=== PATIENT | female | born 1940 | race Caucasian/White ===

== ENCOUNTER 2016-12-25 18:27 | Inpatient (IN) | payer OTHER, BC ==
--- NOTE | 2016-12-25 19:28 | EDPHY ---
H & P Stated Complaint: Sent by PCP for psych eval. HPI/ROS: I attempted to evaluate this patient. However the patient says that she does not want to be evaluated by a PA. She says she wants to be "seen by a real physician." I discussed this calmly with her and explained the level of care that we provide. The patient has respectfully declined and requested physician. I informed her that I will let the physicians on duty know. I was unable to perform any physical exam on this patient and have no further information to provide. Source: Patient - Personal History Tetanus Vaccine Date: two years ago - Medical/Surgical History Hx Asthma: No Hx Chronic Respiratory Disease: No Hx Diabetes: No Hx Cardiac Disease: No Hx Renal Disease: No Hx Cirrhosis: No Hx Alcoholism: No Hx HIV/AIDS: No Hx Splenectomy or Spleen Trauma: No Other PMH: Psych-Psychosis/paranoid, major depression disorder. hypothyroid, BACK PROBLEMS, HYSTERECTOMY, GALL BLADDER, Hypertension, tremor - Social History Smoking Status: Former smoker Constitutional: Initial Vital Signs Temperature (C) 98.2 F 12/25/16 18:39 Heart Rate 77 12/25/16 18:39 Respiratory Rate 18 12/25/16 18:39 Blood Pressure 181/90 H 12/25/16 18:39 O2 Sat (%) 94 12/25/16 18:39 O2 Delivery Mode Room Air Allergies/Adverse Reactions: ephedrine [Ephedrine] Allergy (Severe, Verified 01/17/16 11:43) Vomiting morphine [Morphine] Allergy (Severe, Verified 01/17/16 11:43) Vomiting prednisone [Prednisone] Allergy (Severe, Verified 01/17/16 11:43) Other-Enter Comments prochlorperazine edisylate [From Compazine] Allergy (Verified 03/07/16 12:52) Swelling/neck,face,throat prochlorperazine maleate [From Compazine] Allergy (Verified 03/07/16 12:52) Swelling/neck,face,throat Sulfa (Sulfonamide Antibiotics) Allergy (Verified 01/17/16 11:43) Rash Home Medications: Medication Instructions Recorded Cholecalciferol (Vitamin D3) 5,000 unit PO DAILY 03/05/16 [Vitamin D3] Estradiol [Estradiol 1 MG (*)] 0.5 mg PO DAILY 03/05/16 Lisinopril [Zestril 30 mg] 30 mg PO DAILY 03/05/16 Bisacodyl [Bisacodyl (*)] 5 mg PO DAILY PRN #30 tab 03/29/16 Levothyroxine [Synthroid 25 mcg 25 mcg PO DAILY10 #30 tab 03/29/16 (*)] Venlafaxine Xr [Effexor Xr 75MG 75 mg PO DAILY #30 cap 03/29/16 (*)] Venlafaxine Xr [Effexor Xr] 150 mg PO DAILY #30 cap 03/29/16 risperiDONE [Risperdal 1mg (*)] 1 mg PO HS #30 tab 03/29/16
[2016-12-25 19:39] LABS: % IMMATURE GRANULYOCYTES 0.1 % (0.0-1.1); ABSOLUTE IMMATURE GRANULOCYTES 0.01 10^3/uL (0.00-0.10); ADD DIFF? NO; ADD MORPH? NO; ADD SCAN? NO; ATYPICAL LYMPHOCYTE FLAG 20 (0-99); FRAGMENT RBC FLAG 0 (0-99); HEMATOCRIT 42.9 % (38.0-47.0); HEMOGLOBIN 13.8 g/dL (12.6-16.3); LEFT SHIFT FLG 0 (0-99); LIPEMIA HEMOLYSIS FLAG 80 (0-99); MEAN CELL HEMOGLOBIN 28.6 pg (27.9-34.1); MEAN CELL HEMOGLOBIN CONCENTR. 32.2 g/dL (32.4-36.7); MEAN CELL VOLUME 88.8 fL (81.5-99.8); MEAN PLATELET VOLUME 9.4 fL (8.7-11.7); PLATELET CLUMPS FLAG 0 (0-99); PLATELET COUNT 211 10^3/uL (150-400); RED BLOOD CELL COUNT 4.83 10^6/uL (4.18-5.33); RED CELL DISTRIBUTION WIDTH 13.2 % (11.5-15.2)
[2016-12-25 19:43] LABS: COLOR YELLOW; LEUKOCYTE ESTERASE,URINE NEGATIVE (NEGATIVE); NITRITE,URINE NEGATIVE (NEGATIVE)
--- NOTE | 2016-12-25 19:45 | EDPHY ---
H & P <Laura Miller - Last Filed: 12/26/16 02:36> Stated Complaint: Sent by PCP for psych eval. Source: Patient Exam Limitations: No limitations - Personal History Tetanus Vaccine Date: two years ago - Medical/Surgical History Hx Asthma: No Hx Chronic Respiratory Disease: No Hx Diabetes: No Hx Cardiac Disease: No Hx Renal Disease: No Hx Cirrhosis: No Hx Alcoholism: No Hx HIV/AIDS: No Hx Splenectomy or Spleen Trauma: No Other PMH: Psych-Psychosis/paranoid, major depression disorder. hypothyroid, BACK PROBLEMS, HYSTERECTOMY, GALL BLADDER, Hypertension, tremor - Family History Significant Family History: No pertinent family hx - Social History Smoking Status: Former smoker Alcohol Use: Sober Drug Use: None <Malachi Glynn - Last Filed: 12/26/16 07:18> HPI/ROS: CHIEF COMPLAINT: Confusion and paranoia HISTORY OF PRESENT ILLNESS: Patient is a 76-year-old female whose psychiatrist Dr. Yanez sent her here today from her clinic to be evaluated. She felt that she may either be decompensating in her depression or have a urinary tract infection. The patient does complain of urinary frequency and incomplete emptying. She states that this does feel similar to UTIs she has had in the past. She is on Effexor and respridol and has been taking them faithfully. She denies suicidality. She is not sure why her doctor felt that she was confused. REVIEW OF SYSTEMS: Constitutional: denies: chills, fever, recent illness, recent injury EENTM: denies: blurred vision, double vision, nose congestion Respiratory: denies: cough, shortness of breath Cardiac: denies: chest pain, irregular heart rate, lightheadedness, palpitations Gastrointestinal/Abdominal: denies: abdominal pain, diarrhea, nausea, vomiting, blood streaked stools Genitourinary: denies: dysuria, frequency, hematuria, pain Musculoskeletal: denies: joint pain, muscle pain Skin: denies: lesions, rash, jaundice, bruising Neurological: denies: headache, numbness, paresthesia, tingling, dizziness, weakness Hematologic/Lymphatic: denies: blood clots, easy bleeding, easy bruising Immunologic/allergic: denies: HIV/AIDS, transplant EXAM: GENERAL: Well-appearing, well-nourished and in no acute distress. HEAD: Atraumatic, normocephalic. EYES: Pupils equal round and reactive to light, extraocular movements intact, sclera anicteric, conjunctiva are normal. ENT: TMs normal, nares patent, oropharynx clear without exudates. Moist mucous membranes. NECK: Normal range of motion, supple without lymphadenopathy or JVD. LUNGS: Breath sounds clear to auscultation bilaterally and equal. No wheezes rales or rhonchi. HEART: Regular rate and rhythm without murmurs, rubs or gallops. ABDOMEN: Soft, nontender, normoactive bowel sounds. No guarding, no rebound. No masses appreciated. BACK: No CVA tenderness, no spinal tenderness, step-offs or deformities EXTREMITIES: Normal range of motion, no pitting or edema. No clubbing or cyanosis. NEUROLOGICAL: Cranial nerves II through XII grossly intact. Normal speech, normal gait. 5/5 strength, normal movement in all extremities, normal sensation PSYCH: Depressed affect, answers questions appropriately, does not seem to be responding to external stimuli. SKIN: Warm, dry, normal turgor, no visible rashes or lesions. (Malachi Glynn) Constitutional: Initial Vital Signs Temperature (C) 36.8 C 12/25/16 18:39 Heart Rate 77 12/25/16 18:39 Respiratory Rate 18 12/25/16 18:39 Blood Pressure 181/90 H 12/25/16 18:39 O2 Sat (%) 94 12/25/16 18:39 O2 Delivery Mode Room Air Allergies/Adverse Reactions: ephedrine [Ephedrine] Allergy (Severe, Verified 01/17/16 11:43) Vomiting morphine [Morphine] Allergy (Severe, Verified 01/17/16 11:43) Vomiting prednisone [Prednisone] Allergy (Severe, Verified 01/17/16 11:43) Other-Enter Comments prochlorperazine edisylate [From Compazine] Allergy (Verified 03/07/16 12:52) Swelling/neck,face,throat prochlorperazine maleate [From Compazine] Allergy (Verified 03/07/16 12:52) Swelling/neck,face,throat Sulfa (Sulfonamide Antibiotics) Allergy (Verified 01/17/16 11:43) Rash Home Medications: Medication Instructions Recorded Cholecalciferol (Vitamin D3) 5,000 unit PO DAILY 03/05/16 [Vitamin D3] Estradiol [Estradiol 1 MG (*)] 0.5 mg PO DAILY 03/05/16 Lisinopril [Zestril 30 mg] 30 mg PO DAILY 03/05/16 Bisacodyl [Bisacodyl (*)] 5 mg PO DAILY PRN #30 tab 03/29/16 Levothyroxine [Synthroid 25 mcg 25 mcg PO DAILY10 #30 tab 03/29/16 (*)] Venlafaxine Xr [Effexor Xr 75MG 75 mg PO DAILY #30 cap 03/29/16 (*)] Venlafaxine Xr [Effexor Xr] 150 mg PO DAILY #30 cap 03/29/16 risperiDONE [Risperdal 1mg (*)] 1 mg PO HS #30 tab 03/29/16 Medical Decision Making - Diagnostics Imaging: Discussed imaging studies w/ bottle booth attendant Radiologist <Laura Miller - Last Filed: 12/26/16 02:36> <Malachi Glynn - Last Filed: 12/26/16 07:18> - Diagnostics Imaging Results: CT scan head without contrast demonstrates no acute disease, discussed with Dr. Mendoza of Radiology (Laura Miller) ED Course/Re-evaluation: 12:37 a.m.- The patient was evaluated by the mental health team after eating something. We have placed the patient on an M1 hold. The patient will require psychiatric placement for her current symptoms. She will likely be admitted to [address] [place] [address] later today. 2:37 a.m.- The patient has been accepted by Dr. Biggs at [address] [place] [address]. She was notably hypertensive, thus I have written for a dose of her usual lisinopril. CT scan was also performed showing no acute findings. (Laura Miller) 10:00 p.m. the patient is asking for food. She thinks that this may be what is causing her to be confused. 11:00 p.m. care transferred to Dr. Miller. We are awaiting evaluation and disposition. (Malachi Glynn) Differential Diagnosis: Partial list of the Differential diagnosis considered include but were not limited to; depression, confusion, psychosis, urinary tract infection, intoxication and although unlikely based on the history and physical exam, I also considered head injury, sepsis, dementia. (Malachi Glynn) - Data Points Laboratory Results: Laboratory Results 12/25/16 19:30 12/25/16 19:30 12/25/16 12/25/16 12/25/16 19:30 19:30 19:15 WBC 9.03 10^3/uL 10^3/uL (3.80-9.50) RBC 4.83 10^6/uL 10^6/uL (4.18-5.33) Hgb 13.8 g/dL g/dL (12.6-16.3) Hct 42.9 % % (38.0-47.0) MCV 88.8 fL fL (81.5-99.8) MCH 28.6 pg pg (27.9-34.1) MCHC 32.2 g/dL L g/dL (32.4-36.7) RDW 13.2 % % (11.5-15.2) Plt Count 211 10^3/uL 10^3/uL (150-400) MPV 9.4 fL fL (8.7-11.7) Neut % (Auto) 68.8 % % (39.3-74.2) Lymph % (Auto) 22.4 % % (15.0-45.0) [place] % (Auto) 8.1 % % (4.5-13.0) Eos % (Auto) 0.3 % L % (0.6-7.6) Baso % (Auto) 0.3 % % (0.3-1.7) Nucleat RBC Rel Count 0.0 % % (0.0-0.2) Absolute Neuts (auto) 6.21 10^3/uL 10^3/uL (1.70-6.50) Absolute Lymphs (auto) 2.02 10^3/uL 10^3/uL (1.00-3.00) Absolute Monos (auto) 0.73 10^3/uL 10^3/uL (0.30-0.80) Absolute Eos (auto) 0.03 10^3/uL 10^3/uL (0.03-0.40) Absolute Basos (auto) 0.03 10^3/uL 10^3/uL (0.02-0.10) Absolute Nucleated RBC 0.00 10^3/uL 10^3/uL (0-0.01) Immature Gran % 0.1 % % (0.0-1.1) Immature Gran # 0.01 10^3/uL 10^3/uL (0.00-0.10) Sodium 135 mEq/L mEq/L (134-144) Potassium 4.6 mEq/L mEq/L (3.5-5.2) Chloride 103 mEq/L mEq/L (97-110) Carbon Dioxide 17 mEq/l L mEq/l (22-31) Anion Gap 15 mEq/L mEq/L (8-16) BUN 17 mg/dL mg/dL (7-23) Creatinine 1.0 mg/dL mg/dL (0.6-1.0) Estimated GFR 54 Glucose 78 mg/dL mg/dL (70-100) Calcium 10.2 mg/dL mg/dL (8.5-10.4) Prealbumin 26.9 mg/dL mg/dL (17.6-36.0) Urine Color YELLOW Urine Appearance CLEAR Urine pH 6.0 (5.0-7.5) Ur Specific [place] 1.011 (1.002-1.030) Urine Protein NEGATIVE (NEGATIVE) Urine Ketones TRACE H (NEGATIVE) Urine Blood NEGATIVE (NEGATIVE) Urine Nitrate NEGATIVE (NEGATIVE) Urine Bilirubin NEGATIVE (NEGATIVE) Urine Urobilinogen NEGATIVE EU EU (0.2-1.0) Ur Leukocyte Esterase NEGATIVE (NEGATIVE) Urine Glucose NEGATIVE (NEGATIVE) Salicylates < 1.0 mg/dL L mg/dL (2.0-20.0) Urine Opiates Screen NEGATIVE (NEGATIVE) Acetaminophen < 10 mcg/mL L mcg/mL (10.0-30.0) Urine Barbiturates NEGATIVE (NEGATIVE) Ur Phencyclidine Scrn NEGATIVE (NEGATIVE) Ur Amphetamine Screen NEGATIVE (NEGATIVE) U Benzodiazepines Scrn NEGATIVE (NEGATIVE) Urine Cocaine Screen NEGATIVE (NEGATIVE) U Marijuana (THC) Screen NEGATIVE (NEGATIVE) Ethyl Alcohol < 10 mg/dL mg/dL (0-10) Medications Given: Discontinued Medications Acetaminophen (Tylenol) 1,000 mg PO EDNOW ONE Stop: 12/26/16 02:30 Last Admin: 12/26/16 02:35 Dose: 500 mg Lisinopril (Zestril) 30 mg PO EDNOW ONE Stop: 12/26/16 01:46 Last Admin: 12/26/16 02:05 Dose: 30 mg Risperidone (Risperdal) 1 mg PO EDNOW ONE Stop: 12/26/16 02:18 Last Admin: 12/26/16 02:29 Dose: 1 mg Departure <Laura Miller - Last Filed: 12/26/16 02:36> <Malachi Glynn - Last Filed: 12/26/16 07:18> - Departure Disposition: [facility] IP Clinical Impression: Depression Qualifiers: Depression Type: unspecified Qualified Code(s): F32.9 - Major depressive disorder, single episode, unspecified HTN (hypertension) Qualifiers: Hypertension type: essential hypertension Qualified Code(s): I10 - Essential ( primary) hypertension Condition: Fair
[2016-12-25 20:09] LABS: ANION GAP 15 mEq/L (8-16); CALCIUM 10.2 mg/dL (8.5-10.4); CARBON DIOXIDE 17 mEq/l (22-31); CHLORIDE 103 mEq/L (97-110); ETHANOL SERUM < 10 mg/dL (0-10); GLOMERULAR FILTRATION RATE 54; GLUCOSE 78 mg/dL (70-100); POTASSIUM 4.6 mEq/L (3.5-5.2); SALICYLATE < 1.0 mg/dL (2.0-20.0); SODIUM 135 mEq/L (134-144)
[2016-12-25 20:16] LABS: PREALBUMIN 26.9 mg/dL (17.6-36.0)
[2016-12-26] MEDS ORDERED: LISINOPRIL 20 MG TAB PO ONE (01:45)
[2016-12-26] MEDS ORDERED: risperiDONE 1 MG TAB PO ONE (02:17)
[2016-12-26] MEDS ORDERED: ACETAMINOPHEN 500 MG TAB PO ONE ×2 (02:29→02:35)
[2016-12-26] MEDS ORDERED: ACETAMINOPHEN 325 MG TAB PO PRN (03:27)
[2016-12-26] MEDS ORDERED: MAGNESIUM HYDROXIDE 30 ML UDCUP PO PRN (03:27)
[2016-12-26] MEDS ORDERED: MAG HYDROX/AL HYDROX/SIMETH 30 ML UDCUP PO PRN (03:27)
[2016-12-26] MEDS ORDERED: NS 1,000 ML IV ONE (07:59)
[2016-12-26] MEDS ORDERED: LIDOCAINE 2% 5 ML SDV ID ONE (07:59)
[2016-12-26] MEDS ORDERED: ONDANSETRON DISINTEGRATING 4 MG TAB PO ONE (07:59)
[2016-12-26] MEDS ORDERED: CITRIC ACID/SODIUM CITRATE 30 ML UDCUP PO ONE (07:59)
[2016-12-26] MEDS: VENLAFAXINE XR 150 MG CAP PO SCH ×2 (09:01→11:59)
[2016-12-26] MEDS: THEOPHYLLINE ORAL SOLUTION 80 MG/15 ML UDCUP PO ONE ×2 (11:54→12:55)
--- NOTE | 2016-12-26 14:08 | BCON ---
[f rep st] BEHAVIORAL HEALTH CONSULTATION INTERNAL MEDICINE CONSULTATION DATE OF CONSULTATION: 12/26/2016 REFERRING PHYSICIAN: Kaylee Biggs MD REASON FOR CONSULTATION: Medical clearance for inpatient behavioral health stay. HISTORY OF PRESENT ILLNESS: The patient was referred to the emergency department by her psychiatrist for evaluation regarding depression. Urinary tract infection was also a consideration. Per the emergency department note, the patient had complained of urinary frequency and incomplete emptying. She was evaluated by the mental health team and had laboratory evaluation per the emergency department. Urinalysis was normal but for trace ketones and she was admitted for further psychiatric care. Currently, she complains of feeling hot and she says that her right elbow feels uncomfortable against the bed sheets. PAST MEDICAL HISTORY: 1. Hypertension. 2. Chronic kidney disease stage 3. 3. Essential tremor. 4. Depression and anxiety. 5. Postmenopausal state on estrogen replacement. 6. Colonic adenomatous polyposis. PAST SURGICAL HISTORY: 1. Cholecystectomy. 2. Appendectomy. 3. Colonoscopy x2 regarding the colonic polyposis. MEDICATIONS: Prior to admission: 1. Risperidone 1 mg p.o. q.h.s. 2. Venlafaxine XR 225 mg p.o. q. day. 3. Lisinopril 30 mg p.o. q. day. 4. Levothyroxine 25 mcg p.o. q. day. 5. Estradiol 0.5 mg p.o. q. day. 6. Cholecalciferol 5000 units p.o. q. day. 7. Bisacodyl 5 mg p.o. q. day p.r.n. ALLERGIES: Listed to ephedrine, morphine, prednisone, prochlorperazine, and sulfa antibiotics. SOCIAL HISTORY: She lives alone. She reports she has had a boyfriend recently. She has support from friends as well as local adult children. She is a former smoker. She does not use alcohol. FAMILY HISTORY: Noncontributory. REVIEW OF SYSTEMS: Other than as in HPI, a 10-point review of systems was negative. PHYSICAL EXAM: VITAL SIGNS: Blood pressure was 162/74 today at 3:45 a.m., heart rate was 75, respiratory rate was 14, oxygen saturation was 93% on room air, temperature was 36.7 degrees centigrade. Her weight is 65.8 kg for a body mass index of 22. GENERAL: This is a well-nourished, well-developed woman, appears her chronologic age. Cooperative and in no acute distress with markedly slow processing. HEENT: Extraocular movements are intact. Pupils are equal, round, and reactive to light. Mucous membranes are moist. Dentition is in good condition. NECK: Supple. HEART: There is a regular rate and rhythm with no murmurs, rubs, or gallops. LUNGS: Clear to auscultation bilaterally. ABDOMEN: Soft, nontender, nondistended with normoactive bowel sounds. EXTREMITIES: There is no cyanosis, clubbing, or edema. Radial and dorsalis pedis pulses are 2+ bilaterally. NEUROLOGIC: She is alert and oriented x3. She has slow processing with delayed responses to questions. Cranial nerves 2-12 are grossly intact. There is no focal weakness. Sensation is intact to light touch. She has a resting tremor of the upper extremities and head. LABORATORY STUDIES: Drawn in the emergency department: CBC was overall within normal limits but for a slightly low mean cellular hemoglobin concentration of 32.2 of no clinical significance. Additionally, she had a relative decrement of eosinophils at 0.03. Serum chemistry revealed a slightly low carbon dioxide at 17. Otherwise renal function, electrolytes and pre-albumin were within normal limits. Urinalysis revealed trace ketones. Otherwise urinalysis was normal. Toxicology screen in the serum was negative for salicylates, acetaminophen or ethyl alcohol. Toxicology screen in the urine was negative for any substances of abuse. ASSESSMENT/RECOMMENDATIONS: 1. Psychiatric issues pending further evaluation and management per Psychiatry and the mental health team. 2. Hypertension. On her previous inpatient stay last year in the summer, she had adequate blood pressure control on lisinopril. Blood pressure is significantly elevated. I have added amlodipine 5 mg QHS. Continue to monitor. 3. Postmenopausal. Her feeling hot and with irritation to the skin today may be due to postmenopausal symptoms as she has not received her hormone replacement today. Advise continuing estradiol. 4. Essential tremor. Per chart review, she was previously treated with primidone but this is not on her home medication list. If blood pressure persists elevated, consider adding propranolol which would both help blood pressure and help the tremor and consider avoiding medications which could worsen tremor. 5. Hypothyroidism. She had a normal TSH in October. Continue current thyroid replacement. 6. Chronic kidney disease stage 3. Her creatinine was normal but estimated GFR was 54, consistent with mild chronic kidney disease. 7. Urinary frequency with a normal urinalysis but for ketones which might indicate reduced nutrition in recent days. I will order a bladder scan to determine whether or not there is a component of urinary retention which could be contributing. I see no medical contraindications to the patient's continued stay on the inpatient behavioral health unit or to any psychiatric medications or procedures. Thank you very much for including me in the care of this patient, and please do not hesitate to contact me or the hospitalist service should there be need for further medical evaluation. /[id number]/MODL MTDD
--- NOTE | 2016-12-26 16:23 | BAPA ---
[f rep st] ADMISSION PSYCHIATRIC ASSESSMENT DATE OF SERVICE: 12/26/2016 REASON FOR ADMISSION: Patient is a 76-year-old female with a history of severe recurrent major depression with psychosis. She is known to me from previous inpatient and outpatient treatmen ts. She presented to the emergency department on referral from her outpatient psychiatrist, Dr. Bill Bhatti, after he saw her in his office earlier in the day. He noted her to be more depressed and acutely paranoid. She believed that the staff at the facility in which she lives are spying on her and talking about her behind her back. These are familiar paranoid delusions that she develops when she is becoming depressed. She also believes that the staff here at the hospital are not who they say they are and that we are actors pretending to be the people we are impersonating. She believes that she was brought here for us to do medical experiments on her brain and is refusing all necessar y treatments. She has a history of very similar symptoms in the past when she is depressed, and the se symptoms came on full force in the last week. She presented last week for an ECT treatment and r eports 1 episode of mild paranoia that lasted only about an hour. She was treated, felt better, and then over the course of the next week precipitously declined. Communication from her daughter evangelist cated that she also believes she was falling into a paranoid psychosis. Today, the patient is minimally communicative, states that I am not real and that I am an actor and I am trying to harm or kill her. She refused medications and refuses ECT treatment. PAST PSYCHIATRIC HISTORY: Significant for numerous previous psychiatric hospitalizations, with 5 in the last 2-1/2 years. She was last at this facility from 03/05/2016 to 03/29/2016 and has been und ergoing outpatient maintenance ECT since that time. She had been relatively stable and actually was doing very well over the last 3 months before this recent decline. ALLERGIES: Ephedrine, morphine, prednisone, prochlorperazine. PAST MEDICAL HISTORY: Significant for hypothyroidism and essential tremor. SOCIAL HISTORY: Patient has been twice. Currently lives in assisted living facility in [facility]. She has 2 daughters who live in [place] and are her primary supports. 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 She has no significant bailey bstance use history. FAMILY HISTORY: Shows extensive depression and suicide. Her brother, father, paternal uncle, son, and 2 daughters have all suffered from depression, and her son, brother, and uncle all committed gabi cide. She has a first cousin with bipolar disorder. ADMISSION LABORATORY: CBC is normal. Serum chemistries are normal. Urinalysis shows no evidence o f infection. Urine drug screen is negative for all substances. Alcohol is less than detectable. MENTAL STATUS EXAMINATION: Reveals an unkempt female dressed in hospital garb. She is no rmally very neatly groomed and dressed. She is guarded and paranoid, staring at me angrily and spea mary rarely. She repeats that I am not Dr. Ayala as I am not wearing the same glasses I usually d o, although I am. She states that I want to do "brain experiments" and that I want to kill her. Sh e demonstrates significant psychomotor retardation. Her affect is constricted, dysphoric, irritable , stable. Her mood is described as "terrible." Her thought process is disorganized. Her thought c ontent reveals paranoid and persecutory ideations and ideas of reference. She will not answer quest ions in regard to suicide. She is alert and oriented to person, place, time, and situation, though her attention and concentration are poor. There is no evidence of delirium. Her intellect is above average, as evidenced by her educational and occupational history, fund of knowledge, and vocabular y. Her current insight and judgment are very poor. IMPRESSION: 1. Major depressive disorder, recurrent, severe, with psychosis. 2. Recurrent illness, chronic illness. 3. Hypothyroidism. 4. Tremor. The patient is a 76-year-old female who has severe and brittle major depression. She new client banking services clerk hed precipitously over the last week despite ongoing medication and ECT treatments. She is currentl y depressed and psychotic and needs to do an acute course of ECT as medications alone have shown to be ineffective in the past. She is currently refusing medications and ECT, however, due to her acut e psychosis. For this reason, we will place her on a short-term certification and petition the cour t for involuntary ECT treatment. Estimated length of stay is 14 days. /[id number]/MODL
[2016-12-26] MEDS: risperiDONE 1 MG TAB PO SCH (21:51)
[2016-12-26] MEDS: amLODIPine BESYLATE 5 MG TAB PO SCH (21:52)
[2016-12-27] MEDS ORDERED: ESTRADIOL 1 MG TAB PO SCH (10:15)
[2016-12-27] MEDS ORDERED: NON-FORMULARY NEW DRUG (Lisinopril [Zestril 30 Mg] 30 MG) PO SCH (10:15)
[2016-12-27] MEDS ORDERED: NON-FORMULARY NEW DRUG (Cholecalciferol (Vitamin D3) [Vitamin D3] 5,000 UNIT) PO SCH (10:15)
[2016-12-27] MEDS: LISINOPRIL 10 MG TAB PO SCH (11:38)
[2016-12-27] MEDS: LEVOTHYROXINE 25 MCG TAB PO SCH (11:39)
[2016-12-27] MEDS: VENLAFAXINE XR 150 MG CAP PO SCH (11:40)
[2016-12-27] MEDS: CHOLECALCIFEROL VIT D3 2,000 UNITS TAB/CAP PO SCH (11:41)
--- NOTE | 2016-12-27 17:42 | SOAPPROG ---
SOJEAN Progress Note Assessment/Plan: Assessment: Plan: 12/27/16 17:40 Acute psychosis has ebbed. She is currently able to provide informed consent for treatment including ECT. Will proceed tomorrow as long as she doesn't regress. Subjective: Pt seen, discussed with staff. Much more reasonable today. Was able to talk to her daughter Magy who was grounding. She now states, "I was really paranoid yesterday. I can't believe I thought you were trying to hurt me. I'm just so afraid." We discussed at length her illness and need for treatment including ECT. she states she is interested in doing ECT tomorrow and knows that she needs it. She no longer believes we are trying to harm her. She remains very anxious, though able to interact appropriately with staff and fellow patients. She ate breakfast with a patient who is receiving ECT and was encouraged by this interaction. Objective: Vital Signs Temp Pulse Resp BP Pulse Ox 36.4 C 77 15 133/65 H 95 12/27/16 04:11 12/27/16 04:11 12/27/16 04:11 12/27/16 04:11 12/27/16 04:11 - Time Spent With Patient Time Spent With Patient: 25" - Pending Discharge Pending Discharge Within 24 Hours: No Pending Discharge Within 48 Hours: No ICD10 Worksheet Patient Problems: Problems Problem Status Onset Depression Acute HTN (hypertension) Acute Major depressive disorder, recurrent episode, severe, with psychosis Acute
[2016-12-27] MEDS: amLODIPine BESYLATE 5 MG TAB PO SCH (21:18)
[2016-12-27] MEDS: ESTRADIOL 0.5 MG TAB PO SCH (22:00)
[2016-12-27] MEDS: risperiDONE 1 MG TAB PO SCH (22:00)
[2016-12-28] MEDS: LEVOTHYROXINE 25 MCG TAB PO SCH (06:17)
[2016-12-28] MEDS: LISINOPRIL 10 MG TAB PO SCH (06:17)
[2016-12-28] MEDS: CHOLECALCIFEROL VIT D3 2,000 UNITS TAB/CAP PO SCH (12:26)
[2016-12-28] MEDS: VENLAFAXINE XR 150 MG CAP PO SCH (12:27)
--- NOTE | 2016-12-28 14:43 | SOAPPROG ---
SOAP Progress Note Assessment/Plan: Assessment: Plan: 12/27/16 17:40 Acute psychosis has ebbed. She is currently able to provide informed consent for treatment including ECT. Will proceed tomorrow as long as she doesn't regress. 12/28/16 14:42 Remains psychotically depressed. CCM including ECT. Subjective: Pt seen, discussed with staff. Remains paranoid with lots of negative perseverations. Underwent bilateral ECT this morning without complication after exhaustive review of consent. Able to provide informed consent despite her paranoia. Compliant with meds. Objective: Vital Signs Temp Pulse Resp BP Pulse Ox 36.6 C 62 12 136/63 H 96 12/28/16 12:26 12/28/16 12:26 12/28/16 12:26 12/28/16 12:26 12/28/16 12:26 MSE: Agitated, anxious, irritable. Affect is constricted, dysphoric, stable. Mood is "terrible." TP linear though perseverative. TC reveals paranoia, worried we are actors at times. - Time Spent With Patient Time Spent With Patient: 35" - Pending Discharge Pending Discharge Within 48 Hours: No ICD10 Worksheet Patient Problems: Problems Problem Status Onset Depression Acute HTN (hypertension) Acute Major depressive disorder, recurrent episode, severe, with psychosis Acute
[2016-12-28] MEDS: risperiDONE 1 MG TAB PO SCH (22:48)
[2016-12-28] MEDS: ESTRADIOL 0.5 MG TAB PO SCH (22:48)
[2016-12-28] MEDS: amLODIPine BESYLATE 5 MG TAB PO SCH ×2 (22:48→22:54)
[2016-12-29] MEDS: LISINOPRIL 10 MG TAB PO SCH (08:26)
[2016-12-29] MEDS: VENLAFAXINE XR 150 MG CAP PO SCH (08:27)
[2016-12-29] MEDS: VENLAFAXINE XR 75 MG CAP PO SCH (08:27)
[2016-12-29] MEDS: CHOLECALCIFEROL VIT D3 2,000 UNITS TAB/CAP PO SCH (08:28)
[2016-12-29] MEDS: LEVOTHYROXINE 25 MCG TAB PO SCH (08:32)
--- NOTE | 2016-12-29 12:17 | SOAPPROG ---
SOAP Progress Note Assessment/Plan: Assessment: Plan: 12/29/16 12:09 DAY ' UPDATE/EXAM: 76 yo WF with known chronic h/o recurrent TRD; last stabilized with acute ECT course 03/05/16 - and followed up wiTH maintenance ECT but more experienced brkthru deressive sx of progressive intensity leading to current admission; has had first ECT 12/28 WITH RX # 2 12/31; c/w cares and meds per Nursing report; on exam is dysphoric, flat, but engageable, no overt psychosis and denies SI; + about family visiting over weekend. ASSESSMENT/PLAN: residual depressive acuity and cooperating with early ECT acute course intervention/ no change in meds and management d/w Nursing in Rounds; will change Synthroid dosing to q AM Objective: Vital Signs Temp Pulse Resp BP Pulse Ox 36.6 C 14 L 14 111/53 L 93 12/29/16 07:52 12/29/16 07:52 12/29/16 07:52 12/29/16 07:52 12/29/16 07:52 ICD10 Worksheet Patient Problems: Problems Problem Status Onset Depression Acute HTN (hypertension) Acute Major depressive disorder, recurrent episode, severe, with psychosis Acute
[2016-12-29] MEDS: amLODIPine BESYLATE 5 MG TAB PO SCH (20:56)
[2016-12-29] MEDS: ESTRADIOL 0.5 MG TAB PO SCH (22:14)
[2016-12-29] MEDS: risperiDONE 1 MG TAB PO SCH (22:14)
[2016-12-30] MEDS: LEVOTHYROXINE 25 MCG TAB PO SCH (05:48)
[2016-12-30] MEDS: CHOLECALCIFEROL VIT D3 2,000 UNITS TAB/CAP PO SCH (08:32)
[2016-12-30] MEDS: VENLAFAXINE XR 150 MG CAP PO SCH (08:34)
[2016-12-30] MEDS: VENLAFAXINE XR 75 MG CAP PO SCH (08:34)
[2016-12-30] MEDS: LISINOPRIL 10 MG TAB PO SCH (08:36)
--- NOTE | 2016-12-30 13:08 | SOAPPROG ---
SOAP Progress Note Assessment/Plan: Assessment: Plan: 12/29/16 12:09 DAY UPDATE/EXAM: 76 yo WF with known chronic h/o recurrent TRD; last stabilized with acute ECT course 03/05/16 - and followed up with maintenance ECT but more experienced brkthru depressive sx of progressive intensity leading to current admission; has had first ECT 12/28 WITH RX # 2 12/31; c/w cares and meds per Nursing report; on exam is dysphoric, flat, but engageable, no overt psychosis and denies SI; + about family visiting over weekend. ASSESSMENT/PLAN: residual depressive acuity and cooperating with early ECT acute course intervention/ no change in meds and management d/w Nursing in Rounds; will change Synthroid dosing to q AM 12/30/16 13:01 DAY UPDATE/EXAM: Nursing reports pt is c/w cares and meds , remains in control, isolative and quiet; would not respond to CC yesterday/ more verbal with me on direct contact; again flat and dysphoric, nonpsychotic and denies SI; does express awareness of ECT responsiveness historically and hopeful of responding again, aware of rx #2 tomorrow; responsive to reintegratrive inputs during the session. ASSESSMENT/PLAN: little change in mental status today as referenced yesterday - c/w residual depressive acuity/ continue current meds and management plan; ECT # 2 tomorrow Objective: Vital Signs Temp Pulse Resp BP Pulse Ox 36.6 C 14 L 14 111/53 L 93 12/29/16 07:52 12/29/16 07:52 12/29/16 07:52 12/30/16 08:36 12/29/16 07:52 ICD10 Worksheet Patient Problems: Problems Problem Status Onset Depression Acute HTN (hypertension) Acute Major depressive disorder, recurrent episode, severe, with psychosis Acute
[2016-12-30] MEDS: risperiDONE 1 MG TAB PO SCH ×4 (20:41→23:12)
[2016-12-30] MEDS: ESTRADIOL 0.5 MG TAB PO SCH ×4 (20:41→23:07)
[2016-12-30] MEDS: amLODIPine BESYLATE 5 MG TAB PO SCH ×2 (20:41→22:19)
[2016-12-30] MEDS ORDERED: THEOPHYLLINE ORAL SOLUTION 80 MG/15 ML UDCUP PO ONE (22:33)
[2016-12-30] MEDS ORDERED: LIDOCAINE 2% 5 ML SDV ID ONE (22:33)
[2016-12-30] MEDS ORDERED: NS 1,000 ML IV ONE (22:33)
[2016-12-30] MEDS ORDERED: ONDANSETRON DISINTEGRATING 4 MG TAB PO ONE (22:33)
[2016-12-30] MEDS ORDERED: CITRIC ACID/SODIUM CITRATE 30 ML UDCUP PO ONE (22:33)
[2016-12-31] MEDS: amLODIPine BESYLATE 5 MG TAB PO SCH ×2 (04:49→23:12)
[2016-12-31] MEDS: THEOPHYLLINE ORAL SOLUTION 80 MG/15 ML UDCUP PO ONE ×2 (04:49→05:15)
[2016-12-31] MEDS: LISINOPRIL 10 MG TAB PO SCH ×2 (04:58→09:20)
[2016-12-31] MEDS: LEVOTHYROXINE 25 MCG TAB PO SCH ×2 (05:00→09:20)
--- NOTE | 2016-12-31 08:02 | SOAPPROG ---
SOAP Progress Note Assessment/Plan: Assessment: Plan: 12/29/16 12:09 DAY UPDATE/EXAM: 76 yo WF with known chronic h/o recurrent TRD; last stabilized with acute ECT course 03/05/16 - and followed up with maintenance ECT but more experienced brkthru depressive sx of progressive intensity leading to current admission; has had first ECT 12/28 WITH RX # 2 12/31; c/w cares and meds per Nursing report; on exam is dysphoric, flat, but engageable, no overt psychosis and denies SI; + about family visiting over weekend. ASSESSMENT/PLAN: residual depressive acuity and cooperating with early ECT acute course intervention/ no change in meds and management d/w Nursing in Rounds; will change Synthroid dosing to q AM 12/30/16 13:01 DAY ' UPDATE/EXAM: Nursing reports pt is c/w cares and meds , remains in control, isolative and quiet; would not respond to CC yesterday/ more verbal with me on direct contact; again flat and dysphoric, nonpsychotic and denies SI; does express awareness of ECT responsiveness historically and hopeful of responding again, aware of rx #2 tomorrow; responsive to reintegrative inputs during the session. ASSESSMENT/PLAN: little change in mental status today as referenced yesterday - c/w residual depressive acuity/ continue current meds and management plan; ECT # 2 tomorrow Objective: Vital Signs Temp Pulse Resp BP Pulse Ox 36.3 C 63 14 124/58 H 93 12/30/16 18:59 12/31/16 00:30 12/31/16 00:30 12/31/16 00:30 12/31/16 00:30 ICD10 Worksheet Patient Problems: Problems Problem Status Onset Depression Acute HTN (hypertension) Acute Major depressive disorder, recurrent episode, severe, with psychosis Acute
[2016-12-31] MEDS: CHOLECALCIFEROL VIT D3 2,000 UNITS TAB/CAP PO SCH (09:20)
[2016-12-31] MEDS: VENLAFAXINE XR 150 MG CAP PO SCH (09:21)
[2016-12-31] MEDS: VENLAFAXINE XR 75 MG CAP PO SCH (09:21)
[2016-12-31] MEDS: ESTRADIOL 0.5 MG TAB PO SCH (23:11)
[2016-12-31] MEDS: risperiDONE 1 MG TAB PO SCH (23:11)
[2017-01-01] MEDS: VENLAFAXINE XR 150 MG CAP PO SCH (10:08)
[2017-01-01] MEDS: CHOLECALCIFEROL VIT D3 2,000 UNITS TAB/CAP PO SCH (10:09)
[2017-01-01] MEDS: VENLAFAXINE XR 75 MG CAP PO SCH (10:09)
[2017-01-01] MEDS: LEVOTHYROXINE 25 MCG TAB PO SCH ×2 (10:11→10:34)
[2017-01-01] MEDS: LISINOPRIL 10 MG TAB PO SCH (10:18)
--- NOTE | 2017-01-01 14:31 | SOAPPROG ---
SOJEAN Progress Note Assessment/Plan: Assessment: Plan: 12/27/16 17:40 Acute psychosis has ebbed. She is currently able to provide informed consent for treatment including ECT. Will proceed tomorrow as long as she doesn't regress. 12/28/16 14:42 Remains psychotically depressed. CCM including ECT. 01/01/17 14:31 Remains psychotically depressed. CCM. Subjective: LATE ENTRY FOR 12/31/16 Pt seen, discussed with staff. Remains paranoid and guarded. Asks many questions before treatment today, mostly about whether "you know what you're doing?" Underwent bilateral ECT without complication. Objective: Vital Signs Temp Pulse Resp BP Pulse Ox 36.4 C 72 12 142/77 H 96 01/01/17 13:59 01/01/17 13:59 01/01/17 13:59 01/01/17 13:59 01/01/17 13:59 MSE: Guarded, hostile. Affect is constricted, dysphoric, irritable. Mood is "depressed." TP linear for brief periods. TC reveals paranoia, IOR's. - Time Spent With Patient Time Spent With Patient: 35" - Pending Discharge Pending Discharge Within 24 Hours: No Pending Discharge Within 48 Hours: No ICD10 Worksheet Patient Problems: Problems Problem Status Onset Depression Acute HTN (hypertension) Acute Major depressive disorder, recurrent episode, severe, with psychosis Acute
--- NOTE | 2017-01-01 14:35 | SOAPPROG ---
RANDALL Progress Note Assessment/Plan: Assessment: Plan: 12/27/16 17:40 Acute psychosis has ebbed. She is currently able to provide informed consent for treatment including ECT. Will proceed tomorrow as long as she doesn't regress. 12/28/16 14:42 Remains psychotically depressed. CCM including ECT. 01/01/17 14:31 Remains psychotically depressed. CCM. 01/01/17 14:35 No real change. CCM. Subjective: Pt seen, discussed with staff. Reports feeling "terrible." States, "none of this is even real." Voices numerous concerns about the quality of care, competence of myself and staff and treatment. She perseverates on how absurd it is to call black coffee a clear liquid and uses this as evidence of our overall incompetence. Remains paranoid, afraid that she is not safe and that we are not providing the treatments we say we are. "These aren't even real. You just put me to sleep and then wake me up. You dont even do anything." Objective: Vital Signs Temp Pulse Resp BP Pulse Ox 36.4 C 72 12 142/77 H 96 01/01/17 13:59 01/01/17 13:59 01/01/17 13:59 01/01/17 13:59 01/01/17 13:59 MSE: Hostile, guarded, paranoid. Affect is constricted, irritable. Mood is "depressed." TP perseverative, disorganized at times. TC reveals continued paranoia, IOR's. - Time Spent With Patient Time Spent With Patient: 25" - Pending Discharge Pending Discharge Within 24 Hours: No Pending Discharge Within 48 Hours: No ICD10 Worksheet Patient Problems: Problems Problem Status Onset Depression Acute HTN (hypertension) Acute Major depressive disorder, recurrent episode, severe, with psychosis Acute
[2017-01-01] MEDS: amLODIPine BESYLATE 5 MG TAB PO SCH (21:46)
[2017-01-01] MEDS: ESTRADIOL 0.5 MG TAB PO SCH (22:54)
[2017-01-01] MEDS: risperiDONE 1 MG TAB PO SCH (22:54)
[2017-01-02] MEDS ORDERED: THEOPHYLLINE ORAL SOLUTION 80 MG/15 ML UDCUP ONE (05:34)
[2017-01-02] MEDS ORDERED: PROMETHAZINE HCL 25 MG TAB ONE ×2 (05:57→06:31)
[2017-01-02] MEDS ORDERED: ONDANSETRON DISINTEGRATING 4 MG TAB ONE ×2 (05:57→06:31)
[2017-01-02] MEDS ORDERED: CITRIC ACID/SODIUM CITRATE 30 ML UDCUP ONE ×2 (05:57→06:31)
[2017-01-02] MEDS: LISINOPRIL 10 MG TAB PO SCH (06:18)
[2017-01-02] MEDS: LEVOTHYROXINE 25 MCG TAB PO SCH (06:18)
[2017-01-02] MEDS: VENLAFAXINE XR 150 MG CAP PO SCH (09:30)
[2017-01-02] MEDS: CHOLECALCIFEROL VIT D3 2,000 UNITS TAB/CAP PO SCH (09:30)
[2017-01-02] MEDS: VENLAFAXINE XR 75 MG CAP PO SCH (09:30)
--- NOTE | 2017-01-02 14:16 | SOAPPROG ---
SOAP Progress Note Assessment/Plan: Assessment: Plan: 12/27/16 17:40 Acute psychosis has ebbed. She is currently able to provide informed consent for treatment including ECT. Will proceed tomorrow as long as she doesn't regress. 12/28/16 14:42 Remains psychotically depressed. CCM including ECT. 01/01/17 14:31 Remains psychotically depressed. CCM. 01/01/17 14:35 No real change. CCM. 01/02/17 14:15 Remains severely ill. CCM. Subjective: Pt seen, discussed with staff. Irritable and paranoid this morning. Compliant with treatments, though refused BDI, MMSE and theophylline. Underwent bilateral ECT without complication. Objective: Vital Signs Temp Pulse Resp BP Pulse Ox 36.6 C 65 12 105/53 L 98 01/02/17 12:39 01/02/17 12:39 01/02/17 12:39 01/02/17 12:39 01/02/17 12:39 MSE: Irritable, minimally interactive. Affect is o/w constricted, dysphoric. Mood is "depressed." TP linear, though abbreviated. TC reveals continued paranoid thoughts and negative perseverations. - Time Spent With Patient Time Spent With Patient: 35" - Pending Discharge Pending Discharge Within 24 Hours: No ICD10 Worksheet Patient Problems: Problems Problem Status Onset Depression Acute HTN (hypertension) Acute Major depressive disorder, recurrent episode, severe, with psychosis Acute
[2017-01-02] MEDS: amLODIPine BESYLATE 5 MG TAB PO SCH (22:43)
[2017-01-02] MEDS: ESTRADIOL 0.5 MG TAB PO SCH (22:49)
[2017-01-02] MEDS: risperiDONE 1 MG TAB PO SCH (22:50)
[2017-01-03] MEDS: LEVOTHYROXINE 25 MCG TAB PO SCH (06:21)
[2017-01-03] MEDS: LISINOPRIL 10 MG TAB PO SCH (08:14)
[2017-01-03] MEDS: CHOLECALCIFEROL VIT D3 2,000 UNITS TAB/CAP PO SCH (08:14)
[2017-01-03] MEDS: VENLAFAXINE XR 150 MG CAP PO SCH (08:15)
[2017-01-03] MEDS: VENLAFAXINE XR 75 MG CAP PO SCH (08:16)
--- NOTE | 2017-01-03 16:37 | SOAPPROG ---
SOJEAN Progress Note Assessment/Plan: Assessment: Plan: 12/27/16 17:40 Acute psychosis has ebbed. She is currently able to provide informed consent for treatment including ECT. Will proceed tomorrow as long as she doesn't regress. 12/28/16 14:42 Remains psychotically depressed. CCM including ECT. 01/01/17 14:31 Remains psychotically depressed. CCM. 01/01/17 14:35 No real change. CCM. 01/02/17 14:15 Remains severely ill. CCM. 01/03/17 16:35 Remains psychotically depressed. CCM. ECT tomorrow. Subjective: Pt seen, discussed with staff. Disheveled, minimally communicative. REmains paranoid, questioning staff ab out her meds, etc. Also remains irritable. Slept well last night, around eight hours. Objective: Vital Signs Temp Pulse Resp BP Pulse Ox 36.4 C 69 14 169/79 H 97 01/03/17 08:00 01/03/17 08:00 01/03/17 08:00 01/03/17 08:00 01/03/17 08:00 MSE: Marked psychomotor retardation. Affect is constricted, irritable. Mood is "terrible." TP abbreviated. TC reveals marked poverty of thought, paranoia. - Time Spent With Patient Time Spent With Patient: 15" - Pending Discharge Pending Discharge Within 24 Hours: No Pending Discharge Within 48 Hours: No ICD10 Worksheet Patient Problems: Problems Problem Status Onset Depression Acute HTN (hypertension) Acute Major depressive disorder, recurrent episode, severe, with psychosis Acute
[2017-01-03] MEDS: risperiDONE 1 MG TAB PO SCH (22:01)
[2017-01-03] MEDS: amLODIPine BESYLATE 5 MG TAB PO SCH ×2 (22:02→22:57)
[2017-01-03] MEDS: ESTRADIOL 0.5 MG TAB PO SCH (22:02)
[2017-01-04] MEDS ORDERED: CITRIC ACID/SODIUM CITRATE 30 ML UDCUP PO ONE (04:00)
[2017-01-04] MEDS ORDERED: ONDANSETRON DISINTEGRATING 4 MG TAB PO ONE (04:00)
[2017-01-04] MEDS ORDERED: LIDOCAINE 2% 5 ML SDV ID ONE (04:00)
[2017-01-04] MEDS ORDERED: NS 1,000 ML IV ONE (04:00)
[2017-01-04] MEDS: LISINOPRIL 10 MG TAB PO SCH (06:47)
[2017-01-04] MEDS: LEVOTHYROXINE 25 MCG TAB PO SCH (06:48)
[2017-01-04] MEDS: VENLAFAXINE XR 150 MG CAP PO SCH (10:21)
[2017-01-04] MEDS: CHOLECALCIFEROL VIT D3 2,000 UNITS TAB/CAP PO SCH (10:21)
[2017-01-04] MEDS: VENLAFAXINE XR 75 MG CAP PO SCH (10:21)
--- NOTE | 2017-01-04 13:29 | SOAPPROG ---
RANDALL Progress Note Assessment/Plan: Assessment: Plan: 12/27/16 17:40 Acute psychosis has ebbed. She is currently able to provide informed consent for treatment including ECT. Will proceed tomorrow as long as she doesn't regress. 12/28/16 14:42 Remains psychotically depressed. CCM including ECT. 01/01/17 14:31 Remains psychotically depressed. CCM. 01/01/17 14:35 No real change. CCM. 01/02/17 14:15 Remains severely ill. CCM. 01/03/17 16:35 Remains psychotically depressed. CCM. ECT tomorrow. 01/04/17 13:25 Much improved today. CCM. Case reviewed with Dr. Bhatti. Will change Risperdal to Rexulti. The risks, benefits and alternatives of this are reviewed with patient and she is agreeable. Asks insightful question including what class of drug it is. Subjective: Pt seen, discussed with staff. Reports feeling "better" today. Affect is brighter, less irritable. Clearly less paranoid. Smiling and interacting on unit and in ECT. Underwent ECT without complication this morning. Objective: Vital Signs Temp Pulse Resp BP Pulse Ox 36.9 C 64 16 93/44 L 100 01/04/17 09:19 01/04/17 11:58 01/04/17 11:58 01/04/17 11:58 01/04/17 11:58 MSE: Calmer, brighter. Affect is much better, smiling. Mood is "better." TP linear. TC reveals no obvious paranoia or other evidence of psychosis. - Time Spent With Patient Time Spent With Patient: 35" - Pending Discharge Pending Discharge Within 24 Hours: No Pending Discharge Within 48 Hours: No ICD10 Worksheet Patient Problems: Problems Problem Status Onset Depression Acute HTN (hypertension) Acute Major depressive disorder, recurrent episode, severe, with psychosis Acute
[2017-01-04] MEDS: amLODIPine BESYLATE 5 MG TAB PO SCH (21:38)
[2017-01-04] MEDS: ESTRADIOL 0.5 MG TAB PO SCH (22:53)
[2017-01-04] MEDS: BREXPIPRAZOLE 1 MG TAB PO SCH (22:53)
[2017-01-05] MEDS: LEVOTHYROXINE 25 MCG TAB PO SCH (06:10)
[2017-01-05] MEDS: LISINOPRIL 10 MG TAB PO SCH (06:10)
[2017-01-05] MEDS: CHOLECALCIFEROL VIT D3 2,000 UNITS TAB/CAP PO SCH (09:07)
[2017-01-05] MEDS: VENLAFAXINE XR 75 MG CAP PO SCH (09:09)
[2017-01-05] MEDS: VENLAFAXINE XR 150 MG CAP PO SCH (09:10)
[2017-01-05] MEDS: amLODIPine BESYLATE 5 MG TAB PO SCH (22:43)
[2017-01-05] MEDS: BREXPIPRAZOLE 1 MG TAB PO SCH (22:53)
[2017-01-05] MEDS: ESTRADIOL 0.5 MG TAB PO SCH (22:53)
--- NOTE | 2017-01-05 23:17 | SOAPPROG ---
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 01/05/17 12:28 slept 4.5hr. per staff, has been slightly more conversational with peers. on eval, pt was eating lunch, with notable tremor apparently baseline. admits feeling more depr today and anxious, noting grandson is graduating today and expects family to be busy with that, altho hopes someone will visit. states family visiting helps her mood. able to t/a med changes that were made, aware "risperdal was changed to something stronger", denied any med s/e. MSE: calm, cooperative, decr eye contact, not seeming interested in any interview and somewhat annoyed with questions, "anything else you want to ask?" , cooperative however. +BUE and head tremor, nml speech rate/vol, fair eye contact, mood depressed, affect dysphoric, denied psychotic sxs, denied SI. A& Ox4. Plan: cont current meds and plan of care Objective: Vital Signs Temp Pulse Resp BP Pulse Ox 37.2 C 74 18 172/77 H 94 01/05/17 16:00 01/05/17 16:00 01/05/17 16:00 01/05/17 16:00 01/05/17 00:30 - Time Spent With Patient Time Spent With Patient: 35min - Pending Discharge Pending Discharge Within 24 Hours: No Pending Discharge Within 48 Hours: No ICD10 Worksheet Patient Problems: Problems Problem Status Onset Depression Acute HTN (hypertension) Acute Major depressive disorder, recurrent episode, severe, with psychosis Acute
[2017-01-06] MEDS: CHOLECALCIFEROL VIT D3 2,000 UNITS TAB/CAP PO SCH (10:04)
[2017-01-06] MEDS: VENLAFAXINE XR 150 MG CAP PO SCH (10:04)
[2017-01-06] MEDS: VENLAFAXINE XR 75 MG CAP PO SCH (10:04)
[2017-01-06] MEDS: LISINOPRIL 10 MG TAB PO SCH (11:47)
[2017-01-06] MEDS: LEVOTHYROXINE 25 MCG TAB PO SCH (11:47)
[2017-01-06] MEDS: BISACODYL 10 MG SUPP PR PRN (15:58)
[2017-01-06] MEDS: amLODIPine BESYLATE 5 MG TAB PO SCH (21:44)
[2017-01-06] MEDS: BREXPIPRAZOLE 1 MG TAB PO SCH (22:48)
[2017-01-06] MEDS: ESTRADIOL 0.5 MG TAB PO SCH (22:48)
[2017-01-07] MEDS ORDERED: THEOPHYLLINE ORAL SOLUTION 80 MG/15 ML UDCUP PO ONE ×2 (05:00→06:45)
[2017-01-07] MEDS ORDERED: NS 1,000 ML IV ONE (05:00)
[2017-01-07] MEDS ORDERED: CITRIC ACID/SODIUM CITRATE 30 ML UDCUP PO ONE (05:00)
[2017-01-07] MEDS ORDERED: ONDANSETRON DISINTEGRATING 4 MG TAB PO ONE (05:00)
[2017-01-07] MEDS ORDERED: LIDOCAINE 2% 5 ML SDV ID ONE (05:00)
[2017-01-07] MEDS: LEVOTHYROXINE 25 MCG TAB PO SCH ×2 (05:01→09:51)
[2017-01-07] MEDS: LISINOPRIL 10 MG TAB PO SCH ×4 (05:01→15:28)
--- NOTE | 2017-01-07 08:41 | SOAPPROG ---
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 01/05/17 12:28 slept 4.5hr. per staff, has been slightly more conversational with peers. on eval, pt was eating lunch, with notable tremor apparently baseline. admits feeling more depr today and anxious, noting grandson is graduating today and expects family to be busy with that, altho hopes someone will visit. states family visiting helps her mood. able to t/a med changes that were made, aware "risperdal was changed to something stronger", denied any med s/e. MSE: calm, cooperative, decr eye contact, not seeming interested in any interview and somewhat annoyed with questions, "anything else you want to ask?" , cooperative however. +BUE and head tremor, nml speech rate/vol, fair eye contact, mood depressed, affect dysphoric, denied psychotic sxs, denied SI. A& Ox4. Plan: cont current meds and plan of care 01/06/17 16:35 Late entry for 01/06. per staff, slept 8hrs. still feels depr and stating ECT not working. rates anxiety as mild, depression as severe. reported no BM in at least 1 wk. denied new physical complaints. tremor appears better today compared to yesterday when seemed more upset about family not visiting and graduation happening w/o her present. states a daughter called her last night which was nice. altho still depressed, denied any intent to not work with treatment team and plans to continue ECT. MSE: calm, cooperative, fair eye contact, depr mood, restricted/flattened affect , cooperative, no psychosis and denied any SI or thoughts to harm others. i/j limited, cognition conversationally intact altho not formally assessed. Plan: cont Rexulti, denied med s/e cont with ECT as per plan Bisacodyl suppository prn for constipation Objective: Vital Signs Temp Pulse Resp BP Pulse Ox 36.4 C 71 12 138/70 H 97 01/07/17 08:22 01/07/17 08:22 01/07/17 08:22 01/07/17 08:22 01/07/17 08:22 - Time Spent With Patient Time Spent With Patient: 15min - Pending Discharge Pending Discharge Within 24 Hours: No Pending Discharge Within 48 Hours: No ICD10 Worksheet Patient Problems: Problems Problem Status Onset Depression Acute HTN (hypertension) Acute Major depressive disorder, recurrent episode, severe, with psychosis Acute
[2017-01-07] MEDS: VENLAFAXINE XR 150 MG CAP PO SCH (09:46)
[2017-01-07] MEDS: VENLAFAXINE XR 75 MG CAP PO SCH (09:47)
[2017-01-07] MEDS: CHOLECALCIFEROL VIT D3 2,000 UNITS TAB/CAP PO SCH (09:47)
--- NOTE | 2017-01-07 16:02 | SOAPPROG ---
RANDALL Progress Note Assessment/Plan: Assessment: Plan: 12/27/16 17:40 Acute psychosis has ebbed. She is currently able to provide informed consent for treatment including ECT. Will proceed tomorrow as long as she doesn't regress. 12/28/16 14:42 Remains psychotically depressed. CCM including ECT. 01/01/17 14:31 Remains psychotically depressed. CCM. 01/01/17 14:35 No real change. CCM. 01/02/17 14:15 Remains severely ill. CCM. 01/03/17 16:35 Remains psychotically depressed. CCM. ECT tomorrow. 01/04/17 13:25 Much improved today. CCM. Case reviewed with Dr. Bhatti. Will change Risperdal to Rexulti. The risks, benefits and alternatives of this are reviewed with patient and she is agreeable. Asks insightful question including what class of drug it is. 01/07/17 16:01 Some backsliding over the WE. She was much improved on Saturday, however, so I expect for her to pick back up today after ECT. Subjective: Pt seen, discussed with staff. Reports feeling "not too good." Has backslid since treatment on Saturday. More depressed and irritable, paranoid. Accuses staff and Dr. Nguyễn of doing things wrong and insists that many of the standard procedures are new or different than before. Underwent bilateral ECT without complication. Objective: Vital Signs Temp Pulse Resp BP Pulse Ox 36.8 C 92 14 137/64 H 97 01/07/17 15:04 01/07/17 15:04 01/07/17 15:04 01/07/17 15:28 01/07/17 15:04 MSE: Marginally groomed, guarded. Affect is constricted, dysphoric. Mood is "depressed." TP linear, though abbreviated. TC reveals paranoia re: intentions of staff. - Time Spent With Patient Time Spent With Patient: 35" - Pending Discharge Pending Discharge Within 24 Hours: No Pending Discharge Within 48 Hours: No ICD10 Worksheet Patient Problems: Problems Problem Status Onset Depression Acute HTN (hypertension) Acute Major depressive disorder, recurrent episode, severe, with psychosis Acute
[2017-01-07] MEDS: amLODIPine BESYLATE 5 MG TAB PO SCH (22:06)
[2017-01-07] MEDS: ESTRADIOL 0.5 MG TAB PO SCH (22:47)
[2017-01-07] MEDS: BREXPIPRAZOLE 1 MG TAB PO SCH (22:47)
[2017-01-07] MEDS: BISACODYL 5 MG EC TAB PO PRN (22:47)
[2017-01-08] MEDS: LEVOTHYROXINE 25 MCG TAB PO SCH (06:07)
[2017-01-08] MEDS: LISINOPRIL 10 MG TAB PO SCH (06:23)
[2017-01-08] MEDS: CHOLECALCIFEROL VIT D3 2,000 UNITS TAB/CAP PO SCH (08:34)
[2017-01-08] MEDS: VENLAFAXINE XR 75 MG CAP PO SCH (08:35)
[2017-01-08] MEDS: VENLAFAXINE XR 150 MG CAP PO SCH (08:35)
[2017-01-08] MEDS: BISACODYL 10 MG SUPP PR PRN (16:12)
--- NOTE | 2017-01-08 17:44 | SOAPPROG ---
SOJEAN Progress Note Assessment/Plan: Assessment: Plan: 12/27/16 17:40 Acute psychosis has ebbed. She is currently able to provide informed consent for treatment including ECT. Will proceed tomorrow as long as she doesn't regress. 12/28/16 14:42 Remains psychotically depressed. CCM including ECT. 01/01/17 14:31 Remains psychotically depressed. CCM. 01/01/17 14:35 No real change. CCM. 01/02/17 14:15 Remains severely ill. CCM. 01/03/17 16:35 Remains psychotically depressed. CCM. ECT tomorrow. 01/04/17 13:25 Much improved today. CCM. Case reviewed with Dr. Bhatti. Will change Risperdal to Rexulti. The risks, benefits and alternatives of this are reviewed with patient and she is agreeable. Asks insightful question including what class of drug it is. 01/07/17 16:01 Some backsliding over the WE. She was much improved on Saturday, however, so I expect for her to pick back up today after ECT. 01/08/17 17:45 Improved after yesterday's ECT. CCM. Subjective: Pt seen, discussed with staff. Reports "not feeling too well." Up and around the unit. Slept well last night. Notes no SE's from Rexulti. Objective: Vital Signs Temp Pulse Resp BP Pulse Ox 36.5 C 72 14 130/60 H 97 01/08/17 14:50 01/08/17 14:50 01/07/17 18:16 01/08/17 14:50 01/08/17 14:50 MSE: Calm, coop. Affect is constricted, stable. Mood is "bad." TP linear. TC reveals no overt psychosis. A&Ox4. No SI. - Time Spent With Patient Time Spent With Patient: 15" - Pending Discharge Pending Discharge Within 24 Hours: No Pending Discharge Within 48 Hours: No ICD10 Worksheet Patient Problems: Problems Problem Status Onset Depression Acute HTN (hypertension) Acute Major depressive disorder, recurrent episode, severe, with psychosis Acute
[2017-01-08] MEDS: amLODIPine BESYLATE 5 MG TAB PO SCH (21:01)
[2017-01-08] MEDS: BISACODYL 5 MG EC TAB PO PRN (22:23)
[2017-01-08] MEDS: ESTRADIOL 0.5 MG TAB PO SCH (22:23)
[2017-01-08] MEDS: BREXPIPRAZOLE 1 MG TAB PO SCH (22:23)
[2017-01-09] MEDS ORDERED: THEOPHYLLINE ORAL SOLUTION 80 MG/15 ML UDCUP PO ONE (05:00)
[2017-01-09] MEDS ORDERED: NS 1,000 ML IV ONE (05:00)
[2017-01-09] MEDS ORDERED: CITRIC ACID/SODIUM CITRATE 30 ML UDCUP PO ONE (05:00)
[2017-01-09] MEDS ORDERED: LIDOCAINE 2% 5 ML SDV ID ONE (05:00)
[2017-01-09] MEDS ORDERED: ONDANSETRON DISINTEGRATING 4 MG TAB PO ONE (05:00)
[2017-01-09] MEDS: LISINOPRIL 10 MG TAB PO SCH (05:07)
[2017-01-09] MEDS: LEVOTHYROXINE 25 MCG TAB PO SCH (05:07)
[2017-01-09] MEDS ORDERED: CITRIC ACID/SODIUM CITRATE 30 ML UDCUP ONE (06:48)
[2017-01-09] MEDS ORDERED: PROMETHAZINE HCL 25 MG TAB ONE (06:48)
[2017-01-09] MEDS ORDERED: ONDANSETRON DISINTEGRATING 4 MG TAB ONE (06:48)
[2017-01-09] MEDS ORDERED: ACETAMINOPHEN 325 MG TAB ONE (08:17)
[2017-01-09] MEDS: VENLAFAXINE XR 75 MG CAP PO SCH (09:10)
[2017-01-09] MEDS: VENLAFAXINE XR 150 MG CAP PO SCH (09:10)
[2017-01-09] MEDS: CHOLECALCIFEROL VIT D3 2,000 UNITS TAB/CAP PO SCH (09:10)
--- NOTE | 2017-01-09 12:57 | SOAPPROG ---
RANDALL Progress Note Assessment/Plan: Assessment: Plan: 12/27/16 17:40 Acute psychosis has ebbed. She is currently able to provide informed consent for treatment including ECT. Will proceed tomorrow as long as she doesn't regress. 12/28/16 14:42 Remains psychotically depressed. CCM including ECT. 01/01/17 14:31 Remains psychotically depressed. CCM. 01/01/17 14:35 No real change. CCM. 01/02/17 14:15 Remains severely ill. CCM. 01/03/17 16:35 Remains psychotically depressed. CCM. ECT tomorrow. 01/04/17 13:25 Much improved today. CCM. Case reviewed with Dr. Bhatti. Will change Risperdal to Rexulti. The risks, benefits and alternatives of this are reviewed with patient and she is agreeable. Asks insightful question including what class of drug it is. 01/07/17 16:01 Some backsliding over the WE. She was much improved on Saturday, however, so I expect for her to pick back up today after ECT. 01/08/17 17:45 Improved after yesterday's ECT. CCM. 01/09/17 12:57 Continues to receive benefit from ECT though struggles to carry this through to next treatment. CCM. Subjective: Pt seen, discussed with staff. Reported feeling "OK" this morning. More irritable than yesterday, suspicious of treatment team, meds, etc. Underwent ECT without complication. Objective: Vital Signs Temp Pulse Resp BP Pulse Ox 36.8 C 64 13 98/56 L 98 01/09/17 08:10 01/09/17 10:35 01/09/17 10:35 01/09/17 10:35 01/09/17 10:35 MSE: Moderately anxious, suspicious, coop. Affect is constricted, anxious. Mood is "not very good." TP linear, though abbreviated. TC reveals suspiciousness bordering paranoia. - Time Spent With Patient Time Spent With Patient: 35" - Pending Discharge Pending Discharge Within 24 Hours: No Pending Discharge Within 48 Hours: No ICD10 Worksheet Patient Problems: Problems Problem Status Onset Depression Acute HTN (hypertension) Acute Major depressive disorder, recurrent episode, severe, with psychosis Acute
[2017-01-09] MEDS: amLODIPine BESYLATE 5 MG TAB PO SCH (21:59)
[2017-01-09] MEDS: BREXPIPRAZOLE 1 MG TAB PO SCH (22:30)
[2017-01-09] MEDS: ESTRADIOL 0.5 MG TAB PO SCH (22:30)
[2017-01-10] MEDS: LEVOTHYROXINE 25 MCG TAB PO SCH (06:00)
[2017-01-10] MEDS: LISINOPRIL 10 MG TAB PO SCH (06:00)
[2017-01-10] MEDS: VENLAFAXINE XR 75 MG CAP PO SCH (08:51)
[2017-01-10] MEDS: CHOLECALCIFEROL VIT D3 2,000 UNITS TAB/CAP PO SCH (08:51)
[2017-01-10] MEDS: VENLAFAXINE XR 150 MG CAP PO SCH (08:51)
--- NOTE | 2017-01-10 15:20 | SOAPPROG ---
SOJEAN Progress Note Assessment/Plan: Assessment: Plan: 12/27/16 17:40 Acute psychosis has ebbed. She is currently able to provide informed consent for treatment including ECT. Will proceed tomorrow as long as she doesn't regress. 12/28/16 14:42 Remains psychotically depressed. CCM including ECT. 01/01/17 14:31 Remains psychotically depressed. CCM. 01/01/17 14:35 No real change. CCM. 01/02/17 14:15 Remains severely ill. CCM. 01/03/17 16:35 Remains psychotically depressed. CCM. ECT tomorrow. 01/04/17 13:25 Much improved today. CCM. Case reviewed with Dr. Bhatti. Will change Risperdal to Rexulti. The risks, benefits and alternatives of this are reviewed with patient and she is agreeable. Asks insightful question including what class of drug it is. 01/07/17 16:01 Some backsliding over the WE. She was much improved on Saturday, however, so I expect for her to pick back up today after ECT. 01/08/17 17:45 Improved after yesterday's ECT. CCM. 01/09/17 12:57 Continues to receive benefit from ECT though struggles to carry this through to next treatment. CCM. 01/10/17 15:19 Continued gradual improvement. CCM. Subjective: Pt seen, discussed with staff. Reports feeling "pretty bad." Pleasant and interactive with no irritability or paranoia evident. Thanks me for my help and states, "The staff here are all so nice." Objective: Vital Signs Temp Pulse Resp BP Pulse Ox 36.6 C 79 16 137/62 H 94 01/10/17 06:41 01/10/17 06:41 01/10/17 06:41 01/10/17 06:41 01/10/17 06:41 MSE: Modeartely anxious, coop. Affect is constricted, dysphoric. Mood is " not too good." TP linear. TC reveals no current paranoia. Denies SI. - Time Spent With Patient Time Spent With Patient: 25" - Pending Discharge Pending Discharge Within 24 Hours: No Pending Discharge Within 48 Hours: No ICD10 Worksheet Patient Problems: Problems Problem Status Onset Depression Acute HTN (hypertension) Acute Major depressive disorder, recurrent episode, severe, with psychosis Acute
[2017-01-10] MEDS: amLODIPine BESYLATE 5 MG TAB PO SCH (21:20)
[2017-01-10] MEDS: ESTRADIOL 0.5 MG TAB PO SCH (22:26)
[2017-01-10] MEDS: BREXPIPRAZOLE 1 MG TAB PO SCH (22:26)
[2017-01-11] MEDS: LEVOTHYROXINE 25 MCG TAB PO SCH (04:57)
[2017-01-11] MEDS: LISINOPRIL 10 MG TAB PO SCH ×3 (05:03→11:22)
[2017-01-11] MEDS ORDERED: THEOPHYLLINE ORAL SOLUTION 80 MG/15 ML UDCUP ONE (05:40)
[2017-01-11] MEDS ORDERED: ONDANSETRON DISINTEGRATING 4 MG TAB PO ONE (05:59)
[2017-01-11] MEDS ORDERED: CITRIC ACID/SODIUM CITRATE 30 ML UDCUP PO ONE (05:59)
[2017-01-11] MEDS ORDERED: LIDOCAINE 2% 5 ML SDV ID ONE (05:59)
[2017-01-11] MEDS ORDERED: THEOPHYLLINE ORAL SOLUTION 80 MG/15 ML UDCUP PO ONE (05:59)
[2017-01-11] MEDS ORDERED: NS 1,000 ML IV ONE (05:59)
[2017-01-11] MEDS: VENLAFAXINE XR 150 MG CAP PO SCH (11:18)
[2017-01-11] MEDS: VENLAFAXINE XR 75 MG CAP PO SCH (11:18)
[2017-01-11] MEDS: CHOLECALCIFEROL VIT D3 2,000 UNITS TAB/CAP PO SCH (11:19)
--- NOTE | 2017-01-11 14:41 | SOAPPROG ---
SOJEAN Progress Note Assessment/Plan: Assessment: Plan: 12/27/16 17:40 Acute psychosis has ebbed. She is currently able to provide informed consent for treatment including ECT. Will proceed tomorrow as long as she doesn't regress. 12/28/16 14:42 Remains psychotically depressed. CCM including ECT. 01/01/17 14:31 Remains psychotically depressed. CCM. 01/01/17 14:35 No real change. CCM. 01/02/17 14:15 Remains severely ill. CCM. 01/03/17 16:35 Remains psychotically depressed. CCM. ECT tomorrow. 01/04/17 13:25 Much improved today. CCM. Case reviewed with Dr. Bhatti. Will change Risperdal to Rexulti. The risks, benefits and alternatives of this are reviewed with patient and she is agreeable. Asks insightful question including what class of drug it is. 01/07/17 16:01 Some backsliding over the WE. She was much improved on Saturday, however, so I expect for her to pick back up today after ECT. 01/08/17 17:45 Improved after yesterday's ECT. CCM. 01/09/17 12:57 Continues to receive benefit from ECT though struggles to carry this through to next treatment. CCM. 01/10/17 15:19 Continued gradual improvement. CCM. 01/11/17 14:40 Slow improvement. CCM. Subjective: Pt seen, discussed with staff. Reports feeling "not very good." Rather reserved, guarded today. Underwent bilateral ECT without complication. Offers no specific c/o's. Objective: Vital Signs Temp Pulse Resp BP Pulse Ox 36.8 C 70 12 127/60 H 95 01/11/17 10:48 01/11/17 10:48 01/11/17 10:48 01/11/17 11:22 01/11/17 10:48 MSE: Moderately anxious, guarded. Affect is o/w constricted, stable. Mood is "not very good." TP linear. TC reveals no psychosis. - Time Spent With Patient Time Spent With Patient: 35" - Pending Discharge Pending Discharge Within 24 Hours: No Pending Discharge Within 48 Hours: No ICD10 Worksheet Patient Problems: Problems Problem Status Onset Depression Acute HTN (hypertension) Acute Major depressive disorder, recurrent episode, severe, with psychosis Acute
[2017-01-11] MEDS: ESTRADIOL 0.5 MG TAB PO SCH (22:08)
[2017-01-11] MEDS: BREXPIPRAZOLE 1 MG TAB PO SCH (22:09)
[2017-01-11] MEDS: amLODIPine BESYLATE 5 MG TAB PO SCH (22:09)
[2017-01-12] MEDS: LEVOTHYROXINE 25 MCG TAB PO SCH (05:46)
[2017-01-12] MEDS: CHOLECALCIFEROL VIT D3 2,000 UNITS TAB/CAP PO SCH (09:57)
[2017-01-12] MEDS: VENLAFAXINE XR 75 MG CAP PO SCH (09:57)
[2017-01-12] MEDS: VENLAFAXINE XR 150 MG CAP PO SCH (09:57)
[2017-01-12] MEDS: LISINOPRIL 10 MG TAB PO SCH (09:58)
--- NOTE | 2017-01-12 11:00 | SOAPPROG ---
SOAP Progress Note Assessment/Plan: Assessment: Plan: 12/29/16 12:09 DAY UPDATE/EXAM: 76 yo WF with known chronic h/o recurrent TRD; last stabilized with acute ECT course 03/05/16 - and followed up with maintenance ECT but more experienced brkthru depressive sx of progressive intensity leading to current admission; has had first ECT 12/28 WITH RX # 2 12/31; c/w cares and meds per Nursing report; on exam is dysphoric, flat, but engageable, no overt psychosis and denies SI; + about family visiting over weekend. ASSESSMENT/PLAN: residual depressive acuity and cooperating with early ECT acute course intervention/ no change in meds and management d/w Nursing in Rounds; will change Synthroid dosing to q AM 12/30/16 13:01 DAY UPDATE/EXAM: Nursing reports pt is c/w cares and meds , remains in control, isolative and quiet; would not respond to CC yesterday/ more verbal with me on direct contact; again flat and dysphoric, nonpsychotic and denies SI; does express awareness of ECT responsiveness historically and hopeful of responding again, aware of rx #2 tomorrow; responsive to reintegrative inputs during the session. ASSESSMENT/PLAN: little change in mental status today as referenced yesterday - c/w residual depressive acuity/ continue current meds and management plan; ECT # 2 tomorrow 01/12/17 10:56 DAY UPDATE/EXAM: Nursing reports paced descriptive progress in clearing syndromal depress - pt brighter, sustaining across interval to next rx event as she works thru her acute ECT rx plan; residual depressive sx/signs remain/ no change in meds or management plan; will resume treatments after the weekend; on direct exam mood is clearly improving and no overt psychosis noted ASSESSMENT/PLAN: as referenced above Objective: Vital Signs Temp Pulse Resp BP Pulse Ox 36.6 C 74 13 108/56 L 94 01/12/17 00:30 01/12/17 00:30 01/12/17 00:30 01/12/17 09:58 01/12/17 00:30 ICD10 Worksheet Patient Problems: Problems Problem Status Onset Depression Acute HTN (hypertension) Acute Major depressive disorder, recurrent episode, severe, with psychosis Acute
[2017-01-12] MEDS: ESTRADIOL 0.5 MG TAB PO SCH (22:19)
[2017-01-12] MEDS: amLODIPine BESYLATE 5 MG TAB PO SCH (22:19)
[2017-01-12] MEDS: BREXPIPRAZOLE 1 MG TAB PO SCH (22:19)
[2017-01-13] MEDS: LEVOTHYROXINE 25 MCG TAB PO SCH (06:09)
--- NOTE | 2017-01-13 07:11 | SOAPPROG ---
SOAP Progress Note Assessment/Plan: Assessment: Plan: 12/29/16 12:09 DAY UPDATE/EXAM: 76 yo WF with known chronic h/o recurrent TRD; last stabilized with acute ECT course 03/05/16 - and followed up with maintenance ECT but more experienced brkthru depressive sx of progressive intensity leading to current admission; has had first ECT 12/28 WITH RX # 2 12/31; c/w cares and meds per Nursing report; on exam is dysphoric, flat, but engageable, no overt psychosis and denies SI; + about family visiting over weekend. ASSESSMENT/PLAN: residual depressive acuity and cooperating with early ECT acute course intervention/ no change in meds and management d/w Nursing in Rounds; will change Synthroid dosing to q AM 12/30/16 13:01 DAY UPDATE/EXAM: Nursing reports pt is c/w cares and meds , remains in control, isolative and quiet; would not respond to CC yesterday/ more verbal with me on direct contact; again flat and dysphoric, nonpsychotic and denies SI; does express awareness of ECT responsiveness historically and hopeful of responding again, aware of rx #2 tomorrow; responsive to reintegrative inputs during the session. ASSESSMENT/PLAN: little change in mental status today as referenced yesterday - c/w residual depressive acuity/ continue current meds and management plan; ECT # 2 tomorrow 01/12/17 10:56 DAY UPDATE/EXAM: Nursing reports paced descriptive progress in clearing syndromal depress - pt brighter, sustaining gains across interval to next rx event as she works thru her acute ECT rx plan; residual depressive sx/signs remain/ no change in meds or management plan; will resume treatments after the weekend; on direct exam mood is clearly improving and no overt psychosis noted ASSESSMENT/PLAN: as referenced above 01/13/17 DAY UPDATE/EXAM: Objective: Vital Signs Temp Pulse Resp BP Pulse Ox 37.1 C 65 14 144/64 H 94 01/13/17 06:07 01/13/17 06:07 01/13/17 06:07 01/13/17 06:07 01/13/17 06:07 ICD10 Worksheet Patient Problems: Problems Problem Status Onset Depression Acute HTN (hypertension) Acute Major depressive disorder, recurrent episode, severe, with psychosis Acute
[2017-01-13] MEDS: CHOLECALCIFEROL VIT D3 2,000 UNITS TAB/CAP PO SCH (09:01)
[2017-01-13] MEDS: LISINOPRIL 10 MG TAB PO SCH (09:02)
[2017-01-13] MEDS: VENLAFAXINE XR 150 MG CAP PO SCH (09:02)
[2017-01-13] MEDS: VENLAFAXINE XR 75 MG CAP PO SCH (09:02)
--- NOTE | 2017-01-13 11:32 | SOAPPROG ---
SOAP Progress Note Assessment/Plan: Assessment: Plan: 12/29/16 12:09 DAY UPDATE/EXAM: 76 yo WF with known chronic h/o recurrent TRD; last stabilized with acute ECT course 03/05/16 - and followed up with maintenance ECT but more experienced brkthru depressive sx of progressive intensity leading to current admission; has had first ECT 12/28 WITH RX # 2 12/31; c/w cares and meds per Nursing report; on exam is dysphoric, flat, but engageable, no overt psychosis and denies SI; + about family visiting over weekend. ASSESSMENT/PLAN: residual depressive acuity and cooperating with early ECT acute course intervention/ no change in meds and management d/w Nursing in Rounds; will change Synthroid dosing to q AM 12/30/16 13:01 DAY UPDATE/EXAM: Nursing reports pt is c/w cares and meds , remains in control, isolative and quiet; would not respond to CC yesterday/ more verbal with me on direct contact; again flat and dysphoric, nonpsychotic and denies SI; does express awareness of ECT responsiveness historically and hopeful of responding again, aware of rx #2 tomorrow; responsive to reintegrative inputs during the session. ASSESSMENT/PLAN: little change in mental status today as referenced yesterday - c/w residual depressive acuity/ continue current meds and management plan; ECT # 2 tomorrow 01/12/17 10:56 DAY UPDATE/EXAM: Nursing reports paced descriptive progress in clearing syndromal depress - pt brighter, sustaining gains across interval to next rx event as she works thru her acute ECT rx plan; residual depressive sx/signs remain/ no change in meds or management plan; will resume treatments after the weekend; on direct exam mood is clearly improving and no overt psychosis noted ASSESSMENT/PLAN: as referenced above 01/13/17 11:00 DAY UPDATE/EXAM: Nursing reports pt with no complaints, improving sleep, no overt psychosis, c/w cares and meds/ on direct exam presents as cooperative and calm; moderate dysphoric and affect constricted in range and remains moderately blunted; no overt psychosis, self-observant - "I'm a little better" and does attribute improvement to ECT rx'x; responsive to reintegrative support. ASSESSMENT/PLAN: sustaing gains to current level of partial improvement/ no changes in meds or management plan; ECT in AM Objective: Vital Signs Temp Pulse Resp BP Pulse Ox 37.1 C 65 14 144/64 H 94 01/13/17 06:07 01/13/17 06:07 01/13/17 06:07 01/13/17 06:07 01/13/17 06:07 ICD10 Worksheet Patient Problems: Problems Problem Status Onset Depression Acute HTN (hypertension) Acute Major depressive disorder, recurrent episode, severe, with psychosis Acute
[2017-01-13] MEDS: BREXPIPRAZOLE 1 MG TAB PO SCH (22:07)
[2017-01-13] MEDS: amLODIPine BESYLATE 5 MG TAB PO SCH (22:07)
[2017-01-13] MEDS: ESTRADIOL 0.5 MG TAB PO SCH (22:07)
[2017-01-14] MEDS ORDERED: NS 1,000 ML IV ONE (05:00)
[2017-01-14] MEDS ORDERED: ONDANSETRON DISINTEGRATING 4 MG TAB PO ONE (05:00)
[2017-01-14] MEDS ORDERED: THEOPHYLLINE ORAL SOLUTION 80 MG/15 ML UDCUP PO ONE (05:00)
[2017-01-14] MEDS ORDERED: CITRIC ACID/SODIUM CITRATE 30 ML UDCUP PO ONE (05:00)
[2017-01-14] MEDS ORDERED: LIDOCAINE 2% 5 ML SDV ID ONE (05:00)
[2017-01-14] MEDS: LISINOPRIL 10 MG TAB PO SCH ×2 (06:12→09:20)
[2017-01-14] MEDS: LEVOTHYROXINE 25 MCG TAB PO SCH (06:13)
--- NOTE | 2017-01-14 07:08 | CPEKG ---
Heart Rate: 78 RR Interval: 769 P-R Interval: 120 QRSD Interval: 82 QT Interval: 392 QTC Interval: 447 P [place]: 45 QRS [place]: 50 T Wave [place]: 84 EKG Severity - NORMAL ECG - EKG Impression: SINUS RHYTHM Electronically Signed By: Shadi Butt 17-Jan-2017 12:33:19
[2017-01-14] MEDS: CHOLECALCIFEROL VIT D3 2,000 UNITS TAB/CAP PO SCH (09:20)
[2017-01-14] MEDS: VENLAFAXINE XR 150 MG CAP PO SCH (09:21)
[2017-01-14] MEDS: VENLAFAXINE XR 75 MG CAP PO SCH (09:21)
--- NOTE | 2017-01-14 12:14 | SOAPPROG ---
SOAP Progress Note Assessment/Plan: Assessment: Plan: 12/29/16 12:09 DAY UPDATE/EXAM: 76 yo WF with known chronic h/o recurrent TRD; last stabilized with acute ECT course 03/05/16 - and followed up with maintenance ECT but more experienced brkthru depressive sx of progressive intensity leading to current admission; has had first ECT 12/28 WITH RX # 2 12/31; c/w cares and meds per Nursing report; on exam is dysphoric, flat, but engageable, no overt psychosis and denies SI; + about family visiting over weekend. ASSESSMENT/PLAN: residual depressive acuity and cooperating with early ECT acute course intervention/ no change in meds and management d/w Nursing in Rounds; will change Synthroid dosing to q AM 12/30/16 13:01 DAY UPDATE/EXAM: Nursing reports pt is c/w cares and meds , remains in control, isolative and quiet; would not respond to CC yesterday/ more verbal with me on direct contact; again flat and dysphoric, nonpsychotic and denies SI; does express awareness of ECT responsiveness historically and hopeful of responding again, aware of rx #2 tomorrow; responsive to reintegrative inputs during the session. ASSESSMENT/PLAN: little change in mental status today as referenced yesterday - c/w residual depressive acuity/ continue current meds and management plan; ECT # 2 tomorrow 01/12/17 10:56 DAY UPDATE/EXAM: Nursing reports paced descriptive progress in clearing syndromal depress - pt brighter, sustaining gains across interval to next rx event as she works thru her acute ECT rx plan; residual depressive sx/signs remain/ no change in meds or management plan; will resume treatments after the weekend; on direct exam mood is clearly improving and no overt psychosis noted ASSESSMENT/PLAN: as referenced above 01/13/17 11:00 DAY UPDATE/EXAM: Nursing reports pt with no complaints, improving sleep, no overt psychosis, c/w cares and meds/ on direct exam presents as cooperative and calm; moderate dysphoric and affect constricted in range and remains moderately blunted; no overt psychosis, self-observant - "I'm a little better" and does attribute improvement to ECT rx's; responsive to reintegrative support. ASSESSMENT/PLAN: sustaining gains to current level of partial improvement/ no changes in meds or management plan; ECT in AM 01/14/17 08:30 DAY ' UPDATE/EXAM: Nursing reports pt slept well, received ECT # 8 this AM/ engageable shortly after return to unit and lucid, c/o being "slow" in mentation and attributes to post ECT effect; egages well and respponsive to reintegrative support ASSESSMENT/PLAN: improving after ECT # 8 this AM/ no change in meds or management plan; ECT #9 on 01/16 Objective: Vital Signs Temp Pulse Resp BP Pulse Ox 36.5 C 62 14 99/49 L 94 01/14/17 10:47 01/14/17 10:47 01/14/17 10:47 01/14/17 10:47 01/14/17 10:47 ICD10 Worksheet Patient Problems: Problems Problem Status Onset Depression Acute HTN (hypertension) Acute Major depressive disorder, recurrent episode, severe, with psychosis Acute
[2017-01-14] MEDS: ESTRADIOL 0.5 MG TAB PO SCH (21:56)
[2017-01-14] MEDS: BREXPIPRAZOLE 1 MG TAB PO SCH (21:56)
[2017-01-14] MEDS: amLODIPine BESYLATE 5 MG TAB PO SCH (22:01)
[2017-01-15] MEDS: LEVOTHYROXINE 25 MCG TAB PO SCH (06:02)
--- NOTE | 2017-01-15 06:40 | SOAPPROG ---
SOAP Progress Note Assessment/Plan: Assessment: Plan: 12/29/16 12:09 DAY UPDATE/EXAM: 76 yo WF with known chronic h/o recurrent TRD; last stabilized with acute ECT course 03/05/16 - and followed up with maintenance ECT but more experienced brkthru depressive sx of progressive intensity leading to current admission; has had first ECT 12/28 WITH RX # 2 12/31; c/w cares and meds per Nursing report; on exam is dysphoric, flat, but engageable, no overt psychosis and denies SI; + about family visiting over weekend. ASSESSMENT/PLAN: residual depressive acuity and cooperating with early ECT acute course intervention/ no change in meds and management d/w Nursing in Rounds; will change Synthroid dosing to q AM 12/30/16 13:01 DAY UPDATE/EXAM: Nursing reports pt is c/w cares and meds , remains in control, isolative and quiet; would not respond to CC yesterday/ more verbal with me on direct contact; again flat and dysphoric, nonpsychotic and denies SI; does express awareness of ECT responsiveness historically and hopeful of responding again, aware of rx #2 tomorrow; responsive to reintegrative inputs during the session. ASSESSMENT/PLAN: little change in mental status today as referenced yesterday - c/w residual depressive acuity/ continue current meds and management plan; ECT # 2 tomorrow 01/12/17 10:56 DAY UPDATE/EXAM: Nursing reports paced descriptive progress in clearing syndromal depress - pt brighter, sustaining gains across interval to next rx event as she works thru her acute ECT rx plan; residual depressive sx/signs remain/ no change in meds or management plan; will resume treatments after the weekend; on direct exam mood is clearly improving and no overt psychosis noted ASSESSMENT/PLAN: as referenced above 01/13/17 11:00 DAY UPDATE/EXAM: Nursing reports pt with no complaints, improving sleep, no overt psychosis, c/w cares and meds/ on direct exam presents as cooperative and calm; moderate dysphoric and affect constricted in range and remains moderately blunted; no overt psychosis, self-observant - "I'm a little better" and does attribute improvement to ECT rx's; responsive to reintegrative support. ASSESSMENT/PLAN: sustaining gains to current level of partial improvement/ no changes in meds or management plan; ECT in AM 01/14/17 08:30 DAY ' UPDATE/EXAM: Nursing reports pt slept well, received ECT # 8 this AM/ engageable shortly after return to unit and lucid, c/o being "slow" in mentation and attributes to post ECT effect; engages well and responsive to reintegrative support ASSESSMENT/PLAN: improving after ECT # 8 this AM/ no change in meds or management plan; ECT #9 on 01/16 Objective: Vital Signs Temp Pulse Resp BP Pulse Ox 36.5 C 65 14 100/55 L 94 01/15/17 00:30 01/15/17 00:30 01/15/17 00:30 01/15/17 00:30 01/15/17 00:30 ICD10 Worksheet Patient Problems: Problems Problem Status Onset Depression Acute HTN (hypertension) Acute Major depressive disorder, recurrent episode, severe, with psychosis Acute
[2017-01-15] MEDS: CHOLECALCIFEROL VIT D3 2,000 UNITS TAB/CAP PO SCH (08:47)
[2017-01-15] MEDS: VENLAFAXINE XR 150 MG CAP PO SCH (08:48)
[2017-01-15] MEDS: VENLAFAXINE XR 75 MG CAP PO SCH (08:48)
--- NOTE | 2017-01-15 16:13 | SOAPPROG ---
SOAP Progress Note Assessment/Plan: Assessment: Plan: 12/27/16 17:40 Acute psychosis has ebbed. She is currently able to provide informed consent for treatment including ECT. Will proceed tomorrow as long as she doesn't regress. 12/28/16 14:42 Remains psychotically depressed. CCM including ECT. 01/01/17 14:31 Remains psychotically depressed. CCM. 01/01/17 14:35 No real change. CCM. 01/02/17 14:15 Remains severely ill. CCM. 01/03/17 16:35 Remains psychotically depressed. CCM. ECT tomorrow. 01/04/17 13:25 Much improved today. CCM. Case reviewed with Dr. Bhatti. Will change Risperdal to Rexulti. The risks, benefits and alternatives of this are reviewed with patient and she is agreeable. Asks insightful question including what class of drug it is. 01/07/17 16:01 Some backsliding over the WE. She was much improved on Saturday, however, so I expect for her to pick back up today after ECT. 01/08/17 17:45 Improved after yesterday's ECT. CCM. 01/09/17 12:57 Continues to receive benefit from ECT though struggles to carry this through to next treatment. CCM. 01/10/17 15:19 Continued gradual improvement. CCM. 01/11/17 14:40 Slow improvement. CCM. 01/15/17 16:12 Continued improvement. Remains subjectively depressed. CCM. Subjective: LATE ENTRY FOR 01/15/17 Pt seen, discussed with staff, chart reviewed. Pt and staff note improvement in mood and affect over the WE. Underwent bilateral ECT without complication. Tolerated titration of Rexulti well. Objective: Vital Signs Temp Pulse Resp BP Pulse Ox 36.7 C 73 14 107/54 L 94 01/15/17 09:07 01/15/17 09:07 01/15/17 00:30 01/15/17 09:07 01/15/17 09:07 MSE: Calm, coop. Mildly irritable. TP linear. TC reveals no paranoia. A&Ox4 , cognition stable. Denies SI. - Time Spent With Patient Time Spent With Patient: 35" - Pending Discharge Pending Discharge Within 24 Hours: No Pending Discharge Within 48 Hours: No ICD10 Worksheet Patient Problems: Problems Problem Status Onset Depression Acute HTN (hypertension) Acute Major depressive disorder, recurrent episode, severe, with psychosis Acute
--- NOTE | 2017-01-15 16:16 | SOAPPROG ---
SOAP Progress Note Assessment/Plan: Assessment: Plan: 12/27/16 17:40 Acute psychosis has ebbed. She is currently able to provide informed consent for treatment including ECT. Will proceed tomorrow as long as she doesn't regress. 12/28/16 14:42 Remains psychotically depressed. CCM including ECT. 01/01/17 14:31 Remains psychotically depressed. CCM. 01/01/17 14:35 No real change. CCM. 01/02/17 14:15 Remains severely ill. CCM. 01/03/17 16:35 Remains psychotically depressed. CCM. ECT tomorrow. 01/04/17 13:25 Much improved today. CCM. Case reviewed with Dr. Bhatti. Will change Risperdal to Rexulti. The risks, benefits and alternatives of this are reviewed with patient and she is agreeable. Asks insightful question including what class of drug it is. 01/07/17 16:01 Some backsliding over the WE. She was much improved on Saturday, however, so I expect for her to pick back up today after ECT. 01/08/17 17:45 Improved after yesterday's ECT. CCM. 01/09/17 12:57 Continues to receive benefit from ECT though struggles to carry this through to next treatment. CCM. 01/10/17 15:19 Continued gradual improvement. CCM. 01/11/17 14:40 Slow improvement. CCM. 01/15/17 16:12 Continued improvement. Remains subjectively depressed. CCM. 01/15/17 16:15 Brighter today. Making good progress. Will hold lisinopril today, monitor. CCM. Subjective: Pt seen, discussed with staff. Reports feeling "better" today. Affect is bright and she smiles broadly when I enter the room. Pleasant and conversant. Continues to describe subjective depression. Questions whether she is able to return to [facility] at this point. Tentative d/c date set for Saturday. BP lower today after receiving two doses of lisinopril yesterday. Objective: Vital Signs Temp Pulse Resp BP Pulse Ox 36.7 C 73 14 107/54 L 94 01/15/17 09:07 01/15/17 09:07 01/15/17 00:30 01/15/17 09:07 01/15/17 09:07 MSE: Calm, coop. Pleasant and interactive. Affect is bright, smiling. Mood is "better." TP linear. TC reveals no psychosis. No current SI. - Time Spent With Patient Time Spent With Patient: 25" - Pending Discharge Pending Discharge Within 24 Hours: No Pending Discharge Within 48 Hours: No ICD10 Worksheet Patient Problems: Problems Problem Status Onset Depression Acute HTN (hypertension) Acute Major depressive disorder, recurrent episode, severe, with psychosis Acute
[2017-01-15] MEDS: ESTRADIOL 0.5 MG TAB PO SCH (21:44)
[2017-01-15] MEDS: BREXPIPRAZOLE 1 MG TAB PO SCH (21:44)
[2017-01-15] MEDS: amLODIPine BESYLATE 5 MG TAB PO SCH (21:45)
[2017-01-16] MEDS ORDERED: THEOPHYLLINE ORAL SOLUTION 80 MG/15 ML UDCUP PO ONE (05:00)
[2017-01-16] MEDS ORDERED: NS 1,000 ML IV ONE (05:00)
[2017-01-16] MEDS ORDERED: ONDANSETRON DISINTEGRATING 4 MG TAB PO ONE (05:00)
[2017-01-16] MEDS ORDERED: CITRIC ACID/SODIUM CITRATE 30 ML UDCUP PO ONE (05:00)
[2017-01-16] MEDS ORDERED: LIDOCAINE 2% 5 ML SDV ID ONE (05:00)
[2017-01-16] MEDS: LEVOTHYROXINE 25 MCG TAB PO SCH (05:03)
[2017-01-16] MEDS: LISINOPRIL 10 MG TAB PO SCH (05:04)
[2017-01-16] MEDS: CHOLECALCIFEROL VIT D3 2,000 UNITS TAB/CAP PO SCH (09:46)
[2017-01-16] MEDS: VENLAFAXINE XR 75 MG CAP PO SCH (09:47)
[2017-01-16] MEDS: VENLAFAXINE XR 150 MG CAP PO SCH (09:47)
--- NOTE | 2017-01-16 17:27 | SOAPPROG ---
SOAP Progress Note Assessment/Plan: Assessment: Plan: 12/27/16 17:40 Acute psychosis has ebbed. She is currently able to provide informed consent for treatment including ECT. Will proceed tomorrow as long as she doesn't regress. 12/28/16 14:42 Remains psychotically depressed. CCM including ECT. 01/01/17 14:31 Remains psychotically depressed. CCM. 01/01/17 14:35 No real change. CCM. 01/02/17 14:15 Remains severely ill. CCM. 01/03/17 16:35 Remains psychotically depressed. CCM. ECT tomorrow. 01/04/17 13:25 Much improved today. CCM. Case reviewed with Dr. Bhatti. Will change Risperdal to Rexulti. The risks, benefits and alternatives of this are reviewed with patient and she is agreeable. Asks insightful question including what class of drug it is. 01/07/17 16:01 Some backsliding over the WE. She was much improved on Saturday, however, so I expect for her to pick back up today after ECT. 01/08/17 17:45 Improved after yesterday's ECT. CCM. 01/09/17 12:57 Continues to receive benefit from ECT though struggles to carry this through to next treatment. CCM. 01/10/17 15:19 Continued gradual improvement. CCM. 01/11/17 14:40 Slow improvement. CCM. 01/15/17 16:12 Continued improvement. Remains subjectively depressed. CCM. 01/15/17 16:15 Brighter today. Making good progress. Will hold lisinopril today, monitor. CCM. 01/16/17 17:31 Continued improvement. CCM. Subjective: Pt seen, discussed with staff. Reports feeling "better" today. Continues to appear brighter in milieu. Underwent ECT this morning without complication. Mild hypoxia while sleeping after treatment. Objective: Vital Signs Temp Pulse Resp BP Pulse Ox 36.5 C 76 12 105/51 L 96 01/16/17 11:30 01/16/17 11:30 01/16/17 11:30 01/16/17 11:30 01/16/17 11:30 MSE: CAlm, coop. Affect is brighter, smiling spontaneously. Mood is "better. " TP linear. TC reveals no psychosis. No SI. - Time Spent With Patient Time Spent With Patient: 35" - Pending Discharge Pending Discharge Within 24 Hours: No Pending Discharge Within 48 Hours: No ICD10 Worksheet Patient Problems: Problems Problem Status Onset Depression Acute HTN (hypertension) Acute Major depressive disorder, recurrent episode, severe, with psychosis Acute
[2017-01-16] MEDS: amLODIPine BESYLATE 5 MG TAB PO SCH (22:20)
[2017-01-16] MEDS: BREXPIPRAZOLE 1 MG TAB PO SCH (22:20)
[2017-01-16] MEDS: ESTRADIOL 0.5 MG TAB PO SCH (22:20)
[2017-01-17] MEDS: LEVOTHYROXINE 25 MCG TAB PO SCH (06:17)
[2017-01-17] MEDS: LISINOPRIL 10 MG TAB PO SCH (06:27)
[2017-01-17] MEDS: VENLAFAXINE XR 150 MG CAP PO SCH (10:02)
[2017-01-17] MEDS: CHOLECALCIFEROL VIT D3 2,000 UNITS TAB/CAP PO SCH (10:03)
[2017-01-17] MEDS: VENLAFAXINE XR 75 MG CAP PO SCH (10:03)
--- NOTE | 2017-01-17 16:40 | SOAPPROG ---
SOAP Progress Note Assessment/Plan: Assessment: Plan: 12/27/16 17:40 Acute psychosis has ebbed. She is currently able to provide informed consent for treatment including ECT. Will proceed tomorrow as long as she doesn't regress. 12/28/16 14:42 Remains psychotically depressed. CCM including ECT. 01/01/17 14:31 Remains psychotically depressed. CCM. 01/01/17 14:35 No real change. CCM. 01/02/17 14:15 Remains severely ill. CCM. 01/03/17 16:35 Remains psychotically depressed. CCM. ECT tomorrow. 01/04/17 13:25 Much improved today. CCM. Case reviewed with Dr. Bhatti. Will change Risperdal to Rexulti. The risks, benefits and alternatives of this are reviewed with patient and she is agreeable. Asks insightful question including what class of drug it is. 01/07/17 16:01 Some backsliding over the WE. She was much improved on Saturday, however, so I expect for her to pick back up today after ECT. 01/08/17 17:45 Improved after yesterday's ECT. [facility]. 01/09/17 12:57 Continues to receive benefit from ECT though struggles to carry this through to next treatment. [facility]. 01/10/17 15:19 Continued gradual improvement. [facility]. 01/11/17 14:40 Slow improvement. [facility]. 01/15/17 16:12 Continued improvement. Remains subjectively depressed. [facility]. 01/15/17 16:15 Brighter today. Making good progress. Will hold lisinopril today, monitor. [facility]. 01/16/17 17:31 Continued improvement. [facility]. 01/17/17 16:39 Overall improvement. Less incremental benefit at this point. Will treat tomorrow and monitor. Likely d/c first of the week. Subjective: Pt seen, discussed with staff. Reports feeling "about the same." Appears anxious at times, but not paranoid. Appropriately interactive with others. Objective: Vital Signs Temp Pulse Resp BP Pulse Ox 36.5 C 67 16 120/58 L 94 01/16/17 11:30 01/16/17 22:09 01/16/17 22:09 01/17/17 08:00 01/16/17 22:09 MSE: Appears somewhat anxious. Affect is o/w constricted, stable, approp. Mood is "OK." TP linear. TC reveals no psychosis. Cognition is stable. - Time Spent With Patient Time Spent With Patient: 15" - Pending Discharge Pending Discharge Within 24 Hours: No Pending Discharge Within 48 Hours: No ICD10 Worksheet Patient Problems: Problems Problem Status Onset Depression Acute HTN (hypertension) Acute Major depressive disorder, recurrent episode, severe, with psychosis Acute
[2017-01-17] MEDS: BREXPIPRAZOLE 1 MG TAB PO SCH (21:52)
[2017-01-17] MEDS: ESTRADIOL 0.5 MG TAB PO SCH (21:52)
[2017-01-17] MEDS: amLODIPine BESYLATE 5 MG TAB PO SCH (21:53)
[2017-01-18] MEDS: LISINOPRIL 10 MG TAB PO SCH (04:37)
[2017-01-18] MEDS: LEVOTHYROXINE 25 MCG TAB PO SCH (04:52)
[2017-01-18] MEDS ORDERED: LIDOCAINE 2% 5 ML SDV ID ONE (05:00)
[2017-01-18] MEDS ORDERED: NS 1,000 ML IV ONE (05:00)
[2017-01-18] MEDS ORDERED: ONDANSETRON DISINTEGRATING 4 MG TAB PO ONE (05:00)
[2017-01-18] MEDS ORDERED: THEOPHYLLINE ORAL SOLUTION 80 MG/15 ML UDCUP PO ONE (05:00)
[2017-01-18] MEDS ORDERED: CITRIC ACID/SODIUM CITRATE 30 ML UDCUP PO ONE (05:00)
[2017-01-18] MEDS: CHOLECALCIFEROL VIT D3 2,000 UNITS TAB/CAP PO SCH (08:23)
[2017-01-18] MEDS: VENLAFAXINE XR 75 MG CAP PO SCH (08:23)
[2017-01-18] MEDS: VENLAFAXINE XR 150 MG CAP PO SCH (08:23)
--- NOTE | 2017-01-18 14:00 | SOAPPROG ---
SOAP Progress Note Assessment/Plan: Assessment: Plan: 12/27/16 17:40 Acute psychosis has ebbed. She is currently able to provide informed consent for treatment including ECT. Will proceed tomorrow as long as she doesn't regress. 12/28/16 14:42 Remains psychotically depressed. CCM including ECT. 01/01/17 14:31 Remains psychotically depressed. CCM. 01/01/17 14:35 No real change. CCM. 01/02/17 14:15 Remains severely ill. CCM. 01/03/17 16:35 Remains psychotically depressed. CCM. ECT tomorrow. 01/04/17 13:25 Much improved today. CCM. Case reviewed with Dr. Bhatti. Will change Risperdal to Rexulti. The risks, benefits and alternatives of this are reviewed with patient and she is agreeable. Asks insightful question including what class of drug it is. 01/07/17 16:01 Some backsliding over the WE. She was much improved on Saturday, however, so I expect for her to pick back up today after ECT. 01/08/17 17:45 Improved after yesterday's ECT. [facility]. 01/09/17 12:57 Continues to receive benefit from ECT though struggles to carry this through to next treatment. [facility]. 01/10/17 15:19 Continued gradual improvement. [facility]. 01/11/17 14:40 Slow improvement. [facility]. 01/15/17 16:12 Continued improvement. Remains subjectively depressed. [facility]. 01/15/17 16:15 Brighter today. Making good progress. Will hold lisinopril today, monitor. [facility]. 01/16/17 17:31 Continued improvement. [facility]. 01/17/17 16:39 Overall improvement. Less incremental benefit at this point. Will treat tomorrow and monitor. Likely d/c first of the week. 01/18/17 13:59 Doing well. Will conclude acute course 01/21/17 and likely d/c 01/22/17 if all is well. Subjective: Pt seen, discussed with staff. Reports feeling "pretty good." Affect is bright , no irritability or paranoia. Family on board with d/c plan. Underwent bilateral ECT without complication. Objective: Vital Signs Temp Pulse Resp BP Pulse Ox 36.8 C 60 12 108/55 L 95 01/18/17 10:45 01/18/17 10:45 01/18/17 10:45 01/18/17 10:45 01/18/17 10:45 MSE; Calm, coop. Affect is constricted, though generally euthymic, stable, approp. Mood is "pretty good." TP linear. TC reveals no psychosis. No SI. - Time Spent With Patient Time Spent With Patient: 35" - Pending Discharge Pending Discharge Within 24 Hours: No Pending Discharge Within 48 Hours: No ICD10 Worksheet Patient Problems: Problems Problem Status Onset Depression Acute HTN (hypertension) Acute Major depressive disorder, recurrent episode, severe, with psychosis Acute
[2017-01-18] MEDS: ESTRADIOL 0.5 MG TAB PO SCH (21:53)
[2017-01-18] MEDS: BREXPIPRAZOLE 1 MG TAB PO SCH (21:53)
[2017-01-18] MEDS: amLODIPine BESYLATE 5 MG TAB PO SCH (21:53)
[2017-01-19] MEDS: LEVOTHYROXINE 25 MCG TAB PO SCH (06:20)
[2017-01-19] MEDS: LISINOPRIL 10 MG TAB PO SCH (07:08)
[2017-01-19] MEDS: VENLAFAXINE XR 75 MG CAP PO SCH (08:39)
[2017-01-19] MEDS: VENLAFAXINE XR 150 MG CAP PO SCH (08:39)
[2017-01-19] MEDS: CHOLECALCIFEROL VIT D3 2,000 UNITS TAB/CAP PO SCH (08:40)
--- NOTE | 2017-01-19 19:39 | SOAPPROG ---
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 Now in 3rd wk 01/21/17 14:43 slept well. denies problems with appetite, energy is good. mood overall "better," denies any acute or new concerns. doesn't recall our interview from 2 wks ago. but does not think she has had any signif changes in her baseline cognition. does not feel ready for d/c presently when upcoming planned d/c was mentioned. unable to state why not feeling ready, "but maybe I will be by Tues". MSE: calm, cooperative, baseline head tremor, fair eye contact, depr mood, restricted affect, smiling occasionally, more spont speech but still with overall slowed resp, no irritability, no psychosis evident, and denied any SI. i/j limited, cognition grossly intact altho not formally assessed. Plan: cont current meds and ECT as per plan Objective: Vital Signs Temp Pulse Resp BP Pulse Ox 36.1 C 71 20 132/60 H 95 01/19/17 17:26 01/19/17 17:26 01/19/17 17:26 01/19/17 17:26 01/19/17 17:26 - Time Spent With Patient Time Spent With Patient: 35min - Pending Discharge Pending Discharge Within 24 Hours: No Pending Discharge Within 48 Hours: No ICD10 Worksheet Patient Problems: Problems Problem Status Onset Depression Acute HTN (hypertension) Acute Major depressive disorder, recurrent episode, severe, with psychosis Acute
[2017-01-19] MEDS: ESTRADIOL 0.5 MG TAB PO SCH (22:17)
[2017-01-19] MEDS: BREXPIPRAZOLE 1 MG TAB PO SCH (22:17)
[2017-01-19] MEDS: amLODIPine BESYLATE 5 MG TAB PO SCH (22:18)
[2017-01-20] MEDS: LEVOTHYROXINE 25 MCG TAB PO SCH (06:27)
[2017-01-20] MEDS: LISINOPRIL 10 MG TAB PO SCH (06:29)
[2017-01-20] MEDS: VENLAFAXINE XR 150 MG CAP PO SCH (09:28)
[2017-01-20] MEDS: VENLAFAXINE XR 75 MG CAP PO SCH (09:28)
[2017-01-20] MEDS: CHOLECALCIFEROL VIT D3 2,000 UNITS TAB/CAP PO SCH (09:29)
[2017-01-20] MEDS: BISACODYL 5 MG EC TAB PO PRN (18:00)
[2017-01-20] MEDS: amLODIPine BESYLATE 5 MG TAB PO SCH (21:45)
[2017-01-20] MEDS: BREXPIPRAZOLE 1 MG TAB PO SCH (21:46)
[2017-01-20] MEDS: ESTRADIOL 0.5 MG TAB PO SCH (21:46)
--- NOTE | 2017-01-21 03:58 | SOAPPROG ---
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 Now in 3rd wk 01/21/17 14:43 slept well. denies problems with appetite, energy is good. mood overall "better," denies any acute or new concerns. doesn't recall our interview from 2 wks ago. but does not think she has had any signif changes in her baseline cognition. does not feel ready for d/c presently when upcoming planned d/c was mentioned. unable to state why not feeling ready, "but maybe I will be by Tues". MSE: calm, cooperative, baseline head tremor, fair eye contact, depr mood, restricted affect, smiling occasionally, more spont speech but still with overall slowed resp, no irritability, no psychosis evident, and denied any SI. i/j limited, cognition grossly intact altho not formally assessed. Plan: cont current meds and ECT as per plan 01/20/17 15:52 slept 9.5 hr last pm per staff. BP med held this AM b/c BP low 109/51. (also held for low BP yesterday AM) Pt thinks maybe not drinking enough H2O b/c also c/o possible constipation. Pt has prn for constip smiling more during conversation, seems slightly more engaged, rates depr at 4-5 /10, does not recall depr level on admission. no psychosis. Plan: cont current meds/ECT Objective: Vital Signs Temp Pulse Resp BP Pulse Ox 36.3 C 71 20 133/59 H 95 01/20/17 10:04 01/20/17 19:52 01/20/17 19:52 01/20/17 21:45 01/20/17 19:52 - Time Spent With Patient Time Spent With Patient: 15min - Pending Discharge Pending Discharge Within 24 Hours: No Pending Discharge Within 48 Hours: No ICD10 Worksheet Patient Problems: Problems Problem Status Onset Depression Acute HTN (hypertension) Acute Major depressive disorder, recurrent episode, severe, with psychosis Acute
[2017-01-21] MEDS ORDERED: ONDANSETRON DISINTEGRATING 4 MG TAB PO ONE (05:00)
[2017-01-21] MEDS ORDERED: CITRIC ACID/SODIUM CITRATE 30 ML UDCUP PO ONE (05:00)
[2017-01-21] MEDS ORDERED: THEOPHYLLINE ORAL SOLUTION 80 MG/15 ML UDCUP PO ONE (05:00)
[2017-01-21] MEDS ORDERED: NS 1,000 ML IV ONE (05:00)
[2017-01-21] MEDS ORDERED: LIDOCAINE 2% 5 ML SDV ID ONE (05:00)
[2017-01-21] MEDS ORDERED: GLYCOPYRROLATE 0.2 MG/1 ML VIAL ONE (06:05)
[2017-01-21] MEDS ORDERED: MIDAZOLAM 2 MG/2 ML VIAL ONE (06:05)
[2017-01-21] MEDS ORDERED: fentaNYL 100 MCG/2 ML INJ ONE (06:05)
[2017-01-21] MEDS ORDERED: SUCCINYLCHOLINE CHLORIDE 200 MG/10 ML VIAL ONE (06:06)
[2017-01-21] MEDS ORDERED: ROCURONIUM 50 MG/5 ML VIAL ONE (06:06)
[2017-01-21] MEDS ORDERED: ETOMIDATE 20 MG/10 ML VIAL ONE (06:06)
[2017-01-21] MEDS ORDERED: LABETALOL HCL 50 MG/10 ML SYR ONE (06:06)
[2017-01-21] MEDS ORDERED: PROPOFOL 200 MG/20 ML VIAL ONE (06:06)
[2017-01-21] MEDS ORDERED: ONDANSETRON 4 MG/2 ML VIAL ONE (06:06)
[2017-01-21] MEDS ORDERED: ONDANSETRON DISINTEGRATING 4 MG TAB ONE (07:57)
[2017-01-21] MEDS ORDERED: CITRIC ACID/SODIUM CITRATE 30 ML UDCUP ONE (07:57)
--- NOTE | 2017-01-21 12:47 | SOAPPROG ---
SOAP Progress Note Assessment/Plan: Assessment: Plan: 12/27/16 17:40 Acute psychosis has ebbed. She is currently able to provide informed consent for treatment including ECT. Will proceed tomorrow as long as she doesn't regress. 12/28/16 14:42 Remains psychotically depressed. CCM including ECT. 01/01/17 14:31 Remains psychotically depressed. CCM. 01/01/17 14:35 No real change. [facility]CM. 01/02/17 14:15 Remains severely ill. CCM. 01/03/17 16:35 Remains psychotically depressed. CCM. ECT tomorrow. 01/04/17 13:25 Much improved today. CCM. Case reviewed with Dr. Bhatti. Will change Risperdal to Rexulti. The risks, benefits and alternatives of this are reviewed with patient and she is agreeable. Asks insightful question including what class of drug it is. 01/07/17 16:01 Some backsliding over the WE. She was much improved on Saturday, however, so I expect for her to pick back up today after ECT. 01/08/17 17:45 Improved after yesterday's ECT. [facility]. 01/09/17 12:57 Continues to receive benefit from ECT though struggles to carry this through to next treatment. [facility]. 01/10/17 15:19 Continued gradual improvement. [facility]CM. 01/11/17 14:40 Slow improvement. [facility]CM. 01/15/17 16:12 Continued improvement. Remains subjectively depressed. [facility]CM. 01/15/17 16:15 Brighter today. Making good progress. Will hold lisinopril today, monitor. [facility]. 01/16/17 17:31 Continued improvement. [facility]. 01/17/17 16:39 Overall improvement. Less incremental benefit at this point. Will treat tomorrow and monitor. Likely d/c first of the week. 01/18/17 13:59 Doing well. Will conclude acute course 01/21/17 and likely d/c 01/22/17 if all is well. 01/21/17 12:47 Contnues to do well. CCM. Subjective: Pt seen, discussed with staff. Reports feeling "pretty good." States she is ready for d/c. Underwent bilateral ECT without complication this morning. Objective: Vital Signs Temp Pulse Resp BP Pulse Ox 36.4 C 70 14 107/51 L 96 01/21/17 11:27 01/21/17 11:27 01/21/17 11:27 01/21/17 11:27 01/21/17 11:27 MSE; Calm, coop. Affect is constricted, stable, approp. Mood is "pretty good. " TP linear. TC reveals no psychosis. No SI. - Time Spent With Patient Time Spent With Patient: 35" - Pending Discharge Pending Discharge Within 24 Hours: No Pending Discharge Within 48 Hours: No ICD10 Worksheet Patient Problems: Problems Problem Status Onset Depression Acute HTN (hypertension) Acute Major depressive disorder, recurrent episode, severe, with psychosis Acute
[2017-01-21] MEDS: CHOLECALCIFEROL VIT D3 2,000 UNITS TAB/CAP PO SCH (13:59)
[2017-01-21] MEDS: VENLAFAXINE XR 150 MG CAP PO SCH (14:02)
[2017-01-21] MEDS: VENLAFAXINE XR 75 MG CAP PO SCH (14:02)
[2017-01-21] MEDS: LISINOPRIL 10 MG TAB PO SCH (18:55)
[2017-01-21] MEDS: LEVOTHYROXINE 25 MCG TAB PO SCH (20:40)
[2017-01-21] MEDS: amLODIPine BESYLATE 5 MG TAB PO SCH (21:53)
[2017-01-21] MEDS: ESTRADIOL 0.5 MG TAB PO SCH (21:53)
[2017-01-21] MEDS: BREXPIPRAZOLE 1 MG TAB PO SCH (21:53)
[2017-01-22 06:21] VITALS: O2SAT 96
[2017-01-22] MEDS: LISINOPRIL 10 MG TAB PO SCH (06:46)
[2017-01-22] MEDS: LEVOTHYROXINE 25 MCG TAB PO SCH (06:46)
[2017-01-22] MEDS: VENLAFAXINE XR 150 MG CAP PO SCH (08:36)
[2017-01-22] MEDS: CHOLECALCIFEROL VIT D3 2,000 UNITS TAB/CAP PO SCH (08:36)
[2017-01-22] MEDS: VENLAFAXINE XR 75 MG CAP PO SCH (08:36)
[2017-01-22 09:55] VITALS: BP 117/56; PULSE 74; RESP 15; TEMP 98
--- NOTE | 2017-01-24 20:11 | BDS ---
[f rep st] BEHAVIORAL HEALTH DISCHARGE SUMMARY REASON FOR ADMISSION: Patient is a 76-year-old female, known to me from outpatient ECT tr eatment. She had a precipitous decline in her mood and a return of paranoid psychosis over the johnny od of about 10 days prior to admission, that did not respond to interventional ECT alone. She becam e gravely disabled and unable to care for herself and was admitted for further evaluation and treatm ent. A full description of the events preceding admission can be found in her admission history yessenia ed 12/26/2016. ADMITTING DIAGNOSES: 1. Major depressive disorder, recurrent, severe, with psychosis. 2. Recurrent illness. 3. Chronic illness. 4. Hypothyroidism. 5. Tremor. ADMITTING PHYSICAL EXAMINATION: Performed by Dr. Moe Forte, revealed the essential tremor; no other acute physical findings. ADMISSION LABORATORY: CBC was normal. Serum chemistries were normal. Urinalysis showed no evidenc e of infection, and urine drug screen was negative for all substances. HOSPITAL COURSE: [facility] on an M1 . She was quite disabled, despite the relative short course of her illness. 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 She was refusing ECT because she did not trust us a nd kept saying that "you just want to put me to sleep." She believed that myself and staff were act ing against her and was generally uncooperative. Her daughters were able to talk to her and convinc e her to continue with ECT, which she did, receiving acute course treatments throughout her stay. Zia weir also took another look at her medications and changed her Risperdal that she had taken for a long time to Rexulti. This was started at 1 mg and increased to 2 mg, and she tolerated this well. Patient's hospital course was uncomplicated. She received the acute course ECT and the medication c hange and did well. Her mood improved and her psychosis resolved. CONDITION AT DISCHARGE: Stable. Her affect was euthymic, stable, and appropriate, though somewhat blunted. Her cognition was reasonably good, though she did demonstrate some delay in talking. She was well oriented at the time of discharge. DISCHARGE MEDICATIONS: Estradiol 0.5 mg daily, lisinopril 30 mg daily, vitamin D3 5000 units daily, levothyroxine 25 mcg daily, bisacodyl 5 mg daily p.r.n., Rexulti 2 mg h.s., and Effexor XR 225 mg d aily. DISCHARGE DIAGNOSES: 1. Major depressive disorder, recurrent, severe, with psychosis. 2. Recurrent illness. 3. Chronic illness. 4. Hypothyroidism. 5. Tremor. DISPOSITION: Patient left the hospital with her daughter to return to her assisted [facility]. FOLLOWUP: With Dr. Bhatti of [facility] in 1 week. LEGAL COURSE: Patient was placed on a short-term certification at the expiration of her M1 hold. S hort-term certification was discontinued at the time of her discharge. /[id number]/MODL
== END 2017-01-22 13:32 | disposition home or self-care (01) | DRG 885 ==
LOC: BBEH 12-26 03:05
PROVIDERS: ADMIT Psychiatry & Neurology Psychiatry; ATTEND Psychiatry & Neurology Behavioral Neurology & Neuropsychiatry
PROC: GZB2ZZZ Electroconvulsive Therapy, Bilateral-Single Seizure (ICD-10-PCS; principal; 2016-12-28)
DX: F33.3 Major depressive disorder, recurrent, severe with psychotic symptoms (principal); E03.9 Hypothyroidism, unspecified; R25.1 Tremor, unspecified; I12.9 Hypertensive chronic kidney disease with stage 1 through stage 4 chronic kidney disease, or unspecified chronic kidney disease; N18.3 Chronic kidney disease, stage 3 (moderate); R35.0 Frequency of micturition
CPT/HCPCS: 80305; 84134-90; G0480; J0330; J2250; J2405; J2704; J3010

== ENCOUNTER → 2017-07-18 | Outpatient (CLI) | payer OTHER, BC | LOC: BMCIMAGING 15:27 | PROVIDERS: ATTEND Internal Medicine | DX: K59.00 Constipation, unspecified (principal) ==

== ENCOUNTER 2017-08-01 08:01 | Day surgery (SDC) | payer OTHER, BC ==
[2017-08-01] MEDS ORDERED: BOTULINUM TOXIN TYPE A 100 UNIT VIAL MISC ONE (09:00)
--- NOTE | 2017-08-01 09:24 | PDGENHP ---
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 Pertinent Past, Social, Family History: PMHx: Colon polyps, Hypothyroidism, low back pain. SHX: Single, no ETOH or tobacco. FHX: negative for colon cancer, + for colon polyps. Relevant Physical Exam: AVSS. Lungs Clear to P&A. COR: RRR, NS1, S2. ABD: + BS, NT. Neuro: Alert, Ox3. Cardiorespiratory Assessment: ASA I. Assessment; Chronic anal fissure. PLAN: F/S with Botox injection.
[2017-08-01] MEDS ORDERED: fentaNYL 100 MCG/2 ML INJ ONE (09:34)
--- NOTE | 2017-08-01 09:48 | GIREPORT ---
[facility] Surgical Services - Endoscopy Department Patient Name: Fabian Gale Procedure Date: 08/01/2017 9:19 AM Patient Type: Outpatient Attending MD/ ER Physician: Parvez Lewis MD Procedure: Flexible Sigmoidoscopy Indications: Anal pain, Chronic anal fissure unresponsible to conservative medical management. Providers: Parvez Lewis MD Medicines: Fentanyl 100 micrograms IV Complications: No immediate complications. Estimated blood loss: None. Description of Procedure: After obtaining informed consent, the endoscope was passed under direct vision. Throughout the procedure, the patient's blood pressure, pulse, and oxygen saturations were monitored continuously. The Colonoscope with irrigation channel was introduced through the anus and advanced to the sigmoid colon. The flexible sigmoidoscopy was accomplished without difficulty. The patient tolerated the procedure fairly well. The qualit y of the bowel preparation was excellent. Findings: The rectum and sigmoid colon appeared normal. A 8 mm anal fissure was found in the anal canal. Area was successfully injected with 100 units botulinum toxin. The digital rectal exam findings include anal fissure. Estimated Blood Loss: Estimated blood loss: none. Post Op Diagnosis: - The rectum and sigmoid colon are normal. - Anal fissure - injected with 100u of Botox. - Anal fissure found on digital rectal exam. - No specimens collected. Recommendation: - Discharge patient to home (with escort). - High fiber diet indefinitely. - Miralax 1 capful (17 grams) in 8 ounces of water PO BID indefinitely. - PRN Noroco for rectal pain. - Return to physician clerical assistant in 2 weeks. Attending Participation: I personally performed the entire procedure. Parvez Lewis MD Parvez Lewis MD 08/01/2017 9:48:01 AM This report has been signed electronicallyParvez Lewis MD Number of Addenda: 0 Note Initiated On: 08/01/2017 9:19 AM Total Procedure Duration Time 0 hours 7 minutes 6 seconds [email or web address]
[2017-08-01 10:14] VITALS: RESP 14; TEMP 98.1; O2SAT 100
[2017-08-01 10:59] VITALS: BP 137/67; PULSE 58
== END 2017-08-01 10:55 | disposition home or self-care (01) ==
LOC: FSGY 08:01
PROVIDERS: ATTEND Internal Medicine Gastroenterology
PROC: 3E0H7GC Introduction of Other Therapeutic Substance into Lower GI, Via Natural or Artificial Opening (ICD-10-PCS; principal; 2017-08-01 09:00)
DX: K60.1 Chronic anal fissure (principal); M54.5 Low back pain; E03.9 Hypothyroidism, unspecified; F32.9 Major depressive disorder, single episode, unspecified; Z85.828 Personal history of other malignant neoplasm of skin; Z86.010 Personal history of colon polyps; Z87.891 Personal history of nicotine dependence
CPT/HCPCS: J0585; J3010

== ENCOUNTER → 2017-09-16 | Outpatient (CLI) | payer OTHER, BC | LOC: FIMAGING 14:17 | PROVIDERS: ATTEND Internal Medicine | DX: Z12.31 Encounter for screening mammogram for malignant neoplasm of breast (principal) ==

== ENCOUNTER → 2017-11-12 | Outpatient (CLI) | payer OTHER, BC | LOC: FIMAGING 11:16 | PROVIDERS: ATTEND Internal Medicine | DX: Z13.820 Encounter for screening for osteoporosis (principal); M85.89 Other specified disorders of bone density and structure, multiple sites; Z78.0 Asymptomatic menopausal state ==

== ENCOUNTER → 2017-12-26 | Outpatient (CLI) | payer OTHER, BC | LOC: FIMAGING 14:01 | PROVIDERS: ATTEND Physical Medicine & Rehabilitation | DX: S76.311A Strain of muscle, fascia and tendon of the posterior muscle group at thigh level, right thigh, initial encounter (principal); M76.892 Other specified enthesopathies of left lower limb, excluding foot; M76.891 Other specified enthesopathies of right lower limb, excluding foot; M51.36 Other intervertebral disc degeneration, lumbar region; Z90.710 Acquired absence of both cervix and uterus; Z98.890 Other specified postprocedural states ==

== ENCOUNTER 2018-01-03 20:44 | Observation (INO) | payer OTHER, BC ==
--- NOTE | 2018-01-03 20:53 | EDPHY ---
H & P Stated Complaint: Abdominal pain and diarrhea started Trulance yesterday Source: Patient - Personal History Current Tetanus Diphtheria and Acellular Pertussis (TDAP): Yes Tetanus Vaccine Date: two years ago - Medical/Surgical History Hx Asthma: No Hx Chronic Respiratory Disease: No Hx Diabetes: No Hx Cardiac Disease: No Hx Renal Disease: No Hx Cirrhosis: No Hx Alcoholism: No Hx HIV/AIDS: No Hx Splenectomy or Spleen Trauma: No Other PMH: Psych-Psychosis/paranoid, major depression disorder. hypothyroid, BACK PROBLEMS, HYSTERECTOMY, GALL BLADDER, Hypertension, tremor - Social History Smoking Status: Former smoker Time Seen by Provider: 01/03/18 20:52 HPI/ROS: CHIEF COMPLAINT: Abdominal pain, diarrhea HISTORY OF PRESENT ILLNESS: The patient presents to the ED with complaints of generalized abdominal pain and 7 hr of continuous diarrhea. The patient started Trulance yesterday for management of her chronic constipation. She has taken a total of 2 doses of the medications. The patient denies any nausea or vomiting. The patient denies fever. Past surgical history is significant for hernia repair, bladder lift, appendectomy and cholecystectomy. The patient denies any fever, dysuria, cough or congestion. REVIEW OF SYSTEMS: A comprehensive 10 point review of systems is otherwise negative aside from elements mentioned in the history of present illness. (Rodger Clarke) - Physical Exam Exam: General Appearance: Alert, mild discomfort Eyes: Pupils equal and round no pallor or injection ENT, Mouth: Mucous membranes moist Respiratory: There are no retractions, lungs are clear to auscultation Cardiovascular: Regular rate and rhythm Gastrointestinal: Slightly distended, hyperactive bowel sounds Neurological: 5/5 strength all 4 extremities Skin: Warm and dry, no rashes Musculoskeletal: Neck is supple nontender Extremities: symmetrical, full range of motion (Rodger Clarke) Constitutional: Initial Vital Signs Temperature (C) 36.8 C 01/03/18 20:49 Heart Rate 99 01/03/18 20:49 Respiratory Rate 18 01/03/18 20:49 Blood Pressure 139/73 H 01/03/18 20:49 O2 Sat (%) 97 01/03/18 20:49 O2 Delivery Mode Room Air Allergies/Adverse Reactions: ephedrine [Ephedrine] Allergy (Severe, Verified 01/17/16 11:43) Vomiting morphine [Morphine] Allergy (Severe, Verified 01/17/16 11:43) Vomiting prednisone [Prednisone] Allergy (Severe, Verified 01/17/16 11:43) Other-Enter Comments prochlorperazine edisylate [From Compazine] Allergy (Verified 03/07/16 12:52) Swelling/neck,face,throat prochlorperazine maleate [From Compazine] Allergy (Verified 03/07/16 12:52) Swelling/neck,face,throat Sulfa (Sulfonamide Antibiotics) Allergy (Verified 01/17/16 11:43) Rash Home Medications: Medication Instructions Recorded RX: Cholecalciferol (Vitamin D3) 5,000 unit PO DAILY 03/05/16 [Vitamin D3] RX: Estradiol [Estradiol 1 MG (*)] 0.5 mg PO HS 03/05/16 RX: Lisinopril [Zestril 30 mg] 30 mg PO DAILY06 03/05/16 RX: Venlafaxine Xr [Effexor Xr 75 mg PO DAILY #0 cap 01/22/17 75MG (*)] RX: Venlafaxine Xr [Effexor Xr] 150 mg PO DAILY #0 cap 01/22/17 ALPRAZolam PRN 07/30/17 [place] 5/325 (*) PRN 07/30/17 RX: Levothyroxine [Synthroid 25 25 mcg PO DAILY06 07/30/17 mcg (*)] Seroquel HS 07/30/17 Trulance 01/03/18 Medical Decision Making - Diagnostics Imaging Results: Imaging Impressions Abdomen X-Ray 01/03/18 21:06 Impression: No acute findings in the abdomen or chest. Abdomen CT 01/03/18 22:00 Impression: 1. Segmental sigmoid thickening suspicious for colitis or less likely diverticulitis without evidence of perforation or abscess. 2. 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 Short-term follow-up CT is recommended in 3-6 months 3. Tiny likely benign pulmonary nodules. If the patient is a smoker or is high risk, unenhanced low dose chest CT for follow up in 12 months is considered optional. Otherwise, no further follow up is needed per Fleischner Society criteria. 4. Additional findings as above. Findings discussed with Laura Miller 01/03/2018 at 23:09. ED Course/Re-evaluation: The patient presents to the ED with complaints of abdominal pain, distention and diarrhea in the setting of a new medication for chronic constipation. The patient had an IV established. She received 75 mcg of fentanyl and 1 L of normal saline. Three-way of the abdomen is unremarkable. Laboratory studies demonstrate only mild renal insufficiency. Re-evaluated the patient at 10:00 p.m.. She continues to complain of severe abdominal pain. Additional 0.5 mg of Dilaudid was ordered. CT scan of the abdomen pelvis was ordered. Patient will be turned over to Dr. Miller at 10pm. (Rodger Clarke) 11:40 p.m.- I re-evaluated the patient. Her pain is continued. On exam, she has lower abdominal tenderness. I have given her a dose of Toradol which did not improve her symptoms. Her CT scan does demonstrate colitis, likely medication side effect versus infectious or ischemic. She does have a mild leukocytosis though no fever. I discussed her test results with the patient and her daughter at the bedside. Given the degree of the patient's pain, she is uncomfortable with the idea of discharge tonight. I plan to admit her to the hospital. I have discussed the case with the hospitalist and I have ordered her a bed. (Laura Miller) Differential Diagnosis: Differential diagnosis considered includes medication side effect, perforation, peritonitis, dehydration, metabolic abnormality, pancreatitis (Rodger Clarke) - Data Points Laboratory Results: Laboratory Results 01/03/18 21:10 01/03/18 21:10 01/03/18 01/03/18 01/03/18 23:00 21:10 21:10 WBC 11.87 10^3/uL H 10^3/uL (3.80-9.50) RBC 4.58 10^6/uL 10^6/uL (4.18-5.33) Hgb 13.3 g/dL g/dL (12.6-16.3) Hct 39.1 % % (38.0-47.0) MCV 85.4 fL fL (81.5-99.8) MCH 29.0 pg pg (27.9-34.1) MCHC 34.0 g/dL g/dL (32.4-36.7) RDW 12.8 % % (11.5-15.2) Plt Count 249 10^3/uL 10^3/uL (150-400) MPV 9.5 fL fL (8.7-11.7) Neut % (Auto) 72.6 % % (39.3-74.2) Lymph % (Auto) 20.3 % % (15.0-45.0) [place] % (Auto) 6.0 % % (4.5-13.0) Eos % (Auto) 0.5 % L % (0.6-7.6) Baso % (Auto) 0.3 % % (0.3-1.7) Nucleat RBC Rel Count 0.0 % % (0.0-0.2) Absolute Neuts (auto) 8.63 10^3/uL H 10^3/uL (1.70-6.50) Absolute Lymphs (auto) 2.41 10^3/uL 10^3/uL (1.00-3.00) Absolute Monos (auto) 0.71 10^3/uL 10^3/uL (0.30-0.80) Absolute Eos (auto) 0.06 10^3/uL 10^3/uL (0.03-0.40) Absolute Basos (auto) 0.03 10^3/uL 10^3/uL (0.02-0.10) Absolute Nucleated RBC 0.00 10^3/uL 10^3/uL (0-0.01) Immature Gran % 0.3 % % (0.0-1.1) Immature Gran # 0.03 10^3/uL 10^3/uL (0.00-0.10) Sodium 140 mEq/L mEq/L (135-145) Potassium 4.6 mEq/L mEq/L (3.3-5.0) Chloride 105 mEq/L mEq/L (97-110) Carbon Dioxide 23 mEq/l mEq/l (22-31) Anion Gap 12 mEq/L mEq/L (8-16) BUN 30 mg/dL H mg/dL (7-23) Creatinine 1.5 mg/dL H mg/dL (0.6-1.0) Estimated GFR 33 Glucose 83 mg/dL mg/dL (70-100) Calcium 10.1 mg/dL mg/dL (8.5-10.4) Total Bilirubin 0.7 mg/dL mg/dL (0.1-1.4) Conjugated Bilirubin 0.3 mg/dL mg/dL (0.0-0.5) Unconjugated Bilirubin 0.4 mg/dL mg/dL (0.0-1.1) AST 26 IU/L IU/L (14-46) ALT 30 IU/L IU/L (9-52) Alkaline Phosphatase 59 IU/L IU/L (38-126) Total Protein 7.5 g/dL g/dL (6.3-8.2) Albumin 4.5 g/dL g/dL (3.5-5.0) Lipase 79 IU/L IU/L (23-300) Urine Color YELLOW Urine Appearance HAZY Urine pH 6.0 (5.0-7.5) Ur Specific [place] 1.019 (1.002-1.030) Urine Protein NEGATIVE (NEGATIVE) Urine Ketones NEGATIVE (NEGATIVE) Urine Blood NEGATIVE (NEGATIVE) Urine Nitrate NEGATIVE (NEGATIVE) Urine Bilirubin NEGATIVE (NEGATIVE) Urine Urobilinogen NEGATIVE EU EU (0.2-1.0) Ur Leukocyte Esterase NEGATIVE (NEGATIVE) Urine RBC NONE SEEN /hpf /hpf (0-3) Urine WBC 1-3 /hpf /hpf (0-3) Ur Epithelial Cells TRACE /lpf /lpf (NONE-1+) Urine Bacteria TRACE /hpf H /hpf (NONE SEEN) Urine Glucose NEGATIVE (NEGATIVE) Medications Given: Discontinued Medications Dicyclomine HCl (Bentyl) 20 mg PO EDNOW ONE Stop: 01/03/18 22:23 Last Admin: 01/03/18 23:06 Dose: Not Given Fentanyl (Sublimaze) 75 mcg IVP EDNOW ONE Stop: 01/03/18 21:06 Last Admin: 01/03/18 21:22 Dose: 75 mcg Hydromorphone HCl (Dilaudid) 0.5 mg IVP EDNOW ONE Stop: 01/03/18 22:01 Last Admin: 01/03/18 22:07 Dose: 0.5 mg Sodium Chloride (Ns) 1,000 mls @ 0 mls/hr IV EDNOW ONE; Wide Open PRN Reason: Protocol Stop: 01/03/18 21:06 Last Admin: 01/03/18 21:23 Dose: 1,000 mls Ketorolac Tromethamine (Toradol) 15 mg IVP EDNOW ONE Stop: 01/03/18 22:23 Last Admin: 01/03/18 23:05 Dose: 15 mg Departure - Departure Disposition: [facility] Inpatient Acute Clinical Impression: Abdominal pain, Colitis Condition: Good Instructions: Acute Abdominal Pain (ED) Additional Instructions: 1. Sometimes we are unable to diagnose an obvious cause of abdominal pain in the Emergency Department. Based upon our evaluation today, I believe your pain is secondary to the new medication you began for constipation.. Because more serious conditions can be difficult to diagnose early in the course of their presentation, we ask that you return to the Emergency Department in 8-12 hours for a recheck if you are still having pain. This is necessary to exclude the development of a more serious condition or other intra-abdominal emergency. In the event your pain markedly increases before that time or you develop intractable vomiting or fever return to the Emergency Department immediately. 2. Please do not take the prescription medication for constipation. 3. Follow up with Gastroenterology specialist you have been referred to. Referrals: NONE *PRIMARY CARE P,. [Primary Care Provider] - As per Instructions
[2018-01-03] MEDS ORDERED: NS 1,000 ML IV ONE (21:05)
[2018-01-03] MEDS ORDERED: fentaNYL 100 MCG/2 ML INJ IVP ONE (21:05)
[2018-01-03 21:20] LABS: PLATELET COUNT 249 10^3/uL (150-400)
[2018-01-03] MEDS ORDERED: HYDROmorphONE/DILAUDID 2 MG/ML INJ IVP ONE (22:00)
[2018-01-03] MEDS ORDERED: IOPAMIDOL (ISOVUE-300) 100 ML BTL ONE (22:13)
[2018-01-03] MEDS ORDERED: KETOROLAC 15 MG/1 ML SDV IVP ONE (22:22)
[2018-01-03] MEDS ORDERED: DICYCLOMINE 10 MG CAP PO ONE (22:22)
[2018-01-04] MEDS ORDERED: QUEtiapine FUMARATE 50 MG TAB PO ONE (00:01)
[2018-01-04] MEDS ORDERED: ACETAMINOPHEN 325 MG TAB PO PRN (00:04)
[2018-01-04] MEDS ORDERED: ONDANSETRON 4 MG/2 ML VIAL IVP PRN (00:04)
[2018-01-04] MEDS ORDERED: HYDROmorphONE/DILAUDID 1 MG/ML INJ IVP PRN (00:04)
[2018-01-04] MEDS ORDERED: D5W 1/2 NS 1,000 ML IV SCH (00:15)
[2018-01-04] MEDS: HYDROCODONE/APAP 5/325 TAB PO PRN ×2 (00:28→05:54)
[2018-01-04] MEDS ORDERED: D50W 25 GM/50 ML SYR IVP PRN (02:25)
[2018-01-04] MEDS ORDERED: NS 1,000 ML IV ONE ×2 (02:25→06:33)
[2018-01-04] MEDS ORDERED: D50W 25 GM/50 ML VIAL IVP PRN (03:00)
--- NOTE | 2018-01-04 03:42 | CPEKG ---
Heart Rate: 61 RR Interval: 984 P-R Interval: 176 QRSD Interval: 92 QT Interval: 421 QTC Interval: 424 P [place]: 7 QRS [place]: 26 T Wave [place]: -43 EKG Severity - BORDERLINE ECG - EKG Impression: SINUS RHYTHM EKG Impression: BORDERLINE T ABNORMALITIES, DIFFUSE LEADS Electronically Signed By: Laura Miller 04-Jan-2018 07:35:18
--- NOTE | 2018-01-04 04:41 | GHP ---
[f rep st] HISTORY AND PHYSICAL DATE OF ADMISSION: 01/03/2018 SOURCE: Patient provides history, appears reliable. EMR reviewed and case discussed with ED provider. CHIEF COMPLAINT: Abdominal pain. HISTORY OF PRESENT ILLNESS: This is a very pleasant 77-year-old female with past medical history significant for irritable bowel syndrome with constipation predominance who presents to the emergency department today with complaints of generalized abdominal pain, distention, and ongoing uncontrolled diarrhea for several hours since starting Trulance yesterday. Patient is followed by Dr. Dowling and was started on Trulance for her IBS C. She denies any fevers, chills , nausea. She has had decreased appetite. No fevers, chills. She has had some diarrhea, but she does not believe there was any melena or hematochezia. Patient denies any chest pain, palpitations, shortness of breath, nausea, or vomiting. She has not had a significant amount of oral intake since her diarrhea started secondary to decreased appetite and increased pain. Patient reports pain is related to her distention and cramping in nature. REVIEW OF SYSTEMS: GENERAL: No fevers, chills. SKIN: No rashes, sores. ENT : No congestion, sore throat. EYES: No acute changes in vision or ocular pain. Patient does wear reading glasses. CV: No chest pain, palpitations. RESPIRATORY: Patient reports occasional shortness of breath when trying to sit up and pain but otherwise none at baseline. No cough. GI: As per HPI. : No dysuria or hematuria. MUSCULOSKELETAL: Patient denies any joint pain, myalgias. NEURO: Patient denies any headache. Had some numbness, tingling in her lower feet bilaterally, but this has resolved. No focal deficits. Remainder of review of systems negative except as noted above. ALLERGIES: Multiple including epinephrine, morphine, prednisone, Compazine, and sulfa. HOME MEDICATIONS: As per EMR: Trulance, venlafaxine, Seroquel, [place], lisinopril, levothyroxine, estradiol, vitamin D3, and alprazolam. PAST MEDICAL HISTORY: Significant for irritable bowel syndrome - constipation predominant, rectal fistula, benign essential hypertension, major depressive disorder, colonic polyps, hypothyroidism. PAST SURGICAL HISTORY: Significant for cholecystectomy, history of hysterectomy , appendectomy, colonoscopy, and bladder lift, cataracts bilaterally. FAMILY HISTORY: Mother with history of colonic polyps. No other GI issues in the family. SOCIAL HISTORY: Patient lives alone. She quit smoking some time ago. She drinks half a glass of wine occasionally. She denies any illicit drug use. CODE STATUS: Limited. Patient does not want any intubation. She is amenable to compression. PHYSICAL EXAMINATION: VITAL SIGNS: Upon arrival to the emergency department, blood pressure 139/73, heart rate 99, respiratory rate 18, O2 saturation 97% on room air, temperature 36.8. Current vitals: Since patient arrived to the floor , she had a sudden drop in blood pressures to systolic 80s to 90s/40s, the lowest of 72/40. GENERAL: No acute distress. Pleasant, acutely ill, but nontoxic elderly female who is lying quietly in bed, awake. She is interactive but again does not appear to feel well. HEAD: Normocephalic, atraumatic. EYES : Extraocular muscles grossly intact. Pupils equal, round, reactive to light bilaterally and symmetric. No scleral icterus or conjunctival injection. Eyes with lens reflex appreciated bilaterally. ENT: Mucous membranes appear slightly dry. Dentition intact with some repair. NECK: Supple. Trachea midline. CV: Regular rate and rhythm. Slightly distant heart sounds. No murmurs, rubs, or gallops appreciated. RESPIRATORY: Unlabored breathing. Lungs are clear to auscultation bilaterally. Diminished breath sounds bibasilarly. ABDOMEN: Distended but soft. It is tender everywhere to soft palpation. She has hypoactive bowel sounds at this time. No rebound, guarding , or masses appreciated. : Patient with tenderness in her abdomen including the suprapubic region, but it is distended. No Lozoya catheter in place. MUSCULOSKELETAL: Generalized weakness. At this time, patient does appear fatigued and not to feel well. She is able to move her extremities, upper and lower, in bed. NEURO: Grossly nonfocal. No facial drooping. Extraocular muscles are intact. Patient is awake, alert, and oriented x4. PSYCH: Affect is slightly flat. Again, patient does not appear to be feeling well. LABORATORY STUDIES: WBC is 11.87, H and H 13.3 and 39.1, MCV 85.4, platelet count 249. Sodium is 140, potassium is 4.6, chloride 105, CO2 is 23, anion gap is 12, BUN is 30, creatinine is 1.5, GFR 33, glucose 83, point of care glucose on the floor is still 83, calcium 10.1. Total bili 0.7, conjugated bili 0.3, ALT is 30, AST is 26, alkaline phosphatase 59, total protein 7.5, albumin 4.5. Lipase is 79. UA specific gravity 1.019 with a pH of 6.0, trace bacteria, 1 to 3 WBCs, otherwise negative. Abdominal x-ray: Image and report reviewed myself. Nothing acute. Scattered nonspecific air-fluid levels. Small bowel in the central abdomen not dilated. Paucity of bowel gas in the colon. No free air. CT abdomen and pelvis with contrast: Segmental sigmoid thickening suspicious for colitis or less likely diverticulitis without evidence of perforation or abscess. 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 Short-term followup recommended in 3 to 6 months. Tiny likely benign pulmonary nodules. For high risk patients, recommend [address] Otherwise, no further followup required. Common bile duct dilated measuring 12 mm with mild-to- moderate intrahepatic dilation, possibly related to prior [place]. Liver is otherwise normal. 2.3 x 2.0 exophytic solid mass projecting from the anterior left kidney with scattered small areas of microscopic fat suspected. Additional tiny hypodensities left kidney likely represent cysts. No evidence of obstruction. ASSESSMENT AND PLAN: This patient is a 77-year-old female who presents with complaints of sudden onset diarrhea and abdominal pain, distention. 1. Some underlying colitis with adverse reaction to Trulance for history of irritable bowel syndrome. Patient denies any melena, hematochezia. No recent antibiotic therapy. She is afebrile, minimally elevated leukocytosis, suspect in setting to patient's diarrhea and dehydration possibly allergic vs ischemic, infectious or related to less likely diverticulitis. Patient will receive additional IV fluids. She has not had any further episodes of diarrhea or bowel movements since arrival to the emergency department or the floor. She does appear dry. Will hold off on antibiotic therapy at this time. patient afebrile without tachycardia. No evidence of perforation on imaging. If patient without improvement tomorrow, further discussion with GI as per day team. 2. Hypotension. Patient with sudden unexplained drop in her blood pressures upon arrival to floor. She has complained a little bit of blurry vision but blood sugar also slightly decreased, but she denies any chest pain, palpitations. She did receive a little bit of IV fluid in the emergency department. Has had multiple episodes of diarrhea. Will continue with additional liter bolus, and blood pressures do seem to be responsive. Additionally, patient has received several doses of pain medications which could be related but has been a little bit of time since her last dose prior to arrival on the floor. We will obtain an EKG and monitor blood pressures until normalized. Differential diagnosis including potentially vagal response versus related to medications or hypovolemic hypotension. patient is not meeting sepsis criteria at this time. We will continue with aggressive IV fluid hydration. Hold off on her home medications at this time. There is no evidence of perforation of the bowel. Patient may have had a vagal response prior to arrival on the floor. Her initial blood pressure is 150s systolic with heart rates in the 80s to 90s, and now currently they have dropped down to the 80s with heart rate in the 60s but have persisted. She denies any chest pain, palpitations, or shortness of breath. She does not meet SIRS criteria. 3. Abdominal pain, intractable, secondary to some distention and colitis. Supportive care at this time. Discussed with the patient the importance of treating her blood pressure before treating her pain as this can drop her blood pressures further. She is amenable to plan. Dilaudid will be available p.r.n. Once patient's diet is advanced, then will plan to continue with oral medications. 4. History of irritable bowel syndrome, constipation predominant. Holding off on further bowel regimen or motility agents. 5. Pulmonary nodules seen on CT. Patient with low risk and no longer smoker. No additional followup is recommended. 6. Acute kidney injury. Patient's baseline creatinine is unclear. Previous lab from February of last year do show a creatinine of 1.3. Will continue with IV fluids for patient's hypotension and follow along BP. suspect some component of pre-renal injury patient does appear dry. IVF as above. 7. Benign essential hypertension. At this time, patient with hypotension. Holding off on her home medications including her lisinopril at this time. 8. Hypothyroidism. Resume patient's levothyroxine when med rec is available. 9. Fluid, electrolyte, nutrition: Continue with IV fluid bolus and supplemental IV fluids as per above. Electrolyte monitoring, replacement if needed. Patient's diet will be slowly advanced as her pain is improved. She has no evidence of obstruction on imaging. We will start with some ice chips and sips until patient's status improves. 10. Prophylaxis: SCDs. Holding anticoagulation pending reassessment in the morning. 11. Code status is limited. Patient does not want to be intubated for any reason. She is amenable to compressions and cardiac resuscitation if needed. DISPOSITION: Patient is admitted initially to observation status on the medical floor pending response and pain control. /[id number]/MODL MTDD
[2018-01-04 05:11] LABS: PLATELET COUNT 163 10^3/uL (150-400)
[2018-01-04] MEDS ORDERED: levOFLOXACIN 500 MG/DEXTROSE 100 ML IV ONE (09:00)
[2018-01-04] MEDS ORDERED: ENOXAPARIN 40 MG/0.4 ML SYR SC SCH (09:00)
[2018-01-04 15:28] VITALS: BP 135/52
--- NOTE | 2018-01-04 15:57 | ASMTCMCOM ---
CM Note CM Note Notes: CM chart review. Patient is a 77 y/o female admitted for observation for sudden onset diarrhea, abdominal pain, and distention. Pt has significant hx for IBS. Patient to be discharged home today < 24hours independently, daughter will pick her up. receipt of IM signed and placed in back of chart. CM available for any additional CM or discharge needs. D/C plan: D/C home independently today. Date Signed: 01/04/2018 03:56 PM Electronically Signed By:Lindsey Amezquita
--- NOTE | 2018-01-04 17:13 | GCON ---
[f rep st] CONSULTATION DATE OF CONSULTATION: 01/04/2018 REFERRING PHYSICIAN: Patricia Moreno MD REASON FOR CONSULTATION: Diarrhea/Abnormal imaging. CHIEF COMPLAINT: Diarrhea/abdominal pain. HISTORY OF PRESENT ILLNESS: The patient is a 77-year-old female with a chronic history of anal fissures/rectal pain, who presents to [facility] with complaints of diarrhea and diffuse abdominal pain. The patient has a long- standing history of constipation and has been tried on multiple medications. She was given samples of Trulance by her outside leaf tinner. After taking the 1st dose, she had a sudden explosive diarrheal bowel movement, as well as diffuse abdominal pain. She denies any exacerbating or alleviating factors to her current symptoms. She came to the emergency room for further evaluation and was found to be hypotensive. She had a CT scan done, which did reveal possible thickening in the sigmoid colon, which may represent colitis. She denies any fevers, chills, nausea, and states that her abdominal pain is improved since her admission. She has not had a recent bowel movement. She denies any blood in her stools. I am asked by Dr. Moreno to evaluate the patient in consultation regarding abnormal imaging/abdominal pain, as well as her episode of diarrhea. PAST MEDICAL HISTORY: 1. Irritable bowel syndrome, constipation predominant. 2. Anal fissures. 3. Hypertension. 4. Major depressive disorder. 5. Multiple colonic polyps. 6. Hypothyroidism. 7. Anxiety. PAST SURGICAL HISTORY: 1. Cholecystectomy. 2. Hysterectomy. 3. Appendectomy. 4. Cataract surgery. ALLERGIES: Epinephrine, morphine, prednisone, Compazine, sulfa. MEDICATIONS: 1. Samples of Trulance were given. 2. Venlafaxine. 3. Seroquel. 4. [place]. 5. Lisinopril. 6. Levothyroxine. 7. Estradiol. 8. Vitamin D3. 9. Alprazolam. FAMILY HISTORY: Mom has colonic polyps. SOCIAL HISTORY: Lives alone. Positive alcohol use. No significant tobacco use. REVIEW OF SYSTEMS: A 14-point comprehensive review of systems was asked. Pertinent positives and negatives per HPI. PHYSICAL EXAMINATION: VITALS: Blood pressure 119/49, temperature 36.5, heart rate 63, respirations 14. GENERAL: Awake, alert, oriented x3. No distress. HEENT: Anicteric. Moist mucosa. NECK: No JVD. CARDIOVASCULAR: Regular rhythm. Positive S1, S2. No murmurs, rubs or gallops appreciated. LUNGS: Clear to auscultation bilaterally. No wheezes, rales, or rhonchi. ABDOMEN: Soft. Mild distention. Mild tenderness. No point tenderness noted. No guarding. No rebound. EXTREMITIES: No clubbing, cyanosis, or edema. NEUROLOGIC: Cranial nerves 2-12 grossly intact. PSYCH: Normal affect. SKIN: No rash. MUSCULOSKELETAL: No obvious joint effusions. BLOOD WORK: WBC 7.23, hemoglobin 10.2, hematocrit 30.5. Lactic acid 0.7. Sodium 140, potassium 4.3, chloride 113, bicarb 20, BUN 23, creatinine 1.3, glucose 123. AST 26, ALT 30. CT scan on 01/03/2018, with IV contrast: Segmental sigmoid thickening suspicious for colitis. ASSESSMENT AND PLAN: 1. Diarrhea- with abdominal pain. Possible colitis on CT scan, however, has no recent bowel movement and her pain is much improved. Etiology ? secondary to Trulance (with sigmoid colon not distended on imaging) versus ischemic colitis versus infectious? Atypical course with a very sudden improvement in her symptoms. At this time, I would hold off on any invasive procedures. She has had multiple colonoscopy, as well as a flexible sigmoidoscopy done last May, which was unrevealing. No suspicion for colon cancer. Would continue antibioticsWould advance diet. 2. Rectal pain- I did offer her outpatient office visit to discuss situation with possible flexible sigmoidoscopy with Botox. Risks, benefits, and alternatives were discussed with her. 3. Depression. 4. Hypothyroidism. 5. Irritable bowel syndrome- constipation predominant. 6. Hypertension. Thank you very much for this consultation. /[id number]/MODL MTDD
[2018-01-04] MEDS ORDERED: ESTRADIOL 0.5 MG TAB PO SCH (21:00)
[2018-01-04] MEDS ORDERED: QUEtiapine FUMARATE 25 MG TAB PO SCH (21:00)
--- NOTE | 2018-01-05 04:25 | GDS ---
[f rep st] DISCHARGE SUMMARY DISCHARGE DIAGNOSES: Include: 1. Acute diarrhea. 2. Acute hypotension. 3. Acute abdominal pain. 4. Possible colitis. 5. History of chronic constipation, recently started on Trulance. 6. Irritable bowel syndrome. 7. Acute kidney injury secondary to hypovolemia. HISTORY OF PRESENT ILLNESS: A 77-year-old female with history of IBS and chronic constipation recent ly started on Trulance who presented with acute diarrhea and abdominal discomfort. For details of th e patient's initial presentation, please see the History and Physical dated 01/03/2018. CONSULTATIVE SERVICES: Include Gastroenterology. PROCEDURES: None. HOSPITAL COURSE: By issue: 1. Acute abdominal pain with diarrhea. Patient was recently started on Trulance which certainly cou ld be the source of diarrhea. CT imaging showed inflammatory changes suggestive of possible colitis. Patient was initiated on empiric IV Flagyl and levofloxacin. Patient was evaluated by Gastroentero logy who felt that the diarrhea was likely related to the Trulance. Patient was nontoxic-appearing, able to tolerate regular diet. She is being discharged to home with oral course of Flagyl and outpat ient followup with Gastroenterology in 1 to 2 weeks. 2. Acute hypotension. I suspect this is likely multifactorial with the use of IV narcotic medicatio ns in the setting of dehydration. Patient has received fluid resuscitation and has normalization of her blood pressures with systolic in the 80s overnight, now in the 100s. I have asked the patient to hold her antihypertensive medications until seen in the outpatient setting by her PCP for blood pres sure check and safety eval for re-initiation. 3. Acute kidney injury presumed secondary to hypovolemia. Patient was fluid resuscitated with impro vement in her renal function. Again, I have asked the patient not to take her outpatient ISAAK inhibit or until seen by her PCP for safe re-initiation. 4. IBS. Patient was started on Trulance and appears to have had side effects with this medication. We are holding that med at disposition. She will follow with the outpatient pollution control engineer in 1 to 2 weeks. MEDICATIONS AT THE TIME OF DISPOSITION: Please reference the med rec printed on 01/04/2018. PENDING STUDIES: At the time of this dictation include blood cultures which are preliminary no growt h to date. I spent greater than 30 minutes in the planning and coordination of this discharge. /[id number]/MODL
[2018-01-05] MEDS ORDERED: LEVOTHYROXINE 50 MCG TAB PO SCH (06:00)
[2018-01-05] MEDS ORDERED: VENLAFAXINE XR 75 MG CAP PO SCH (09:00)
[2018-01-05] MEDS ORDERED: levOFLOXACIN 250 MG/DEXTROSE 50 ML IV SCH (09:00)
[2018-01-05] MEDS ORDERED: VENLAFAXINE XR 150 MG CAP PO SCH (09:00)
== END 2018-01-04 19:09 | disposition home or self-care (01) ==
LOC: UNDOADMOB 23:42 → F3N 01-04 01:31 → UNDODISOB 01-04 19:09
PROVIDERS: ADMIT Family Medicine; ATTEND Hospitalist
DX: R19.7 Diarrhea, unspecified (principal); I95.9 Hypotension, unspecified; R10.84 Generalized abdominal pain; R93.3 Abnormal findings on diagnostic imaging of other parts of digestive tract; K59.00 Constipation, unspecified; K58.1 Irritable bowel syndrome with constipation; N17.9 Acute kidney failure, unspecified; E86.1 Hypovolemia; K62.89 Other specified diseases of anus and rectum; R93.422 Abnormal radiologic findings on diagnostic imaging of left kidney; R91.8 Other nonspecific abnormal finding of lung field; I10 Essential (primary) hypertension; F32.9 Major depressive disorder, single episode, unspecified; F41.9 Anxiety disorder, unspecified; E03.9 Hypothyroidism, unspecified; Z87.891 Personal history of nicotine dependence; Z86.010 Personal history of colon polyps; Z88.2 Allergy status to sulfonamides
CPT/HCPCS: 71045; 74018; 74022; 74177; 93005; 97165; 97535; G0378; G8987; G8988; G8989; J1170; J1885; J1956; J2405; J3010; Q9967; 96374

== ENCOUNTER 2018-07-29 07:18 | Inpatient (IN) | payer OTHER, BC ==
--- NOTE | 2018-07-28 13:46 | GHP ---
DATE OF ADMISSION: 07/29/2018 DATE OF ADMISSION: 07/29/2018 HISTORY OF PRESENT ILLNESS: Fabian is a 77-year-old female status post colostomy creation on January 16, 2018 during a prolonged hospital stay for ischemic colitis with bowel perforation. Since then, she reports doing quite well, but has had generalized weakness for some time. She has been working with occupational therapy and physical therapy. She is starting to feel stronger. She is not having problems with her colostomy. She is scheduled to undergo colonoscopy via her ostomy the day prior to surgery. She is now ready for colostomy takedown. She denies fevers, chills, or pain. She reports occasional constipation. PAST MEDICAL HISTORY: Includes ischemic colitis with bowel perforation requiring surgery and prolonged hospital stay per above. Also, history of anal fissure, basal cell carcinoma, chronic pain, colonic polyps, depression, essential tremor, hyperlipidemia, hypothyroidism, renal lithiasis, shortness of breath. PAST SURGICAL HISTORY: Colostomy creation with colectomy as described above. Also, anal fissurectomy, lumbar spine surgery, cholecystectomy, hemorrhoidectomy , hysterectomy, Mohs surgery, salpingo-oophorectomy, tonsillectomy, adenoidectomy, tubal ligation. MEDICATIONS: Include Anucort, Effexor, Flonase, levothyroxine, lisinopril, [place], primidone, probiotic, Proctosol, vitamin D3. ALLERGIES: Include Compazine, prednisone, and sulfa. FAMILY MEDICAL HISTORY: Includes Alzheimer disease, cirrhosis and colon polyps. SOCIAL HISTORY: The patient is . She has a tobacco history, but currently does not smoke. She works as a psychologist. REVIEW OF SYSTEMS: A 10-point review of systems negative aside from that in the HPI. PHYSICAL EXAMINATION: GENERAL: Reveals a 77-year-old female, alert and oriented x3, in no acute distress with a resting tremor. HEENT: Normocephalic , atraumatic. Sclerae white. CHEST: Clear to auscultation bilaterally. CARDIA: Regular rate and rhythm. ABDOMEN: Soft with pink intact colostomy and soft brown stool in the bag. Nontender. No rebound or guarding. EXTREMITIES: Warm and dry without edema. IMPRESSION: This is a 77-year-old female with a colostomy. PLAN: Plan is to proceed with colostomy reversal. Again, risks and options have been discussed and include, but are not limited to, bleeding, infection, nerve injury, anastomotic leak, anastomotic stricture, open surgery, failure to takedown colostomy, and other problems, and she requests to proceed. /[id number]/MODL MTDD
--- NOTE | 2018-07-29 07:16 | PDHPUP ---
History & Physical Update H&P update statement: This history and physical update is based on an assessment of the patient which was completed after admission or registration (within 24 hours), but prior to the surgery/procedure. H&P update: changes noted H&P changes: Patient to get colonoscopy pre op. If colonoscopy ok, will proceed with takedown.
[~2018-07-29 07:18] MED LIST: cefOXitin SODIUM 2 GM in NS 100 ML IV ONE
[2018-07-29] MEDS ORDERED: LR 1,000 ML IV ONE (07:45)
[2018-07-29] MEDS ORDERED: LIDOCAINE 1% 2 ML INJ ID PRN (07:45)
[2018-07-29] MEDS ORDERED: ceFAZolin 2 GM/DEXTROSE 100 ML IV ONE (07:45)
[2018-07-29] MEDS ORDERED: ceFAZolin 1 GM/5 ML SYR ONE (08:44)
[2018-07-29] MEDS ORDERED: HEPARIN 1000 UNIT/1 ML MDV ONE (08:44)
[2018-07-29] MEDS ORDERED: BUPIVACAINE 0.5% 30 ML SDV ONE (08:44)
--- NOTE | 2018-07-29 08:50 | PDANEPAE ---
ANE History of Present Illness Hx colostomy or possible reversal today ANE Past Medical History - Cardiovascular History Hx Hypertension: Yes Hx Arrhythmias: No Hx Chest Pain: No Hx Coronary Artery / Peripheral Vascular Disease: No Hx CHF / Valvular Disease: No Hx Palpitations: No Cardiovascular History Comment: BORDERLINE BP RECENTLY NO MEDS - Pulmonary History Hx COPD: No Hx Asthma/Reactive Airway Disease: No Hx Recent Upper Respiratory Infection: No Hx Oxygen in Use at Home: No Hx Sleep Apnea: No Pulmonary History Comment: DENIES SOB W STAIRS - Neurologic History Hx Cerebrovascular Accident: No Hx Seizures: No Hx Dementia: No - Endocrine History Hx Diabetes: No Endocrine History Comment: LOW THYROID - Renal History Hx Renal Disorders: Yes Renal History Comment: SOME UA LEAKAGE. FREQUENT UTI'S - Liver History Hx Hepatic Disorders: No - Neurological & Psychiatric Hx Hx Neurological and Psychiatric Disorders: Yes Neurological / Psychiatric History Comment: DEPRESSION. ECT TX - Cancer History Hx Cancer: Yes Cancer History Comment: SKIN - Congenital Disorder History Hx Congenital Disorders: No - GI History Hx Gastrointestinal Disorders: Yes Gastrointestinal History Comment: CHRONIC ANAL FISSURE. CONSTIPATION. PREV FECAL IMPACTION. GLUTEN FREE DIET. ISCHEMIC BOWEL RESULTING IN COLOSTOMY - Other Health History Other Health History: CATARACT FORMING - Chronic Pain History Chronic Pain: Yes (RECTAL,VAGINAL,LOW BACK TO THIGHS) - Surgical History Prior Surgeries: FLEX SIG AT [facility] 05/2017. BACK SURG LUMBAR. DEEPAK . HYST . BLADDER PROLAPSE SURG 2012. BIANCA CATARACT. APPENDECTOMY. COLOSTOMY ANE Review of Systems Review of Systems: - Exercise capacity METS (RN): 3 METS ANE Patient History - Allergies Allergies/Adverse Reactions: ephedrine [Ephedrine] Allergy (Severe, Verified 01/17/16 11:43) Vomiting morphine [Morphine] Allergy (Severe, Verified 01/17/16 11:43) Vomiting prednisone [Prednisone] Allergy (Severe, Verified 01/17/16 11:43) Other-Enter Comments prochlorperazine edisylate [From Compazine] Allergy (Verified 03/07/16 12:52) Swelling/neck,face,throat prochlorperazine maleate [From Compazine] Allergy (Verified 03/07/16 12:52) Swelling/neck,face,throat Sulfa (Sulfonamide Antibiotics) Allergy (Verified 01/17/16 11:43) Rash - Home Medications Home Medications: Estradiol [Estradiol 1 MG (*)] 0.5 mg PO HS 01/12/18 [Last Taken 07/28/18] Venlafaxine Xr [Effexor Xr] 150 mg PO DAILY 01/12/18 [Last Taken 07/29/18 06:30] Aspirin [Aspirin 81mg (*)] 81 mg PO DAILY 07/25/18 [Last Taken 1 Week Ago ~07/22] Cholecalciferol Vit D3 [Vitamin D3 (*)] 1,000 units PO DAILY 07/25/18 [Last Taken 07/29/18 06:30] Levothyroxine [Synthroid 50 mcg (*)] 50 mcg PO DAILY06 07/25/18 [Last Taken 07/06 06:30] Quetiapine Fumarate [Quetiapine Fumarate] 75 mg PO HS 07/25/18 [Last Taken 07/28] ALPRAZolam [Xanax 0.25 MG (*)] PRN 07/29/18 [Last Taken 2 Months Ago ~05/29/18] - NPO status NPO Since - Liquids (Date): 07/29/18 NPO Since - Liquids (Time): 06:30 NPO Since - Solids (Date): 07/27/18 - Anes Hx Anes Hx: no prior problems - Smoking Hx Smoking Status: Former smoker - Family Anes Hx Family Hx Anesthesia Complications: NONE ANE Labs/Vital Signs - Vital Signs Blood Pressure: 144/69 Heart Rate: 63 Respiratory Rate: 16 O2 Sat (%): 99 ANE Physical Exam - Airway Neck exam: FROM Mallampati Score: Class 2 Mouth exam: normal dental/mouth exam - Pulmonary Pulmonary: no respiratory distress - Cardiovascular Cardiovascular: regular rate and rhythym ANE Anesthesia Plan Anesthesia Plan: MAC (Poss IV GA)
[2018-07-29] MEDS ORDERED: MIDAZOLAM 2 MG/2 ML VIAL IVP ONE (08:51)
[2018-07-29] MEDS ORDERED: PROPOFOL 200 MG/20 ML VIAL ONE ×2 (09:03→09:38)
[2018-07-29] MEDS ORDERED: PROPOFOL/EMULSION 500 MG/50 ML BOTTLE IV ONE (09:03)
--- NOTE | 2018-07-29 09:04 | PDGENHP ---
History & Physical Chief Complaint: h/o polyps History of Present Illness: H/o ischmic colits with ostomy for take doen today. Pre op colon to asssess health of colon and r/o polyps. Relevant Physical Exam: cv rrr s1s2 nl. chest CTA. abd ostomy, abd soft Cardiorespiratory Assessment: asa11
[2018-07-29] MEDS ORDERED: MIDAZOLAM 2 MG/2 ML VIAL ONE (09:10)
[2018-07-29] MEDS ORDERED: fentaNYL 250 MCG/5 ML INJ ONE (09:38)
[2018-07-29] MEDS ORDERED: ROCURONIUM 50 MG/5 ML VIAL ONE (09:38)
[2018-07-29] MEDS ORDERED: LIDOCAINE 2% 5 ML SDV ONE (09:39)
--- NOTE | 2018-07-29 09:44 | PDANEPAE ---
ANE History of Present Illness colostomy ANE Past Medical History - Cardiovascular History Hx Hypertension: Yes Hx Arrhythmias: No Hx Chest Pain: No Hx Coronary Artery / Peripheral Vascular Disease: No Hx CHF / Valvular Disease: No Hx Palpitations: No Cardiovascular History Comment: BORDERLINE BP RECENTLY NO MEDS - Pulmonary History Hx COPD: No Hx Asthma/Reactive Airway Disease: No Hx Recent Upper Respiratory Infection: No Hx Oxygen in Use at Home: No Hx Sleep Apnea: No Pulmonary History Comment: DENIES SOB W STAIRS - Neurologic History Hx Cerebrovascular Accident: No Hx Seizures: No Hx Dementia: No - Endocrine History Hx Diabetes: No Hypothyroid: Yes Hyperthyroid: No Obesity: no Endocrine History Comment: LOW THYROID - Renal History Hx Renal Disorders: Yes Renal History Comment: SOME UA LEAKAGE. FREQUENT UTI'S - Liver History Hx Hepatic Disorders: No - Neurological & Psychiatric Hx Hx Neurological and Psychiatric Disorders: Yes Neurological / Psychiatric History Comment: DEPRESSION. ECT TX - Cancer History Hx Cancer: Yes Cancer History Comment: SKIN - Congenital Disorder History Hx Congenital Disorders: No - GI History GERD: no Hx Gastrointestinal Disorders: Yes Gastrointestinal History Comment: CHRONIC ANAL FISSURE. CONSTIPATION. PREV FECAL IMPACTION. GLUTEN FREE DIET. ISCHEMIC BOWEL RESULTING IN COLOSTOMY - Other Health History Other Health History: CATARACT FORMING - Chronic Pain History Chronic Pain: Yes (RECTAL,VAGINAL,LOW BACK TO THIGHS) - Surgical History Prior Surgeries: FLEX SIG AT [facility] 05/2017. BACK SURG 81 LUMBAR. DEEPAK . HYST . BLADDER PROLAPSE SURG 2012. BIANCA CATARACT. APPENDECTOMY. COLOSTOMY ANE Review of Systems Review of systems is: negative Review of Systems: - Exercise capacity METS (RN): 3 METS ANE Patient History - Allergies Allergies/Adverse Reactions: ephedrine [Ephedrine] Allergy (Severe, Verified 01/17/16 11:43) Vomiting morphine [Morphine] Allergy (Severe, Verified 01/17/16 11:43) Vomiting prednisone [Prednisone] Allergy (Severe, Verified 01/17/16 11:43) Other-Enter Comments prochlorperazine edisylate [From Compazine] Allergy (Verified 03/07/16 12:52) Swelling/neck,face,throat prochlorperazine maleate [From Compazine] Allergy (Verified 03/07/16 12:52) Swelling/neck,face,throat Sulfa (Sulfonamide Antibiotics) Allergy (Verified 01/17/16 11:43) Rash - Home Medications Home medications: home medication list seen and reviewed Home Medications: Estradiol [Estradiol 1 MG (*)] 0.5 mg PO HS 01/12/18 [Last Taken 07/28/18] Venlafaxine Xr [Effexor Xr] 150 mg PO DAILY 01/12/18 [Last Taken 07/29/18 06:30] Aspirin [Aspirin 81mg (*)] 81 mg PO DAILY 07/25/18 [Last Taken 1 Week Ago ~07/22] Cholecalciferol Vit D3 [Vitamin D3 (*)] 1,000 units PO DAILY 07/25/18 [Last Taken 07/29/18 06:30] Levothyroxine [Synthroid 50 mcg (*)] 50 mcg PO DAILY06 07/25/18 [Last Taken 07/06 06:30] Quetiapine Fumarate [Quetiapine Fumarate] 75 mg PO HS 07/25/18 [Last Taken 07/28] ALPRAZolam [Xanax 0.25 MG (*)] PRN 07/29/18 [Last Taken 2 Months Ago ~05/29/18] - NPO status NPO Status: no food or drink >8 hours NPO Since - Liquids (Date): 07/29/18 NPO Since - Liquids (Time): 06:30 NPO Since - Solids (Date): 07/27/18 - Anes Hx Anes Hx: no prior problems - Smoking Hx Smoking Status: Former smoker Marijuana use: No - Alcohol Use Alcohol Use: Rarely - Family Anes Hx Family Anes Hx: none Family Hx Anesthesia Complications: NONE ANE Labs/Vital Signs - Vital Signs Blood Pressure: 144/69 Heart Rate: 63 Respiratory Rate: 16 O2 Sat (%): 99 ANE Physical Exam - Airway Neck exam: FROM Mallampati Score: Class 2 Mouth exam: normal dental/mouth exam - Pulmonary Pulmonary: no respiratory distress, clear to auscultation - Cardiovascular Cardiovascular: regular rate and rhythym, no murmur, rub, or gallop - ASA Status ASA Status: III ANE Anesthesia Plan Anesthesia Plan: general endotracheal anesthesia
--- NOTE | 2018-07-29 09:55 | GIREPORT ---
[facility] Surgical Services - Endoscopy Department Patient Name: Fabian Gale Procedure Date: 07/29/2018 8:33 AM Patient Type: Outpatient Attending MD/ ER Physician: Lore Mclaughlin MD Procedure: Colonoscopy Indications: High risk colon cancer surveillance: Personal history of colonic polyps . S/P ostomy for ischemic colitis to have take down Providers: Lore Mclaughlin MD Medicines: Monitored Anesthesia Care Complications: No immediate complications. Description of Procedure: After obtaining informed consent, the scope was passed under direct vis ion. Throughout the procedure, the patient's blood pressure, pulse, and oxyg en saturations were monitored continuously. The Colonoscope was introduced through the sigmoid colostomy and advanced to the cecum, identified by appendiceal orifice and ileocecal valve. The colonoscopy was performed without difficulty. The patient tolerated the procedure well. The quali ty of the bowel preparation was fair. The ileocecal valve, appendiceal orific e, and rectum were photographed. Findings: Ostomy normal A few diverticula were found in the descending colon. A 4 mm polyp was found in the ascending colon. The polyp was sessile. T he polyp was removed with a cold biopsy forceps. Resection and retrieval w ere complete. Estimated blood loss was minimal. The perianal and digital rectal examinations were normal. The scope was then inserted into the rectum. The rectum appeared normal although poor visualization due to mucous. Estimated Blood Loss: Estimated blood loss was minimal. Post Op Diagnosis: - Preparation of the colon was fair. - One 4 mm polyp in the ascending colon, removed with a cold biopsy for ceps. Resected and retrieved. - The rectum is normal. Recommendation: - Await pathology results. - Could consider colonoscopy in 1 year if patient desires to continue surveillance given prep. - Patient to have surgery today for take down of ostomy. - Thank you for allowing me to participate in the care of your patient. Attending Participation: I personally performed the entire procedure. Lore Mclaughlin MD Lore Mclaughlin MD 07/29/2018 9:54:47 AM This report has been signed electronicallyLore Mclaughlin MD Number of Addenda: 0 Note Initiated On: 07/29/2018 8:33 AM Total Procedure Duration Time 0 hours 21 minutes 5 seconds [email or web address]
[2018-07-29] MEDS ORDERED: NALOXONE HCL 0.4 MG/ML INJ IVP PRN ×2 (11:45→13:02)
[2018-07-29] MEDS ORDERED: LABETALOL HCL 20 MG/4 ML INJ IVP PRN (11:45)
--- NOTE | 2018-07-29 11:47 | POSTANESTH ---
Post Anesthetic Evaluation Cardiovascular Status: Normal, Stable Respiratory Status: Normal, Stable Level of Consciousness/Mental Status: Can Participate in Eval Pain Control: Adequate, Prn Tx Ordered Nausea/Vomiting Control: Adequate, Prn Tx Ordered Complications Possibly Related to Anesthesia: None Noted
[2018-07-29] MEDS ORDERED: KETOROLAC 30 MG/1 ML SDV ONE (12:25)
[2018-07-29] MEDS ORDERED: NEOSTIGMINE METHYLSULFATE 5 MG/5 ML SYR ONE (12:25)
[2018-07-29] MEDS ORDERED: ONDANSETRON 4 MG/2 ML VIAL ONE (12:25)
[2018-07-29] MEDS ORDERED: GLYCOPYRROLATE 0.2 MG/1 ML VIAL ONE (12:26)
[2018-07-29] MEDS ORDERED: HYDROmorphONE/DILAUDID 6 MG/30 ML PCA IV PRN (13:02)
[2018-07-29] MEDS ORDERED: HYDROmorphONE/DILAUDID 2 MG/ML INJ ONE (13:07)
[2018-07-29] MEDS ORDERED: fentaNYL 100 MCG/2 ML INJ ONE (13:07)
--- NOTE | 2018-07-29 13:07 | POSTOPPROG ---
Post Op Note Date of Operation: 07/29/18 Surgeon: Tien Toribio Organ Assembler: Kayla Grullon Anesthesiologist: Hali Flores Anesthesia: GET(General Endotracheal) Pre-op Diagnosis: status of colostomy, hx perforated colitis Post-op Diagnosis: same Procedure: laparoscopic colostomy takedown Findings: adhesions, viable colon Inf/Abcess present in the surg proc area at time of surgery?: No EBL: 50-100 Complications: none Specimen(s): colostomy remnant to pathology
[2018-07-29] MEDS: fentaNYL 100 MCG/2 ML INJ IVP PRN ×2 (13:09→13:18)
[2018-07-29] MEDS: HYDROmorphONE/DILAUDID 2 MG/ML INJ IVP PRN ×5 (13:13→14:04)
--- NOTE | 2018-07-29 13:15 | PDMN ---
Medical Necessity Medical necessity: 77 yo s/p CPT 71821 colostomy takedown, [facility] General Surgery or Procedure TRUDI HENSON IP only
[2018-07-29] MEDS ORDERED: ACETAMINOPHEN 325 MG TAB PO PRN (19:50)
[2018-07-29] MEDS ORDERED: IBUPROFEN 600 MG TAB PO PRN (19:50)
[2018-07-29] MEDS: traMADol 50 MG TAB PO PRN (20:15)
--- NOTE | 2018-07-29 21:33 | ASMTCMCOM ---
CM Note CM Note Notes: Chart reviewed for discharge planning purposes. Patient is post op colostomy take down. Has had [facility] previously in the past. CM to follow for needs. Plan: TBD Date Signed: 07/29/2018 02:39 PM Electronically Signed By:Chelle Connelly RN
[2018-07-29] MEDS: QUEtiapine FUMARATE 25 MG TAB PO SCH (22:01)
[2018-07-29] MEDS: ESTRADIOL 1 MG TAB PO SCH (22:01)
[2018-07-30] MEDS: DOCUSATE SODIUM 100 MG CAP PO SCH ×3 (00:29→22:28)
[2018-07-30] MEDS: traMADol 50 MG TAB PO PRN (04:50)
[2018-07-30] MEDS ORDERED: LEVOTHYROXINE 50 MCG TAB PO SCH (06:00)
--- NOTE | 2018-07-30 07:44 | GOP ---
DATE OF OPERATION: 07/29/2018 SURGEON: Tien Toribio MD CARE AIDE: FRANCIS Pulliam. ANESTHESIOLOGIST: Dr. Flores. PREOPERATIVE DIAGNOSIS: Colostomy status post colon perforation. POSTOPERATIVE DIAGNOSIS: Colostomy status post colon perforation. PROCEDURE PERFORMED: Laparoscopic adhesiolysis, and colostomy takedown and closure. FINDINGS: Extensive adhesions and a long recto-sigmoid stump DESCRIPTION OF PROCEDURE: The patient was taken to the operating room where she received satisfactory general endotracheal anesthesia by Dr. Flores. She was placed in low stirrups in the supine position, prepped and draped in the usual sterile fashion. A right upper quadrant short incision was made, a Veress needle inserted and pneumoperitoneum was established. Trocar was introduced. Laparoscope introduced. However, visualization was somewhat inadequate because of dense adhesions. Some breakthrough in the adhesions was identified and a 2nd trocar was placed in the right lower quadrant. Adhesions were then taken down with the Harmonic Scalpel until the transverse colon could be mobilized and the colostomy identified and dissected free. In the pelvis, adhesions were taken down between the small bowel and the rectal stump, which was elevated up. However, it was quite a long rectal stump. It was not felt that it would be amenable to closure with the EEA from below because of the length of the remaining stump. At that point, a circular incision was made around the colostomy and the ostomy was dissected free from all surrounding tissues. The distal portion of the ostomy was removed by division with a JOHN stapler and electrocautery division of the mesentery. That segment of the colon, the splenic flexure and transverse colon were freed up as much as possible to allow adequate mobility down to the pelvis and a tension-free anastomosis. A short incision was made through a previous old incision in the lower midline. Dissection carried down through the linea alba and the edges were retracted open and protected with a wound protector. The 2 ends of the colon were brought close together and we elected to do a [id number]-noim hand-sewn anastomosis because the angles for the staplers appeared to be difficult. This was done in a 2-layer fashion with 3-0 silk for the anterior and posterior layers running and inner layer of 3-0 Vicryl creating a good 3 fingerbreadth anastomosis. She had a fair amount of old constipated stool in her rectal vault. After completion anastomosis, the bowel was returned back into the abdomen. Hemostasis was assured. The wound was irrigated. Clean closure protocol was initiated and followed with new gowns and gloves instruments and wound towels The midline incision was closed with a running #1 PDS suture, 3-0 Vicryl for the subcu, and 4-0 Monocryl subcuticular stitch for the skin. All layers infiltrated with 0.5% Marcaine. Pneumoperitoneum was reestablished and the wound was examined, with no evidence of any excessive bleeding and no tension on the anastomosis. The trocars were then all removed under direct vision. Trocar sites were closed with 4-0 Monocryl subcuticular sutures and 0 Vicryl for the fascia where appropriate. The colostomy site was closed also with a running 0 PDS suture for the musculature, 3-0 Vicryl for the subcu, 4-0 Monocryl subcuticular stitch for the skin. A 1/4-inch [place] drain was brought through either corner of the incision and secured in place with a Vicryl suture. All wounds were infiltrated with 0.5% Marcaine. The wounds were dressed. She tolerated the procedure well. She was taken to recovery room in good condition. There were no complications. Blood loss was less than 100 cc. /[id number]/MODL MTDD
--- NOTE | 2018-07-30 08:50 | SOAPPROG ---
SOAP Progress Note Assessment/Plan: Assessment/Plan: 77 Y F c hx colonic perforation 2/2 colitis with prolonged hospital stay earlier this year, now s/p colostomy takedown, POD#1. Pain. Dilaudid helped. She refused percocet--says too strong. Took toradol but in too much pain to move. Recommend IV dilaudid until diet advancement, then try PO dilaudid. Will add toradol if Cr ok (1.1 on 07/24/18). AM labs pending. Clear liquids. D/c edge. Chemical VTE ppx c heparin to start POD#2. 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 OOB today. Dispo: pending. Will need return of bowel function and pain control before d/c. S: awful night--people kept interrupting sleep she says. no passing gas. no nausea or vomiting. pain not controlled but patient not always wanting pain meds. O: alert nad mmm, ncat ctab rrr abd soft, appropriately tender, dressings dry. +BS. 07/30/18 08:46 Objective: Vital Signs Temp Pulse Resp BP Pulse Ox 36.9 C 76 16 124/56 H 92 07/30/18 04:00 07/30/18 04:00 07/30/18 04:00 07/30/18 04:00 07/30/18 04:00 07/29/18 07/30/18 07/31/18 05:59 05:59 05:59 Intake Total 2965 Output Total 570 Balance 2395 ICD10 Worksheet Patient Problems: Problems Problem Status Onset Abdominal pain Acute Acute kidney injury Acute Colitis Acute Depression Acute HTN (hypertension) Acute Major depressive disorder, recurrent episode, severe, with psychosis Acute
[2018-07-30] MEDS: VENLAFAXINE XR 150 MG CAP PO SCH (08:55)
[2018-07-30] MEDS: OXYCODONE/APAP 5/325 TAB PO PRN ×2 (09:04→10:52)
[2018-07-30] MEDS: ASPIRIN 81 MG CHEWABLE TAB PO SCH (09:28)
[2018-07-30] MEDS: VENLAFAXINE XR 75 MG CAP PO SCH (12:12)
[2018-07-30] MEDS: HYDROmorphONE/DILAUDID 1 MG/ML INJ IVP PRN ×3 (13:20→21:10)
[2018-07-30] MEDS: HEPARIN 5,000 UNIT/0.5 ML INJ SC SCH ×2 (14:39→22:27)
--- NOTE | 2018-07-30 14:52 | ASMTCMCOM ---
CM Note CM Note Notes: Patient chart reviewed. She is post op day 1. Per PT she will need HHC. She was current with [facility]. Referral in allscripts to [facility]. CCM to follow. Plan: Dc to home with HHC when medically cleared for discharge. Date Signed: 07/30/2018 02:52 PM Electronically Signed By:Chelle Connelly RN
[2018-07-30] MEDS ORDERED: NS 1,000 ML IV ONE (20:30)
[2018-07-30] MEDS: ESTRADIOL 1 MG TAB PO SCH (22:28)
[2018-07-30] MEDS: QUEtiapine FUMARATE 25 MG TAB PO SCH (22:29)
[2018-07-31] MEDS: OXYCODONE/APAP 5/325 TAB PO PRN ×2 (05:11→10:45)
[2018-07-31] MEDS: HEPARIN 5,000 UNIT/0.5 ML INJ SC SCH ×3 (05:13→22:56)
[2018-07-31 08:45] LABS: PLATELET COUNT 152 10^3/uL (150-400)
[2018-07-31] MEDS: VENLAFAXINE XR 150 MG CAP PO SCH (09:02)
[2018-07-31] MEDS: DOCUSATE SODIUM 100 MG CAP PO SCH ×2 (09:02→20:29)
[2018-07-31] MEDS: VENLAFAXINE XR 75 MG CAP PO SCH (09:02)
[2018-07-31] MEDS: ASPIRIN 81 MG CHEWABLE TAB PO SCH (09:03)
--- NOTE | 2018-07-31 09:24 | SOAPPROG ---
SOAP Progress Note Assessment/Plan: Assessment: 77 y/o F s/p colostomy takedown POD #2 S: Pain near incision site. Percocet and iv dilaudid helping, but then she gets nausea. Feels bloated as well. Passing gas. O: Alert Afebrile VSS RRR No increased WOB Abdomen: soft, distended, appropriately ttp, incision sites cdi, normoactive bowel sounds : edge in place with clear yellow urine Plan: Will add low dose toradol and scheduled tylenol for pain. Advance to light diet. Edge out later today. Continue to work with PT and get OOB. 07/31/18 09:22 Objective: Vital Signs Temp Pulse Resp BP Pulse Ox 36.9 C 72 16 146/62 H 98 07/31/18 08:45 07/31/18 08:45 07/31/18 08:45 07/31/18 08:45 07/31/18 08:45 Laboratory Results 07/31/18 08:32 07/30/18 10:56 07/30/18 07/31/18 08/01/18 05:59 05:59 05:59 Intake Total 2965 1989 Output Total 199 550 Balance 5950 1440 ICD10 Worksheet Patient Problems: Problems Problem Status Onset Abdominal pain Acute Acute kidney injury Acute Colitis Acute Depression Acute HTN (hypertension) Acute Major depressive disorder, recurrent episode, severe, with psychosis Acute
[2018-07-31] MEDS: ONDANSETRON 4 MG/2 ML VIAL IVP PRN ×2 (10:46→22:56)
[2018-07-31] MEDS: ACETAMINOPHEN 325 MG TAB PO SCH ×3 (11:09→20:30)
[2018-07-31] MEDS: KETOROLAC 15 MG/1 ML SDV IVP SCH ×3 (12:23→23:56)
[2018-07-31] MEDS: QUEtiapine FUMARATE 25 MG TAB PO SCH ×2 (20:29→20:41)
[2018-07-31] MEDS: ESTRADIOL 1 MG TAB PO SCH (20:29)
[2018-07-31] MEDS: LEVOTHYROXINE 50 MCG TAB PO SCH (20:31)
[2018-08-01] MEDS: ONDANSETRON 4 MG/2 ML VIAL IVP PRN ×3 (04:18→22:08)
[2018-08-01] MEDS: OXYCODONE/APAP 5/325 TAB PO PRN ×2 (04:33→20:41)
[2018-08-01] MEDS: HYDROmorphONE/DILAUDID 1 MG/ML INJ IVP PRN ×5 (04:52→22:08)
[2018-08-01] MEDS ORDERED: PROMETHAZINE HCL 25 MG/ML INJ IVP PRN (05:20)
[2018-08-01] MEDS: ACETAMINOPHEN 325 MG TAB PO SCH ×4 (05:24→21:09)
--- NOTE | 2018-08-01 05:31 | PDGENHP ---
History and Physical History and Physical: STAT TEAM RESPONSE NOTE, HOSPITAL MEDICINE CONSULT NOTE: I responded to a STAT team call for this patient with acute onset of abdominal and chest pain, hard to take a deep breath. I received a call from the a RN at 4:56 a.m. HISTORY: Fabian is here on Dr. Toribio service after surgery 2 days ago. She was admitted on 07/29 for elective take down of ostomy (had ischemic colitis leading to ostomy in January). A review of her chart shows no signs of complication. She has started flatus yesterday, minimal po intake yesterday. No BM since surgery. The edge was removed at 8 pm last night and her nurse mentions no bladder void since then, a scan done just now with only 15 ml in 8 hours. The patient was awakened by some diffuse but mostly lower abdominal pain and nausea with bloating of abdomen increased, and this is associated with some spread of the pain to the low substernal area. No vomiting. She feels she is getting enough air but having trouble taking a deep breath. For these symptoms a stat team was called. She does admit to some nasuea, but no rigors or sweats. No cough, no leg pain. There has been no sign of any bleeding ROS: A comprehensive 10 system review revealed no other significant findings PAST MEDICAL HISTORY: Ischemic colitis in January of 2018 with septic shock, requiring colectomy and ostomy Anal fissures Constipation predominant irritable bowel syndrome Hypertension Colon polyps Depression Hypothyroidism FAMILY MEDICAL HISTORY: Colon polyps SOCIAL HISTORY: Lives alone Former smoker, no current alcohol use MEDICATIONS: PHYSICAL EXAMINATION: Vital Signs: Mildly hypertensive this morning but otherwise all stable without fever Her oxygen saturations are 100% on some nasal cannula oxygen Examination: General: alert, oriented, good mentation, looks moderately uncomfortable Skin: warm, dry, good color, no jaundice or rash HEENT: normal Neck: no mass or jvd Resps: relaxed Lungs: clear breath sounds Heart: regular, no murmur Abdomen: Fairly distended, all surgical wounds and drains sites look good; there is a horizontal incision line near the umbilicus that has a drain under the suture line exiting each and of the suture line, this all looks good. Bowel sounds are present but are very tympanitic, and there is diffuse tenderness but the abdomen is soft. No rebound Upper Extremities: normal Lower Extremities: no edema, warm No Bleeding or bruising IV site: looks normal LABORATORY DATA: This morning she has had a basic metabolic panel that shows a minimal increase in BUN and creatinine from yesterday, creatinine 1.2 A troponin was also done which is undetectable Her hemoglobin is slightly increased at 11.9 from yesterday white blood cell count not done yet RADIOLOGY STUDIES: I ordered chest x-ray to be done now and reviewed the image which shows no acute abnormalities, diaphragms are mildly elevated (this is a supine x-ray but no free air is visible) Flat and upright abdominal x-ray slower so ordered. So far I have reviewed the flat abdominal x-ray which shows diffuse voluminous air throughout the bowel occupying most of the abdomen. Upright x-ray is pending None of these studies have been read by radiology yet 12 LEAD EKG: Sinus rhythm with no acute ischemic appearing changes ASSESSMENT: * Acute abdominal pain distension and nausea, so far without vomiting, with small amounts of flatus and diffuse bowel gas on x-ray -this appears to me most likely to be postoperative ileus, which is not surprising in this patient with constipation predominant irritable bowel -she has been receiving some narcotic pain medicine which may be aggravating things, and may her minimal activity so far due to incision pain -is on a tiny dose of levothyroxine, last TSH check was in December * At present I do not find anything to raise concern regarding cardiac or pulmonary issues * Intravascular dehydration with 3rd spacing of fluid in the abdomen is suspected, with a decrease in urine output and mild increase in creatinine and BUN * History of hypertension with mild hypertension at this time likely due to her symptoms * History of depression PLANS: * Will give a dose of Relistor now * Begin some IV hydration and keep NPO for the moment * Encourage increase activity as able and I reviewed this with the patient and her nurse * Add some IV fluid at this time * Will check a TSH * Minimize narcotics as able but she will need ongoing pain relief; would like to get her creatinine up a little bit better before we use much in the way of NSAIDs * Avoid other constipating meds as able * If she has persisting symptoms could consider addition of Reglan, and if she starts vomiting or has ongoing severe pain consider nasogastric suction * I expect Dr. Toribio will be here shortly and I will review with him when he arrives I have reviewed the patient's past medical records as part of this assessment, including previous hospital admission records
[2018-08-01] MEDS ORDERED: METHYLNALTREXONE BROMIDE 12 MG/0.6 ML INJ SC ONE (05:58)
[2018-08-01] MEDS: HEPARIN 5,000 UNIT/0.5 ML INJ SC SCH ×3 (06:13→20:45)
[2018-08-01] MEDS: NS 1,000 ML IV SCH ×3 (06:13→20:43)
[2018-08-01] MEDS: KETOROLAC 15 MG/1 ML SDV IVP SCH ×4 (06:14→23:04)
[2018-08-01] MEDS: ASPIRIN 81 MG CHEWABLE TAB PO SCH (09:21)
[2018-08-01] MEDS: VENLAFAXINE XR 150 MG CAP PO SCH (09:22)
[2018-08-01] MEDS: VENLAFAXINE XR 75 MG CAP PO SCH (09:22)
[2018-08-01] MEDS: DOCUSATE SODIUM 100 MG CAP PO SCH ×2 (09:22→20:33)
[2018-08-01] MEDS: SIMETHICONE 80 MG TAB CHEW PO PRN ×3 (11:11→22:15)
[2018-08-01 12:29] LABS: PLATELET COUNT 197 10^3/uL (150-400)
--- NOTE | 2018-08-01 13:37 | ASMTCMCOM ---
CM Note CM Note Notes: Per PT she will need HHC. She was current with [facility]. Referral in allscripts to [facility]. CCM to follow. Plan: Dc to home with HHC when medically cleared for discharge. Date Signed: 08/01/2018 01:37 PM Electronically Signed By:Na Hernandez
[2018-08-01] MEDS: traMADol 50 MG TAB PO PRN (15:20)
--- NOTE | 2018-08-01 16:57 | HOSPPROG ---
Hospitalist Progress Note Assessment/Plan: 77yo F with history of ischemic colitis s/p colostomy here for ostomy take- down. Medicine consulted after increase in abdominal pain. 1. Acute abdominal pain: Consistent with post-op ileus. - S/p dose of relistor - Agree with conservative mgmt, avoid narcotics as able, use anti- inflammatories (toradol ordered) - IVF, keep NPO except for sips/chips - Encouraged ambulation - Trial reglan PRN instead of phenergan - Could consider NG tube or gastrograffin if not improving 2. Hypertension: BP elevated in setting of pain. 3. H/o ischemic colitis now s/p ostomy take down - Surgery primary We will continue to follow along. Subjective: Lots of abdominal pain today radiating up to esophagus. Bloating. Passing gas. No BM. Objective: Vital Signs Temp Pulse Resp BP Pulse Ox 36.7 C 69 18 194/78 H 94 08/01/18 16:00 08/01/18 16:00 08/01/18 16:00 08/01/18 16:00 08/01/18 16:00 Laboratory Results 08/01/18 12:20 07/30/18 10:56 07/31/18 08/01/18 08/02/18 05:59 05:59 05:59 Intake Total 1989 1099 2089 Output Total 550 400 Balance 9261 919 1007 - Physical Exam Constitutional: no apparent distress, appears nourished, not in pain Eyes: PERRL Ears, Nose, Mouth, Throat: moist mucous membranes, hearing normal, ears appear normal, no oral mucosal ulcers Cardiovascular: regular rate and rhythym, no murmur, rub, or gallop, No edema Respiratory: no respiratory distress, no rales or rhonchi, clear to auscultation Gastrointestinal: tenderness, distension Genitourinary: no bladder fullness, no bladder tenderness, no renal bruits Skin: no rashes or abrasions, no fluctuance, no induration Musculoskeletal: full muscle strength, no muscle tenderness, normal joint ROM Neurologic: AAOx3, sensation intact bilaterally Psychiatric: interacting appropriately, not anxious, not encephalopathic, thought process linear ICD10 Worksheet Patient Problems: Problems Problem Status Onset Abdominal pain Acute Acute kidney injury Acute Colitis Acute Depression Acute HTN (hypertension) Acute Major depressive disorder, recurrent episode, severe, with psychosis Acute
[2018-08-01] MEDS ORDERED: GLYCERIN ADULT 1 EACH SUPP PR ONE (17:44)
[2018-08-01] MEDS ORDERED: GLYCERIN PEDIATRIC 1 EACH SUPP PR ONE (18:45)
[2018-08-01] MEDS: hydrALAZINE 20 MG/ML VIAL IVP PRN (19:19)
[2018-08-01] MEDS: LEVOTHYROXINE 50 MCG TAB PO SCH (20:34)
[2018-08-01] MEDS: ESTRADIOL 1 MG TAB PO SCH (20:35)
[2018-08-01] MEDS: QUEtiapine FUMARATE 25 MG TAB PO SCH (22:08)
[2018-08-02] MEDS: ACETAMINOPHEN 325 MG TAB PO SCH ×4 (04:35→20:19)
[2018-08-02] MEDS: NS 1,000 ML IV SCH ×3 (05:30→21:58)
[2018-08-02] MEDS: KETOROLAC 15 MG/1 ML SDV IVP SCH ×4 (05:31→23:50)
[2018-08-02] MEDS: HEPARIN 5,000 UNIT/0.5 ML INJ SC SCH ×3 (05:32→21:03)
[2018-08-02] MEDS: ONDANSETRON 4 MG/2 ML VIAL IVP PRN ×3 (07:53→23:52)
[2018-08-02] MEDS: METOCLOPRAMIDE 10 MG/2 ML VIAL IVP PRN ×2 (09:34→21:58)
[2018-08-02] MEDS: ASPIRIN 81 MG CHEWABLE TAB PO SCH (09:40)
[2018-08-02] MEDS: VENLAFAXINE XR 150 MG CAP PO SCH (09:40)
[2018-08-02] MEDS: VENLAFAXINE XR 75 MG CAP PO SCH (09:41)
[2018-08-02] MEDS: DOCUSATE SODIUM 100 MG CAP PO SCH ×2 (09:41→21:02)
[2018-08-02] MEDS: OXYCODONE/APAP 5/325 TAB PO PRN (09:51)
[2018-08-02] MEDS: SIMETHICONE 80 MG TAB CHEW PO PRN ×2 (09:51→17:18)
--- NOTE | 2018-08-02 11:18 | SOAPPROG ---
SOAP Progress Note Assessment/Plan: Assessment: 77yo F s/p colostomy TD - VSS, HDs - pain better - has an ileus, needs to go slow with diet. Cont CLD - abdomen is distended, has some bowel sounds and is having bowel function - ambulate. - appreciate IM assistance with management of comorbidities. Plan: 08/02/18 11:17 Subjective: feels better today Objective: Vital Signs Temp Pulse Resp BP Pulse Ox 37.2 C 71 19 146/69 H 90 L 08/02/18 07:58 08/02/18 07:58 08/02/18 07:58 08/02/18 07:58 08/02/18 07:58 Laboratory Results 08/02/18 11:12 08/01/18 08/02/18 08/03/18 05:59 05:59 05:59 Intake Total 1100 3765 Output Total 400 600 100 Balance 700 3165 -100 ICD10 Worksheet Patient Problems: Problems Problem Status Onset Abdominal pain Acute Acute kidney injury Acute Colitis Acute Depression Acute HTN (hypertension) Acute Major depressive disorder, recurrent episode, severe, with psychosis Acute
[2018-08-02] MEDS: hydrALAZINE 20 MG/ML VIAL IVP PRN ×2 (13:10→21:04)
[2018-08-02] MEDS: HYDROmorphONE/DILAUDID 1 MG/ML INJ IVP PRN ×2 (14:37→21:58)
[2018-08-02] MEDS: NITROGLYCERIN 0.4 MG BTL SL PRN (15:02)
--- NOTE | 2018-08-02 16:07 | HOSPPROG ---
Hospitalist Progress Note Assessment/Plan: 77yo F with history of ischemic colitis s/p colostomy here for ostomy take- down. Medicine consulted after increase in abdominal pain. 1. Acute abdominal pain: Consistent with post-op ileus. Passing flatus/BM - S/p dose of relistor - Avoid narcotics as able, use anti-inflammatories (toradol ordered) - IVF, keep NPO except for sips/chips - Encouraged ambulation - Reglan PRN - Trial nitroglycerin tab PRN as she seems to have component of esophageal spasm associated with her abd pain - Could consider NG tube or gastrograffin if not improving but hold on this for now 2. Hypertension: BP elevated in setting of pain. Hydralazine PRN. 3. H/o ischemic colitis now s/p ostomy take down - Surgery primary We will continue to follow along. Subjective: Pain worse overnight but better this AM. Had small BM, passing gas. No fevers or drainage from wound. Objective: Vital Signs Temp Pulse Resp BP Pulse Ox 36.8 C 79 16 147/52 H 94 08/02/18 14:52 08/02/18 16:01 08/02/18 16:01 08/02/18 16:01 08/02/18 16:01 Laboratory Results 08/02/18 11:12 08/02/18 11:12 08/01/18 08/02/18 08/03/18 05:59 05:59 05:59 Intake Total 1100 3765 Output Total 400 600 100 Balance 700 3165 -100 - Physical Exam Constitutional: no apparent distress, uncomfortable Eyes: PERRL, anicteric sclera, EOMI Ears, Nose, Mouth, Throat: moist mucous membranes, hearing normal, ears appear normal, no oral mucosal ulcers Cardiovascular: regular rate and rhythym, no murmur, rub, or gallop Respiratory: no respiratory distress, no rales or rhonchi, clear to auscultation Gastrointestinal: tenderness, distension, other (incision c/d/i), No normoactive bowel sounds Genitourinary: no bladder fullness, no bladder tenderness, no renal bruits Skin: no rashes or abrasions, no fluctuance, no induration Musculoskeletal: full muscle strength, no muscle tenderness, normal joint ROM Neurologic: AAOx3, sensation intact bilaterally Psychiatric: interacting appropriately, not anxious, not encephalopathic, thought process linear ICD10 Worksheet Patient Problems: Problems Problem Status Onset Abdominal pain Acute Acute kidney injury Acute Colitis Acute Depression Acute HTN (hypertension) Acute Major depressive disorder, recurrent episode, severe, with psychosis Acute
--- NOTE | 2018-08-02 18:04 | CPEKG ---
Test Reason : OPEN Blood Pressure : / mmHG Vent. Rate : 082 BPM Atrial Rate : 082 BPM P-R Int : 141 ms QRS Dur : 091 ms QT Int : 460 ms P-R-T Axes : 046 057 146 degrees QTc Int : 538 ms Sinus rhythm Nonspecific T abnrm, anterolateral leads Prolonged QT interval Confirmed by Maurice Garduno ([id number]) on 08/02/2018 6:03:39 PM Referred By: Confirmed By:Maurice Garduno
[2018-08-02] MEDS: ESTRADIOL 1 MG TAB PO SCH (21:01)
[2018-08-02] MEDS: LEVOTHYROXINE 50 MCG TAB PO SCH (21:02)
[2018-08-02] MEDS: traMADol 50 MG TAB PO PRN (21:02)
[2018-08-02] MEDS: QUEtiapine FUMARATE 25 MG TAB PO SCH (21:59)
[2018-08-03] MEDS ORDERED: ALPRAZolam 0.5 MG TAB PO PRN (01:54)
[2018-08-03] MEDS: ALPRAZolam 0.25 MG TAB PO PRN (02:37)
[2018-08-03] MEDS: SIMETHICONE 80 MG TAB CHEW PO PRN (02:39)
[2018-08-03] MEDS: ACETAMINOPHEN 325 MG TAB PO SCH ×4 (03:17→21:24)
[2018-08-03] MEDS: KETOROLAC 15 MG/1 ML SDV IVP SCH ×3 (05:34→17:38)
[2018-08-03] MEDS: NS 1,000 ML IV SCH ×2 (05:35→13:00)
[2018-08-03] MEDS: HEPARIN 5,000 UNIT/0.5 ML INJ SC SCH ×3 (05:36→21:24)
[2018-08-03] MEDS: METOCLOPRAMIDE 10 MG/2 ML VIAL IVP PRN (06:02)
[2018-08-03] MEDS: NITROGLYCERIN 0.4 MG BTL SL PRN (08:00)
[2018-08-03] MEDS: ONDANSETRON 4 MG/2 ML VIAL IVP PRN ×2 (08:00→20:55)
[2018-08-03] MEDS: OXYCODONE/APAP 5/325 TAB PO PRN (08:00)
[2018-08-03] MEDS: ASPIRIN 81 MG CHEWABLE TAB PO SCH (09:30)
[2018-08-03] MEDS: VENLAFAXINE XR 75 MG CAP PO SCH (09:30)
[2018-08-03] MEDS: DOCUSATE SODIUM 100 MG CAP PO SCH ×2 (09:30→20:55)
[2018-08-03] MEDS: VENLAFAXINE XR 150 MG CAP PO SCH (09:30)
--- NOTE | 2018-08-03 10:51 | SOAPPROG ---
[facility] Progress Note Assessment/Plan: Assessment: 77yo F s/p colostomy TD - VSS, HDs - Pain is the same, having a lot of GERd issues. Will start PPI today - abdominal exam is about the same, still min bowel sounds and no bowel function. Still behaving like ileus. She wants KUB, will order and review when available - ambulate. - appreciate IM assistance with management of comorbidities. Plan: 08/02/18 11:17 08/03/18 10:50 Subjective: still frusrated that she isnt making much progress Objective: Vital Signs Temp Pulse Resp BP Pulse Ox 37.0 C 75 20 134/58 H 94 08/03/18 08:00 08/03/18 08:00 08/03/18 08:00 08/03/18 08:00 08/03/18 08:00 Laboratory Results 08/03/18 08:10 08/03/18 08:10 08/02/18 08/03/18 08/04/18 05:59 05:59 05:59 Intake Total 0919 382 Output Total 600 250 Balance 3164 3575 ICD10 Worksheet Patient Problems: Problems Problem Status Onset Abdominal pain Acute Acute kidney injury Acute Colitis Acute Depression Acute HTN (hypertension) Acute Major depressive disorder, recurrent episode, severe, with psychosis Acute
[2018-08-03] MEDS: PANTOPRAZOLE SODIUM 40 MG VIAL IVP SCH (11:43)
--- NOTE | 2018-08-03 15:13 | HOSPPROG ---
Hospitalist Progress Note Assessment/Plan: 77yo F with history of ischemic colitis s/p colostomy here for ostomy take- down. Medicine consulted after increase in abdominal pain. 1. Acute abdominal pain: Consistent with post-op ileus. Passing flatus - Abd x-ray today again showing ileus - S/p dose of relistor - Avoid narcotics as able, use anti-inflammatories (toradol ordered) - IVF, keep NPO except for sips/chips - Encouraged ambulation - Reglan PRN - Trial PPI for epigastric pain - Could consider NG tube or gastrograffin if not improving but hold on this for now 2. Hypertension: BP elevated in setting of pain but better now. Hydralazine PRN. 3. H/o ischemic colitis now s/p ostomy take down - Surgery primary 4. Hypothyroidism: Home LT4 replacement. 5. Depression: Continue home effexor, seroquel at night. We will continue to follow along. Subjective: Abdominal sxs better today. Not as severe. No BM but passing flatus. No fevers. Objective: Vital Signs Temp Pulse Resp BP Pulse Ox 37.0 C 75 20 134/58 H 94 08/03/18 08:00 08/03/18 08:00 08/03/18 08:00 08/03/18 08:00 08/03/18 08:00 Laboratory Results 08/03/18 08:10 08/03/18 08:10 08/02/18 08/03/18 08/04/18 05:59 05:59 05:59 Intake Total 3765 3821 300 Output Total 600 250 200 Balance 3165 3571 100 - Physical Exam Constitutional: no apparent distress Eyes: anicteric sclera Ears, Nose, Mouth, Throat: moist mucous membranes Cardiovascular: regular rate and rhythym, no murmur, rub, or gallop Respiratory: no respiratory distress, no rales or rhonchi, clear to auscultation Gastrointestinal: tenderness, distension (improved), No normoactive bowel sounds Genitourinary: no bladder fullness, no bladder tenderness, no renal bruits Skin: no rashes or abrasions, no fluctuance, no induration Musculoskeletal: full muscle strength, no muscle tenderness, normal joint ROM Neurologic: AAOx3, sensation intact bilaterally Psychiatric: interacting appropriately, not anxious, not encephalopathic, thought process linear ICD10 Worksheet Patient Problems: Problems Problem Status Onset Abdominal pain Acute Acute kidney injury Acute Colitis Acute Depression Acute HTN (hypertension) Acute Major depressive disorder, recurrent episode, severe, with psychosis Acute
[2018-08-03] MEDS: hydrALAZINE 20 MG/ML VIAL IVP PRN (20:54)
[2018-08-03] MEDS: LEVOTHYROXINE 50 MCG TAB PO SCH (20:55)
[2018-08-03] MEDS: ESTRADIOL 1 MG TAB PO SCH (20:55)
[2018-08-03] MEDS: QUEtiapine FUMARATE 25 MG TAB PO SCH (21:58)
[2018-08-03] MEDS: HYDROmorphONE/DILAUDID 1 MG/ML INJ IVP PRN (21:59)
[2018-08-04] MEDS: KETOROLAC 15 MG/1 ML SDV IVP SCH ×5 (00:14→22:37)
[2018-08-04] MEDS: ACETAMINOPHEN 325 MG TAB PO SCH ×4 (00:21→21:07)
[2018-08-04] MEDS: METOCLOPRAMIDE 10 MG/2 ML VIAL IVP PRN (06:49)
[2018-08-04] MEDS: HYDROmorphONE/DILAUDID 1 MG/ML INJ IVP PRN (06:49)
[2018-08-04] MEDS: HEPARIN 5,000 UNIT/0.5 ML INJ SC SCH ×3 (07:45→21:07)
[2018-08-04] MEDS: ONDANSETRON 4 MG/2 ML VIAL IVP PRN (08:00)
--- NOTE | 2018-08-04 09:26 | SOAPPROG ---
[facility] Progress Note Assessment/Plan: Assessment/Plan: 77 Y F c hx colonic perforation 2/2 colitis with prolonged hospital stay earlier this year, now s/p colostomy takedown, POD#6. Ileus. Reviewed AXR films. Continue OOB, ambulate. Has active BS, not tympanic. Not yet passing gas. Tolerating some sips of liquids. Not yet in need for TPN. Will also give a dulcolax MI. GERD/heartburn. PPI started. Continue pain management. Appreciate IM assistance with management of comorbidities. Seen with Dr. Toribio this am. Dispo: pending resolution of ileus. S: c/o pain. no flatus. walks 5 times a day she says. O: alert nad mmm, ncat ctab rrr abd softly bloated c normal pitch bowel sounds, slightly hyperactive 08/04/18 09:21 Objective: Vital Signs Temp Pulse Resp BP Pulse Ox 36.6 C 84 20 152/51 H 92 08/04/18 04:22 08/04/18 04:22 08/04/18 04:22 08/04/18 04:22 08/04/18 04:22 Laboratory Results 08/04/18 08:25 08/03/18 08/04/18 08/05/18 05:59 05:59 05:59 Intake Total 3821 1950 1500 Output Total 250 200 Balance 3571 1750 1500 ICD10 Worksheet Patient Problems: Problems Problem Status Onset Abdominal pain Acute Acute kidney injury Acute Colitis Acute Depression Acute HTN (hypertension) Acute Major depressive disorder, recurrent episode, severe, with psychosis Acute
[2018-08-04] MEDS: ASPIRIN 81 MG CHEWABLE TAB PO SCH (11:30)
[2018-08-04] MEDS: PANTOPRAZOLE SODIUM 40 MG VIAL IVP SCH (11:31)
[2018-08-04] MEDS: VENLAFAXINE XR 75 MG CAP PO SCH (11:31)
[2018-08-04] MEDS: VENLAFAXINE XR 150 MG CAP PO SCH (11:31)
[2018-08-04] MEDS: DOCUSATE SODIUM 100 MG CAP PO SCH ×2 (11:31→20:23)
[2018-08-04] MEDS: NS 1,000 ML IV SCH (11:44)
[2018-08-04] MEDS: ALPRAZolam 0.25 MG TAB PO PRN (11:50)
--- NOTE | 2018-08-04 13:49 | HOSPPROG ---
Hospitalist Progress Note Assessment/Plan: # presumed post-op ileus - somewhat prolonged; if does not resolve soon consider other etiologies - getting reglan, minimizing narcotics - cont toradol for pain - cont IVF # hx ischemic colitis, now s/p takedown on 07/29 # htn - start low dose norvasc, cont hydralazine prn # hypothyroid - synthroid, TSH ok # depr - effexor Subjective: no flatus, no BM, ongoing abd pain; she is ambulating Objective: Vital Signs Temp Pulse Resp BP Pulse Ox 36.8 C 75 16 168/68 H 93 08/04/18 09:34 08/04/18 09:34 08/04/18 09:34 08/04/18 09:34 08/04/18 09:34 Laboratory Results 08/04/18 08:25 08/04/18 08:25 08/03/18 08/04/18 08/05/18 05:59 05:59 05:59 Intake Total 3821 1950 1500 Output Total 250 200 Balance 3571 1750 1500 chart reviewed AXR personally reviewed - Physical Exam Constitutional: uncomfortable Cardiovascular: regular rate and rhythym, no murmur, rub, or gallop Respiratory: no respiratory distress, no rales or rhonchi Gastrointestinal: distension, other (soft, diminished BS; TTP difusely), No guarding, No rebound ICD10 Worksheet Patient Problems: Problems Problem Status Onset Major depressive disorder, recurrent episode, severe, with psychosis Acute Depression Acute HTN (hypertension) Acute Abdominal pain Acute Colitis Acute Acute kidney injury Acute
--- NOTE | 2018-08-04 15:28 | ASMTCMCOM ---
CM Note CM Note Notes: Plan of care reviewed in rounds. Slowly resolving pot op ileus, per therapy she is in need of HHC vs SNF. CM to follow for needs. Plan: TBD Date Signed: 08/04/2018 03:28 PM Electronically Signed By:Chelle Connelly RN
[2018-08-04] MEDS ORDERED: LR 1,000 ML IV SCH (16:30)
[2018-08-04] MEDS ORDERED: FUROSEMIDE 20 MG/2 ML VIAL IVP ONE (16:31)
[2018-08-04] MEDS ORDERED: BISACODYL 10 MG SUPP PR ONE (18:00)
[2018-08-04] MEDS ORDERED: POLYETHYLENE GLYCOL 3350 17 GM PKT PO ONE (18:00)
[2018-08-04] MEDS: hydrALAZINE 20 MG/ML VIAL IVP PRN (18:42)
[2018-08-04] MEDS: ESTRADIOL 1 MG TAB PO SCH (20:23)
[2018-08-04] MEDS: LEVOTHYROXINE 50 MCG TAB PO SCH (20:24)
[2018-08-04] MEDS: QUEtiapine FUMARATE 25 MG TAB PO SCH (22:36)
[2018-08-05] MEDS: ACETAMINOPHEN 325 MG TAB PO SCH ×4 (05:03→20:40)
[2018-08-05] MEDS: HEPARIN 5,000 UNIT/0.5 ML INJ SC SCH ×3 (06:12→20:45)
[2018-08-05] MEDS: KETOROLAC 15 MG/1 ML SDV IVP SCH ×2 (06:13→06:24)
[2018-08-05] MEDS: VENLAFAXINE XR 150 MG CAP PO SCH (08:51)
[2018-08-05] MEDS: VENLAFAXINE XR 75 MG CAP PO SCH (08:51)
[2018-08-05] MEDS: ASPIRIN 81 MG CHEWABLE TAB PO SCH (08:52)
[2018-08-05] MEDS: DOCUSATE SODIUM 100 MG CAP PO SCH ×2 (08:52→20:43)
[2018-08-05] MEDS: PANTOPRAZOLE SODIUM 40 MG VIAL IVP SCH (08:53)
[2018-08-05 09:02] LABS: PLATELET COUNT 223 10^3/uL (150-400)
[2018-08-05] MEDS ORDERED: BISACODYL 10 MG SUPP PR ONE (09:23)
[2018-08-05] MEDS ORDERED: POLYETHYLENE GLYCOL 3350 17 GM PKT PO ONE ×2 (09:23→11:45)
--- NOTE | 2018-08-05 10:07 | SOAPPROG ---
SOAP Progress Note Assessment/Plan: Assessment/Plan: 77 Y F c hx colonic perforation 2/2 colitis with prolonged hospital stay earlier this year, now s/p colostomy takedown, POD#7. Ileus. Passing gas now. Continue clears--she tells me she hasn't been interested in clears, but I'd like to her try then again to see how she does with it before advancing diet further. Will repeat dose of miralax and dulcoloax suppository today. Can remove umesh drain today. Appreciate IM management of comorbidities. Dispo: pending resolution of ileus. S: had a better night. passing gas. no nausea. clears don't seem appetizing. O: alert nad mmm, ncat ctab rrr abd softly bloated c bowel sounds, inc cdi, no erythema. umesh in place. 08/05/18 09:52 Objective: Vital Signs Temp Pulse Resp BP Pulse Ox 36.6 C 74 16 169/57 H 92 08/05/18 09:02 08/05/18 09:02 08/05/18 09:02 08/05/18 09:02 08/05/18 09:02 Laboratory Results 08/05/18 08:48 08/05/18 08:48 08/04/18 08/05/18 08/06/18 05:59 05:59 05:59 Intake Total 1950 2100 Output Total 200 3300 Balance 1750 -1200 ICD10 Worksheet Patient Problems: Problems Problem Status Onset Abdominal pain Acute Acute kidney injury Acute Colitis Acute Depression Acute HTN (hypertension) Acute Major depressive disorder, recurrent episode, severe, with psychosis Acute
--- NOTE | 2018-08-05 14:10 | HOSPPROG ---
Hospitalist Progress Note Assessment/Plan: # post-op ileus - overall improved today, but somewhat prolonged - getting reglan, minimizing narcotics - bowel regimen started - ibup, tramadol, oxy for pain - cont IVF # hx ischemic colitis, now s/p takedown on 07/29 # htn -low dose norvasc started, cont hydralazine prn # hypoK - add KCl to LR # NAGMA - better today after changing IVF to LR # hypothyroid - Synthroid, TSH ok # depr - effexor Subjective: cc - s/p colostomy takedown. feels better today; +flatus; small BM; ambulating; eating small amouts of food Objective: Vital Signs Temp Pulse Resp BP Pulse Ox 36.6 C 74 16 169/57 H 92 08/05/18 09:02 08/05/18 09:02 08/05/18 09:02 08/05/18 09:02 08/05/18 09:02 Laboratory Results 08/05/18 08:48 08/05/18 08:48 08/04/18 08/05/18 08/06/18 05:59 05:59 05:59 Intake Total 1950 2100 Output Total 200 3300 Balance 1750 -[address] Toribio - Physical Exam Constitutional: no apparent distress Cardiovascular: regular rate and rhythym, no murmur, rub, or gallop Respiratory: no respiratory distress, no rales or rhonchi, clear to auscultation Gastrointestinal: normoactive bowel sounds, other (soft; bandage over previous ostomy location), No rebound, No distension ICD10 Worksheet Patient Problems: Problems Problem Status Onset Major depressive disorder, recurrent episode, severe, with psychosis Acute Depression Acute HTN (hypertension) Acute Abdominal pain Acute Colitis Acute Acute kidney injury Acute
[2018-08-05] MEDS: POTASSIUM Cl (KCl) 20 MEQ in D5W LR 1,000 ML IV SCH ×2 (14:58→21:12)
[2018-08-05] MEDS: ESTRADIOL 1 MG TAB PO SCH (20:41)
[2018-08-05] MEDS: LEVOTHYROXINE 50 MCG TAB PO SCH (20:43)
[2018-08-05] MEDS: QUEtiapine FUMARATE 25 MG TAB PO SCH (22:36)
[2018-08-05] MEDS: hydrALAZINE 20 MG/ML VIAL IVP PRN (22:38)
[2018-08-06] MEDS: ACETAMINOPHEN 325 MG TAB PO SCH ×4 (04:41→21:32)
[2018-08-06] MEDS: HYDROmorphONE/DILAUDID 1 MG/ML INJ IVP PRN (06:19)
[2018-08-06] MEDS: ONDANSETRON 4 MG/2 ML VIAL IVP PRN (06:22)
[2018-08-06] MEDS: HEPARIN 5,000 UNIT/0.5 ML INJ SC SCH ×3 (07:13→23:31)
--- NOTE | 2018-08-06 09:23 | SOAPPROG ---
SOAP Progress Note Assessment/Plan: Assessment/Plan: 77 Y F c hx colonic perforation 2/2 colitis with prolonged hospital stay earlier this year, now s/p colostomy takedown, POD#7. Ileus. Improving. Encouraged more PO this am. Diarrhea. Doubt cdif. If continues then would test. Dysphagia (?). If persists the swallow study. Appreciate IM management of comorbidities. Dispo: pending resolution of ileus. patient would like to go home but lives alone. does have emergency assistance if needed she says. d/w'ed case management today. Could begin d/c planning. D/c could be as early as Saturday or , pending her course, but could next week as well. S: yesterday was first day she didn't have pain or cramping. had soup and toast and then had some pain and cramping at night but less intense than before she says. no nausea. then had pasta and felt like she couldn't "get it down, "stuck ". O: alert nad mmm, ncat ctab rrr abd softer c bowel sounds--sounding more normal each day over past 3 days, inc cdi, no erythema 08/06/18 09:19 Objective: Vital Signs Temp Pulse Resp BP Pulse Ox 36.8 C 73 18 157/64 H 86 L 08/06/18 08:40 08/06/18 08:40 08/06/18 08:40 08/06/18 08:40 08/06/18 08:40 Laboratory Results 08/05/18 08:48 08/05/18 08:48 08/05/18 08/06/18 08/07/18 05:59 05:59 05:59 Intake Total 2100 500 550 Output Total 3300 Balance -1200 500 550 ICD10 Worksheet Patient Problems: Problems Problem Status Onset Abdominal pain Acute Acute kidney injury Acute Colitis Acute Depression Acute HTN (hypertension) Acute Major depressive disorder, recurrent episode, severe, with psychosis Acute
[2018-08-06] MEDS: VENLAFAXINE XR 75 MG CAP PO SCH (09:47)
[2018-08-06] MEDS: PANTOPRAZOLE SODIUM 40 MG TAB PO SCH (09:48)
[2018-08-06] MEDS: DOCUSATE SODIUM 100 MG CAP PO SCH ×3 (09:48→21:33)
[2018-08-06] MEDS: VENLAFAXINE XR 150 MG CAP PO SCH (09:48)
[2018-08-06] MEDS: ASPIRIN 81 MG CHEWABLE TAB PO SCH (09:48)
[2018-08-06] MEDS ORDERED: PROTOCOL MAGNESIUM 1 DOSE IV PRN (15:32)
[2018-08-06] MEDS ORDERED: PROTOCOL POTASSIUM 1 DOSE MISC PRN ×2 (15:32)
[2018-08-06] MEDS ORDERED: MAGNESIUM SULF 2 GM/WATER 50 ML IV ONE (15:33)
--- NOTE | 2018-08-06 15:39 | HOSPPROG ---
Hospitalist Progress Note Assessment/Plan: # post-op ileus - overall improved today, but somewhat prolonged - getting reglan, minimizing narcotics - bowel regimen started - ibup, tramadol, oxy for pain - cont IVF, low dose -now tolerating a regular diet # hx ischemic colitis, now s/p takedown on 07/29 # htn -This is a new diagnosis -increase Amlodipine from 2.5m to 5mg daily, will give another 2.5mg today # hypoK - -cont to replace with IVF -will start replacement PRN #Hypomagnesemia -replace today # NAGMA -cont to monitor # hypothyroid - Synthroid, TSH ok # depr - effexor Subjective: tolerating some PO. no labs obtained today Objective: Vital Signs Temp Pulse Resp BP Pulse Ox 36.8 C 73 18 157/64 H 86 L 08/06/18 08:40 08/06/18 08:40 08/06/18 08:40 08/06/18 09:40 08/06/18 08:40 Laboratory Results 08/05/18 08:48 08/05/18 08:48 08/05/18 08/06/18 08/07/18 05:59 05:59 05:59 Intake Total 2100 500 550 Output Total 3300 Balance -1200 500 550 - Physical Exam Constitutional: no apparent distress Eyes: PERRL Ears, Nose, Mouth, Throat: moist mucous membranes, hearing normal Cardiovascular: regular rate and rhythym, No edema Respiratory: no respiratory distress, no rales or rhonchi, clear to auscultation Skin: warm Neurologic: AAOx3 Psychiatric: interacting appropriately, not anxious, not encephalopathic Lymph, Heme, Immunologic: No petechiae ICD10 Worksheet Patient Problems: Problems Problem Status Onset Abdominal pain Acute Acute kidney injury Acute Colitis Acute Depression Acute HTN (hypertension) Acute Major depressive disorder, recurrent episode, severe, with psychosis Acute
[2018-08-06] MEDS: POTASSIUM Cl (KCl) 20 MEQ in D5W LR 1,000 ML IV SCH (15:55)
[2018-08-06] MEDS: METOCLOPRAMIDE 10 MG/2 ML VIAL IVP PRN (16:56)
[2018-08-06] MEDS: SIMETHICONE 80 MG TAB CHEW PO PRN (16:57)
[2018-08-06] MEDS: traMADol 50 MG TAB PO PRN (17:12)
[2018-08-06] MEDS: LEVOTHYROXINE 50 MCG TAB PO SCH (21:33)
[2018-08-06] MEDS: ESTRADIOL 1 MG TAB PO SCH (21:33)
[2018-08-06] MEDS: QUEtiapine FUMARATE 25 MG TAB PO SCH (23:07)
[2018-08-07] MEDS: ACETAMINOPHEN 325 MG TAB PO SCH ×4 (04:38→21:36)
[2018-08-07] MEDS ORDERED: POTASSIUM Cl (KCl) 100 ML IV SCH (06:00)
[2018-08-07] MEDS: traMADol 50 MG TAB PO PRN (06:11)
[2018-08-07] MEDS: ONDANSETRON 4 MG/2 ML VIAL IVP PRN (06:12)
[2018-08-07] MEDS: HEPARIN 5,000 UNIT/0.5 ML INJ SC SCH ×3 (06:41→21:40)
[2018-08-07] MEDS ORDERED: POTASSIUM CL 10 MEQ TAB PO ONE (08:29)
[2018-08-07] MEDS ORDERED: MAGNESIUM SULF 1 GM/DEXTROSE 100 ML IV ONE (08:30)
--- NOTE | 2018-08-07 09:13 | ASMTCMCOM ---
CM Note CM Note Notes: Chart reviewed. 77 year old female s/p ostomy take down with prolonged recovery due to ileus. Per therapies making progress and appropriate for C. She has been accepted to [facility] . Will likely need RN, PT and OT. CM to follow. Plan: Home with C. Date Signed: 08/07/2018 09:13 AM Electronically Signed By:Chelle Connelly RN
[2018-08-07] MEDS: ASPIRIN 81 MG CHEWABLE TAB PO SCH (09:30)
[2018-08-07] MEDS: VENLAFAXINE XR 150 MG CAP PO SCH (09:41)
[2018-08-07] MEDS: PANTOPRAZOLE SODIUM 40 MG TAB PO SCH ×2 (09:41→21:36)
[2018-08-07] MEDS: VENLAFAXINE XR 75 MG CAP PO SCH (09:41)
[2018-08-07] MEDS: DOCUSATE SODIUM 100 MG CAP PO SCH ×2 (09:41→21:39)
--- NOTE | 2018-08-07 11:57 | SOAPPROG ---
SOAP Progress Note Assessment/Plan: Assessment: 77 y/o F s/p colostomy takedown POD #10 S: Frustrated. Still having pain with swallowing solid foods. Tolerating liquids. Continues to feel bloated. Passing gas, but hasn't had a BM in 2 days. Incisional pain is much improved. O: Alert Afebrile RRR No increased WOB Abdomen: soft, distended, appropriately ttp, incision sites cdi, umesh drains in previous ostomy site, normoactive bowel sounds Plan: Swallow study to evaluate dysphagia. Will add daily miralax for ileus. 08/07/18 11:54 Objective: Vital Signs Temp Pulse Resp BP Pulse Ox 37.2 C 66 16 150/69 H 93 08/07/18 09:12 08/07/18 09:12 08/07/18 09:12 08/07/18 11:21 08/07/18 11:21 Laboratory Results 08/05/18 08:48 08/07/18 06:04 08/06/18 08/07/18 08/08/18 05:59 05:59 05:59 Intake Total 500 950 Balance 500 950 ICD10 Worksheet Patient Problems: Problems Problem Status Onset Abdominal pain Acute Acute kidney injury Acute Colitis Acute Depression Acute HTN (hypertension) Acute Major depressive disorder, recurrent episode, severe, with psychosis Acute
[2018-08-07] MEDS ORDERED: HYDROmorphONE/DILAUDID 1 MG/ML INJ IVP PRN (13:40)
[2018-08-07] MEDS ORDERED: OXYCODONE/APAP 5/325 TAB PO PRN (13:41)
[2018-08-07] MEDS: POLYETHYLENE GLYCOL 3350 17 GM PKT PO SCH (14:47)
--- NOTE | 2018-08-07 15:07 | HOSPPROG ---
Hospitalist Progress Note Assessment/Plan: # post-op ileus - overall improved today, but somewhat prolonged - getting reglan, minimizing narcotics - bowel regimen started - ibup, tramadol, oxy for pain - cont IVF, low dose -now tolerating a regular diet # hx ischemic colitis, now s/p takedown on 07/29 # htn -This is a new diagnosis -increase Amlodipine from 2.5m to 5mg daily, will give another 2.5mg today # hypoK - -cont to replace with IVF -will start replacement PRN #Hypomagnesemia -replace today # NAGMA -cont to monitor # hypothyroid - Synthroid, TSH ok #GERD: increase PPI # depr - effexor Plan: cont bp mgmt. determine clinical response to increasing meds before further dose increase replace electrolytes as needed. She is a poor stick. Will only check once daily. will stop the replacement protocols Ileus mgmt per General Surgery Increase PPI Subjective: no cp or sob. some nausea. bp ok Objective: Vital Signs Temp Pulse Resp BP Pulse Ox 37.2 C 66 16 150/69 H 93 08/07/18 09:12 08/07/18 09:12 08/07/18 09:12 08/07/18 11:21 08/07/18 11:21 Laboratory Results 08/05/18 08:48 08/07/18 13:36 08/06/18 08/07/18 08/08/18 05:59 05:59 05:59 Intake Total 500 950 Balance 500 950 - Physical Exam Constitutional: not in pain Eyes: PERRL, EOMI Ears, Nose, Mouth, Throat: moist mucous membranes, hearing normal, ears appear normal Cardiovascular: regular rate and rhythym, No edema Respiratory: no respiratory distress, no rales or rhonchi, clear to auscultation Skin: warm Neurologic: AAOx3 Psychiatric: interacting appropriately, not anxious, not encephalopathic Lymph, Heme, Immunologic: No petechiae ICD10 Worksheet Patient Problems: Problems Problem Status Onset Abdominal pain Acute Acute kidney injury Acute Colitis Acute Depression Acute HTN (hypertension) Acute Major depressive disorder, recurrent episode, severe, with psychosis Acute
[2018-08-07] MEDS ORDERED: LIDOCAINE/PRILOCAINE 1 EACH CRTUBE TP ONE (16:30)
[2018-08-07] MEDS: LEVOTHYROXINE 50 MCG TAB PO SCH (21:35)
[2018-08-07] MEDS: ESTRADIOL 1 MG TAB PO SCH (21:36)
[2018-08-07] MEDS: QUEtiapine FUMARATE 25 MG TAB PO SCH (23:10)
[2018-08-07] MEDS ORDERED: POTASSIUM CL 20 MEQ TAB PO ONE (23:28)
[2018-08-08] MEDS: ACETAMINOPHEN 325 MG TAB PO SCH ×4 (05:17→22:04)
[2018-08-08] MEDS: HEPARIN 5,000 UNIT/0.5 ML INJ SC SCH ×3 (07:19→22:09)
[2018-08-08] MEDS: METOCLOPRAMIDE 10 MG/2 ML VIAL IVP PRN (08:27)
[2018-08-08] MEDS ORDERED: ONDANSETRON DISINTEGRATING 4 MG TAB PO PRN (09:27)
[2018-08-08] MEDS: traMADol 50 MG TAB PO PRN (10:08)
[2018-08-08] MEDS: PANTOPRAZOLE SODIUM 40 MG TAB PO SCH ×2 (10:09→22:05)
[2018-08-08] MEDS: VENLAFAXINE XR 150 MG CAP PO SCH (10:09)
[2018-08-08] MEDS: POLYETHYLENE GLYCOL 3350 17 GM PKT PO SCH (10:09)
[2018-08-08] MEDS: VENLAFAXINE XR 75 MG CAP PO SCH (10:09)
[2018-08-08] MEDS: ASPIRIN 81 MG CHEWABLE TAB PO SCH (10:10)
[2018-08-08] MEDS: DOCUSATE SODIUM 100 MG CAP PO SCH ×2 (10:10→22:05)
[2018-08-08] MEDS ORDERED: POLYETHYLENE GLYCOL 3350 17 GM PKT PO PRN (12:22)
[2018-08-08] MEDS ORDERED: LACTULOSE 20 GM/30 ML UDCUP PO PRN (12:22)
[2018-08-08] MEDS ORDERED: MAGNESIUM HYDROXIDE 30 ML UDCUP PO PRN (12:22)
[2018-08-08] MEDS ORDERED: BISACODYL 10 MG SUPP PR PRN (12:22)
--- NOTE | 2018-08-08 13:57 | HOSPPROG ---
Hospitalist Progress Note Assessment/Plan: # post-op ileus - overall improved today, but somewhat prolonged - Reglan PRN - minimizing narcotics - bowel regimen started - ibup, tramadol, oxy for pain - Reg Diet - Scheduled Miralax # hx ischemic colitis, now s/p takedown on 07/29 # htn -This is a new diagnosis -Increase Amlodipine # hypoK - resolved #Hypomagnesemia: resolved # NAGMA, resolved # hypothyroid - Synthroid, TSH ok #GERD: increase PPI # depr - effexor Plan: Increase Amlodipine encourage PO. NO need for IVF at this time Nutrition is recommending TPN. The pt does not want at this time. Surgery to follow cont PPI f/u swallow eval replace electrolytes as needed, ok today Dispo: per primary team (General Surgery) Subjective: frustrated about lack of oral intake. IV infiltrated. She does not want another one put in. She wants to try to eat today. Does not was supplemental nutrition Objective: Vital Signs Temp Pulse Resp BP Pulse Ox 37.0 C 84 18 156/63 H 94 08/08/18 07:51 08/08/18 07:51 08/08/18 08:27 08/08/18 10:12 08/08/18 08:27 Laboratory Results 08/05/18 08:48 08/08/18 09:32 08/07/18 08/08/18 08/09/18 05:59 05:59 05:59 Intake Total 950 750 Balance 950 750 - Physical Exam Constitutional: chronically ill appearing Eyes: PERRL, EOMI Ears, Nose, Mouth, Throat: moist mucous membranes, hearing normal Cardiovascular: regular rate and rhythym Respiratory: no respiratory distress Gastrointestinal: normoactive bowel sounds Skin: warm Neurologic: AAOx3 Psychiatric: interacting appropriately, not anxious, not encephalopathic Lymph, Heme, Immunologic: No petechiae ICD10 Worksheet Patient Problems: Problems Problem Status Onset Abdominal pain Acute Acute kidney injury Acute Colitis Acute Depression Acute HTN (hypertension) Acute Major depressive disorder, recurrent episode, severe, with psychosis Acute
[2018-08-08] MEDS ORDERED: BISACODYL 10 MG SUPP PR ONE (14:09)
--- NOTE | 2018-08-08 14:21 | SOAPPROG ---
SOJEAN Progress Note Assessment/Plan: Assessment/plan 77 y/o F s/p colostomy takedown POD #11 Dysphagia: Still having pain with swallowing solid foods. Esophagram normal. Tolerating liquids. Nutrition has recommended TPN, but pt does not want it. Will try to increase her oral intake. Ileus: Hasn't had BM in 3 days, but is passing gas. Ducolax suppository and daily Miralax ordered. O: Alert Afebrile RRR No increased WOB Abdomen: soft, distended, appropriately ttp, incision sites cdi, umesh drains in previous ostomy site, normoactive bowel sounds 08/08/18 14:18 Objective: Vital Signs Temp Pulse Resp BP Pulse Ox 37.0 C 84 18 156/63 H 94 08/08/18 07:51 08/08/18 07:51 08/08/18 08:27 08/08/18 10:12 08/08/18 08:27 Laboratory Results 08/05/18 08:48 08/08/18 09:32 08/07/18 08/08/18 08/09/18 05:59 05:59 05:59 Intake Total 950 750 Balance 950 750 ICD10 Worksheet Patient Problems: Problems Problem Status Onset Abdominal pain Acute Acute kidney injury Acute Colitis Acute Depression Acute HTN (hypertension) Acute Major depressive disorder, recurrent episode, severe, with psychosis Acute
[2018-08-08] MEDS: LEVOTHYROXINE 50 MCG TAB PO SCH (22:03)
[2018-08-08] MEDS: SENNOSIDES/DOCUSATE SODIUM TAB PO SCH (22:04)
[2018-08-08] MEDS: ESTRADIOL 1 MG TAB PO SCH (22:04)
[2018-08-08] MEDS: QUEtiapine FUMARATE 25 MG TAB PO SCH (23:26)
[2018-08-09] MEDS: HEPARIN 5,000 UNIT/0.5 ML INJ SC SCH ×3 (05:34→23:04)
[2018-08-09] MEDS: ACETAMINOPHEN 325 MG TAB PO SCH ×5 (05:34→21:38)
[2018-08-09] MEDS: VENLAFAXINE XR 150 MG CAP PO SCH (09:37)
[2018-08-09] MEDS: VENLAFAXINE XR 75 MG CAP PO SCH (09:37)
[2018-08-09] MEDS: PANTOPRAZOLE SODIUM 40 MG TAB PO SCH ×2 (09:37→21:39)
[2018-08-09] MEDS: DOCUSATE SODIUM 100 MG CAP PO SCH ×2 (09:37→21:39)
[2018-08-09] MEDS: SENNOSIDES/DOCUSATE SODIUM TAB PO SCH ×2 (09:38→21:39)
[2018-08-09] MEDS: POLYETHYLENE GLYCOL 3350 17 GM PKT PO SCH (09:38)
[2018-08-09] MEDS: ASPIRIN 81 MG CHEWABLE TAB PO SCH (09:38)
--- NOTE | 2018-08-09 13:33 | HOSPPROG ---
Hospitalist Progress Note Assessment/Plan: # post-op ileus - overall improved today, but somewhat prolonged - Reglan PRN - minimizing narcotics - bowel regimen started - ibup, tramadol, oxy for pain - Reg Diet - Scheduled Miralax # hx ischemic colitis, now s/p takedown on 07/29 # htn -This is a new diagnosis -Amlodipine # hypoK - resolved #Hypomagnesemia: resolved # NAGMA, resolved # hypothyroid - Synthroid, TSH ok #GERD: increase PPI # depr - effexor Plan: cont Amlodipine Change IV meds to PO PO intake is increasing cont PPI replace electrolytes as needed Does not have an IV, can recheck electrolytes tomorrow Pt seen ambulating in halls. Offered to see while in her room. She was talking comfortably on her cell phone and refused more extensive evaluation D/w nursing. Dispo: per primary team (General Surgery) Subjective: no overnight events. nursing report she is eating better. BP ok, improving Objective: Vital Signs Temp Pulse Resp BP Pulse Ox 37.0 C 64 16 137/51 H 96 08/09/18 08:00 08/09/18 08:00 08/09/18 08:00 08/09/18 05:29 08/09/18 05:29 Laboratory Results 08/05/18 08:48 08/08/18 09:32 08/08/18 08/09/18 08/10/18 05:59 05:59 05:59 Intake Total 750 700 Output Total 400 Balance 750 300 - Physical Exam Constitutional: no apparent distress Eyes: EOMI Ears, Nose, Mouth, Throat: hearing normal Respiratory: no respiratory distress Neurologic: AAOx3, No CN II-XII Intact, No facial droop Psychiatric: interacting appropriately, not anxious, not encephalopathic ICD10 Worksheet Patient Problems: Problems Problem Status Onset Abdominal pain Acute Acute kidney injury Acute Colitis Acute Depression Acute HTN (hypertension) Acute Major depressive disorder, recurrent episode, severe, with psychosis Acute
--- NOTE | 2018-08-09 14:41 | SOAPPROG ---
SOAP Progress Note Assessment/Plan: Assessment: LOOKS THE BEST SHE HAS IN 2 WEEKS AND FEELING VERY GOOD TODAY. EATING WELL. SOME FLATUS BUT NO BM ABDOMEN SOFT WITH BOWEL SOUNDS/WOUND OKAY/CHEST CLEAR/HEENT NONICTERIC/COR REGULAR RHYTHM Plan: HOPEFULLY HOME IN 1-2 DAYS/CONTINUE BOWEL PROTOCOL 08/09/18 Objective: Vital Signs Temp Pulse Resp BP Pulse Ox 37.0 C 64 16 137/51 H 96 08/09/18 08:00 08/09/18 08:00 08/09/18 08:00 08/09/18 05:29 08/09/18 05:29 Laboratory Results 08/05/18 08:48 08/08/18 09:32 08/08/18 08/09/18 08/10/18 05:59 05:59 05:59 Intake Total 750 700 Output Total 400 Balance 750 300 ICD10 Worksheet Patient Problems: Problems Problem Status Onset Abdominal pain Acute Acute kidney injury Acute Colitis Acute Depression Acute HTN (hypertension) Acute Major depressive disorder, recurrent episode, severe, with psychosis Acute
[2018-08-09] MEDS: METOCLOPRAMIDE 10 MG TAB PO PRN ×2 (17:18→23:05)
[2018-08-09] MEDS: LEVOTHYROXINE 50 MCG TAB PO SCH (21:38)
[2018-08-09] MEDS: ESTRADIOL 1 MG TAB PO SCH (21:39)
[2018-08-09] MEDS: QUEtiapine FUMARATE 25 MG TAB PO SCH (23:05)
[2018-08-10] MEDS: ACETAMINOPHEN 325 MG TAB PO SCH ×4 (05:25→20:45)
[2018-08-10] MEDS: HEPARIN 5,000 UNIT/0.5 ML INJ SC SCH ×3 (06:19→20:45)
[2018-08-10 09:17] LABS: PLATELET COUNT 299 10^3/uL (150-400)
[2018-08-10] MEDS: PANTOPRAZOLE SODIUM 40 MG TAB PO SCH ×2 (10:03→20:44)
[2018-08-10] MEDS: DOCUSATE SODIUM 100 MG CAP PO SCH ×2 (10:03→20:45)
[2018-08-10] MEDS: ASPIRIN 81 MG CHEWABLE TAB PO SCH (10:03)
[2018-08-10] MEDS: VENLAFAXINE XR 75 MG CAP PO SCH (10:03)
[2018-08-10] MEDS: POLYETHYLENE GLYCOL 3350 17 GM PKT PO SCH (10:04)
[2018-08-10] MEDS: SENNOSIDES/DOCUSATE SODIUM TAB PO SCH ×2 (10:04→20:45)
[2018-08-10] MEDS: VENLAFAXINE XR 150 MG CAP PO SCH (10:05)
--- NOTE | 2018-08-10 15:21 | HOSPPROG ---
Hospitalist Progress Note Assessment/Plan: # post-op ileus - overall improved today, but somewhat prolonged - Reglan PRN - minimizing narcotics - bowel regimen started - ibup, tramadol, oxy for pain - Reg Diet - Scheduled Miralax # hx ischemic colitis, now s/p takedown on 07/29 # htn -This is a new diagnosis -Amlodipine # hypoK - resolved #Hypomagnesemia: resolved # NAGMA, resolved # hypothyroid - Synthroid, TSH ok #GERD: increase PPI # depr - effexor Plan: cont Amlodipine, would not increase further. Lower diastolic value noted Ileus/acute on chronic constipation is getting better. Mgmt Per Surgery. Likely d/c soon. cleared to go once ready from a surgical perspective cont PPI replace electrolytes as needed D/w nursing. Dispo: per primary team (General Surgery) Subjective: no cp or sob. had a BM Objective: Vital Signs Temp Pulse Resp BP Pulse Ox 37.2 C 66 14 167/62 H 95 08/10/18 08:00 08/10/18 08:00 08/10/18 08:00 08/10/18 08:00 08/10/18 08:00 Laboratory Results 08/10/18 09:02 08/10/18 09:02 08/09/18 08/10/18 08/11/18 05:59 05:59 05:59 Intake Total 700 1200 500 Output Total 400 2900 800 Balance 300 -1700 -300 - Physical Exam Constitutional: not in pain Eyes: PERRL, EOMI Ears, Nose, Mouth, Throat: moist mucous membranes, hearing normal Cardiovascular: regular rate and rhythym, No edema Respiratory: no respiratory distress, no rales or rhonchi, clear to auscultation Gastrointestinal: distension (improving), No tenderness Skin: warm Neurologic: AAOx3 Psychiatric: interacting appropriately, not anxious, not encephalopathic Lymph, Heme, Immunologic: No petechiae ICD10 Worksheet Patient Problems: Problems Problem Status Onset Abdominal pain Acute Acute kidney injury Acute Colitis Acute Depression Acute HTN (hypertension) Acute Major depressive disorder, recurrent episode, severe, with psychosis Acute
--- NOTE | 2018-08-10 16:12 | ASMTCMCOM ---
CM Note CM Note Notes: Patient plan of care reviewed in rounds. Progressing form post op ileus, HHC arranged. Ready to discharge when medically cleared from surgery, Plan: DC to home with HHC. Date Signed: 08/10/2018 04:11 PM Electronically Signed By:Chelle Connelly RN
[2018-08-10] MEDS: METOCLOPRAMIDE 10 MG TAB PO PRN (16:49)
[2018-08-10] MEDS: LEVOTHYROXINE 50 MCG TAB PO SCH (20:44)
[2018-08-10] MEDS: ESTRADIOL 1 MG TAB PO SCH (20:44)
[2018-08-10] MEDS: QUEtiapine FUMARATE 25 MG TAB PO SCH (22:48)
--- NOTE | 2018-08-11 01:07 | SOAPPROG ---
SOAP Progress Note Assessment/Plan: Assessment: LOOKS THE BEST SHE HAS IN 2 WEEKS AND FEELING VERY GOOD TODAY. EATING WELL. SOME FLATUS BUT NO BM ABDOMEN SOFT WITH BOWEL SOUNDS/WOUND OKAY/CHEST CLEAR/HEENT NONICTERIC/COR REGULAR RHYTHM Plan: HOPEFULLY HOME IN 1-2 DAYS/CONTINUE BOWEL PROTOCOL 08/09/18 08/11/18 01:06 CONTINUES TO IMPROVE/ STILL SOME DISTENTION/ LARGE BM LAST PM AFEBRILE/ LABS OK/ WOUND OK/ UO GOOD PROBABLY HOME IN AM Objective: Vital Signs Temp Pulse Resp BP Pulse Ox 36.8 C 73 16 153/64 H 96 08/10/18 20:46 08/10/18 20:46 08/10/18 20:46 08/10/18 20:46 08/10/18 20:46 Laboratory Results 08/10/18 09:02 08/10/18 09:02 08/09/18 08/10/18 08/11/18 05:59 05:59 05:59 Intake Total 700 1200 1400 Output Total 400 2900 1100 Balance 300 -1700 300 ICD10 Worksheet Patient Problems: Problems Problem Status Onset Abdominal pain Acute Acute kidney injury Acute Colitis Acute Depression Acute HTN (hypertension) Acute Major depressive disorder, recurrent episode, severe, with psychosis Acute
[2018-08-11] MEDS: ACETAMINOPHEN 325 MG TAB PO SCH ×2 (04:47→09:07)
[2018-08-11] MEDS: HEPARIN 5,000 UNIT/0.5 ML INJ SC SCH (05:05)
--- NOTE | 2018-08-11 08:10 | PDIAF ---
- Diagnosis Diagnosis: s/p colostomy takedown Code Status: Full Code - Medication Management Discharge Medications: electronically signed and located in the Home Medication List. PICC Care - Routine: N/A - Orders Services needed: Home Care, Registered Nurse, Physical Therapy, Occupational Therapy Home Care Face to Face: I certify that this patient was under my care and that I had the required [id number] encounter meeting the encounter requirements on the discharge day. My findings support the fact that the patient is homebound as defined in Home Care Face to Face Continued: CMS Chapter 7 Medicare Benefits Manual 30.1.1 , The condition of the patient is such that there exists a normal inability to leave home and consequently, leaving home would require a considerable and taxing effort. Isolation Type: None Diet Recommendation: no restrictions on diet Diet Texture: Regular Texture Diet, Thin Liquids Wound Care Instructions: No lifting greater than 20 lbs. You will need to place a bandage over your incision while the drain sites are still draining. Ok to shower. Avoid baths/pools. Additional Instructions: No lifting greater than 20 lbs. You will need to place a bandage over your incision while the drain sites are still draining. Ok to shower. Avoid baths/ pools. - Follow Up Care Current Providers and Referrals: Shanti Espinosa MD [Primary Care Provider] - Tien Toribio MD [Medical Doctor] - follow up in 2 weeks
[2018-08-11] MEDS: VENLAFAXINE XR 75 MG CAP PO SCH (09:05)
[2018-08-11] MEDS: VENLAFAXINE XR 150 MG CAP PO SCH (09:05)
[2018-08-11] MEDS: ASPIRIN 81 MG CHEWABLE TAB PO SCH (09:06)
[2018-08-11] MEDS: DOCUSATE SODIUM 100 MG CAP PO SCH (09:06)
[2018-08-11] MEDS: PANTOPRAZOLE SODIUM 40 MG TAB PO SCH (09:06)
[2018-08-11] MEDS: SENNOSIDES/DOCUSATE SODIUM TAB PO SCH (09:07)
[2018-08-11] MEDS: POLYETHYLENE GLYCOL 3350 17 GM PKT PO SCH (09:07)
[2018-08-11 09:08] VITALS: BP 143/57
--- NOTE | 2018-08-11 10:19 | SOAPPROG ---
SOAP Progress Note Assessment/Plan: Assessment/Plan: 77 Y F c hx colonic perforation 2/2 colitis with prolonged hospital stay earlier this year, now s/p colostomy takedown. Ileus resolved. Pain controlled. Drain removed. Doing well. Will d/c to home with home care, PT, OT. Appreciate IM management of comorbidities. S: eager to go home. O: alert nad mmm, ncat ctab rrr abd soft, incisions clean 08/11/18 10:17 Objective: Vital Signs Temp Pulse Resp BP Pulse Ox 36.7 C 84 13 143/57 H 95 08/11/18 08:00 08/11/18 08:00 08/11/18 08:00 08/11/18 09:02 08/11/18 08:00 Laboratory Results 08/10/18 09:02 08/10/18 09:02 08/10/18 08/11/18 08/12/18 05:59 05:59 05:59 Intake Total 1200 1400 Output Total 2900 1350 Balance -1700 50 ICD10 Worksheet Patient Problems: Problems Problem Status Onset Abdominal pain Acute Acute kidney injury Acute Colitis Acute Depression Acute HTN (hypertension) Acute Major depressive disorder, recurrent episode, severe, with psychosis Acute
--- NOTE | 2018-08-11 14:27 | ASMTDCNOTE ---
Case Management Discharge Discharge Order Complete? Answers: Yes Patient to Obtain Answers: Independently Medications Transportation Arranged Answers: Family/Friends Discharge Comments Notes: CM met with patient, IM delivered and signed for receipt Patient asked about order to present to [employer] insurance regarding the need for assistance around ADL's. CM suggested the patient discuss this with her PCP, the patient stated she feels like she should be able to get this info from her hospital stay. CM shared she could request medical records, patient will consider this. CM will attempt to connect with Kayla ALBARADO to discuss order. CM spoke with Kayla ALBARADO who recommended the patient connect with the outpatient office to discuss this and also PCP. CM met with patient prior to discharge to address the request focused on connecting with PCP and obtaining medical records. CM available to support if additional CM needs arise. Date Signed: 08/11/2018 02:26 PM Electronically Signed By:Lindsey Amezquita
--- NOTE | 2018-08-14 09:09 | ASDISCHSUM ---
Discharge Information Plan Status:Home with Home Health Medically Cleared to Leave: Discharge Date:08/11/2018 01:37 PM CM D/C Disposition:Home Health Service ADT D/C Disposition:Home, Routine, Self-Care Projected Discharge Date:07/31/2018 11:00 AM Transportation at D/C:Friend Discharge Delay Reason: Follow-Up Date:07/31/2018 11:00 AM Discharge Slot: Final Diagnosis:Colitis s/p colostomy takedown Placement Information Referral Type:*Home Health Care Services Referral ID:[id number] Provider Name:[facility] ([facility]) Address 1:[address] [address] Address 2: City:[place] Selection Factors: State:[place] Patient Contact Information Contact Name:ROBBIN Relationship:Daughter Address: City:[place] Alternate Phone: State/Zip Code:[place] Email: Financial Information Financial Class:Medicare Primary Plan Desc:MEDICARE INPATIENT Primary Plan Number:[id number] Secondary Plan Desc: OUT OF [facility] Secondary Plan Number:[id number] Assessment Information [facility] CM Progress Note CM Note CM Note Notes: Chart reviewed for discharge planning purposes. Patient is post op colostomy take down. Has had [facility] previously in the past. CM to follow for needs. Plan: TBD Date Signed: 07/29/2018 02:39 PM Electronically Signed By:Chelle Connelly RN BC CM Progress Note CM Note CM Note Notes: Patient chart reviewed. She is post op day 1. Per PT she will need HHC. She was current with [facility]. Referral in allscripts to [facility]. CCM to follow. Plan: Dc to home with HHC when medically cleared for discharge. Date Signed: 07/30/2018 02:52 PM Electronically Signed By:Chelle Connelly RN [facility] CM Progress Note CM Note CM Note Notes: Per PT she will need HHC. She was current with [facility]. Referral in allscripts to [facility]. CCM to follow. Plan: Dc to home with HHC when medically cleared for discharge. Date Signed: 08/01/2018 01:37 PM Electronically Signed By:Na Hernandez [facility] CM Progress Note CM Note CM Note Notes: Plan of care reviewed in rounds. Slowly resolving pot op ileus, per therapy she is in need of HHC vs SNF. CM to follow for needs. Plan: TBD Date Signed: 08/04/2018 03:28 PM Electronically Signed By:Chelle Connelly RN [facility] CM Progress Note CM Note CM Note Notes: Chart reviewed. 77 year old female s/p ostomy take down with prolonged recovery due to ileus. Per therapies making progress and appropriate for [facility]. She has been accepted to [facility] . Will likely need RN, PT and OT. CM to follow. Plan: Home with [facility]. Date Signed: 08/07/2018 09:13 AM Electronically Signed By:Chelle Connelly RN [facility] Progress Note CM Note CM Note Notes: Patient plan of care reviewed in rounds. Progressing form post op ileus, HHC arranged. Ready to discharge when medically cleared from surgery, Plan: DC to home with [facility]. Date Signed: 08/10/2018 04:11 PM Electronically Signed By:Chelle Connelly RN Case Management Discharge Plan Note Case Management Discharge Discharge Order Complete? Answers: Yes Patient to Obtain Answers: Independently Medications Transportation Arranged Answers: Family/Friends Discharge Comments Notes: BING met with patient, IM delivered and signed for receipt Patient asked about order to present to LTC insurance regarding the need for assistance around ADL's. BING suggested the patient discuss this with her PCP, the patient stated she feels like she should be able to get this info from her hospital stay. BING shared she could request medical records, patient will consider this. BING will attempt to connect with Kayla ALBARADO to discuss order. BING spoke with Kayla ALBARADO who recommended the patient connect with the outpatient office to discuss this and also PCP. CM met with patient prior to discharge to address the request focused on connecting with PCP and obtaining medical records. CM available to support if additional CM needs arise. Date Signed: 08/11/2018 02:26 PM Electronically Signed By:Lindsey Amezquita Intervention Information
--- NOTE | 2018-08-14 09:10 | ASMTLACE ---
LACE Length of stay for Answers: 7-13 days current admission Acuity / Level of Answers: Yes Care: Did the patient have an inpatient admission? Comorbidities - select Answers: Opioid dependence all that apply / Chronic pain Other Notes: Basal cell carcinoma; Essential tremor; HLD # of Emergency department Answers: 0 visits in the last 6 months Social determinants Answers: Mental health diagnosis (anxiety, depression, pers onality disorders, etc.) Score: 16 Date Signed: 08/14/2018 09:09 AM Electronically Signed By:AIME Harris
--- NOTE | 2018-08-15 13:14 | PQFORM ---
PHYSICIAN QUERY FORM Needs Your Response This query form is being sent to you to assure this patient record is coded properly. Please respond to the question below: VAMP PRESSER QUESTION: Dr Toribio Would you consider the patients post op ileus to be a complication of the surgery? __ Yes __ No __ Other (please Specify ) __ Unable to determine Thank You Sherron DURAN Maintenance Service Supervisor INSTRUCTIONS FOR RESPONSE: Answer question by clicking on the "Edit Document" button. Move cursor to area below the stars. When complete, hit "Save." Click on the "Sign" button, then click "Sign" again. Type in your PIN and hit "Enter." no MTDD
== END 2018-08-11 13:37 | disposition home or self-care (01) | DRG 330 ==
LOC: F3E 07:18 → F1N 14:14
PROVIDERS: ADMIT Surgery; ATTEND Surgery
PROC: 0DBK8ZX Excision of Ascending Colon, Via Natural or Artificial Opening Endoscopic, Diagnostic (ICD-10-PCS; 2018-07-29)
PROC: 0DNW4ZZ Release Peritoneum, Percutaneous Endoscopic Approach (ICD-10-PCS; principal; 2018-07-29 09:00)
PROC: 0DS Gastrointestinal System, Reposition (ICD-10-PCS; principal; 2018-07-29 09:00)
PROC: 0DBE4ZZ Excision of Large Intestine, Percutaneous Endoscopic Approach (ICD-10-PCS; principal; 2018-07-29 09:00)
DX: Z43.3 Encounter for attention to colostomy (principal); K66.0 Peritoneal adhesions (postprocedural) (postinfection); K56.7 Ileus, unspecified; D12.2 Benign neoplasm of ascending colon; E87.6 Hypokalemia; E87.2 Acidosis; E83.42 Hypomagnesemia; K59.00 Constipation, unspecified; I10 Essential (primary) hypertension; E03.9 Hypothyroidism, unspecified; G25.0 Essential tremor; E78.5 Hyperlipidemia, unspecified; F32.9 Major depressive disorder, single episode, unspecified; Z87.442 Personal history of urinary calculi; Z86.010 Personal history of colon polyps; Z87.891 Personal history of nicotine dependence
CPT/HCPCS: 82435-PO; 82565-PO; 82947-PO; 84132-PO; 84295-PO; 84484-ER; 84520-PO; 85014-PO; 92610-GN; 97110-GO; 97110-GP; 97116-GP; 97161-GP; 97166-GO; 97530-GO; 97530-GP; 97535-GO; G8978-GP-CI; G8978-GP-CK; G8979-GP-CH; G8979-GP-CI; G8980-GP-CI; G8987-GO-CJ; G8987-GO-CL; G8988-GO-CJ; G8996-GN-CH; G8997-GN-CH; G8998-GN-CH; J0360; J0690; J0694; J1170; J1644; J1885; J1940; J2212; J2250; J2405; J2704; J2710; J2765; J3010; J3475; J3480

== ENCOUNTER 2018-09-04 23:41 | Inpatient (IN) | payer OTHER, BC ==
[2018-09-04] MEDS ORDERED: HYDROmorphONE/DILAUDID 2 MG/ML INJ IVP ONE (23:46)
[2018-09-04] MEDS ORDERED: NS 1,000 ML IV ONE (23:46)
[2018-09-04] MEDS ORDERED: ONDANSETRON 4 MG/2 ML VIAL IVP ONE (23:46)
[2018-09-04] MEDS ORDERED: IOPAMIDOL (ISOVUE 370) 75 ML BTL IV ONE (23:50)
--- NOTE | 2018-09-04 23:51 | EDPHY ---
H & P Stated Complaint: abd pain-s/p colostomy repair Time Seen by Provider: 09/04/18 23:48 HPI/ROS: HPI: This is a 77-year-old female who presents with Chief Complaint: Abdominal pain Location: Left lower quadrant abdomen Quality: Pain Duration: Since 9:00 p.m. Approximately 2-3 hours Signs and Symptoms: no fever, + nausea, no vomiting, no hematemesis, no blood in stool, + abdominal bloating, no diarrhea, no back pain, no urinary symptoms, no vaginal bleeding/discharge, no indigestion, no chest pain, no shortness of breath Timing: Rapid onset, acute, constant Severity: 05/28 Context: Patient presents via EMS from snf, has a history of chronic constipation common bowel syndrome, ischemic colitis with perforation grew requiring colectomy and diverting colostomy. She was admitted in July 2018 to undergo colostomy takedown. This was done successfully laparoscopic leave by Dr. Tien Toribio. Postoperatively she developed postoperative ileus. Patient reports that she ate dinner around 7:00 p.m.. Around 8:00 p.m. she started to developed sharp, constant, nonradiating pain in the left lower quadrant. She has not had a bowel movement in 1 day. She reports that she is not passing gas from below. She complains of nausea but no vomiting, diarrhea, fever, urinary symptoms. Modifying Factors: EMS gave her IV fentanyl 50 mcg with minimal relief Comment: ROS: A comprehensive 10 system review of systems is otherwise negative aside from elements mentioned in the history of present illness. MEDICAL/SURGICAL/SOCIAL HISTORY: Medical history: Psych-Psychosis/paranoid, major depression disorder hypothyroid, BACK PROBLEMS, , Hypertension, tremor, IBS, hx. of colon polyps, chronic constipation, cataract surgery, history of ischemic colitis with perforation requiring colostomy Surgical history: HYSTERECTOMY, GALL BLADDER removal, appendectomy, colostomy, colostomy reversal Social history: Former smoker. Family history noncontributory. CONSTITUTIONAL: Elderly white female, shaking and in moderate distress, awake and alert HEENT: Atraumatic and normocephalic, PERRL, EOMI. Nares patent; no rhinorrhea; no nasal mucosal edema. Tympanic membranes clear. Oropharynx clear, no exudate and moist pink mucosa. Airway patent. No lymphadenopathy. No meningismus. Cardiovascular: Normal S1/S2, regular rate, regular rhythm, without murmur rub or gallop. PULMONARY/CHEST: Symmetrical and nontender. Clear to auscultation bilaterally. Good air movement. No accessory muscle usage. ABDOMEN: Soft, slightly distended, portal sites look good without signs of infection, severe left lower quadrant tenderness, no rebound, + guarding, no peritoneal signs, no masses or organomegaly. No CVAT. Bowel signs hypoactive right upper quadrant and right lower quadrant. Bowel sounds high-pitched left upper quadrant left lower quadrant. EXTREMITIES: 2/2 pulses, strength 5/5, no deformities, no clubbing, no cyanosis or edema. NEUROLOGICAL: no focal neuro deficits. GCS 15. SKIN: Warm and dry, no erythema. no rash. Good capillary refill. Source: Patient, Old records Exam Limitations: No limitations - Personal History Current Tetanus Diphtheria and Acellular Pertussis (TDAP): Yes Tetanus Vaccine Date: two years ago - Medical/Surgical History Hx Asthma: No Hx Chronic Respiratory Disease: No Hx Diabetes: No Hx Cardiac Disease: No Hx Renal Disease: No Hx Cirrhosis: No Hx Alcoholism: No Hx HIV/AIDS: No Hx Splenectomy or Spleen Trauma: No Other PMH: Psych-Psychosis/paranoid, major depression disorder. hypothyroid, BACK PROBLEMS, HYSTERECTOMY, GALL BLADDER removal, Hypertension, tremor, appendectomy, IBS, hx. of colon polyps, chronic constipation cataract surgery - Social History Smoking Status: Former smoker Constitutional: Initial Vital Signs Temperature (C) 36.8 C 09/04/18 23:46 Heart Rate 74 09/04/18 23:46 Respiratory Rate 16 09/04/18 23:46 Blood Pressure 156/98 H 09/04/18 23:46 O2 Sat (%) 96 09/04/18 23:46 O2 Delivery Mode Room Air Allergies/Adverse Reactions: ephedrine [Ephedrine] Allergy (Severe, Verified 09/04/18 23:46) Vomiting morphine [Morphine] Allergy (Severe, Verified 09/04/18 23:46) Vomiting prednisone [Prednisone] Allergy (Severe, Verified 09/04/18 23:46) Other-Enter Comments prochlorperazine edisylate [From Compazine] Allergy (Verified 09/04/18 23:46) Swelling/neck,face,throat prochlorperazine maleate [From Compazine] Allergy (Verified 09/04/18 23:46) Swelling/neck,face,throat Sulfa (Sulfonamide Antibiotics) Allergy (Verified 09/04/18 23:46) Rash Home Medications: Medication Instructions Recorded Estradiol [Estradiol 1 MG (*)] 0.5 mg PO HS 01/12/18 Venlafaxine Xr [Effexor Xr] 150 mg PO DAILY 01/12/18 Aspirin [Aspirin 81mg (*)] 81 mg PO DAILY 07/25/18 Cholecalciferol Vit D3 [Vitamin D3 1,000 units PO DAILY 07/25/18 (*)] Levothyroxine [Synthroid 50 mcg 50 mcg PO HS 07/25/18 (*)] Quetiapine Fumarate 75 mg PO HS 07/25/18 Venlafaxine Xr [Effexor Xr 75MG 75 mg PO DAILY 07/30/18 (*)] ALPRAZolam [Xanax 0.25 MG (*)] 0.5 mg PO BID PRN tab 08/11/18 Docusate Sodium [Colace 100 MG (*)] 100 mg PO BID cap 08/11/18 Nitroglycerin [Nitrostat 0.4 mg 0.4 mg SL Q6H PRN btl 08/11/18 (*)] Ondansetron Odt [Zofran Odt 4 mg 4 mg PO Q6HRS PRN #20 tab 08/11/18 (*)] Pantoprazole Sodium [Protonix 40mg 40 mg PO BID #60 tab 08/11/18 (*)] Polyethylene Glycol 3350 [Miralax 17 gm PO DAILY PRN pkt 08/11/18 17 gm (*)] amLODIPine BESYLATE [Norvasc 2.5 5 mg PO DAILY #30 tab 08/11/18 mg (*)] oxyCODONE/APAP 5/325 [Percocet 1 - 2 tab PO Q4 PRN #20 tab 08/11/18 5/325 (*)] traMADol [Ultram 50 mg (*)] 50 mg PO Q6HRS PRN #30 tab 08/11/18 Medical Decision Making ED Course/Re-evaluation: Vital signs reviewed and show elevated blood pressure upon arrival. IV access, i-STAT laboratory studies, CT abdomen and pelvis scan ordered Patient made NPO and given 1 L normal saline, IV Dilaudid 1 mg and IV Zofran 4 mg 1218: Notified by tech that creatinine 1.4. Decision made to order CT abdomen and pelvis scan without contrast as this will still show obstruction/ileus. Dr. Montejo reviewed CT scan and said no signs of obstruction. But moderate to severe constipation. Fleets enema given. 0100: Called by radiologist, Dr. Castellanos who reports that dilated jejunum and concern for small-bowel ileus. Also mass on kidney concerning for carcinoma. 0115: ED decision to consult hospitalist for admission for obstipation and intractable abdominal pain. Spoke with Dr. Castaneda who kindly agrees This patient was seen under the supervision of my secondary supervising physician. I evaluated care for this patient with attending. Discussed this patient with Dr. St. Differential Diagnosis: Abdominal pain including but not limited to ileus, constipation, small-bowel obstruction, perforation and urinary tract infection. - Data Points Laboratory Results: Laboratory Results 09/05/18 00:10 09/05/18 00:10 09/05/18 09/05/18 09/05/18 00:16 00:10 00:10 WBC 10.96 10^3/uL H 10^3/uL (3.80-9.50) RBC 4.74 10^6/uL 10^6/uL (4.18-5.33) Hgb 13.2 g/dL g/dL (12.6-16.3) POC Hgb 13.9 gm/dL gm/dL (12.6-16.3) Hct 40.6 % % (38.0-47.0) POC Hct 41 % % (38-47) MCV 85.7 fL fL (81.5-99.8) MCH 27.8 pg L pg (27.9-34.1) MCHC 32.5 g/dL g/dL (32.4-36.7) RDW 14.1 % % (11.5-15.2) Plt Count 252 10^3/uL 10^3/uL (150-400) MPV 9.3 fL fL (8.7-11.7) Neut % (Auto) 71.8 % % (39.3-74.2) Lymph % (Auto) 18.3 % % (15.0-45.0) [place] % (Auto) 6.2 % % (4.5-13.0) Eos % (Auto) 2.8 % % (0.6-7.6) Baso % (Auto) 0.4 % % (0.3-1.7) Nucleat RBC Rel Count 0.0 % % (0.0-0.2) Absolute Neuts (auto) 7.87 10^3/uL H 10^3/uL (1.70-6.50) Absolute Lymphs (auto) 2.01 10^3/uL 10^3/uL (1.00-3.00) Absolute Monos (auto) 0.68 10^3/uL 10^3/uL (0.30-0.80) Absolute Eos (auto) 0.31 10^3/uL 10^3/uL (0.03-0.40) Absolute Basos (auto) 0.04 10^3/uL 10^3/uL (0.02-0.10) Absolute Nucleated RBC 0.00 10^3/uL 10^3/uL (0-0.01) Immature Gran % 0.5 % % (0.0-1.1) Immature Gran # 0.05 10^3/uL 10^3/uL (0.00-0.10) POC Sodium 140 mEq/L mEq/L (135-145) Sodium 138 mEq/L mEq/L (135-145) POC Potassium 4.0 mEq/L mEq/L (3.3-5.0) Potassium 4.4 mEq/L mEq/L (3.5-5.2) POC Chloride 103 mEq/L mEq/L (97-110) Chloride 104 mEq/L mEq/L (97-110) Carbon Dioxide 23 mEq/l mEq/l (22-31) Anion Gap 11 mEq/L mEq/L (6-14) POC BUN 29 mg/dL H mg/dL (7-23) BUN 31 mg/dL H mg/dL (7-23) Creatinine 1.4 mg/dL H mg/dL (0.6-1.0) POC Creatinine 1.4 mg/dL H mg/dL (0.6-1.0) Estimated GFR 36 Glucose 99 mg/dL mg/dL (70-100) POC Glucose 96 mg/dL mg/dL (70-100) Calcium 10.0 mg/dL mg/dL (8.5-10.4) Total Bilirubin 0.5 mg/dL mg/dL (0.1-1.4) Conjugated Bilirubin 0.2 mg/dL mg/dL (0.0-0.5) Unconjugated Bilirubin 0.3 mg/dL mg/dL (0.0-1.1) AST 23 IU/L IU/L (14-46) ALT 26 IU/L IU/L (9-52) Alkaline Phosphatase 65 IU/L IU/L (38-126) Total Protein 8.0 g/dL g/dL (6.3-8.2) Albumin 4.8 g/dL g/dL (3.5-5.0) Lipase 93 IU/L IU/L (23-300) Medications Given: Discontinued Medications Hydromorphone HCl (Dilaudid) 1 mg IVP EDNOW ONE Stop: 09/04/18 23:47 Last Admin: 09/05/18 00:15 Dose: 1 mg Hydromorphone HCl (Dilaudid) 1 mg IVP EDNOW ONE Stop: 09/05/18 00:51 Last Admin: 09/05/18 00:53 Dose: 1 mg Sodium Chloride (Ns) 1,000 mls @ 0 mls/hr IV EDNOW ONE; Wide Open PRN Reason: Protocol Stop: 09/04/18 23:47 Last Admin: 09/05/18 00:14 Dose: 1,000 mls Ondansetron HCl (Zofran) 4 mg IVP EDNOW ONE Stop: 09/04/18 23:47 Last Admin: 09/05/18 00:14 Dose: 4 mg Point of Care Test Results: Chemistry 09/05/18 00:16 POC Sodium 140 mEq/L mEq/L (135-145) POC Potassium 4.0 mEq/L mEq/L (3.3-5.0) POC Chloride 103 mEq/L mEq/L (97-110) POC BUN 29 mg/dL H mg/dL (7-23) POC Creatinine 1.4 mg/dL H mg/dL (0.6-1.0) POC Glucose 96 mg/dL mg/dL (70-100) ISTAT H&H 09/05/18 00:16 POC Hgb 13.9 gm/dL gm/dL (12.6-16.3) POC Hct 41 % % (38-47) Departure - Departure Disposition: [facility] Inpatient Acute Clinical Impression: Obstipation, Constipation by delayed colonic transit, Ileus, Renal mass Condition: Fair
[2018-09-05 00:46] LABS: PLATELET COUNT 252 10^3/uL (150-400)
[2018-09-05] MEDS ORDERED: HYDROmorphONE/DILAUDID 2 MG/ML INJ IVP ONE (00:50)
[2018-09-05] MEDS ORDERED: ONDANSETRON DISINTEGRATING 4 MG TAB PO PRN (01:03)
[2018-09-05] MEDS ORDERED: ACETAMINOPHEN 325 MG TAB PO PRN (01:03)
[2018-09-05] MEDS ORDERED: LACTULOSE 20 GM/30 ML UDCUP PO PRN (01:05)
[2018-09-05] MEDS ORDERED: BISACODYL 10 MG SUPP PR PRN (01:05)
[2018-09-05] MEDS ORDERED: MAGNESIUM HYDROXIDE 30 ML UDCUP PO PRN (01:05)
[2018-09-05] MEDS ORDERED: QUEtiapine FUMARATE 25 MG TAB PO ONE (01:23)
--- NOTE | 2018-09-05 01:42 | PDGENHP ---
History and Physical - Chief Complaint Abdominal pain - History of Present Illness 77 yo F w/ hx of ischemic colitis s/p colostomy and takedown, hypothyroid, and HTN presents with abdominal pain. The patient underwent colostomy takedown in July of 2018. Her post-operative course was complicated by a prolonged ileus. She was discharged home and eventually did well. Over the last day, however, she has developed LLQ abdominal pain. CT in the ED reveals ileus and constipation. The patient tells me she has been only having small, hard stools over the last few days. She has been taking Tramadol for pain and one stool softener nightly in an attempt to combat constipation. She denies vomiting, BRBPR, melena, and fever/chills. Case discussed with ED PER Huitron; records reviewed and summarized above. History Information - Allergies/Home Medication List Allergies/Adverse Reactions: ephedrine [Ephedrine] Allergy (Severe, Verified 09/04/18 23:46) Vomiting morphine [Morphine] Allergy (Severe, Verified 09/04/18 23:46) Vomiting prednisone [Prednisone] Allergy (Severe, Verified 09/04/18 23:46) Other-Enter Comments prochlorperazine edisylate [From Compazine] Allergy (Verified 09/04/18 23:46) Swelling/neck,face,throat prochlorperazine maleate [From Compazine] Allergy (Verified 09/04/18 23:46) Swelling/neck,face,throat Sulfa (Sulfonamide Antibiotics) Allergy (Verified 09/04/18 23:46) Rash Home Medications: Estradiol [Estradiol 1 MG (*)] 0.5 mg PO HS 01/12/18 [Last Taken 07/28/18] Venlafaxine Xr [Effexor Xr] 150 mg PO DAILY 01/12/18 [Last Taken 07/29/18 06:30] Aspirin [Aspirin 81mg (*)] 81 mg PO DAILY 07/25/18 [Last Taken 1 Week Ago ~07/22] Cholecalciferol Vit D3 [Vitamin D3 (*)] 1,000 units PO DAILY 07/25/18 [Last Taken 07/29/18 06:30] Levothyroxine [Synthroid 50 mcg (*)] 50 mcg PO HS 07/25/18 [Last Taken 07/29/18 06:30] Quetiapine Fumarate 75 mg PO HS 07/25/18 [Last Taken 07/28/18] Venlafaxine Xr [Effexor Xr 75MG (*)] 75 mg PO DAILY 07/30/18 [Last Taken Unknown ] I have personally reviewed and updated: family history, medical history - Past Medical History hypertension Additional medical history: Ischemic colitis. Hypothyroid. GERD. Depression - Surgical History Reports: colectomy (W/ ostomy and takedown 08/05) - Family History Additional family history: Alzheimer's. Cirrhosis - Social History Smoking Status: Former smoker Review of Systems Review of Systems: ROS: 10pt was reviewed & negative except for what was stated in HPI & below Physical Exam Physical Exam: Temp Pulse Resp BP Pulse Ox 36.8 C 74 16 156/98 H 96 09/04/18 23:46 09/04/18 23:46 09/04/18 23:46 09/04/18 23:46 09/04/18 23:46 Constitutional: appears nourished, uncomfortable Eyes: PERRL, EOMI Ears, Nose, Mouth, Throat: moist mucous membranes, no oral mucosal ulcers Cardiovascular: regular rate and rhythym, no murmur, rub, or gallop Respiratory: no respiratory distress, clear to auscultation Gastrointestinal: tenderness (LLQ), other (Hypoactive BS), No guarding, No rebound Skin: warm, other (Surgical wound in suprapubic area with packing in place, no clear signs of infection) Musculoskeletal: full muscle strength, no muscle tenderness Neurologic: AAOx3, CN II-XII Intact Psychiatric: interacting appropriately, not anxious Lab Data & Imaging Review 09/05/18 00:10 09/05/18 00:10 WBC 10.96 10^3/uL (3.80-9.50) H 09/05/18 00:10 RBC 4.74 10^6/uL (4.18-5.33) 09/05/18 00:10 Hgb 13.2 g/dL (12.6-16.3) 09/05/18 00:10 POC Hgb 13.9 gm/dL (12.6-16.3) 09/05/18 00:16 Hct 40.6 % (38.0-47.0) 09/05/18 00:10 POC Hct 41 % (38-47) 09/05/18 00:16 MCV 85.7 fL (81.5-99.8) 09/05/18 00:10 MCH 27.8 pg (27.9-34.1) L 09/05/18 00:10 MCHC 32.5 g/dL (32.4-36.7) 09/05/18 00:10 RDW 14.1 % (11.5-15.2) 09/05/18 00:10 Plt Count 252 10^3/uL (150-400) 09/05/18 00:10 MPV 9.3 fL (8.7-11.7) 09/05/18 00:10 Neut % (Auto) 71.8 % (39.3-74.2) 09/05/18 00:10 Lymph % (Auto) 18.3 % (15.0-45.0) 09/05/18 00:10 [place] % (Auto) 6.2 % (4.5-13.0) 09/05/18 00:10 Eos % (Auto) 2.8 % (0.6-7.6) 09/05/18 00:10 Baso % (Auto) 0.4 % (0.3-1.7) 09/05/18 00:10 Nucleat RBC Rel Count 0.0 % (0.0-0.2) 09/05/18 00:10 Absolute Neuts (auto) 7.87 10^3/uL (1.70-6.50) H 09/05/18 00:10 Absolute Lymphs (auto) 2.01 10^3/uL (1.00-3.00) 09/05/18 00:10 Absolute Monos (auto) 0.68 10^3/uL (0.30-0.80) 09/05/18 00:10 Absolute Eos (auto) 0.31 10^3/uL (0.03-0.40) 09/05/18 00:10 Absolute Basos (auto) 0.04 10^3/uL (0.02-0.10) 09/05/18 00:10 Absolute Nucleated RBC 0.00 10^3/uL (0-0.01) 09/05/18 00:10 Immature Gran % 0.5 % (0.0-1.1) 09/05/18 00:10 Immature Gran # 0.05 10^3/uL (0.00-0.10) 09/05/18 00:10 POC Sodium 140 mEq/L (135-145) 09/05/18 00:16 Sodium 138 mEq/L (135-145) 09/05/18 00:10 POC Potassium 4.0 mEq/L (3.3-5.0) 09/05/18 00:16 Potassium 4.4 mEq/L (3.5-5.2) 09/05/18 00:10 POC Chloride 103 mEq/L (97-110) 09/05/18 00:16 Chloride 104 mEq/L (97-110) 09/05/18 00:10 Carbon Dioxide 23 mEq/l (22-31) 09/05/18 00:10 Anion Gap 11 mEq/L (6-14) 09/05/18 00:10 POC BUN 29 mg/dL (7-23) H 09/05/18 00:16 BUN 31 mg/dL (7-23) H 09/05/18 00:10 Creatinine 1.4 mg/dL (0.6-1.0) H 09/05/18 00:10 POC Creatinine 1.4 mg/dL (0.6-1.0) H 09/05/18 00:16 Estimated GFR 36 09/05/18 00:10 Glucose 99 mg/dL (70-100) 09/05/18 00:10 POC Glucose 96 mg/dL (70-100) 09/05/18 00:16 Calcium 10.0 mg/dL (8.5-10.4) 09/05/18 00:10 Total Bilirubin 0.5 mg/dL (0.1-1.4) 09/05/18 00:10 Conjugated Bilirubin 0.2 mg/dL (0.0-0.5) 09/05/18 00:10 Unconjugated Bilirubin 0.3 mg/dL (0.0-1.1) 09/05/18 00:10 AST 23 IU/L (14-46) 09/05/18 00:10 ALT 26 IU/L (9-52) 09/05/18 00:10 Alkaline Phosphatase 65 IU/L (38-126) 09/05/18 00:10 Total Protein 8.0 g/dL (6.3-8.2) 09/05/18 00:10 Albumin 4.8 g/dL (3.5-5.0) 09/05/18 00:10 Lipase 93 IU/L (23-300) 09/05/18 00:10 Imaging Review: Imaging Impressions Abdomen/Pelvis CT 09/05/18 00:17 Impression: 1. Moderately-distended stomach and jejunum, which may reflect an enteritis, ileus, and/or developing or partial small bowel obstruction. There is no evidence of free air. The patient may benefit from placement of a nasogastric tube. 2. Small-volume ascites in the caudal pelvis. 3. Suspect right hepatic lobe steatosis with some geographic fat-sparing of the left hepatic lobe (difficult to further characterize without IV contrast). 4. Status post cholecystectomy, appendectomy, hysterectomy, partial colectomy, and prior (recent) reversal of a diverting left lower quadrant colostomy. 5. Bilateral renal cortical cysts, and interval decrease in the size of an exophytic solid mass off the lower pole of the left kidney since January 2018. 6. Flattened IVC, suggestive of dehydration. Attention: This examination does not use radiographic contrast, and as such, provides only a limited evaluation of the abdomen, pelvis, and retroperitoneum. If there is further clinical suspicion for pathological conditions, a complete CT evaluation of the abdomen and pelvis utilizing intravenous, oral, and rectal contrast should be considered. Findings were discussed with Sandra Huitron PA-C at 0:59, on 09/05/2018. Assessment & Plan Assessment: 77 yo F w/ hx of ischemic colitis s/p colostomy and takedown, hypothyroid, and HTN presents with abdominal pain and found to have ileus and constipation. Plan: 1. Abdominal pain - Likely related to ileus and constipation seen on CT ( personally reviewed/interpreted). This likely developed due to a combination of post-operative state, pain medication, dehydration, and sub-optimal bowel program at home. - Admit for observation - mIVF - enema x1 now - Bowel program ordered - NGT, surgical consult if worsening - Minimize opiates as able, although this will be difficult 2. Hx ischemic colitis - S/p colectomy w/ ostomy and takedown July of 2018. Her post-operative course was complicated at that time by prolonged ileus. She has an incompletely healed supra-pubic wound according to this. She was placed on Keflex by her surgeon to prevent infection. - Continue Keflex pending reconciliation - Wound consult placed 3. SHANNAN - I suspect this represents pre-renal azotemia from dehydration. - Continue IVF - Repeat BMP in the morning - Avoid nephrotoxic agents 4. Hypothyroid - Continue LTX. 5. HTN - Continue amlodipine BID. 6. Depression - Continue home medications pending reconciliation. Diet - NPO, mIVF Code - Full Ppx - [facility] Dispo - Admit under observation status
[2018-09-05] MEDS: HYDROmorphONE/DILAUDID 1 MG/ML INJ IVP PRN ×3 (03:00→15:12)
[2018-09-05] MEDS: NS 1,000 ML IV SCH ×2 (03:05→19:42)
[2018-09-05] MEDS: ONDANSETRON 4 MG/2 ML VIAL IVP PRN ×3 (03:15→15:13)
[2018-09-05] MEDS: HEPARIN 5,000 UNIT/0.5 ML INJ SC SCH ×3 (06:50→21:25)
--- NOTE | 2018-09-05 10:15 | GCON ---
DATE OF CONSULTATION: 09/05/2018 CHIEF COMPLAINT: Abdominal pain. HISTORY OF PRESENT ILLNESS: This is a 77-year-old female who underwent elective colostomy takedown on July 29. Briefly, she had a prolonged hospital course dictated by an ileus which eventually resolved. She was subsequently discharged home just under 2 weeks out on [place]. Briefly, since that time, she states that she has had home health care, including physical and occupational therapy. She states that she has been eating well, denies having any abdominal pain and does endorse having daily bowel movements. She states that, yesterday evening, she was in her usual state of health. Around 9 PM, started to have some progressive, fairly bad abdominal pain. Because of the nature of the abdominal pain, and its unrelenting process, she contacted EMS and was subsequently transported here. Since arrival in the ED, she has been medicated. Her pain is a little bit better, but she still is in a significant amount of pain. She states the pain is "everywhere." Cannot really locate one spot where the pain is worse. It is colicky in nature, currently an 8/10 in intensity after being medicated. She has not had any nausea or vomiting. States that she had a normal bowel movement earlier today. She denies having any fevers or chills. PAST MEDICAL HISTORY: Significant for major depressive disorder, hypothyroidism , back pain, hypertension, tremor, IBS. PAST SURGICAL HISTORY: Includes hysterectomy, cholecystectomy, appendectomy, ischemic colitis requiring colectomy and colostomy and subsequent colostomy takedown last month. ALLERGIES: Ephedrine, morphine, prednisone, prochlorperazine and sulfa. MEDICATIONS: Current medications reviewed in [facility]. FAMILY HISTORY: Noncontributory. REVIEW OF SYSTEMS: A full 10-point review was performed. PHYSICAL EXAMINATION: VITAL SIGNS: Temperature is 36.8, blood pressure is 156/ 98, heart rate is 74, and she is 96% on room air. CONSTITUTIONAL: She appears uncomfortable, in mild distress. EYES: Her pupils are equal, round and reactive to light and accommodation. She has anicteric sclerae. Her extraocular movements are intact. EARS, NOSE, MOUTH, THROAT: She has dry mucous membranes. Her hearing is normal. She has normal dentition. CARDIOVASCULAR: She is currently in a regular rate and rhythm without any appreciable murmurs. RESPIRATORY: She has no respiratory distress, rales or rhonchi. She is otherwise clear to auscultation. GI: Her abdomen is soft, minimally distended. She is tender to palpation mainly in the left side greater than the right. SKIN: Warm, normal color. No rashes. She does have a little stitch abscess, which was opened in the clinic last , in the inferior portion of her abdomen. There is a small amount of surrounding erythema, but the packing is clean. MUSCULOSKELETAL: Full strength. No tenderness. Normal joint range of motion. NEUROLOGIC: She is alert and oriented x3. Her cranial nerves II-XII are intact. She has no weakness, numbness or asterixis. PSYCH: She is interacting appropriately. She is not anxious or encephalopathic. LYMPH/HEME/IMMUNOLOGIC: She has no cervical, groin or supraclavicular lymphadenopathy appreciated. DATA REVIEWED: Labs include a CBC with a white count slightly elevated at 10.9 , hemoglobin and hematocrit are stable at 13 and 40, platelets are normal at 252. Her chemistry is largely unremarkable. Her BUN is a little elevated at 29. Her creatinine is also elevated at 1.4. CT scan of the abdomen and pelvis was performed, the images of which were personally reviewed. This reveals a significant amount of stool in the right colon. In addition, also shows a moderately distended stomach and jejunum which likely reflects either enteritis or ileus. No other significant findings noted. ASSESSMENT AND PLAN: A 77-year-old female with abdominal pain status post colostomy takedown. Agree with admission, hydration. Agree that she needs an aggressive bowel regimen, both from above and below, to get her cleaned out appropriately. I anticipate that her chronic constipation is a likely major player here but that keeping her on a pretty aggressive regimen will be important. The dressing was taken off overlying her inferior stitch abscess, and that looks okay. Will plan to follow with you. Do not see any need for acute aggressive surgical intervention at this point in time. /[id number]/MODL MTDD
--- NOTE | 2018-09-05 12:47 | WOCRNPDOC ---
WOCRN Advanced Assessment Note - Skin Integrity Problem, Advanced Assess Lower Abdomen Surgical Wound/Incision Dressing Type: Gauze, Packing Dressing Description: Intact, Saturated Closure Description: Not Approximated Exudate Amount: Minimal Exudate Color: Reddish/Yellow Exudate Characteristic(s): Serosanguinous Integumentary Issue Intervention: Dressing Applied, Dressing Initialed & Dated Johnny Wound Tissue: Erythema (from 3 0'clock to 6 o'clock for 3 cm), Intact, Painful/Tender Wound Bed Color: [place] Wound Bed Constitution: Red/[place] - Non Granular Tissue Wound Edges: Attached, Well Defined Site Measurement - Head-to-Toe Length X Width X Depth (cm): 2.5x1.4x1.4 Skin Integrity Problem Comment: Wound bed cleaned with NS and gauze. Skin prep applied to johnny wound tissue. Two pieces Johnna Ag+ broken off and placed into wound bed, assuring that the first piece touches the deepest portion of the wound. Second piece placed to fill the wound bed and covered with Allevyn Life dressing. Wound care will round again later next week.
[2018-09-05] MEDS: SENNOSIDES/DOCUSATE SODIUM TAB PO SCH ×2 (14:37→21:32)
[2018-09-05 14:59] LABS: PLATELET COUNT 221 10^3/uL (150-400)
[2018-09-05] MEDS ORDERED: ALPRAZolam 0.25 MG TAB PO PRN (15:38)
[2018-09-05] MEDS ORDERED: LORazepam 2 MG/ML INJ IVP PRN (15:47)
[2018-09-05] MEDS: traMADol 50 MG TAB PO PRN (16:25)
--- NOTE | 2018-09-05 16:57 | PDMN ---
Medical Necessity Medical necessity: [facility] [place] M210 Intestinal Obstruction: 77 y/o w/ recent colostomy takedown presents w/ abd pain and constipation. Initially OBS for workup but imaging shows ileus/small bowel obstruction, meets [facility] [place] IP criteria for intestinal obstruction, complete or partial bowel obstruction w/ pain; change to IP status 09/05/18 @1544 per MD order.
--- NOTE | 2018-09-05 17:11 | ASMTCMCOM ---
CM Note CM Note Notes: Discussed pt in rounds and spoke with pt in the room. Pt admitted for ileus and constipation. Pt is now stooling but has debilitating nausea. Pt has abdominal wounds following an ostomy take down and is current with [facility] home care for wound care. Therapies have been ordered, but have not yet evaluated. Referral sent to [facility]. CM to follow. D/C Plan: Home with [facility] Date Signed: 09/05/2018 05:11 PM Electronically Signed By:Vani Castro
--- NOTE | 2018-09-05 17:15 | HOSPPROG ---
Hospitalist Progress Note Assessment/Plan: * Partial SBO vs. ileus vs constipation -try clears, massive stool output today * Ischemic colitis s/p resection, s/p colostomy with takedown * ARF -due to dehydration - continue IVF * Suprapubic wound -wound care Subjective: wants clear liquids, massive stool output today Objective: Vital Signs Temp Pulse Resp BP Pulse Ox 36.8 C 67 18 128/61 H 98 09/05/18 15:56 09/05/18 15:56 09/05/18 15:56 09/05/18 15:56 09/05/18 15:56 09/04/18 09/05/18 09/06/18 05:59 05:59 05:59 Output Total 150 Balance -150 AXR viewed, my personal interpretation is - air fluid levels in stomach CT abd - dilated UGI system with transition point - Physical Exam Constitutional: no apparent distress, appears nourished, not in pain Cardiovascular: regular rate and rhythym, no murmur, rub, or gallop Respiratory: no respiratory distress, no rales or rhonchi, clear to auscultation Gastrointestinal: normoactive bowel sounds, soft, non-tender abdomen, no palpable masses Skin: no rashes or abrasions, no fluctuance, no induration Neurologic: AAOx3, sensation intact bilaterally Psychiatric: not encephalopathic, thought process linear, anxious, agitated, No interacting appropriately ICD10 Worksheet Patient Problems: Problems Problem Status Onset Major depressive disorder, recurrent episode, severe, with psychosis Acute Depression Acute HTN (hypertension) Acute Abdominal pain Acute Colitis Acute Acute kidney injury Acute Obstipation Acute Constipation by delayed colonic transit Acute Ileus Acute Renal mass Acute
[2018-09-05] MEDS: DOCUSATE SODIUM 100 MG CAP PO SCH (21:24)
[2018-09-05] MEDS: LEVOTHYROXINE 50 MCG TAB PO SCH (21:24)
[2018-09-05] MEDS: PANTOPRAZOLE SODIUM 40 MG TAB PO SCH (21:24)
[2018-09-05] MEDS: ESTRADIOL 1 MG TAB PO SCH (21:24)
[2018-09-05] MEDS: QUEtiapine FUMARATE 25 MG TAB PO SCH (21:24)
[2018-09-06] MEDS: NS 1,000 ML IV SCH ×2 (03:57→17:49)
[2018-09-06 05:29] LABS: PLATELET COUNT 184 10^3/uL (150-400)
--- NOTE | 2018-09-06 09:37 | SOAPPROG ---
SOAP Progress Note Assessment/Plan: Assessment: Complex surgical history with prolonged hospital stay due to ischemic colitis. Most recently with colostomy take-down. Was seen at Dr. Toribio office earlier this week and was doing very well. Had acute onset abdominal pain and was admitted yesterday constipation vs ileus vs sbo Overall doing better Still distended but very soft. Advance diet as tolerated - maybe later in the day or tomorrow Hopefully will not need surgery S: Feeling better today. Had large amount of BM O: General: Pleasant, well-nourished and well-groomed lying in bed, appears comfortable HENT: Normocephalic, no gross hearing deficits, mucous membranes moist, pupils equal and round, no scleral icterus Lungs: Clear to auscultation bilaterally, No increased work of breathing Cardiac: Regular rate, no peripheral edema Abdomen: Distension but soft. Bowel sounds present. Dressing dry Skin: Warm and dry. Psych: Mood and affect normal Neuro: Tremor Plan: 09/06/18 09:34 09/06/18 09:44 09/06/18 09:47 Objective: Vital Signs Temp Pulse Resp BP Pulse Ox 36.3 C 60 18 119/42 L 96 09/06/18 03:54 09/06/18 03:54 09/06/18 03:54 09/06/18 03:54 09/06/18 03:54 Laboratory Results 09/06/18 04:46 09/06/18 04:46 09/05/18 09/06/18 09/07/18 05:59 05:59 05:59 Intake Total 1080 Output Total 150 Balance 930 ICD10 Worksheet Patient Problems: Problems Problem Status Onset Constipation by delayed colonic transit Acute Ileus Acute Obstipation Acute Renal mass Acute Abdominal pain Acute Acute kidney injury Acute Colitis Acute Depression Acute HTN (hypertension) Acute Major depressive disorder, recurrent episode, severe, with psychosis Acute
[2018-09-06] MEDS: HEPARIN 5,000 UNIT/0.5 ML INJ SC SCH ×3 (10:38→16:17)
[2018-09-06] MEDS: VENLAFAXINE XR 150 MG CAP PO SCH (10:39)
[2018-09-06] MEDS: ASPIRIN 81 MG CHEWABLE TAB PO SCH (10:39)
[2018-09-06] MEDS: VENLAFAXINE XR 75 MG CAP PO SCH (10:39)
[2018-09-06] MEDS: PANTOPRAZOLE SODIUM 40 MG TAB PO SCH ×2 (10:40→20:58)
[2018-09-06] MEDS: DOCUSATE SODIUM 100 MG CAP PO SCH ×2 (10:40→20:58)
[2018-09-06] MEDS: SENNOSIDES/DOCUSATE SODIUM TAB PO SCH (11:00)
--- NOTE | 2018-09-06 16:08 | HOSPPROG ---
Hospitalist Progress Note Assessment/Plan: * Partial SBO vs. ileus vs constipation -s/p massive stool output -tolerating clears - wants to try soup -recheck Xray am * Ischemic colitis s/p resection, s/p colostomy with takedown * ARF -due to dehydration - continue IVF * Suprapubic wound -wound care Subjective: Lots of stool Objective: Vital Signs Temp Pulse Resp BP Pulse Ox 36.6 C 62 16 153/62 H 93 09/06/18 15:41 09/06/18 15:41 09/06/18 15:41 09/06/18 15:41 09/06/18 15:41 Laboratory Results 09/06/18 04:46 09/06/18 04:46 09/05/18 09/06/18 09/07/18 05:59 05:59 05:59 Intake Total 1080 Output Total 150 Balance 930 - Physical Exam Constitutional: no apparent distress, appears nourished, not in pain Cardiovascular: regular rate and rhythym, no murmur, rub, or gallop Respiratory: no respiratory distress, no rales or rhonchi, clear to auscultation Gastrointestinal: normoactive bowel sounds, soft, non-tender abdomen, no palpable masses Skin: no rashes or abrasions, no fluctuance, no induration Neurologic: AAOx3, sensation intact bilaterally Psychiatric: interacting appropriately, not anxious, not encephalopathic, thought process linear ICD10 Worksheet Patient Problems: Problems Problem Status Onset Major depressive disorder, recurrent episode, severe, with psychosis Acute Depression Acute HTN (hypertension) Acute Abdominal pain Acute Colitis Acute Acute kidney injury Acute Obstipation Acute Constipation by delayed colonic transit Acute Ileus Acute Renal mass Acute
[2018-09-06] MEDS: ESTRADIOL 1 MG TAB PO SCH (20:57)
[2018-09-06] MEDS: LEVOTHYROXINE 50 MCG TAB PO SCH (20:57)
[2018-09-06] MEDS: POLYETHYLENE GLYCOL 3350 17 GM PKT PO PRN (21:02)
[2018-09-06] MEDS: traMADol 50 MG TAB PO PRN (22:41)
[2018-09-06] MEDS: QUEtiapine FUMARATE 25 MG TAB PO SCH (22:52)
[2018-09-07] MEDS: NS 1,000 ML IV SCH (04:08)
[2018-09-07] MEDS: POLYETHYLENE GLYCOL 3350 17 GM PKT PO PRN (08:50)
[2018-09-07] MEDS: VENLAFAXINE XR 75 MG CAP PO SCH (08:51)
[2018-09-07] MEDS: ASPIRIN 81 MG CHEWABLE TAB PO SCH (08:51)
[2018-09-07] MEDS: DOCUSATE SODIUM 100 MG CAP PO SCH (08:51)
[2018-09-07] MEDS: PANTOPRAZOLE SODIUM 40 MG TAB PO SCH (08:51)
[2018-09-07] MEDS: VENLAFAXINE XR 150 MG CAP PO SCH (08:51)
[2018-09-07] MEDS ORDERED: ENOXAPARIN 40 MG/0.4 ML SYR SC SCH (09:00)
--- NOTE | 2018-09-07 11:26 | SOAPPROG ---
SOAP Progress Note Assessment/Plan: Assessment: Complex surgical history with prolonged hospital stay due to ischemic colitis. Most recently with colostomy take-down. Was seen at Dr. Toribio office earlier this week and was doing very well. Had acute onset abdominal pain and was admitted AXR with normal bowel gas pattern Initially after admission had diarrhea. No BM since yesterday Advance diet Bowel protocol DC home if tolerates diet S: Feeling better today. Worried about constipation. Concerned about why she Had large amount of BM O: General: Pleasant, well-nourished and well-groomed lying in bed, appears comfortable HENT: Normocephalic, no gross hearing deficits, mucous membranes moist, pupils equal and round, no scleral icterus Lungs: Clear to auscultation bilaterally, No increased work of breathing Cardiac: Regular rate, no peripheral edema Abdomen: Distension but soft. Bowel sounds present. Incision healing. No evidence of infection. Dressing dry Skin: Warm and dry. Psych: Mood and affect normal Neuro: Tremor Plan: 09/06/18 09:34 09/06/18 09:44 09/06/18 09:47 09/07/18 11:23 Objective: Vital Signs Temp Pulse Resp BP Pulse Ox 36.7 C 59 L 16 139/60 H 91 L 09/07/18 08:39 09/07/18 08:39 09/07/18 08:39 09/07/18 08:51 09/07/18 08:39 Laboratory Results 09/06/18 04:46 09/07/18 08:28 09/06/18 09/07/18 09/08/18 05:59 05:59 05:59 Intake Total 1080 1900 1999 Output Total 150 2100 Balance 930 -200 1999 ICD10 Worksheet Patient Problems: Problems Problem Status Onset Constipation by delayed colonic transit Acute Ileus Acute Obstipation Acute Renal mass Acute Abdominal pain Acute Acute kidney injury Acute Colitis Acute Depression Acute HTN (hypertension) Acute Major depressive disorder, recurrent episode, severe, with psychosis Acute
[2018-09-07 12:23] VITALS: BP 136/57
--- NOTE | 2018-09-07 13:39 | HOSPPROG ---
Hospitalist Progress Note Assessment/Plan: Partial SBO vs. ileus vs constipation -s/p massive stool output -tolerating clears - wants to try soup -xray improved Ischemic colitis s/p resection, s/p colostomy with takedown ARF -due to dehydration - continue IVF Suprapubic wound -wound long-term today see dc summary >30 minutes Subjective: moved bowels. feels well. case d/w dr ortiz Objective: Vital Signs Temp Pulse Resp BP Pulse Ox 36.6 C 59 L 18 136/57 H 96 09/07/18 12:22 09/07/18 12:22 09/07/18 12:22 09/07/18 12:22 09/07/18 12:22 Laboratory Results 09/06/18 04:46 09/07/18 08:28 09/06/18 09/07/18 09/08/18 05:59 05:59 05:59 Intake Total 1080 1900 2000 Output Total 150 2100 Balance 930 -200 1999 - Physical Exam Constitutional: no apparent distress, appears nourished Eyes: PERRL, anicteric sclera Ears, Nose, Mouth, Throat: moist mucous membranes, hearing normal Cardiovascular: regular rate and rhythym, no murmur, rub, or gallop Respiratory: no respiratory distress, no rales or rhonchi Gastrointestinal: normoactive bowel sounds, soft, non-tender abdomen Genitourinary: no bladder fullness, No edge in urethra Skin: warm, normal color Musculoskeletal: full muscle strength Neurologic: AAOx3 ICD10 Worksheet Patient Problems: Problems Problem Status Onset Constipation by delayed colonic transit Acute Ileus Acute Obstipation Acute Renal mass Acute Abdominal pain Acute Acute kidney injury Acute Colitis Acute Depression Acute HTN (hypertension) Acute Major depressive disorder, recurrent episode, severe, with psychosis Acute
--- NOTE | 2018-09-07 13:54 | ASMTLACE ---
MAYANK Length of stay for Answers: 2 days current admission Acuity / Level of Answers: Yes Care: Did the patient have an inpatient admission? Comorbidities - select Answers: Other Notes: Hx of ischemic all that apply colitis; Hypothyroid; H [place] # of Emergency department Answers: 1-2 visits in the last 6 months Social determinants Answers: Mental health diagnosis (anxiety, depression, pers onality disorders, etc.) Score: 10 Date Signed: 09/07/2018 01:54 PM Electronically Signed By:Vani Castro
--- NOTE | 2018-09-07 13:54 | ASMTDCNOTE ---
Case Management Discharge Discharge Order Complete? Answers: Yes Transportation Arranged Answers: Family/Friends Transport will Pick (Date 09/07/2018 12:00 AM & Time) Faxed Final Orders Answers: Yes Agency/Facility Transfer Answers: Yes Report Printed & Faxed to Receiving Agency Family Notified Answers: Yes Notes: by pt Discharge Comments Notes: Spoke with pt in the room who was calling dtr for pear picker when CM entered. Pt current with [facility], and they have been notified of pt's discharge. Referral updated in [employer]. CM also called [facility]. No further CM needs noted at this time. CM available should needs change. Date Signed: 09/07/2018 01:53 PM Electronically Signed By:Vani Castro
--- NOTE | 2018-09-07 14:14 | ASDISCHSUM ---
Discharge Information Plan Status:Home with Home Health Medically Cleared to Leave:09/06/2018 Discharge Date:09/06/2018 CM D/C Disposition:Home Health Service ADT D/C Disposition: Projected Discharge Date:09/07/2018 11:00 AM Transportation at D/C:Family Discharge Delay Reason: Follow-Up Date:09/07/2018 11:00 AM Discharge Slot: Final Diagnosis:constipation, ileus Placement Information Referral Type:*Home Health Care Services Referral ID:[id number] Provider Name:[facility] ([facility]) Address 1:[address] [address] Address 2: City:[place] Selection Factors: State:[place] Patient Contact Information Contact Name:ROBBIN Relationship:Daughter Address: City:[place] Alternate Phone: State/Zip Code:[place] Email: Financial Information Financial Class:Medicare Primary Plan Desc:MEDICARE INPATIENT Primary Plan Number:[id number] Secondary Plan Desc:[facility] Secondary Plan Number:[id number] Assessment Information LACE LACE Length of stay for Answers: 2 days current admission Acuity / Level of Answers: Yes Care: Did the patient have an inpatient admission? Comorbidities - select Answers: Other Notes: Hx of ischemic all that apply colitis; Hypothyroid; H [place] # of Emergency department Answers: 1-2 visits in the last 6 months Social determinants Answers: Mental health diagnosis (anxiety, depression, pers onality disorders, etc.) Score: 10 Date Signed: 09/07/2018 01:54 PM Electronically Signed By:Vani Castro [facility] CM Progress Note CM Note CM Note Notes: Discussed pt in rounds and spoke with pt in the room. Pt admitted for ileus and constipation. Pt is now stooling but has debilitating nausea. Pt has abdominal wounds following an ostomy take down and is current with [facility] home care for wound care. Therapies have been ordered, but have not yet evaluated. Referral sent to [facility]. CM to follow. D/C Plan: Home with [facility] Date Signed: 09/05/2018 05:11 PM Electronically Signed By:Vani Castro Case Management Discharge Plan Note Case Management Discharge Discharge Order Complete? Answers: Yes Transportation Arranged Answers: Family/Friends Transport will Pick (Date 09/07/2018 12:00 AM & Time) Faxed Final Orders Answers: Yes Agency/Facility Transfer Answers: Yes Report Printed & Faxed to Receiving Agency Family Notified Answers: Yes Notes: by pt Discharge Comments Notes: Spoke with pt in the room who was calling dtr for grain picker when CM entered. Pt current with [facility], and they have been notified of pt's discharge. Referral updated in [employer]. CM also called [facility]. No further CM needs noted at this time. CM available should needs change. Date Signed: 09/07/2018 01:53 PM Electronically Signed By:Vani Castro Intervention Information Intervention Type:*Incorrect Registration Date of Service:09/05/2018 10:18 AM Patient Type:Inpatient Staff Member:Marianela Gutierrez Hours: Discipline: Severity: Comment: Intervention Type:*IM-Signed Date of Service:09/07/2018 02:13 PM Patient Type:Inpatient Staff Member:Vani Castro Hours: Discipline:Rn Transfer Severity: Comment:
--- NOTE | 2018-09-07 17:31 | GDS ---
DISCHARGE DIAGNOSES: 1. Constipation versus ileus. 2. Recent takedown of a colostomy. 3. Ischemic colitis with colon resection in December 2017. 4. Acute kidney injury. HOSPITAL COURSE: Please see admission history and physical by Dr. Ortega Arndt. The patient presented to the hospital, abdominal distention, abdominal pain, recent constipation. She had some d rainage from the inferior portion of her wound and was started on Keflex. Imaging showed constipation versus ileus. The patient received an enema and MiraLAX with normalizati on of her bowel function, now moving her bowels, feeling well. Discharged home. Her Keflex was held while she was here. She was afebrile without a significant white count and no evidence of infection from her wounds, so, therefore, antibiotics were held. She was advised to take MiraLAX daily up to 3 times daily. This is in her current medication list. /[id number]/MODL
== END 2018-09-07 14:57 | disposition home or self-care (01) | DRG 392 ==
LOC: EDUNIT# → INTOOBSV 09-05 01:03 → F1N 09-05 02:41 → OBSVTOIN 09-05 15:44
PROVIDERS: ADMIT Student in an Organized Health Care Education/Training Program; ATTEND Student in an Organized Health Care Education/Training Program
DX: K59.09 Other constipation (principal); K56.7 Ileus, unspecified; N17.9 Acute kidney failure, unspecified; E86.0 Dehydration; K58.9 Irritable bowel syndrome, unspecified; I10 Essential (primary) hypertension; R25.1 Tremor, unspecified; E03.9 Hypothyroidism, unspecified; Z87.891 Personal history of nicotine dependence; Z86.010 Personal history of colon polyps
CPT/HCPCS: 82435-PO; 82565-PO; 82947-PO; 84132-PO; 84295-PO; 84481-90; 84520-PO; 85014-ER; 96374; 97161-GP; 97165-GO; J1170; J1644; J1650; J2405; Q9967

== ENCOUNTER 2018-09-26 15:09 | Inpatient (IN) | payer OTHER, BC ==
--- NOTE | 2018-09-26 16:06 | EDPHY ---
H & P Time Seen by Provider: 09/26/18 15:32 HPI/ROS: CHIEF COMPLAINT: Paranoia, confusion, anxiety HISTORY OF PRESENT ILLNESS: Patient is a 77-year-old female with a history of paranoid psychosis and depression who presents emergency department with multiple complaints. Patient's symptoms have worsened over the past 10 days. She thinks this may be related to stopping Protonix. She has been compliant with her other medications including Effexor. She has had increased paranoia. She has intermittent confusion. She feels there are times she does not know where she is. She has had no headache. No fever. No cough or shortness of breath. No abdominal pain. No nausea or vomiting. No diarrhea. REVIEW OF SYSTEMS: 10 systems were reveiwed and are negative with the exception of the elements mentioned in the history of present illness. Past Medical/Surgical History: Includes psychosis, depression, hypothyroidism, back pain, hypertension, tremor , colitis, gastritis, IBS, polyps, constipation Past surgical history: Includes hysterectomy, cholecystectomy, cataract surgery , appendectomy Social history: The patient lives in independent living. Patient does not smoke Smoking Status: Former smoker Physical Exam: 36.7, 134/87, 74, 22, 100% on room air GENERAL: Tearful, alert. HEENT: Eyes normal to inspection, normal pharynx, no signs of dehydration. NECK: Normal, supple. RESPIRATORY: Clear to auscultation bilaterally, no rales, rhonchi or wheezing. CVS: Regular rate and rhythm, no rubs, murmurs, or gallops. ABDOMEN: Soft, nontender, nondistended, no organomegaly. BACK: Normal to inspection, no CVA tenderness. SKIN: Normal color, no rash, warm, dry. No pallor. EXTREMITIES: No pedal edema, no calf tenderness, no Homans sign or cords, no joint swelling. NEURO/PSYCH: Alert and oriented, normal mood and affect, normal motor sensory exam. No obvious cranial nerve deficit. Constitutional: Initial Vital Signs Temperature (C) 36.7 C 09/26/18 15:14 Heart Rate 74 09/26/18 15:14 Respiratory Rate 22 H 09/26/18 15:14 Blood Pressure 134/87 H 09/26/18 15:14 O2 Sat (%) 100 09/26/18 15:14 O2 Delivery Mode Room Air Allergies/Adverse Reactions: ephedrine [Ephedrine] Allergy (Severe, Verified 09/26/18 15:18) Vomiting morphine [Morphine] Allergy (Severe, Verified 09/26/18 15:18) Vomiting prednisone [Prednisone] Allergy (Severe, Verified 09/26/18 15:18) Other-Enter Comments prochlorperazine edisylate [From Compazine] Allergy (Verified 09/26/18 15:18) Swelling/neck,face,throat prochlorperazine maleate [From Compazine] Allergy (Verified 09/26/18 15:18) Swelling/neck,face,throat Sulfa (Sulfonamide Antibiotics) Allergy (Verified 09/26/18 15:18) Rash Home Medications: Medication Instructions Recorded Estradiol [Estradiol 1 MG (*)] 0.5 mg PO HS 01/12/18 Venlafaxine Xr [Effexor Xr] 150 mg PO DAILY 01/12/18 Aspirin [Aspirin 81mg (*)] 81 mg PO DAILY 07/25/18 Cholecalciferol Vit D3 [Vitamin D3 1,000 units PO DAILY 07/25/18 (*)] Levothyroxine [Synthroid 50 mcg 50 mcg PO HS 07/25/18 (*)] Quetiapine Fumarate 75 mg PO HS 07/25/18 Venlafaxine Xr [Effexor Xr 75MG 75 mg PO DAILY 07/30/18 (*)] ALPRAZolam [Xanax 0.25 MG (*)] 0.5 mg PO BID PRN tab 08/11/18 Acetaminophen [Tylenol ES 500 mg 500 - 1,000 mg PO Q6 PRN 09/05/18 (*)] amLODIPine BESYLATE [Norvasc 2.5 2.5 mg PO BID 09/05/18 mg (*)] Medical Decision Making - Diagnostics Imaging Results: Imaging Impressions Head CT 09/26/18 16:02 Impression: 1. Mild atrophy. 2. No acute hemorrhage, hydrocephalus, or mass effect. 3. Cerebrovascular atherosclerosis. 4. No definite acute infarct. 5. Moderate microvascular ischemic gliosis. Findings and recommendations discussed with Emergency Department physician, CHRISTINA FIELD at 17:24 hour, 09/26/2018. Final report concurs with initial preliminary interpretation. ED Course/Re-evaluation: In the emergency department I discussed possible etiologies with the patient. I answered all her questions. I explained the treatment plan. Laboratory studies, EKG and head CT were ordered. The patient's aspirin, Tylenol and alcohol levels were unremarkable. Patient's sodium was normal 138. Potassium was 4.2. Patient's carbon dioxide was low at 18. Anion gap was mildly elevated at 15. BUN was 31. Creatinine was elevated 1.4. Troponin was negative. CBC was rejected the new sample was sent. Staff was unable to obtain further blood. The patient subsequently refused blood draw. I contacted Dr. Ayala. He was fine with not obtaining a CBC prior to evaluation by Psychiatry. Patient will be sent for further treatment evaluation as an inpatient. EMTALA was completed. Patient was given her nightly meds. Differential Diagnosis: My differential includes but is not limited to psychosis, depression, hypothyroidism, hyperthyroidism, urinary tract infection, bacteremia, sepsis, acute OR - Data Points Laboratory Results: Laboratory Results 09/26/18 19:37 09/26/18 16:05 09/26/18 09/26/18 09/26/18 19:37 16:05 16:05 WBC 8.53 10^3/uL 10^3/uL REJ (3.80-9.50) RBC 4.67 10^6/uL 10^6/uL REJ (4.18-5.33) Hgb 13.2 g/dL g/dL REJ (12.6-16.3) Hct 39.1 % % REJ (38.0-47.0) MCV 83.7 fL fL REJ (81.5-99.8) MCH 28.3 pg pg REJ (27.9-34.1) MCHC 33.8 g/dL g/dL REJ (32.4-36.7) RDW 13.4 % % REJ (11.5-15.2) Plt Count 251 10^3/uL 10^3/uL REJ (150-400) MPV 9.2 fL fL REJ (8.7-11.7) Neut % (Auto) 56.7 % % REJ (39.3-74.2) Lymph % (Auto) 32.1 % % REJ (15.0-45.0) [place] % (Auto) 9.0 % % REJ (4.5-13.0) Eos % (Auto) 1.6 % % REJ (0.6-7.6) Baso % (Auto) 0.4 % % REJ (0.3-1.7) Nucleat RBC Rel Count 0.0 % % REJ (0.0-0.2) Absolute Neuts (auto) 4.83 10^3/uL 10^3/uL REJ (1.70-6.50) Absolute Lymphs (auto) 2.74 10^3/uL 10^3/uL REJ (1.00-3.00) Absolute Monos (auto) 0.77 10^3/uL 10^3/uL REJ (0.30-0.80) Absolute Eos (auto) 0.14 10^3/uL 10^3/uL REJ (0.03-0.40) Absolute Basos (auto) 0.03 10^3/uL 10^3/uL REJ (0.02-0.10) Absolute Nucleated RBC 0.00 10^3/uL 10^3/uL REJ (0-0.01) Immature Gran % 0.2 % % REJ (0.0-1.1) Immature Gran # 0.02 10^3/uL 10^3/uL REJ (0.00-0.10) Sodium 138 mEq/L mEq/L (135-145) Potassium 4.2 mEq/L mEq/L (3.5-5.2) Chloride 105 mEq/L mEq/L (97-110) Carbon Dioxide 18 mEq/l L mEq/l (22-31) Anion Gap 15 mEq/L H mEq/L (6-14) BUN 31 mg/dL H mg/dL (7-23) Creatinine 1.4 mg/dL H mg/dL (0.6-1.0) Estimated GFR 36 Glucose 92 mg/dL mg/dL (70-100) Calcium 10.4 mg/dL mg/dL (8.5-10.4) Troponin I < 0.012 ng/mL ng/mL (0.000-0.034) TSH 6.130 uIU/mL H uIU/mL (0.465-4.680) Salicylates < 1.0 mg/dL L mg/dL (2.0-20.0) Acetaminophen < 10 mcg/mL L mcg/mL (10-30) Ethyl Alcohol < 10 mg/dL mg/dL (0-10) Medications Given: Discontinued Medications Alprazolam (Xanax) 0.5 mg PO EDNOW ONE Stop: 09/26/18 19:30 Last Admin: 09/26/18 19:31 Dose: 0.25 mg Estradiol (Estradiol) 0.5 mg PO EDNOW ONE Stop: 09/26/18 20:31 Last Admin: 09/26/18 20:47 Dose: 0.5 mg Levothyroxine Sodium (Synthroid) 50 mcg PO EDNOW ONE Stop: 09/27/18 20:29 Last Admin: 09/26/18 20:47 Dose: 50 mcg Quetiapine Fumarate (Seroquel) 75 mg PO EDNOW ONE Stop: 09/26/18 20:28 Last Admin: 09/26/18 20:47 Dose: 75 mg Departure - Departure Disposition: [facility] IP Clinical Impression: Paranoia Condition: Fair Referrals: Shanti Espinosa MD [Primary Care Provider] - As per Instructions
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
--- NOTE | 2018-09-26 19:26 | ASMTTCLDSP ---
TLC Discharge Disposition Disposition: Answers: Admit Disposition Notes: Notes: In consultation with [facility] ED physician, Sheba Johnston MD and [facility] psychiatrist, Dr. Capo Ayala MD, both concurred that pt appears to meet 27-65 criteria requiring psychiatric hospitalization as pt appears to be gravely disabled due to a mental illness condition. For inpatient Capo Ayala MD admission, the following psychiatrist agreed to accept patient for [facility] to [facility] Type of Hold: Answers: Involuntary Transportation Hold Date Signed: 09/26/2018 07:26 PM Electronically Signed By:Mj Christine
[2018-09-26] MEDS ORDERED: ALPRAZolam 0.25 MG TAB PO ONE (19:29)
[2018-09-26 19:43] LABS: PLATELET COUNT 251 10^3/uL (150-400)
[2018-09-26] MEDS ORDERED: QUEtiapine FUMARATE 50 MG TAB PO ONE (20:27)
[2018-09-26] MEDS ORDERED: ESTRADIOL 0.5 MG TAB PO ONE (20:30)
--- NOTE | 2018-09-26 22:45 | CPEKG ---
Test Reason : OPEN Blood Pressure : / mmHG Vent. Rate : 064 BPM Atrial Rate : 065 BPM P-R Int : 151 ms QRS Dur : 098 ms QT Int : 461 ms P-R-T Axes : 071 058 098 degrees QTc Int : 476 ms Sinus rhythm Confirmed by Christina Johnston ([id number]) on 09/26/2018 10:44:58 PM Referred By: CHRISTINA JOHNSTON Confirmed By:Christina Johnston
[2018-09-27] MEDS ORDERED: MAGNESIUM HYDROXIDE 30 ML UDCUP PO PRN (01:06)
[2018-09-27] MEDS ORDERED: MAG HYDROX/AL HYDROX/SIMETH 30 ML UDCUP PO PRN (01:07)
[2018-09-27] MEDS ORDERED: ESTRADIOL 0.5 MG TAB PO SCH (09:00)
--- NOTE | 2018-09-27 09:47 | PDMN ---
Medical Necessity Medical necessity: [facility] [id number] Major Depressive Disorder, Adult: Inpatient Care, 3 days: 77 yo w/ major depressive d/o, recurrent, w/ psychotic features, M1 hold , admit to IP BEH unit.
--- NOTE | 2018-09-27 10:17 | ASMTBHMTP ---
Master Treatment Plan Master Treatment Plan Answers: Depressed Mood without for: Suicidal Ideation Date: 09/27/2018 Diagnosis on Admission: Major Depressive Disorder, recurrent, with psychoic features Expected length of stay: 3-5 Days Reason for admission: Notes: Per TLC Evaluation - Pt. is a 77 year old, , retired, female presents to the ED with confusion, and per her daughter has been experiencing paranoia. Pt. reports that she has been having these confusing states in and out this week and that she believe her complex hearing aides have been making her symptoms worsen. Pt's daughter believe pt needs hospitalized, and pt notes that these symptoms are not as bad as last time but are a great concern. Pt expressed she feels very fearful right now. Pt's speech pattern is very abnormal, speaking slowly in bursts with delayed responses. This ammonia nitrate operator was waiting 5-15 seconds sometimes between response and 1-5 second for her faster responses to questions. Speaking appears to be very effortful for th pt. Patient's stated presenting problems: Notes: Pt. stated she was having an "episode of confusion mixed with a little paranoia". Pt. shared about her recent hospitalizations and medical issues. Patient's goals for treatment: Notes: Pt. stated "to find out what's at the basis of this". Patient's strengths: Notes: Pt. stated "engaging with people, very social, pretty intelligent". Identify supports outside of hospital: Notes: Pt. reports her boyfriend and her dog. Discharge criteria: Notes: Suicidal ideation will resolve and patient will have a plan to safely manage recurrent suicidal ideation. Initial disposition plan/considerations: Notes: Pt. stated she plans to return to her independent living community Master Treatment Plan Required Signatures Psychiatrist signature: Answers: Psychiatrist: RN on-shift signature: Answers: RN: Patient signature: Answers: Patient: Date Signed: 09/27/2018 10:16 AM Electronically Signed By:Ginny Pichardo
[2018-09-27] MEDS ORDERED: ALPRAZolam 0.25 MG TAB PO PRN (12:16)
[2018-09-27] MEDS: HYDROCORTISONE 2.5% 30 GM CRTUBE TP PRN (13:23)
[2018-09-27] MEDS: CHOLECALCIFEROL VIT D3 1,000 UNITS TAB PO SCH (13:24)
[2018-09-27] MEDS: VENLAFAXINE XR 75 MG CAP PO SCH (13:24)
[2018-09-27] MEDS: ASPIRIN 81 MG CHEWABLE TAB PO SCH (13:24)
[2018-09-27] MEDS: VENLAFAXINE XR 150 MG CAP PO SCH (13:24)
[2018-09-27] MEDS: amLODIPine BESYLATE 5 MG TAB PO SCH ×2 (13:54→21:20)
--- NOTE | 2018-09-27 15:11 | ASMTCMCOM ---
CM Note CM Note Notes: Pt. and CC completed MTP, signed and placed in pt's chart. Pt. stated from December 2017 to July 2018 she was in the ICU for a month after surgery on her colon. Pt. stated she was not getting blood flow to her colon, which is why she needed surgery. Pt. stated she was in rehab for a month and a month of physical rehab at home. Pt. stated she had surgery on 07/28/18 to reverse her ostomy. 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 Pt. stated she got new hearing aids a month ago, but has not been able to use them. Pt. stated she had a "loss of cognition with hearing loss". Pt. presents as alert, calm, delayed in her responses, good eye contact, and cooperative. Staff report. pt. sleeping 7 hours and being medication complaint. CC to have pt. sign PREM for her providers to schedule follow up appointments. Date Signed: 09/27/2018 03:10 PM Electronically Signed By:Ginny Pichardo
[2018-09-27] MEDS: POLYETHYLENE GLYCOL 3350 17 GM PKT PO PRN ×2 (15:28→19:24)
--- NOTE | 2018-09-27 16:51 | BAPA ---
[f rep st] ADMISSION PSYCHIATRIC ASSESSMENT CHIEF COMPLAINT: "I'm very fearful right now. I got some hearing aids, which have made my cognitive symptoms worse." HISTORY OF PRESENT ILLNESS: The patient is a 77-year-old , retired, woman presents to the ED with confusion. States that she has been having these confusing states off and on for abo ut a week. She believes that her hearing aids have made her symptoms worse. Daughter, who accompani ed patient to the ED, believes her mother needs to be hospitalized. She says that these symptoms are not as bad as the last time she was in the hospital, but are very concerning. The patient says that she is afraid, she is speaking very slowly with extreme response latency. The pocket setter in the ED sp swapnil with the patient and said that there were often 5- to 15-second pauses between the patient's resp onses. The patient had been in outpatient ECT treatment at [facility] in 2016. Today, when this MD saw the patient on the inpatient behavioral health services unit on 3 , she was much less confused, mor e alert and oriented, able to engage in conversation and there was some response latency, but her spe ech was more fluent and spontaneous than when she was evaluated in the ED. She complained that she d id not get all of her outpatient medications this morning because they had not been ordered for her o n admission. She was complaining of feeling shaky because she thought her blood pressure was elevate d because she did not get her Norvasc. However, the PROBATION MANAGER reported the patient's BP was actually 133/62 . Her reading from early this morning was actually low at 97/52. The patient was requesting MiraLAX for constipation. PAST PSYCHIATRIC HISTORY: The patient has been in outpatient treatment with Dr. Capo Ayala for ECT. She has also been admitted to [facility] inpatient unit multiple times. Most recently, she was he re from 12/26 to 01/22/2017. She was also inpatient at [facility] from 03/05 to 03/29/2016. She was here 1 09/19/2013 to 08/25/2014. The patient is being followed by Dr. Bhatti at [facility] for me dication management. The patient's first psychiatric hospitalization was in 1973 in [place] after sh destin made a serious overdose attempt. She was also hospitalized in 2008 due to severe depression with p sychotic features, including paranoid delusions. She was living in [place] until middle of 2013, when she started decompensating and became severely depressed. She returned to [place] to be near h er family and was hospitalized in July of 2014 at [facility] for ECT. ALLERGIES: The patient has multiple medication allergies, including Compazine, which caused swelling of the neck, face and throat; sulfa drugs, which caused a rash; morphine, which causes vomiting; and ephedrine, which caused vomiting and prednisone. CURRENT MEDICATIONS: The patient is currently prescribed acetaminophen 500-1000 mg p.o. q.6 hours p. r.n., Xanax 0.5 mg p.o. b.i.d., Norvasc 2.5 mg p.o. b.i.d., aspirin 81 mg p.o. daily, vitamin D3 1000 units p.o. daily, estradiol 0.5 mg p.o. q.h.s., levothyroxine 50 mcg p.o. q.h.s., quetiapine 75 mg p .o. q.h.s., venlafaxine XR 225 mg p.o. daily. LABS: White cell count 8.53, hemoglobin 13.2, hematocrit 39.1, platelet count 251. Sodium 138, pota ssium 4.2, chloride 105; BUN 31, creatinine 1.4; glucose 92, calcium 10.4. Troponin less than 0.012. TSH 6.13. Salicylate and acetaminophen levels were both undetected. Ethyl alcohol level was undet ected. There was no urine drug screen. PAST MEDICAL HISTORY: The patient has a history of hypothyroidism, back pain, hypertension, colitis, gastritis, irritable bowel syndrome, polyps, tremor. SURGICAL HISTORY: Includes hysterectomy, cholecystectomy, cataract surgery, and appendectomy. SOCIAL HISTORY: Patient currently lives at an assisted living facility. She has 3 children. Two da ughters are still living and a son who committed suicide 23 years ago. She lives in an assisted nancy facility in [place]. Her primary supports are her daughters. She says that she does have a good group of friends, both in [place] and in [place]. The patient has a PhD in clinical psychology, b ut said she never worked in the field. She is retired. FAMILY HISTORY: Patient reports a history of severe depression and suicide in her family. Her broth er, father, paternal uncle, son and 2 daughters have all suffered from depression; and her son, her edson rother and her uncle all committed suicide. She has a first cousin with bipolar disorder. SUBSTANCE USE HISTORY: The patient denies currently using any drugs or alcohol. TRAUMA HISTORY: Patient denies prior history of physical, sexual, or emotional trauma. LEGAL HISTORY: She denies any arrests. No legal history. MENTAL STATUS EXAMINATION: This is a well-developed, appropriately groomed, woman who look s younger than her stated age. She is seated in a chair, dressed in a sweater and pants. She is muc h more alert and oriented today than she presented to the ED. She is able to carry on coherent conve rsation. She is alert and oriented x4. Her affect is euthymic. Her demeanor is appropriate. Her s peech, rate, and volume are within normal limits. There is some response latency, but speech is much more spontaneous and fluent than it was yesterday when she was evaluated in the ED. Her intellectua l function appears to be above average based upon her vocabulary, fund of knowledge, and educational history. She denies feeling helpless, hopeless, worthless. Her only anxiety is from not getting her medications this morning. She reports that she does still feel depressed, but is not having thought s about wanting to hurt herself or anyone else. She denies any symptoms of psychosis. There are no symptoms of radha present. She does not have racing thoughts, pressured speech, grandiose delusions, elated or elevated mood. Her thought process is linear and goal directed. Her insight and judgment are both fair. IMPRESSION: 1. Major depressive disorder, recurrent, severe, without psychotic features. 2. Chronic medical conditions including hypothyroidism, hypertension, colitis, gastritis, irritable bowel syndrome, benign essential tremor. 3. Chronic severe depression with multiple suicide attempts. PLAN: 1. Admit patient to the inpatient behavioral health services unit on 3 [address] on an M1 hold. 2. Will monitor closely for safety. The patient is not currently exhibiting any unsafe behavior. S he denies any thoughts, plans or intents to hurt herself or anyone else. 3. We will continue to monitor and observe the patient. Will resume her medications per her outpati ent regimen. Her meds are currently being prescribed by Dr. Bhatti at [facility]. We will resume all of her medications, although if the patient is to undergo ECT during this hospitalization, her medications may need to be adjusted per Dr. Ayala. 4. The patient has received ECT in the past from Dr. Ayala. He will be evaluating the patient him self on Saturday. We will continue to observe and monitor the patient over the weekend in preparation for ECT next week if appropriate. 5. Estimated length of stay is 5-7 days. /[id number]/MODL
[2018-09-27] MEDS ORDERED: LEVOTHYROXINE 50 MCG TAB PO ONE (20:28)
[2018-09-27] MEDS ORDERED: LEVOTHYROXINE 50 MCG TAB PO SCH (21:00)
[2018-09-27] MEDS: ESTRADIOL 1 MG TAB PO SCH (21:20)
[2018-09-27] MEDS: QUEtiapine FUMARATE 25 MG TAB PO SCH (21:20)
[2018-09-28] MEDS: ACETAMINOPHEN 325 MG TAB PO PRN (02:53)
[2018-09-28] MEDS: ALPRAZolam 0.5 MG TAB PO PRN (03:35)
--- NOTE | 2018-09-28 07:44 | HOSPPROG ---
Hospitalist Progress Note Assessment/Plan: Reviewed elevated TSH in pt with h/o hypothyroidism on synthroid 50 mcg daily. Will increase synthroid to 75 mcg daily and recommend repeat TSH in 4-6 weeks by PCP. Objective: Vital Signs Temp Pulse Resp BP Pulse Ox 36.7 C 61 16 133/62 H 92 09/27/18 06:00 09/27/18 11:59 09/27/18 11:59 09/27/18 13:54 09/27/18 06:00 ICD10 Worksheet Patient Problems: Problems Problem Status Onset Paranoia Acute Abdominal pain Acute Acute kidney injury Acute Colitis Acute Constipation by delayed colonic transit Acute Depression Acute HTN (hypertension) Acute Ileus Acute Major depressive disorder, recurrent episode, severe, with psychosis Acute Obstipation Acute Renal mass Acute
[2018-09-28] MEDS: amLODIPine BESYLATE 5 MG TAB PO SCH ×2 (09:02→22:14)
[2018-09-28] MEDS: CHOLECALCIFEROL VIT D3 1,000 UNITS TAB PO SCH (09:02)
[2018-09-28] MEDS: VENLAFAXINE XR 75 MG CAP PO SCH (09:02)
[2018-09-28] MEDS: ASPIRIN 81 MG CHEWABLE TAB PO SCH (09:02)
[2018-09-28] MEDS: VENLAFAXINE XR 150 MG CAP PO SCH (09:02)
[2018-09-28] MEDS: POLYETHYLENE GLYCOL 3350 17 GM PKT PO PRN ×2 (11:13→20:14)
--- NOTE | 2018-09-28 17:57 | SOAPPROG ---
SOAP Progress Note Assessment/Plan: Assessment: 77 yo with h/o severe depression, w/ psychotic features in past. She has received ECT for depression, and has significant family hx of depression and completed suicides. She was BIB family to ED on 09/26/18 for AMS. Plan: 09/28/18 17:53 1. Patient reports numerous medical issues over past 8 mos including a couple surgeries. She says she still doesn't feel completely recovered. Today, she does not have any confusion, AMS, delayed response or disorganized thoughts. She admits to feeling depressed, but denies any SI/HI. 2. Patient is getting her same home meds while in hospital. No changes. 3. Hospitalist increased synthroid to 75mcg d/t elevated TSH. Recommend repeat TSH in 4-6 weeks. 4. Patient reports "good" sleep and appetite "OK" though feels diet is making her constipated. 5. Voluntary Subjective: Patient is well groomed and appropriately dressed. She is ambulating in halls with walker. MD does not observe any gait abnormalities or ataxia. Patient demonstrates lucid, coherent speech, well-organized thought process, no response delay. Patient admits she felt "confused" for about a week at home, but doesn't know why. She thinks it was d/t her "complicated hearing aids" she bought recently at [employer] Her TSH was very elevated on admission. It's possible patient had not been taking sufficient Synthroid, or had forgotten to take meds at home. She denies any thoughts, plan or intent to hurt herself or anyone else. Objective: Vital Signs Temp Pulse Resp BP Pulse Ox 36.7 C 61 16 133/62 H 92 09/27/18 06:00 09/27/18 11:59 09/27/18 11:59 09/28/18 09:02 09/27/18 06:00 MSE: Affect: Euthymic Mood: "Not OK" TP: Linear TC: Denies SI/HI, no paranoia , no delusions Perception: No AH/VH Insight/Judgment: Fair - Time Spent With Patient Time Spent With Patient: 15" - Pending Discharge Pending Discharge Within 24 Hours: No Pending Discharge Within 48 Hours: No ICD10 Worksheet Patient Problems: Problems Problem Status Onset Paranoia Acute Abdominal pain Acute Acute kidney injury Acute Colitis Acute Constipation by delayed colonic transit Acute Depression Acute HTN (hypertension) Acute Ileus Acute Major depressive disorder, recurrent episode, severe, with psychosis Acute Obstipation Acute Renal mass Acute
[2018-09-28] MEDS: LEVOTHYROXINE 75 MCG TAB PO SCH (22:14)
[2018-09-28] MEDS: ESTRADIOL 1 MG TAB PO SCH (22:15)
[2018-09-28] MEDS: QUEtiapine FUMARATE 25 MG TAB PO SCH (22:16)
[2018-09-29] MEDS: CHOLECALCIFEROL VIT D3 1,000 UNITS TAB PO SCH (08:18)
[2018-09-29] MEDS: ASPIRIN 81 MG CHEWABLE TAB PO SCH (08:18)
[2018-09-29] MEDS: VENLAFAXINE XR 150 MG CAP PO SCH (08:18)
[2018-09-29] MEDS: VENLAFAXINE XR 75 MG CAP PO SCH (08:18)
[2018-09-29] MEDS: amLODIPine BESYLATE 5 MG TAB PO SCH ×2 (08:18→22:05)
[2018-09-29] MEDS: POLYETHYLENE GLYCOL 3350 17 GM PKT PO PRN (09:41)
--- NOTE | 2018-09-29 16:17 | SOAPPROG ---
SOAP Progress Note Assessment/Plan: Assessment: Plan: 09/29/18 16:27 Mood: stable. Cognition is good. No notable psychosis. No observed confusion. Will CCM, await word from Dr. Bhatti. Subjective: Pt seen, discussed with staff, chart reviewed. Case discussed with ED MD and pt 's daughter Magy on 09/26/18. I interviewed her twice today for a total of 75". Discussed the recent course of events. She describes 10 days of intermittent confusion. She describes this occurring on a near daily basis, coming on rather suddenly and resolving within 2-3 hours. She notes no association with other physical symptoms or any specific inciting factors. She reports changing her antihypertensive from lisinopril to amlodipine, but is unsure exactly when this was. It is noted that her SBP has fluctuated on the unit from 97-133 without symptoms. Labs and head CT nl in ED except an elevated TSH. No episodes of confusion on the unit in three days. Discussed stressors and pt notes a lot of stress in dealing with her daughters. Her daughter Stephany has had a protracted intestinal illness for the past year. She has lost a lot of weight and is very unhealthy, not leaving the home. She states the family did an intervention, but this was unhelpful. Her daughter Magy has two children and has been trying to take care of Stephany and the patient over the past year. Patient has been in the hospital for a total of six weeks in the past year due to intestinal illnesses of her own. 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 She had a reanastomosis, but continues to have a lot of pain and constipation. Patient describes notable paranoia during the episodes of confusion also. This does not extend beyond the episodes, however. She notes overall stable and adequate mood over the past year despite the stressors. Objective: Vital Signs Temp Pulse Resp BP Pulse Ox 36.7 C 61 16 133/62 H 92 09/27/18 06:00 09/27/18 11:59 09/27/18 11:59 09/28/18 09:02 09/27/18 06:00 MSE: Moderately anxious, coop. Affect is restricted, stable, approp., tearful at times. Mood is "not great." TP is linear, goal-directed. TC reveals no overt paranoia, though she asks some tangential questions at times that are derogatory such as, "You are bored with me aren't you", of "I'm not bad enough to be here" [in the hospital]. A&Ox4, sensorium is clear. Memories are intact in all spheres. Denies SI/HI/. - Time Spent With Patient Time Spent With Patient: 75" ICD10 Worksheet Patient Problems: Problems Problem Status Onset Paranoia Acute Abdominal pain Acute Acute kidney injury Acute Colitis Acute Constipation by delayed colonic transit Acute Depression Acute HTN (hypertension) Acute Ileus Acute Major depressive disorder, recurrent episode, severe, with psychosis Acute Obstipation Acute Renal mass Acute
[2018-09-29] MEDS: ALPRAZolam 0.5 MG TAB PO PRN (20:49)
[2018-09-29] MEDS: LEVOTHYROXINE 75 MCG TAB PO SCH (22:05)
[2018-09-29] MEDS: QUEtiapine FUMARATE 25 MG TAB PO SCH (22:05)
[2018-09-29] MEDS: ESTRADIOL 1 MG TAB PO SCH (22:06)
[2018-09-30] MEDS ORDERED: LOPERAMIDE HCL 1 MG/5 ML UDL ONE (00:59)
[2018-09-30] MEDS ORDERED: LOPERAMIDE HCL 1 MG/5 ML UDL PO ONE (01:00)
[2018-09-30] MEDS: CHOLECALCIFEROL VIT D3 1,000 UNITS TAB PO SCH (08:18)
[2018-09-30] MEDS: VENLAFAXINE XR 75 MG CAP PO SCH (08:18)
[2018-09-30] MEDS: amLODIPine BESYLATE 5 MG TAB PO SCH ×2 (08:18→19:54)
[2018-09-30] MEDS: POLYETHYLENE GLYCOL 3350 17 GM PKT PO PRN (08:18)
[2018-09-30] MEDS: ASPIRIN 81 MG CHEWABLE TAB PO SCH (08:18)
[2018-09-30] MEDS: VENLAFAXINE XR 150 MG CAP PO SCH (08:18)
[2018-09-30] MEDS ORDERED: QUEtiapine FUMARATE 25 MG TAB PO SCH (11:19)
[2018-09-30] MEDS: HYDROCORTISONE 2.5% 30 GM CRTUBE TP PRN (12:11)
--- NOTE | 2018-09-30 13:41 | ASMTCMCOM ---
CM Note CM Note Notes: CC spoke to daughter; speak to daughter about Medicare, etc. Daughter would like provider to call her to clear up confusion, etc. Date Signed: 09/30/2018 01:41 PM Electronically Signed By:Rancho Campos
--- NOTE | 2018-09-30 16:26 | SOAPPROG ---
SOAP Progress Note Assessment/Plan: Assessment: Plan: 09/29/18 16:27 Mood: stable. Cognition is good. No notable psychosis. No observed confusion. Will CCM, await word from Dr. Bhatti. 09/30/18 16:25 Mood: Perhaps worse today. Will increase SQL to 100mg, monitor. Subjective: Pt seen, discussed with staff, interviewed in Treatment Team meeting. She reports feeling "really depressed" today. States, "I am worried about the effect of this on my family." Also states, "I know you're mad at me." Describes more difficulty understanding written materials, though none of the confusion she experiences is similar to the episodes prior to admission. Objective: Vital Signs Temp Pulse Resp BP Pulse Ox 36.7 C 61 16 133/62 H 92 09/27/18 06:00 09/27/18 11:59 09/27/18 11:59 09/28/18 09:02 09/27/18 06:00 MSE: Moderately anxious, cooperative. Affect is anxious, dysphoric, constricted, stable. Mood is "very depressed." TP is linear. TC reveals possible mild paranoia. - Time Spent With Patient Time Spent With Patient: 25" ICD10 Worksheet Patient Problems: Problems Problem Status Onset Paranoia Acute Abdominal pain Acute Acute kidney injury Acute Colitis Acute Constipation by delayed colonic transit Acute Depression Acute HTN (hypertension) Acute Ileus Acute Major depressive disorder, recurrent episode, severe, with psychosis Acute Obstipation Acute Renal mass Acute
[2018-09-30] MEDS: ESTRADIOL 1 MG TAB PO SCH (19:54)
[2018-09-30] MEDS: ALPRAZolam 0.5 MG TAB PO PRN (19:55)
[2018-09-30] MEDS: QUEtiapine FUMARATE 100 MG TAB PO SCH (19:55)
[2018-10-01] MEDS: LEVOTHYROXINE 75 MCG TAB PO SCH (05:54)
[2018-10-01] MEDS: VENLAFAXINE XR 150 MG CAP PO SCH (09:43)
[2018-10-01] MEDS: VENLAFAXINE XR 75 MG CAP PO SCH (09:43)
[2018-10-01] MEDS: amLODIPine BESYLATE 5 MG TAB PO SCH ×2 (09:43→20:09)
[2018-10-01] MEDS: ASPIRIN 81 MG CHEWABLE TAB PO SCH (09:43)
[2018-10-01] MEDS: CHOLECALCIFEROL VIT D3 1,000 UNITS TAB PO SCH (09:43)
--- NOTE | 2018-10-01 15:29 | SOAPPROG ---
SOAP Progress Note Assessment/Plan: Assessment: Plan: 09/29/18 16:27 Mood: stable. Cognition is good. No notable psychosis. No observed confusion. Will CCM, await word from Dr. Bhatti. 09/30/18 16:25 Mood: Perhaps worse today. Will increase SQL to 100mg, monitor. 10/01/18 15:31 Mood: Clearly declining. I agree with Dr. Bhatti that most definitive intervention at this time is ECT. Will discuss with patient and her daughter tomorrow. Subjective: Pt seen, discussed with staff. Case discussed with patient's daughter, Magy, and her outpatient psychiatrist, Dr. Bhatti. Both are concerned that she is becoming more paranoid. I agree, observing prominent negative thinking and paranoia. Staff reports pt was confused last evening after waking up from a nap. She couldn't figure out how to work the phone. She eventually called Magy and she was able to calm her down. Today, she is still talking about the phone. She believes her cell phone was "hacked". The proof of this is that she has to dial 9 and then 1 before the area code of some numbers when she uses the hospital phone. I attempted to explain this to her at length but she could not understand. She perseverated that you didn't have to dial 1 if you are calling cell phones. I tried to explain that it is only when you are calling from a cell phone, no to a cell phone from a land line. I was not successful. Dr. Bhatti believes firmly that we need to do ECT KRYSTLE. Magy is accepting of this. Patient is unsure what to do. Objective: Vital Signs Temp Pulse Resp BP Pulse Ox 36.5 C 62 14 121/58 H 93 10/01/18 06:00 10/01/18 06:00 10/01/18 06:00 10/01/18 09:43 10/01/18 06:00 MSE: Agitated, sitting on bed crying. Affect is dyphoric, tearful, restricted, anxious. Mood is "bad, really bad." TP is perseverative, disorganized at times. TC reveals paranoid thoughts that others are watching her and that "all the patients left last night." She is A&Ox4. - Time Spent With Patient Time Spent With Patient: 55" ICD10 Worksheet Patient Problems: Problems Problem Status Onset Paranoia Acute Abdominal pain Acute Acute kidney injury Acute Colitis Acute Constipation by delayed colonic transit Acute Depression Acute HTN (hypertension) Acute Ileus Acute Major depressive disorder, recurrent episode, severe, with psychosis Acute Obstipation Acute Renal mass Acute
[2018-10-01] MEDS: ESTRADIOL 1 MG TAB PO SCH (20:08)
[2018-10-01] MEDS: QUEtiapine FUMARATE 100 MG TAB PO SCH (20:09)
[2018-10-02] MEDS: LEVOTHYROXINE 75 MCG TAB PO SCH (06:01)
[2018-10-02] MEDS: amLODIPine BESYLATE 5 MG TAB PO SCH ×2 (09:06→21:42)
[2018-10-02] MEDS: VENLAFAXINE XR 150 MG CAP PO SCH (09:06)
[2018-10-02] MEDS: CHOLECALCIFEROL VIT D3 1,000 UNITS TAB PO SCH (09:06)
[2018-10-02] MEDS: ASPIRIN 81 MG CHEWABLE TAB PO SCH (09:06)
[2018-10-02] MEDS: VENLAFAXINE XR 75 MG CAP PO SCH (09:06)
--- NOTE | 2018-10-02 11:24 | ASMTCMCOM ---
CM Note CM Note Notes: The patient refused to meet with this expert medical writer. The patient asked, "Why aren't you taking notes? How are you even going to help me? Am I leaving?" She then abruptly departed the interaction. According to [facility] staff, she has been presenting as "paranoid and delusional with pressured speech." She believes "staff are imposters." Date Signed: 10/02/2018 11:22 AM Electronically Signed By:Daysi Lara
[2018-10-02] MEDS: ALPRAZolam 0.5 MG TAB PO PRN (14:44)
--- NOTE | 2018-10-02 16:18 | SOAPPROG ---
SOAP Progress Note Assessment/Plan: Assessment: Plan: 09/29/18 16:27 Mood: stable. Cognition is good. No notable psychosis. No observed confusion. Will CCM, await word from Dr. Bhatti. 09/30/18 16:25 Mood: Perhaps worse today. Will increase SQL to 100mg, monitor. 10/01/18 15:31 Mood: Clearly declining. I agree with Dr. Bhatti that most definitive intervention at this time is ECT. Will discuss with patient and her daughter tomorrow. 10/02/18 16:19 Mood: Continued decline. Will begin ECT tomorrow. Subjective: Pt seen, discussed with staff. Talked at length with patient about Dr. Bhatti's recommendations. She is agreeable to ECT stating, "I trust what you and Dr. Bhatti recommend." She then states repeatedly that she believes I am conspiring with her daughter Magy to "kick me out of here." I assure her that I don't want her to discharge any time soon and, in fact, want her to stay for at least another week to begin ECT, she tells me I'm lying. This continues for over 30" until I terminate interview. I called Magy and reviewed the situation with her. I described how pt is worsening and ECT is most likely to arrest the decline. She is agreeable to an abbreviated acute course of ECT. Objective: Vital Signs Temp Pulse Resp BP Pulse Ox 36.6 C 88 16 117/56 L 93 10/02/18 06:00 10/02/18 06:00 10/02/18 06:00 10/02/18 09:06 10/02/18 06:00 - Time Spent With Patient Time Spent With Patient: 45" ICD10 Worksheet Patient Problems: Problems Problem Status Onset Paranoia Acute Abdominal pain Acute Acute kidney injury Acute Colitis Acute Constipation by delayed colonic transit Acute Depression Acute HTN (hypertension) Acute Ileus Acute Major depressive disorder, recurrent episode, severe, with psychosis Acute Obstipation Acute Renal mass Acute
[2018-10-02] MEDS: QUEtiapine FUMARATE 100 MG TAB PO SCH (21:42)
[2018-10-02] MEDS: ESTRADIOL 1 MG TAB PO SCH (21:42)
[2018-10-03] MEDS: LEVOTHYROXINE 75 MCG TAB PO SCH (05:59)
[2018-10-03] MEDS ORDERED: NS 1,000 ML IV PRN (07:00)
[2018-10-03] MEDS ORDERED: CITRIC ACID/SODIUM CITRATE 30 ML UDCUP PO PRN (07:00)
[2018-10-03] MEDS ORDERED: ONDANSETRON DISINTEGRATING 4 MG TAB PO PRN (07:00)
[2018-10-03] MEDS: ASPIRIN 81 MG CHEWABLE TAB PO SCH (08:46)
[2018-10-03] MEDS: VENLAFAXINE XR 150 MG CAP PO SCH (08:46)
[2018-10-03] MEDS: VENLAFAXINE XR 75 MG CAP PO SCH (08:46)
[2018-10-03] MEDS: CHOLECALCIFEROL VIT D3 1,000 UNITS TAB PO SCH (08:46)
[2018-10-03] MEDS: amLODIPine BESYLATE 5 MG TAB PO SCH ×3 (11:06→21:37)
--- NOTE | 2018-10-03 12:24 | ASMTCMCOM ---
CM Note CM Note Notes: The patient apologize for her "abrupt" behavior when interacting with this proposal manager writer previously. The patient was calm and The patient begins ECT today @ 13:00; she expressed concern about her physical stability following individual treatments. She emphasized that her age and physical health increase her risk of falling, etc. The patient reported that she doesn't want full stack php developer assistance although she will require frequent check-ins from staff. The patient reported relationship distress with her intimate partner; he is failing to maintain her confidentiality. The patient is disappointed that he is discussing her treatment with community members. Although the details were unclear, she mentioned that she may be moving shortly after discharging from the hospital. She didn't elaborate. Date Signed: 10/03/2018 12:23 PM Electronically Signed By:Daysi Lara
[2018-10-03] MEDS: ALPRAZolam 0.5 MG TAB PO PRN (17:52)
[2018-10-03] MEDS: ESTRADIOL 1 MG TAB PO SCH ×2 (20:25→21:37)
[2018-10-03] MEDS: QUEtiapine FUMARATE 100 MG TAB PO SCH ×2 (20:26→21:37)
[2018-10-04] MEDS: LEVOTHYROXINE 75 MCG TAB PO SCH (06:03)
[2018-10-04] MEDS: VENLAFAXINE XR 75 MG CAP PO SCH (08:16)
[2018-10-04] MEDS: CHOLECALCIFEROL VIT D3 1,000 UNITS TAB PO SCH (08:16)
[2018-10-04] MEDS: VENLAFAXINE XR 150 MG CAP PO SCH (08:16)
[2018-10-04] MEDS: amLODIPine BESYLATE 5 MG TAB PO SCH ×2 (08:16→21:59)
[2018-10-04] MEDS: ASPIRIN 81 MG CHEWABLE TAB PO SCH (08:17)
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
--- NOTE | 2018-10-04 17:52 | SOAPPROG ---
SOAP Progress Note Assessment/Plan: Assessment: 77 yo with h/o severe depression, w/ psychotic features in past. She has received ECT for depression, and has significant family hx of depression and completed suicides. She was BIB family to ED on 09/26/[address] Ayala's notes: 09/29/18 16:27 Mood: stable. Cognition is good. No notable psychosis. No observed confusion. Will CCM, await word from Dr. Bhatti. 09/30/18 16:25 Mood: Perhaps worse today. Will increase SQL to 100mg, monitor. 10/01/18 15:31 Mood: Clearly declining. I agree with Dr. Bhatti that most definitive intervention at this time is ECT. Will discuss with patient and her daughter tomorrow. 10/02/18 16:19 Mood: Continued decline. Will begin ECT tomorrow. Subjective: Pt seen, discussed with staff. Talked at length with patient about Dr. Bhatti's recommendations. She is agreeable to ECT stating, "I trust what you and Dr. Bhatti recommend." She then states repeatedly that she believes I am conspiring with her daughter Magy to "kick me out of here." I assure her that I don't want her to discharge any time soon and, in fact, want her to stay for at least another week to begin ECT, she tells me I'm lying. This continues for over 30" until I terminate interview. I called Magy and reviewed the situation with her. I described how pt is worsening and ECT is most likely to arrest the decline. She is agreeable to an abbreviated acute course of ECT. WEEKEND PLAN: 10/04/18 17:47 1. Patient did not receive ECT on Saturday. Patient is reluctant to undergo ECT, but says she agrees since this is what her daughter and Dr. Bhatti wants. 2. Patient remains disorganized and delusional, attributing paranoid motivations to her daughter, Magy, and Dr. Ayala. Patient even accuses staff on unit of being "imposters." 3. Patient has periods when she seems confused, uncertain where she is or who she is interacting with. At these times, she presents irritable, irrational and unwilling to trust staff. This may be a psychotic feature of her depression, or some other type of cognitive impairment. 4. Dr. Ayala will start ECT on Saturday. Subjective: Patient presents irritable, irrational at times. MD observes patient engage CC in argument about whether or not her daughters want her to get better. She digresses and starts talking about how her daughter supports [employer] and she thinks that's the reason her daughter doesn't want patient to get help. She also accuses staff on unit of being "imposters" without any explanation. Objective: Vital Signs Temp Pulse Resp BP Pulse Ox 36.6 C 61 16 128/62 H 99 10/02/18 06:00 10/03/18 11:06 10/03/18 11:06 10/03/18 21:37 10/03/18 11:06 MSE: Affect: Labile Mood: "OK" TP: Disorganized, irrational TC: Denies any SI /HI, seems paranoid at times Insight/Judgment: Poor - Time Spent With Patient Time Spent With Patient: 15" - Pending Discharge Pending Discharge Within 24 Hours: No Pending Discharge Within 48 Hours: No ICD10 Worksheet Patient Problems: Problems Problem Status Onset Paranoia Acute Abdominal pain Acute Acute kidney injury Acute Colitis Acute Constipation by delayed colonic transit Acute Depression Acute HTN (hypertension) Acute Ileus Acute Major depressive disorder, recurrent episode, severe, with psychosis Acute Obstipation Acute Renal mass Acute
[2018-10-04] MEDS: QUEtiapine FUMARATE 100 MG TAB PO SCH (21:59)
[2018-10-04] MEDS: ESTRADIOL 1 MG TAB PO SCH (21:59)
[2018-10-05] MEDS: LEVOTHYROXINE 75 MCG TAB PO SCH (05:45)
[2018-10-05] MEDS: HYDROCORTISONE 2.5% 30 GM CRTUBE TP PRN (08:12)
[2018-10-05] MEDS: VENLAFAXINE XR 75 MG CAP PO SCH (08:36)
[2018-10-05] MEDS: CHOLECALCIFEROL VIT D3 1,000 UNITS TAB PO SCH (08:36)
[2018-10-05] MEDS: VENLAFAXINE XR 150 MG CAP PO SCH (08:36)
[2018-10-05] MEDS: ASPIRIN 81 MG CHEWABLE TAB PO SCH (08:36)
[2018-10-05] MEDS: amLODIPine BESYLATE 5 MG TAB PO SCH ×3 (08:36→22:05)
[2018-10-05] MEDS: ACETAMINOPHEN 325 MG TAB PO PRN ×2 (08:45→08:48)
--- NOTE | 2018-10-05 14:21 | ASMTCMCOM ---
CM Note CM Note Notes: Pt. reports feeling "depressed". Pt. reports stomach issues and trying not to eat high fiber diet. Pt. stated she have "been sleeping a lot here" adding it's "not a good thing". Pt. stated she is "just worrying, and worrying, worrying a lot". Pt. shared about concerns about her grandchildren. Pt. stated she "don't feel like I 'm doing well". Pt. denied SI, HI, and AVH. Pt. reports "paranoid dreams", adding she has "little paranoia about my family. They haven't been coming through for me. Not very supportive". Pt. reports being "surprised" her medications changed. Pt. later approached CC to tell CC not to file a child abuse report. CC informed pt she has not intention to do this. Pt. presents as alert, confused, little eye contact, appears paranoid, suspicious of staff and mostly cooperative. Staff report pt. sleeping 12 hours last night and being medication compliant. Staff report pt having bowel issues and pain today. Pt. is scheduled for ECT on Saturday at 9:15am Date Signed: 10/05/2018 02:21 PM Electronically Signed By:Ginny Pichardo
--- NOTE | 2018-10-05 15:58 | SOAPPROG ---
SOAP Progress Note Assessment/Plan: Assessment: 77 yo with h/o severe depression, w/ psychotic features in past. She has received ECT for depression, and has significant family hx of depression and completed suicides. She was BIB family to ED on 09/26/[address] Ayala's notes: 09/29/18 16:27 Mood: stable. Cognition is good. No notable psychosis. No observed confusion. Will CCM, await word from Dr. Bhatti. 09/30/18 16:25 Mood: Perhaps worse today. Will increase SQL to 100mg, monitor. 10/01/18 15:31 Mood: Clearly declining. I agree with Dr. Bhatti that most definitive intervention at this time is ECT. Will discuss with patient and her daughter tomorrow. 10/02/18 16:19 Mood: Continued decline. Will begin ECT tomorrow. Subjective: Pt seen, discussed with staff. Talked at length with patient about Dr. Bhatti's recommendations. She is agreeable to ECT stating, "I trust what you and Dr. Bhatti recommend." She then states repeatedly that she believes I am conspiring with her daughter Magy to "kick me out of here." I assure her that I don't want her to discharge any time soon and, in fact, want her to stay for at least another week to begin ECT, she tells me I'm lying. This continues for over 30" until I terminate interview. I called Magy and reviewed the situation with her. I described how pt is worsening and ECT is most likely to arrest the decline. She is agreeable to an abbreviated acute course of ECT. WEEKEND PLAN: 10/04/18 17:47 1. Patient did not receive ECT on Saturday. Patient is reluctant to undergo ECT, but says she agrees since this is what her daughter and Dr. Bhatti wants. 2. Patient remains disorganized and delusional, attributing paranoid motivations to her daughter, Magy, and Dr. Ayala. Patient even accuses staff on unit of being "imposters." 3. Patient has periods when she seems confused, uncertain where she is or who she is interacting with. At these times, she presents irritable, irrational and unwilling to trust staff. This may be a psychotic feature of her depression, or some other type of cognitive impairment. 4. Dr. Ayala will start ECT on Saturday. 10/05/18 15:53 1. Patient seems more paranoid and confused today. Believes boyfriend is "scamming" her and daughters don't have her best interest in mind. 2. Patient agrees to start ECT tomorrow. 3. Plan for ECT on Saturday Subjective: Patient is lying in bed resting. MD is accompanied by RN. Patient says she is resting and would prefer to talk later, but then asks "what kind of doctor are you?" MD explains he is a psychiatrist. Patient turns in bed and looks at MD, then starts laughing quite loudly. When she stops, she turns her head back to window and doesn't say anything. Earlier in day, patient had long list of paranoid complaints. She told CC that her boyfriend at independent living facility was "scamming" her. She's also worried that her daughter, Stephany, is taking advantage of her while doing patient's tax return. Objective: Vital Signs Temp Pulse Resp BP Pulse Ox 36.4 C 64 16 149/67 H 99 10/05/18 06:00 10/05/18 06:00 10/05/18 06:00 10/05/18 06:00 10/05/18 06:00 MSE: Affect: Bizarre, labile, inappropriate laughter Mood: "OK" TP: More disorganized and illogical TC: Denies any SI/HI, still has paranoid delusions Insight/Judgment: Poor - Time Spent With Patient Time Spent With Patient: 20" - Pending Discharge Pending Discharge Within 24 Hours: No Pending Discharge Within 48 Hours: No ICD10 Worksheet Patient Problems: Problems Problem Status Onset Paranoia Acute Abdominal pain Acute Acute kidney injury Acute Colitis Acute Constipation by delayed colonic transit Acute Depression Acute HTN (hypertension) Acute Ileus Acute Major depressive disorder, recurrent episode, severe, with psychosis Acute Obstipation Acute Renal mass Acute
[2018-10-05] MEDS: QUEtiapine FUMARATE 100 MG TAB PO SCH ×2 (21:59→22:04)
[2018-10-05] MEDS: ESTRADIOL 1 MG TAB PO SCH ×2 (21:59→22:05)
[2018-10-06] MEDS: amLODIPine BESYLATE 5 MG TAB PO SCH ×3 (06:02→20:35)
[2018-10-06] MEDS: LEVOTHYROXINE 75 MCG TAB PO SCH ×2 (06:02→06:10)
[2018-10-06] MEDS ORDERED: fentaNYL 100 MCG/2 ML INJ ONE (06:48)
[2018-10-06] MEDS ORDERED: NS 1,000 ML IV PRN (09:08)
[2018-10-06] MEDS ORDERED: CITRIC ACID/SODIUM CITRATE 30 ML UDCUP PO PRN (09:08)
[2018-10-06] MEDS ORDERED: ONDANSETRON DISINTEGRATING 4 MG TAB PO PRN (09:08)
[2018-10-06] MEDS ORDERED: ONDANSETRON DISINTEGRATING 4 MG TAB ONE (09:09)
[2018-10-06] MEDS ORDERED: CITRIC ACID/SODIUM CITRATE 30 ML UDCUP ONE (09:09)
--- NOTE | 2018-10-06 09:36 | SOAPPROG ---
SOAP Progress Note Assessment/Plan: Assessment: Plan: 09/29/18 16:27 Mood: stable. Cognition is good. No notable psychosis. No observed confusion. Will CCM, await word from Dr. Bhatti. 09/30/18 16:25 Mood: Perhaps worse today. Will increase SQL to 100mg, monitor. 10/01/18 15:31 Mood: Clearly declining. I agree with Dr. Bhatti that most definitive intervention at this time is ECT. Will discuss with patient and her daughter tomorrow. 10/02/18 16:19 Mood: Continued decline. Will begin ECT tomorrow. 10/06/18 09:38 Mood: More paranoid. Refusing ECT due to delusions. Will increase SQL to 200mg to address psychosis. Will continue to encourage patient to do ECT. If no success, will petition court for involuntary treatment. Subjective: Pt seen, discussed with staff, chart reviewed. She remains paranoid, hostile, refusing ECT. States, "I know all you want to do is drug me and starve me." Believes we are putting "diuretics" in her water. Believes I am acting against her in concert with her daughter Magy. Hostile and paranoid toward staff. States, "You are all fake." When I discuss the possibility of requesting a court order for treatment, she states, "I'm sure you'll just bring fake paperwork so you can drug me." Objective: Vital Signs Temp Pulse Resp BP Pulse Ox 36.4 C 64 16 149/67 H 99 10/05/18 06:00 10/05/18 06:00 10/05/18 06:00 10/05/18 06:00 10/05/18 06:00 MSE: Disheveled, uncoop. Affect is restricted, hostile. Mood is "just fine." TP is linear, though confined to delusional systems. TC reveals prominent paranoid delusions as described above. A&Ox4. - Time Spent With Patient Time Spent With Patient: 15" ICD10 Worksheet Patient Problems: Problems Problem Status Onset Paranoia Acute Abdominal pain Acute Acute kidney injury Acute Colitis Acute Constipation by delayed colonic transit Acute Depression Acute HTN (hypertension) Acute Ileus Acute Major depressive disorder, recurrent episode, severe, with psychosis Acute Obstipation Acute Renal mass Acute
--- NOTE | 2018-10-06 12:53 | SOAPPROG ---
SOAP Progress Note Assessment/Plan: Assessment: Plan: 09/29/18 16:27 Mood: stable. Cognition is good. No notable psychosis. No observed confusion. Will CCM, await word from Dr. Bhatti. 09/30/18 16:25 Mood: Perhaps worse today. Will increase SQL to 100mg, monitor. 10/01/18 15:31 Mood: Clearly declining. I agree with Dr. Bhatti that most definitive intervention at this time is ECT. Will discuss with patient and her daughter tomorrow. 10/02/18 16:19 Mood: Continued decline. Will begin ECT tomorrow. 10/06/18 09:38 Mood: More paranoid. Refusing ECT due to delusions. Will increase SQL to 200mg to address psychosis. Will continue to encourage patient to do ECT. If no success, will petition court for involuntary treatment. 10/06/18 12:53 Mood: Remains paranoid. Indicator of declining mood. Will plan to treat on Saturday. Subjective: LATE ENTRY FOR 10/03/18 Pt more paranoid, stating "you aren't really going to treat me are you?" Stated several times that she wasn't going to do ECT, then would agree "if it's what you and Dr. Bhatti recommend." Remained fixated on her daughter Magy being "incompetent to make any decisions for me." I neglected to place her on the daily ECT scheduled, however, so we concluded the afternoon and the anesthesiologist left so we were unable to treat. I informed pt's daughter of this. Planned to treat on Saturday. Checkout given to Dr. Younger for the . Objective: Vital Signs Temp Pulse Resp BP Pulse Ox 36.4 C 64 16 149/67 H 99 10/05/18 06:00 10/05/18 06:00 10/05/18 06:00 10/05/18 06:00 10/05/18 06:00 MSE: Marginally groomed, guarded, hostile at times. Affect is restricted, irritable, hostile. Mood is "not good." TP is perseverative on persecutory themes, stories about her daughters. Mentions that "this all seems fake." - Time Spent With Patient Time Spent With Patient: 15" ICD10 Worksheet Patient Problems: Problems Problem Status Onset Paranoia Acute Abdominal pain Acute Acute kidney injury Acute Colitis Acute Constipation by delayed colonic transit Acute Depression Acute HTN (hypertension) Acute Ileus Acute Major depressive disorder, recurrent episode, severe, with psychosis Acute Obstipation Acute Renal mass Acute
[2018-10-06] MEDS: ASPIRIN 81 MG CHEWABLE TAB PO SCH (12:54)
[2018-10-06] MEDS: VENLAFAXINE XR 150 MG CAP PO SCH (12:54)
[2018-10-06] MEDS: CHOLECALCIFEROL VIT D3 1,000 UNITS TAB PO SCH (12:54)
[2018-10-06] MEDS: VENLAFAXINE XR 75 MG CAP PO SCH (12:55)
--- NOTE | 2018-10-06 13:25 | ASMTCMCOM ---
CM Note CM Note Notes: Pt. reports feeling "fine". Pt. stated she slept "good". Pt. stated the MD said she could have breakfast if she went to ECT. Pt. has yet to have lunch. Pt. stated she declined ECT this morning. Pt. stated she is "tired of being drugged" when asked why she refused her medications. Pt. denied SI, HI, AVH and paranoia. Pt. presents as alert, irritated, short with CC, fair eye contact, and not very cooperative. Staff report pt. sleeping 6 hours, refusing both night and morning medications and refusing to go to ECT. Date Signed: 10/06/2018 01:24 PM Electronically Signed By:Ginny Pichardo
[2018-10-06] MEDS: ESTRADIOL 1 MG TAB PO SCH (20:35)
[2018-10-06] MEDS: QUEtiapine FUMARATE 100 MG TAB PO SCH (20:36)
[2018-10-07] MEDS: LEVOTHYROXINE 75 MCG TAB PO SCH (05:42)
[2018-10-07] MEDS: ALPRAZolam 0.5 MG TAB PO PRN ×2 (05:43→17:53)
[2018-10-07] MEDS: CHOLECALCIFEROL VIT D3 1,000 UNITS TAB PO SCH (09:39)
[2018-10-07] MEDS: VENLAFAXINE XR 75 MG CAP PO SCH (09:39)
[2018-10-07] MEDS: VENLAFAXINE XR 150 MG CAP PO SCH (09:39)
[2018-10-07] MEDS: ASPIRIN 81 MG CHEWABLE TAB PO SCH (09:40)
[2018-10-07] MEDS: amLODIPine BESYLATE 5 MG TAB PO SCH ×2 (09:40→21:11)
--- NOTE | 2018-10-07 13:53 | SOAPPROG ---
SOAP Progress Note Assessment/Plan: Assessment: Plan: 09/29/18 16:27 Mood: stable. Cognition is good. No notable psychosis. No observed confusion. Will CCM, await word from Dr. Bhatti. 09/30/18 16:25 Mood: Perhaps worse today. Will increase SQL to 100mg, monitor. 10/01/18 15:31 Mood: Clearly declining. I agree with Dr. Bhatti that most definitive intervention at this time is ECT. Will discuss with patient and her daughter tomorrow. 10/02/18 16:19 Mood: Continued decline. Will begin ECT tomorrow. 10/06/18 09:38 Mood: More paranoid. Refusing ECT due to delusions. Will increase SQL to 200mg to address psychosis. Will continue to encourage patient to do ECT. If no success, will petition court for involuntary treatment. 10/06/18 12:53 Mood: Remains paranoid. Indicator of declining mood. Will plan to treat on Saturday. 10/07/18 13:52 Mood: Remains severely depressed with psychosis. Will offer ECT again tomorrow and petition court for involuntary treatment. Subjective: Pt seen, discussed with staff. Lying in bed this morning screaming. States she is having a panic attack. When asked about this she states she is " terribly worried about the wellbeing of my daughters." She refused to eat yesterday, but had a piece of toast and some water this morning. She continues to states she doesn't want to do ECT, though does not voice a reasonable objection. She states, "You just make fun of me. It's not even a real treatment. You're not even a real doctor." Objective: Vital Signs Temp Pulse Resp BP Pulse Ox 36.4 C 80 16 135/63 H 100 10/05/18 06:00 10/07/18 08:09 10/07/18 08:09 10/07/18 09:40 10/07/18 08:09 - Time Spent With Patient Time Spent With Patient: 25" ICD10 Worksheet Patient Problems: Problems Problem Status Onset Paranoia Acute Abdominal pain Acute Acute kidney injury Acute Colitis Acute Constipation by delayed colonic transit Acute Depression Acute HTN (hypertension) Acute Ileus Acute Major depressive disorder, recurrent episode, severe, with psychosis Acute Obstipation Acute Renal mass Acute
[2018-10-07] MEDS: QUEtiapine FUMARATE 100 MG TAB PO SCH (21:10)
[2018-10-07] MEDS: ESTRADIOL 1 MG TAB PO SCH (21:11)
[2018-10-08] MEDS: LEVOTHYROXINE 75 MCG TAB PO SCH (05:51)
[2018-10-08] MEDS ORDERED: METHOHEXITAL SODIUM 100 MG/10 ML SYR IVP ONE (06:50)
[2018-10-08] MEDS ORDERED: fentaNYL 100 MCG/2 ML INJ ONE (06:50)
[2018-10-08] MEDS ORDERED: ONDANSETRON DISINTEGRATING 4 MG TAB ONE (07:40)
[2018-10-08] MEDS ORDERED: CITRIC ACID/SODIUM CITRATE 30 ML UDCUP ONE (07:40)
[2018-10-08] MEDS ORDERED: CITRIC ACID/SODIUM CITRATE 30 ML UDCUP PO PRN (07:43)
[2018-10-08] MEDS ORDERED: ONDANSETRON DISINTEGRATING 4 MG TAB PO PRN (07:43)
[2018-10-08] MEDS ORDERED: NS 1,000 ML IV PRN (07:43)
--- NOTE | 2018-10-08 08:04 | PDHPUP ---
History & Physical Update H&P update statement: This history and physical update is based on an assessment of the patient which was completed after admission or registration (within 24 hours), but prior to the surgery/procedure. H&P update: H&P reviewed & patient examined, no change in patient's condition since H&P completed
--- NOTE | 2018-10-08 08:04 | POSTANESTH ---
Post Anesthetic Evaluation Cardiovascular Status: Normal, Stable Respiratory Status: Normal, Stable Level of Consciousness/Mental Status: Can Participate in Eval, Mildly Sleepy, Arousable Pain Control: Adequate, Prn Tx Ordered Nausea/Vomiting Control: Adequate, Prn Tx Ordered Complications Possibly Related to Anesthesia: None Noted
--- NOTE | 2018-10-08 08:07 | PDANEPAE ---
ECT Pre Anesthetic Evaluation Allergies/Adverse Reactions: ephedrine [Ephedrine] Allergy (Severe, Verified 09/26/18 15:18) Vomiting morphine [Morphine] Allergy (Severe, Verified 09/26/18 15:18) Vomiting prednisone [Prednisone] Allergy (Severe, Verified 09/26/18 15:18) Other-Enter Comments prochlorperazine edisylate [From Compazine] Allergy (Verified 09/26/18 15:18) Swelling/neck,face,throat prochlorperazine maleate [From Compazine] Allergy (Verified 09/26/18 15:18) Swelling/neck,face,throat Sulfa (Sulfonamide Antibiotics) Allergy (Verified 09/26/18 15:18) Rash Patient ID confirmed: Yes H&P reviewed: Yes Pre-anesthetic history reviewed: Yes Heart: regular rate and rhythym Lungs: clear to auscultation Mallampati Score: Class 3 ASA Status: III Home Medications: Medication Instructions Recorded Estradiol [Estradiol 1 MG (*)] 0.5 mg PO HS 01/12/18 Venlafaxine Xr [Effexor Xr] 150 mg PO DAILY 01/12/18 Aspirin [Aspirin 81mg (*)] 81 mg PO DAILY 07/25/18 Cholecalciferol Vit D3 [Vitamin D3 1,000 units PO DAILY 07/25/18 (*)] Levothyroxine [Synthroid 50 mcg 50 mcg PO HS 07/25/18 (*)] Quetiapine Fumarate 75 mg PO HS 07/25/18 Venlafaxine Xr [Effexor Xr 75MG 75 mg PO DAILY 07/30/18 (*)] ALPRAZolam [Xanax 0.25 MG (*)] 0.5 mg PO BID PRN tab 08/11/18 Acetaminophen [Tylenol ES 500 mg 500 - 1,000 mg PO Q6 PRN 09/05/18 (*)] amLODIPine BESYLATE [Norvasc 2.5 2.5 mg PO BID 09/05/18 mg (*)] Medication review: completed Patient interviewed: Yes (diarrhea recently, no other changes in physical health ) Patient examined: Yes See previous record: Yes Anesthetic plan discussed with patient: Yes Anesthetic risks discussed with patient: Yes ECT Pre-Anesthetic History - Height & Weight Height: 172.72 cm Weight: 64.41 kg BMI: 21.60 - Anesthesia History Hx Anesthesia Complications (with details): NONE Family Hx Anesthesia Complications: NONE - Medications In the Past 6 Months the Patient Has Taken: Aspirin, Thyroid Medication, Narcotics, Blood Pressure Medication - Tobacco/Alcohol/Drug Use Smoking Status: Former smoker Hx Drug/Substance Abuse: No Alcohol Use: Yes (very occassional) - Prior Surgeries/Hospitalizations Prior Surgeries: FLEX SIG AT [facility] [place]. BACK SURG LUMBAR. DEEPAK . HYST . BLADDER PROLAPSE SURG 2012. BIANCA CATARACT. APPENDECTOMY. COLOSTOMY. half of colon removed 01/2018. reverse ostomy 07/28/18 Prior Medical Hospitalizations: ICU for one month December-January 2018 r/t colitis - Pulmonary History ECT Hx Asthma: No Hx Abnormal Chest X-Ray: No Hx Oxygen in Use at Home: No - Cardiovascular History Hx Hypertension: Yes Currently Uses Hypertension Medication: Yes Hx Arrhythmias: No Hx Palpitations: No Hx Chest Pain: No Hx Coronary Artery / Peripheral Vascular Disease: No Hx Blood Clot: No - Neurologic History Hx Cerebrovascular Accident: No Hx CT Scan Or MRI Of The Brain: Yes Hx Epilepsy, Convulsions, Seizures, Or Blackouts: No Hx Frequent Or Severe Headaches: Yes Hx Numbness: No Hx Neurologic Disorder: No Neurologic History Comment: Head CT 09/26/18. migraines - Dental History Current Dental Issues: None - Endocrine History Hx Diabetes: No Current Daily Insulin Injections: No Hx Thyroid Problems: Yes Endocrine History Comment: taking levothyroxine - Renal/Urologic History Hx Renal Disorders: Yes Hx Urinary Tract Problems: No Renal/Urologic History Comment: kidney stones - Liver History Hx Hepatic Disorders: No - Cancer History Hx Cancer: Yes Cancer History Comment: basal cell carcinoma - Hematology History Hx Unexplained Bleeding Of Any Type: No Hx Ease Of Bruising: Yes Hx Anemia: No Hematology History Comment: bruising associated with blood draws - Gastrointestinal History Hx Gastroesophogeal Reflux Disease: No Hx Ulcers: No Hx Hiatal Hernia: No Hx Difficulty Swallowing: Yes Gastrointestinal History Comment: difficulty swallowing after intubation - Musculoskeletal Hisory Hx Chronic Pain: Yes Chronic Pain Location: Back, Neck Hx Arthritis: No Musculoskeletal History Comment: back and neck chronic pain not current - Opthalmic History Hx Glaucoma: No Visual Assistive Devices: Glasses Hx Opthalmic Disorders: No - Other Health History Physical Disabililty: Yes (cervical dystonia) Recent Cough, Cold, or Fever: No Significant Weight Loss In The Last 4 Months: No Possible the Patient Might be : No
--- NOTE | 2018-10-08 08:14 | PDECTPN ---
ECT Progress Note Patient Problems: Problems Problem Status Onset Code Paranoia Acute F22 Abdominal pain Acute R10.9 Acute kidney injury Acute N17.9 Colitis Acute K52.9 Constipation by delayed colonic transit Acute K59.01 Depression Acute F32.9 HTN (hypertension) Acute I10 Ileus Acute K56.7 Major depressive disorder, recurrent episode, severe, with psychosis Acute F33.3 Obstipation Acute K59.00 Renal mass Acute N28.89 Date: 10/08/18 ECT provider: Jesus Ayala Anesthesia: Sangita Mcrae Stimulus dose (%): 80 Pulse width: 0.5 ECT EMG (sec): 20 ECT EEG (sec): 40 ECT treatment type: bilateral QIDS-SR Total Score: 13 QIDS-SR Question #12 Score: 0 MMSE Total Score (Max = 21): 15 Next ECT date: 10/10/18 Home medications: Medication Instructions Recorded Estradiol [Estradiol 1 MG (*)] 0.5 mg PO HS 01/12/18 Venlafaxine Xr [Effexor Xr] 150 mg PO DAILY 01/12/18 Aspirin [Aspirin 81mg (*)] 81 mg PO DAILY 07/25/18 Cholecalciferol Vit D3 [Vitamin D3 1,000 units PO DAILY 07/25/18 (*)] Levothyroxine [Synthroid 50 mcg 50 mcg PO HS 07/25/18 (*)] Quetiapine Fumarate 75 mg PO HS 07/25/18 Venlafaxine Xr [Effexor Xr 75MG 75 mg PO DAILY 07/30/18 (*)] ALPRAZolam [Xanax 0.25 MG (*)] 0.5 mg PO BID PRN tab 08/11/18 Acetaminophen [Tylenol ES 500 mg 500 - 1,000 mg PO Q6 PRN 09/05/18 (*)] amLODIPine BESYLATE [Norvasc 2.5 2.5 mg PO BID 09/05/18 mg (*)] Medication review: completed Current treatment plan: acute phase Treatment plan frequency: 3 times per week ECT narrative: Pt seen for first acute course treatment. She is surprisingly clear and cooperative today. Reads all the consents forms and asks appropriate questions. Completes QIDS and MMSE. Remains paranoid that she is being evicted from her apartment and that her daughters are complicit. Appropriate with me today. Calm, coop. Affect is restricted, stable, less irritable. Mood is "bad." TP is linear for periods of time with frequent derailing to delusional systems. A& Ox3. Underwent bilateral ECT without complication. Beginning acute course ECT.
[2018-10-08] MEDS: ASPIRIN 81 MG CHEWABLE TAB PO SCH (09:56)
[2018-10-08] MEDS: VENLAFAXINE XR 150 MG CAP PO SCH (09:56)
[2018-10-08] MEDS: VENLAFAXINE XR 75 MG CAP PO SCH (09:56)
[2018-10-08] MEDS: amLODIPine BESYLATE 5 MG TAB PO SCH ×3 (09:56→20:02)
[2018-10-08] MEDS: CHOLECALCIFEROL VIT D3 1,000 UNITS TAB PO SCH (09:56)
[2018-10-08] MEDS: ACETAMINOPHEN 325 MG TAB PO PRN (12:42)
--- NOTE | 2018-10-08 13:48 | ASMTCMCOM ---
CM Note CM Note Notes: Ct. was in bed when CC entered her roomm. Ct. reported that she still feels paranoid. Ct. discussed at length her living situation and that she can no longer live in the independent living housing due to increase in rent. Ct. is very concerned about her future and about having no place to live upon discharge. She complained about her daughters and about their inability to help her with her housing situation. CC suggested arranging for a family meeting but ct. appeared reluctant to do so. Date Signed: 10/08/2018 01:48 PM Electronically Signed By:Jaelyn Kelly
[2018-10-08] MEDS: ESTRADIOL 1 MG TAB PO SCH ×2 (19:57→20:02)
[2018-10-08] MEDS: QUEtiapine FUMARATE 100 MG TAB PO SCH ×2 (19:57→20:02)
[2018-10-09] MEDS: LEVOTHYROXINE 75 MCG TAB PO SCH ×2 (06:07→06:09)
--- NOTE | 2018-10-09 08:31 | ASMTCMCOM ---
CM Note CM Note Notes: Ct. was sitting on the bed in her room when CC came in. CC asked her how she doing and ct. reported that she is hungry and would like to have breakfast. CC told ct. that breakfast is served at the dining room but ct. insisted that the dining room door is locked and that no one is there. She presented as very paranoid and had a sarcastic tone when speaking with CC. She requested that breakfast be served in her room. Date Signed: 10/09/2018 08:31 AM Electronically Signed By:Jaelyn Kelly
[2018-10-09] MEDS: CHOLECALCIFEROL VIT D3 1,000 UNITS TAB PO SCH (08:47)
[2018-10-09] MEDS: ASPIRIN 81 MG CHEWABLE TAB PO SCH (08:47)
[2018-10-09] MEDS: amLODIPine BESYLATE 5 MG TAB PO SCH ×2 (08:47→20:14)
[2018-10-09] MEDS: VENLAFAXINE XR 75 MG CAP PO SCH (08:48)
[2018-10-09] MEDS: VENLAFAXINE XR 150 MG CAP PO SCH (08:48)
--- NOTE | 2018-10-09 15:12 | SOAPPROG ---
SOAP Progress Note Assessment/Plan: Assessment: Plan: 09/29/18 16:27 Mood: stable. Cognition is good. No notable psychosis. No observed confusion. Will CCM, await word from Dr. Bhatti. 09/30/18 16:25 Mood: Perhaps worse today. Will increase SQL to 100mg, monitor. 10/01/18 15:31 Mood: Clearly declining. I agree with Dr. Bhatti that most definitive intervention at this time is ECT. Will discuss with patient and her daughter tomorrow. 10/02/18 16:19 Mood: Continued decline. Will begin ECT tomorrow. 10/06/18 09:38 Mood: More paranoid. Refusing ECT due to delusions. Will increase SQL to 200mg to address psychosis. Will continue to encourage patient to do ECT. If no success, will petition court for involuntary treatment. 10/06/18 12:53 Mood: Remains paranoid. Indicator of declining mood. Will plan to treat on Saturday. 10/07/18 13:52 Mood: Remains severely depressed with psychosis. Will offer ECT again tomorrow and petition court for involuntary treatment. 10/09/18 15:12 Mood: No lasting change after first ECT. Hope to continue acute course. Subjective: Pt seen, discussed with staff. Lying in bed. Disheveled, anxious, paranoid. RN's notes from last night and this morning noted. Appeared calmer after ECT yesterday, but quickly reverted. Remarks that I am "fake" and "this place is a sham." Objective: Vital Signs Temp Pulse Resp BP Pulse Ox 36.4 C 63 16 126/62 H 96 10/08/18 11:35 10/08/18 11:35 10/08/18 11:35 10/08/18 11:35 10/08/18 11:35 10/08/18 10/09/18 10/10/18 05:59 05:59 05:59 Intake Total 940 Balance 940 MSE: Disheveled, guarded, uncooperative, hostile. Affect is restricted, angry. Mood is "terrible." TP is disorganized. TC reveals paranoia, IOR's. - Time Spent With Patient Time Spent With Patient: 15" ICD10 Worksheet Patient Problems: Problems Problem Status Onset Paranoia Acute Abdominal pain Acute Acute kidney injury Acute Colitis Acute Constipation by delayed colonic transit Acute Depression Acute HTN (hypertension) Acute Ileus Acute Major depressive disorder, recurrent episode, severe, with psychosis Acute Obstipation Acute Renal mass Acute
[2018-10-09] MEDS: ESTRADIOL 1 MG TAB PO SCH (20:14)
[2018-10-09] MEDS: QUEtiapine FUMARATE 100 MG TAB PO SCH (20:15)
[2018-10-10] MEDS: LEVOTHYROXINE 75 MCG TAB PO SCH (04:52)
[2018-10-10] MEDS ORDERED: CITRIC ACID/SODIUM CITRATE 30 ML UDCUP PO PRN (05:00)
[2018-10-10] MEDS ORDERED: NS 1,000 ML IV PRN (05:00)
[2018-10-10] MEDS ORDERED: THEOPHYLLINE ORAL SOLUTION 80 MG/15 ML UDCUP PO ONE (05:00)
[2018-10-10] MEDS ORDERED: ONDANSETRON DISINTEGRATING 4 MG TAB PO PRN (05:00)
[2018-10-10] MEDS ORDERED: fentaNYL 100 MCG/2 ML INJ ONE (06:30)
[2018-10-10] MEDS ORDERED: ONDANSETRON 4 MG/2 ML VIAL ONE (06:31)
[2018-10-10] MEDS ORDERED: KETOROLAC 30 MG/1 ML SDV ONE (06:32)
[2018-10-10] MEDS ORDERED: ROCURONIUM 50 MG/5 ML VIAL ONE (06:33)
[2018-10-10] MEDS ORDERED: GLYCOPYRROLATE 0.2 MG/1 ML VIAL ONE ×2 (06:33)
[2018-10-10] MEDS ORDERED: PROPOFOL 200 MG/20 ML VIAL ONE (06:33)
[2018-10-10] MEDS ORDERED: ONDANSETRON DISINTEGRATING 4 MG TAB ONE (06:34)
[2018-10-10] MEDS ORDERED: METHOHEXITAL SODIUM 100 MG/10 ML SYR IVP ONE (06:34)
[2018-10-10] MEDS ORDERED: CITRIC ACID/SODIUM CITRATE 30 ML UDCUP ONE (06:34)
[2018-10-10] MEDS ORDERED: SUCCINYLCHOLINE CHLORIDE 200 MG/10 ML VIAL ONE (06:34)
--- NOTE | 2018-10-10 06:51 | POSTANESTH ---
Post Anesthetic Evaluation Cardiovascular Status: Normal, Stable Respiratory Status: Normal, Stable Level of Consciousness/Mental Status: Can Participate in Eval, Alert and Oriented Pain Control: Adequate, Prn Tx Ordered Nausea/Vomiting Control: Adequate, Prn Tx Ordered Complications Possibly Related to Anesthesia: None Noted Notes: Pt still very anxious and fixated on delusions.
--- NOTE | 2018-10-10 06:52 | PDHPUP ---
History & Physical Update H&P update statement: This history and physical update is based on an assessment of the patient which was completed after admission or registration (within 24 hours), but prior to the surgery/procedure. H&P update: H&P reviewed & patient examined, changes noted (No changes in physical condition since H&P)
--- NOTE | 2018-10-10 07:01 | PDANEPAE ---
ECT Pre Anesthetic Evaluation Allergies/Adverse Reactions: ephedrine [Ephedrine] Allergy (Severe, Verified 09/26/18 15:18) Vomiting morphine [Morphine] Allergy (Severe, Verified 09/26/18 15:18) Vomiting prednisone [Prednisone] Allergy (Severe, Verified 09/26/18 15:18) Other-Enter Comments prochlorperazine edisylate [From Compazine] Allergy (Verified 09/26/18 15:18) Swelling/neck,face,throat prochlorperazine maleate [From Compazine] Allergy (Verified 09/26/18 15:18) Swelling/neck,face,throat Sulfa (Sulfonamide Antibiotics) Allergy (Verified 09/26/18 15:18) Rash Patient ID confirmed: Yes H&P reviewed: Yes Pre-anesthetic history reviewed: Yes Heart: regular rate and rhythym Lungs: clear to auscultation Mallampati Score: Class 3 ASA Status: III Home Medications: Medication Instructions Recorded Estradiol [Estradiol 1 MG (*)] 0.5 mg PO HS 01/12/18 Venlafaxine Xr [Effexor Xr] 150 mg PO DAILY 01/12/18 Aspirin [Aspirin 81mg (*)] 81 mg PO DAILY 07/25/18 Cholecalciferol Vit D3 [Vitamin D3 1,000 units PO DAILY 07/25/18 (*)] Levothyroxine [Synthroid 50 mcg 50 mcg PO HS 07/25/18 (*)] Quetiapine Fumarate 75 mg PO HS 07/25/18 Venlafaxine Xr [Effexor Xr 75MG 75 mg PO DAILY 07/30/18 (*)] ALPRAZolam [Xanax 0.25 MG (*)] 0.5 mg PO BID PRN tab 08/11/18 Acetaminophen [Tylenol ES 500 mg 500 - 1,000 mg PO Q6 PRN 09/05/18 (*)] amLODIPine BESYLATE [Norvasc 2.5 2.5 mg PO BID 09/05/18 mg (*)] Medication review: completed Patient interviewed: Yes (Pt still very fixated on delusions of family neglect and abandonment) Patient examined: Yes (Very upset and difficulty cooperating with exam) See previous record: Yes Anesthetic plan discussed with patient: Yes Anesthetic risks discussed with patient: Yes ECT Pre-Anesthetic History - Height & Weight Height: 172.72 cm Weight: 64.41 kg BMI: 21.60 - Anesthesia History Hx Anesthesia Complications (with details): NONE Family Hx Anesthesia Complications: NONE - Medications In the Past 6 Months the Patient Has Taken: Aspirin, Thyroid Medication, Narcotics, Blood Pressure Medication - Tobacco/Alcohol/Drug Use Smoking Status: Former smoker Hx Drug/Substance Abuse: No Alcohol Use: Yes (very occassional) - Prior Surgeries/Hospitalizations Prior Surgeries: FLEX SIG AT [facility] [place] 05/2017. BACK SURG LUMBAR. DEEPAK . HYST . BLADDER PROLAPSE SURG 2012. BIANCA CATARACT. APPENDECTOMY. COLOSTOMY. half of colon removed 01/2018. reverse ostomy 07/28/18 Prior Medical Hospitalizations: ICU for one month December-January 2018 r/t colitis - Pulmonary History ECT Hx Asthma: No Hx Abnormal Chest X-Ray: No Hx Oxygen in Use at Home: No - Cardiovascular History Hx Hypertension: Yes Currently Uses Hypertension Medication: Yes Hx Arrhythmias: No Hx Palpitations: No Hx Chest Pain: No Hx Coronary Artery / Peripheral Vascular Disease: No Hx Blood Clot: No - Neurologic History Hx Cerebrovascular Accident: No Hx CT Scan Or MRI Of The Brain: Yes Hx Epilepsy, Convulsions, Seizures, Or Blackouts: No Hx Frequent Or Severe Headaches: Yes Hx Numbness: No Hx Neurologic Disorder: No Neurologic History Comment: Head CT 09/26/18. migraines - Dental History Current Dental Issues: None - Endocrine History Hx Diabetes: No Current Daily Insulin Injections: No Hx Thyroid Problems: Yes Endocrine History Comment: taking levothyroxine - Renal/Urologic History Hx Renal Disorders: Yes Hx Urinary Tract Problems: No Renal/Urologic History Comment: kidney stones - Liver History Hx Hepatic Disorders: No - Cancer History Hx Cancer: Yes Cancer History Comment: basal cell carcinoma - Hematology History Hx Unexplained Bleeding Of Any Type: No Hx Ease Of Bruising: Yes Hx Anemia: No Hematology History Comment: bruising associated with blood draws - Gastrointestinal History Hx Gastroesophogeal Reflux Disease: No Hx Ulcers: No Hx Hiatal Hernia: No Hx Difficulty Swallowing: Yes Gastrointestinal History Comment: difficulty swallowing after intubation - Musculoskeletal Hisory Hx Chronic Pain: Yes Chronic Pain Location: Back, Neck Hx Arthritis: No Musculoskeletal History Comment: back and neck chronic pain not current - Opthalmic History Hx Glaucoma: No Visual Assistive Devices: Glasses Hx Opthalmic Disorders: No - Other Health History Physical Disabililty: Yes (cervical dystonia) Recent Cough, Cold, or Fever: No Significant Weight Loss In The Last 4 Months: No Possible the Patient Might be : No
--- NOTE | 2018-10-10 07:07 | PDECTPN ---
ECT Progress Note Patient Problems: Problems Problem Status Onset Code Paranoia Acute F22 Abdominal pain Acute R10.9 Acute kidney injury Acute N17.9 Colitis Acute K52.9 Constipation by delayed colonic transit Acute K59.01 Depression Acute F32.9 HTN (hypertension) Acute I10 Ileus Acute K56.7 Major depressive disorder, recurrent episode, severe, with psychosis Acute F33.3 Obstipation Acute K59.00 Renal mass Acute N28.89 Date: 10/10/18 ECT provider: Jesus Ayala Anesthesia: Sangita Mcrae Stimulus dose (%): 80 Pulse width: 0.5 ECT EMG (sec): 36 ECT EEG (sec): 103 ECT treatment type: bilateral QIDS-SR Total Score: 13 QIDS-SR Question #12 Score: 0 MMSE Total Score (Max = 21): 15 Next ECT date: 10/13/18 Next ECT time: 07:00 Home medications: Medication Instructions Recorded Estradiol [Estradiol 1 MG (*)] 0.5 mg PO HS 01/12/18 Venlafaxine Xr [Effexor Xr] 150 mg PO DAILY 01/12/18 Aspirin [Aspirin 81mg (*)] 81 mg PO DAILY 07/25/18 Cholecalciferol Vit D3 [Vitamin D3 1,000 units PO DAILY 07/25/18 (*)] Levothyroxine [Synthroid 50 mcg 50 mcg PO HS 07/25/18 (*)] Quetiapine Fumarate 75 mg PO HS 07/25/18 Venlafaxine Xr [Effexor Xr 75MG 75 mg PO DAILY 07/30/18 (*)] ALPRAZolam [Xanax 0.25 MG (*)] 0.5 mg PO BID PRN tab 08/11/18 Acetaminophen [Tylenol ES 500 mg 500 - 1,000 mg PO Q6 PRN 09/05/18 (*)] amLODIPine BESYLATE [Norvasc 2.5 2.5 mg PO BID 09/05/18 mg (*)] Medication review: completed Current treatment plan: acute phase Treatment plan frequency: 3 times per week ECT narrative: Pt seen for continued acute course treatment. She is very upset, tearful, talking constantly about paranoid beliefs that her daughters are in peril or she is being put out on the street. States repeatedly that her blind BF is not blind, but is a "sham." Worried she shouldn't have driven recently and may have committed a crime. Calm, coop. Affect is restricted, tearful, stable, less irritable. Mood is "bad." TP is tangential, jumping between delusional themes. A&Ox3. Underwent bilateral ECT without complication. Remains severely ill. CCM.
[2018-10-10] MEDS: VENLAFAXINE XR 150 MG CAP PO SCH (08:23)
[2018-10-10] MEDS: CHOLECALCIFEROL VIT D3 1,000 UNITS TAB PO SCH (08:23)
[2018-10-10] MEDS: amLODIPine BESYLATE 5 MG TAB PO SCH ×2 (08:23→22:03)
[2018-10-10] MEDS: ASPIRIN 81 MG CHEWABLE TAB PO SCH (08:23)
[2018-10-10] MEDS: VENLAFAXINE XR 75 MG CAP PO SCH (08:23)
[2018-10-10] MEDS: ALPRAZolam 0.5 MG TAB PO PRN (08:23)
--- NOTE | 2018-10-10 14:30 | ASMTCMCOM ---
CM Note CM Note Notes: The patient reported feeling "shaky" following ECT treatment. She remarked on this technical document writer's lack of note taking. She reported multiple stressors including the mental health of her two daughters (Stephany and Ynes), her boyfriend's (Portillo) physical health, and her current living arrangements. The patient expressed concern that she is losing her housing at the [facility] on October 17, 2018. She requested family and housing intervention. The patient later clarified that she is getting a rent increase and will no longer be able to afford her housing. She contacted her daughter and learned that the family is looking for more affordable housing but the patient may have to continue living at [facility] for a few months upon discharge. The patient refused to complete ROIs for the [facility] or her daughters. Date Signed: 10/10/2018 02:26 PM Electronically Signed By:Daysi Lara
[2018-10-10] MEDS: POLYETHYLENE GLYCOL 3350 17 GM PKT PO PRN (20:52)
[2018-10-10] MEDS: ESTRADIOL 1 MG TAB PO SCH (22:04)
[2018-10-10] MEDS: QUEtiapine FUMARATE 100 MG TAB PO SCH (22:05)
[2018-10-11] MEDS: LEVOTHYROXINE 75 MCG TAB PO SCH (05:38)
[2018-10-11] MEDS: CHOLECALCIFEROL VIT D3 1,000 UNITS TAB PO SCH (11:53)
[2018-10-11] MEDS: VENLAFAXINE XR 75 MG CAP PO SCH (11:53)
[2018-10-11] MEDS: amLODIPine BESYLATE 5 MG TAB PO SCH ×2 (11:54→22:17)
[2018-10-11] MEDS: ASPIRIN 81 MG CHEWABLE TAB PO SCH (11:54)
[2018-10-11] MEDS: VENLAFAXINE XR 150 MG CAP PO SCH (11:54)
--- NOTE | 2018-10-11 17:17 | SOAPPROG ---
SOAP Progress Note Assessment/Plan: Assessment: 77 yo with h/o severe depression, w/ psychotic features in past. She has received ECT for depression, and has significant family hx of depression and completed suicides. She was BIB family to ED on 09/26/[address] Ayala's note on 10/10/18: Pt seen for continued acute course treatment. She is very upset, tearful, talking constantly about paranoid beliefs that her daughters are in peril or she is being put out on the street. States repeatedly that her blind BF is not blind, but is a "sham." Worried she shouldn't have driven recently and may have committed a crime. Calm, coop. Affect is restricted, tearful, stable, less irritable. Mood is "bad." TP is tangential, jumping between delusional themes. A&Ox3. Underwent bilateral ECT without complication. Remains severely ill. [facility]. WEEKEND PLAN: 10/11/18 17:14 1. Patient extremely labile today, tearful, agitated, irritable, hostile with RN. 2. Low BP (110/46) this AM. RN pushed fluids, repeat BP was 115/70. 3. Patient thinks her Effexor and Seroquel doses are "too high." MD explained increase in Seroquel is to help with clarity of thought. Patient argued this was not a problem. 4. Next ECT on Saturday. Subjective: Patient was irritable and hostile with RN in her room this afternoon. She c/o about her daughters' visit. She repeatedly asked CC to "help my daughters." She thinks one of her daughters is "too thin" and has an eating disorder. She also thinks her other daughter has mental health problems. She has poor appetite, but ate 50% of breakfast and lunch. Objective: Vital Signs Temp Pulse Resp BP Pulse Ox 37.2 C 65 16 115/70 94 10/10/18 10:30 10/11/18 11:30 10/11/18 11:30 10/11/18 11:54 10/11/18 10:00 10/10/18 10/11/18 10/12/18 05:59 05:59 05:59 Intake Total 1000 Balance 1000 MSE: Affect: Labile, irritable, hostile at times with staff Mood: "Terrible" TP: Perseverates about her daughters and her treatment TC: Denies SI/HI, remains paranoid Insight/Judgment: Poor - Time Spent With Patient Time Spent With Patient: 15" - Pending Discharge Pending Discharge Within 24 Hours: No Pending Discharge Within 48 Hours: No ICD10 Worksheet Patient Problems: Problems Problem Status Onset Paranoia Acute Abdominal pain Acute Acute kidney injury Acute Colitis Acute Constipation by delayed colonic transit Acute Depression Acute HTN (hypertension) Acute Ileus Acute Major depressive disorder, recurrent episode, severe, with psychosis Acute Obstipation Acute Renal mass Acute
[2018-10-11] MEDS: QUEtiapine FUMARATE 100 MG TAB PO SCH (22:17)
[2018-10-11] MEDS: ESTRADIOL 1 MG TAB PO SCH (22:17)
[2018-10-12] MEDS: LEVOTHYROXINE 75 MCG TAB PO SCH (06:18)
[2018-10-12] MEDS: amLODIPine BESYLATE 5 MG TAB PO SCH ×3 (08:29→21:52)
[2018-10-12] MEDS: ASPIRIN 81 MG CHEWABLE TAB PO SCH (08:30)
[2018-10-12] MEDS: CHOLECALCIFEROL VIT D3 1,000 UNITS TAB PO SCH (08:30)
[2018-10-12] MEDS: VENLAFAXINE XR 75 MG CAP PO SCH (08:30)
[2018-10-12] MEDS: VENLAFAXINE XR 150 MG CAP PO SCH (08:30)
[2018-10-12] MEDS: POLYETHYLENE GLYCOL 3350 17 GM PKT PO PRN (10:51)
--- NOTE | 2018-10-12 15:59 | ASMTCMCOM ---
CM Note CM Note Notes: The patient was visited by her daughters today. According to [facility] staff, the patient reported that Seroquel is causing her "hypersomnia, memory loss, physical instability, and a negative mood." This senior grant writer called and left a voice mail for ARMANDO Norwood ([phone]) to schedule follow up appointments for the patient. The patient was observed knocking another patient's food tray out of their hand near the dining hong. She demanded that nursing staff provide her with chocolate milk. She stated, "You're going to provoke me and then call me the bad calin?" The patient later walked past this senior grant writer and stated, "You're going to pretend you're running groups now? [laughter]" "What are your goals for the day?" This senior grant writer asked the patient "How are you feeling today?" The patient stated, "As if you give a shit." She was observed crossing her arms in front of her chest. According to nursing staff, the patient was observed removing her admission bracelet. Date Signed: 10/12/2018 03:58 PM Electronically Signed By:Daysi Lara
--- NOTE | 2018-10-12 18:16 | SOAPPROG ---
SOAP Progress Note Assessment/Plan: Assessment: 77 yo with h/o severe depression, w/ psychotic features in past. She has received ECT for depression, and has significant family hx of depression and completed suicides. She was BIB family to ED on 09/26/[address] Ayala's note on 10/10/18: Pt seen for continued acute course treatment. She is very upset, tearful, talking constantly about paranoid beliefs that her daughters are in peril or she is being put out on the street. States repeatedly that her blind BF is not blind, but is a "sham." Worried she shouldn't have driven recently and may have committed a crime. Calm, coop. Affect is restricted, tearful, stable, less irritable. Mood is "bad." TP is tangential, jumping between delusional themes. A&Ox3. Underwent bilateral ECT without complication. Remains severely ill. CCM. WEEKEND PLAN: 10/11/18 17:14 1. Patient extremely labile today, tearful, agitated, irritable, hostile with RN. 2. Low BP (110/46) this AM. RN pushed fluids, repeat BP was 115/70. 3. Patient thinks her Effexor and Seroquel doses are "too high." MD explained increase in Seroquel is to help with clarity of thought. Patient argued this was not a problem. 4. Next ECT on Saturday. 10/12/18 18:12 1. Patient refused all psych meds last night and this AM. 2. Today patient got irritated at peer and knocked his lunch tray on ground. She also ripped off her ID band. 3. Anticipate ECT on Saturday. Subjective: Patient very labile and irritable this AM. She was easily provoked and argumentative with staff. She got angry at peer in dining room and knocked his lunch tray out of his hands. She also yelled at nurse b/c there was no apple juice. Later in evening, checked on her and she was in better mood and more pleasant. She came out of her room to watch [employer] on TV which seemed to brighten her spirits. Objective: Vital Signs Temp Pulse Resp BP Pulse Ox 37.2 C 65 16 115/70 94 10/10/18 10:30 10/11/18 11:30 10/11/18 11:30 10/11/18 11:54 10/11/18 10:00 10/11/18 10/12/18 10/13/18 05:59 05:59 05:59 Intake Total 1000 Balance 1000 MSE: Affect: Labile, irritable Mood: Angry TP: Goal-directed, perseverates on certain things (getting apple juice) TC: Denies SI/HI, still has paranoid delusions Insight/Judgment: Poor - Time Spent With Patient Time Spent With Patient: 15" - Pending Discharge Pending Discharge Within 24 Hours: No Pending Discharge Within 48 Hours: No ICD10 Worksheet Patient Problems: Problems Problem Status Onset Paranoia Acute Abdominal pain Acute Acute kidney injury Acute Colitis Acute Constipation by delayed colonic transit Acute Depression Acute HTN (hypertension) Acute Ileus Acute Major depressive disorder, recurrent episode, severe, with psychosis Acute Obstipation Acute Renal mass Acute
[2018-10-12] MEDS: QUEtiapine FUMARATE 100 MG TAB PO SCH ×2 (21:47→21:53)
[2018-10-12] MEDS: ESTRADIOL 1 MG TAB PO SCH ×2 (21:47→21:53)
[2018-10-13] MEDS: LEVOTHYROXINE 75 MCG TAB PO SCH (04:55)
[2018-10-13] MEDS ORDERED: CITRIC ACID/SODIUM CITRATE 30 ML UDCUP ONE (05:59)
[2018-10-13] MEDS ORDERED: ONDANSETRON DISINTEGRATING 4 MG TAB ONE (05:59)
[2018-10-13] MEDS: amLODIPine BESYLATE 5 MG TAB PO SCH ×3 (09:42→22:07)
[2018-10-13] MEDS: CHOLECALCIFEROL VIT D3 1,000 UNITS TAB PO SCH (09:42)
[2018-10-13] MEDS: ASPIRIN 81 MG CHEWABLE TAB PO SCH (09:42)
[2018-10-13] MEDS: VENLAFAXINE XR 150 MG CAP PO SCH (09:43)
[2018-10-13] MEDS: VENLAFAXINE XR 75 MG CAP PO SCH (09:43)
--- NOTE | 2018-10-13 14:10 | ASMTCMCOM ---
CM Note CM Note Notes: This administrative underwriter attempted to connect with the patient; she reported that she was "fine." The patient was abrupt and terse; avoiding eye contact by turning her head in the opposite direction and covering her face with her hand. Rather than continuing to prompt the patient, this administrative underwriter offered to be available to discuss feeling/mood, treatment, etc. with the patient if and when she is interested. Date Signed: 10/13/2018 02:08 PM Electronically Signed By:Daysi Lara
[2018-10-13] MEDS: ESTRADIOL 1 MG TAB PO SCH ×2 (21:58→22:08)
[2018-10-13] MEDS: QUEtiapine FUMARATE 100 MG TAB PO SCH ×2 (21:59→22:07)
[2018-10-14] MEDS: LEVOTHYROXINE 75 MCG TAB PO SCH (07:02)
[2018-10-14] MEDS: CHOLECALCIFEROL VIT D3 1,000 UNITS TAB PO SCH (11:30)
[2018-10-14] MEDS: ASPIRIN 81 MG CHEWABLE TAB PO SCH (11:30)
[2018-10-14] MEDS: VENLAFAXINE XR 150 MG CAP PO SCH (11:30)
[2018-10-14] MEDS: amLODIPine BESYLATE 5 MG TAB PO SCH ×2 (11:30→21:22)
[2018-10-14] MEDS: VENLAFAXINE XR 75 MG CAP PO SCH (11:31)
--- NOTE | 2018-10-14 12:53 | SOAPPROG ---
SOAP Progress Note Assessment/Plan: Assessment: 77 yo with h/o severe depression, w/ psychotic features in past. She has received ECT for depression, and has significant family hx of depression and completed suicides. She was BIB family to ED on 09/26/18 for AMS. Planned to start acute course ECT last week and had one treatment, but over past 3 days has been refusing meds, refusing VS, refused ECT, and has been increasingly labile and paranoid. 10/14/18 23:55 slept 11.5 hr. ate 25% bkfst, no other meals yesterday. described as irritable, paranoid, suspicious, depressed, aggressive, worried about daughters. attempted to interview pt. she was in room on bed, awake and propped self up on elbow to glare angrily and yell "you're a lousy fake" and "get out of here!" Demanded to have the "same 4 pictures" changed and pointed back toward windows. When attempted to clarify pt's comments as there were no pictures, only windows , pt angrily responded, "one time it's day and then it's night, then there's snow, and now there's sun..." Pt denied physical complaints. States she is "here because you people wanted me crazy." Informed pt due to concerns regarding her acute psychiatric decompensation with labile mood and now poor po intake and refusing meds, she will be placed on an M -1 hold for grave disability. Pt yelled "put me on whatever hold you want!" in response. mse: casually dressed, good eye contact, nml rate speech but loud volume, articulate; affect labile,irritable,hostile; tp/tc-paranoid, delusional, did not appear RIS, did not verbalize any thought to harm self or others but has been more verbally aggressive, i/j both poor. PLAN: Placed on M-1 for grave disability continue to offer meds cont to attempt checking vitals, perhaps different time of day or when pt in better mood cont monitoring I/O. if continuing to refuse po and VS, consider hospitalist input. cont plan for ECT acute course Objective: Vital Signs Temp Pulse Resp BP Pulse Ox 37.2 C 65 16 115/70 94 10/10/18 10:30 10/11/18 11:30 10/11/18 11:30 10/11/18 11:54 10/11/18 10:00 - Time Spent With Patient Time Spent With Patient: 15min - Pending Discharge Pending Discharge Within 24 Hours: No Pending Discharge Within 48 Hours: No ICD10 Worksheet Patient Problems: Problems Problem Status Onset Paranoia Acute Abdominal pain Acute Acute kidney injury Acute Colitis Acute Constipation by delayed colonic transit Acute Depression Acute HTN (hypertension) Acute Ileus Acute Major depressive disorder, recurrent episode, severe, with psychosis Acute Obstipation Acute Renal mass Acute
[2018-10-14] MEDS: HYDROCORTISONE 2.5% 30 GM CRTUBE TP PRN (15:05)
[2018-10-14] MEDS: ESTRADIOL 1 MG TAB PO SCH (21:22)
[2018-10-14] MEDS: QUEtiapine FUMARATE 100 MG TAB PO SCH (21:22)
[2018-10-15] MEDS: LEVOTHYROXINE 75 MCG TAB PO SCH (05:35)
--- NOTE | 2018-10-15 07:54 | SOAPPROG ---
SOAP Progress Note Assessment/Plan: Assessment: 77 yo with h/o severe depression, w/ psychotic features in past. She has received ECT for depression, and has significant family hx of depression and completed suicides. She was BIB family to ED on 09/26/18 for AMS. Planned to start acute course ECT last week and had one treatment, but over past 3 days has been refusing meds, refusing VS, refused ECT, and has been increasingly labile and paranoid. 09/20/18 07:35 patient continues to refuse meals and medications even thyroid medications, with only minimal intake of fluids. has responded well to ECT in past and is at risk to herself medically as she continues in significantly decompensated psychiatric state. I support acute emergent ECT treatment at this point to prevent further decompensation Objective: Vital Signs Temp Pulse Resp BP Pulse Ox 37.2 C 85 18 147/80 H 95 10/10/18 10:30 10/14/18 20:52 10/14/18 20:52 10/14/18 20:52 10/14/18 20:52 ICD10 Worksheet Patient Problems: Problems Problem Status Onset Paranoia Acute Abdominal pain Acute Acute kidney injury Acute Colitis Acute Constipation by delayed colonic transit Acute Depression Acute HTN (hypertension) Acute Ileus Acute Major depressive disorder, recurrent episode, severe, with psychosis Acute Obstipation Acute Renal mass Acute
--- NOTE | 2018-10-15 08:20 | PDANEPAE ---
ANE Past Medical History - Cardiovascular History Hx Hypertension: Yes Hx Arrhythmias: No Hx Chest Pain: No Hx Coronary Artery / Peripheral Vascular Disease: No Hx CHF / Valvular Disease: No Hx Palpitations: No Cardiovascular History Comment: BORDERLINE BP RECENTLY NO MEDS - Pulmonary History Hx COPD: No Hx Asthma/Reactive Airway Disease: No Hx Recent Upper Respiratory Infection: No Hx Oxygen in Use at Home: No Hx Sleep Apnea: No Pulmonary History Comment: DENIES SOB W STAIRS - Neurologic History Hx Cerebrovascular Accident: No Hx Seizures: No Hx Dementia: No - Endocrine History Hx Diabetes: No Obesity: no Endocrine History Comment: LOW THYROID - Renal History Hx Renal Disorders: Yes Renal History Comment: SOME UA LEAKAGE. FREQUENT UTI'S - Liver History Hx Hepatic Disorders: No - Neurological & Psychiatric Hx Hx Neurological and Psychiatric Disorders: Yes Neurological / Psychiatric History Comment: DEPRESSION. ECT TX - Cancer History Hx Cancer: Yes Cancer History Comment: SKIN - Congenital Disorder History Hx Congenital Disorders: No - GI History Hx Gastrointestinal Disorders: Yes Gastrointestinal History Comment: CHRONIC ANAL FISSURE. CONSTIPATION. PREV FECAL IMPACTION. GLUTEN FREE DIET. ISCHEMIC BOWEL RESULTING IN COLOSTOMY - Other Health History Other Health History: CATARACT FORMING - Chronic Pain History Chronic Pain: No - Surgical History Prior Surgeries: FLEX SIG AT [facility] 05/2017. BACK SURG '81 LUMBAR. DEEPAK '62. HYST '. BLADDER PROLAPSE SURG 2012. BIANCA CATARACT. APPENDECTOMY. COLOSTOMY. half of colon removed 01/2018. reverse ostomy 07/28/18 ANE Review of Systems Review of Systems: ANE Patient History - Allergies Allergies/Adverse Reactions: ephedrine [Ephedrine] Allergy (Severe, Verified 09/26/18 15:18) Vomiting morphine [Morphine] Allergy (Severe, Verified 09/26/18 15:18) Vomiting prednisone [Prednisone] Allergy (Severe, Verified 09/26/18 15:18) Other-Enter Comments prochlorperazine edisylate [From Compazine] Allergy (Verified 09/26/18 15:18) Swelling/neck,face,throat prochlorperazine maleate [From Compazine] Allergy (Verified 09/26/18 15:18) Swelling/neck,face,throat Sulfa (Sulfonamide Antibiotics) Allergy (Verified 09/26/18 15:18) Rash - Home Medications Home Medications: Estradiol [Estradiol 1 MG (*)] 0.5 mg PO HS 01/12/18 [Last Taken 09/25/18] Venlafaxine Xr [Effexor Xr] 150 mg PO DAILY 01/12/18 [Last Taken 09/26/18] Aspirin [Aspirin 81mg (*)] 81 mg PO DAILY 07/25/18 [Last Taken 09/26/18] Cholecalciferol Vit D3 [Vitamin D3 (*)] 1,000 units PO DAILY 07/25/18 [Last Taken 09/26/18] Levothyroxine [Synthroid 50 mcg (*)] 50 mcg PO HS 07/25/18 [Last Taken 09/25/18] Quetiapine Fumarate 75 mg PO HS 07/25/18 [Last Taken 09/25/18] Venlafaxine Xr [Effexor Xr 75MG (*)] 75 mg PO DAILY 07/30/18 [Last Taken ] Acetaminophen [Tylenol ES 500 mg (*)] 500 - 1,000 mg PO Q6 PRN 09/05/18 [Last Taken 09/04/18] amLODIPine BESYLATE [Norvasc 2.5 mg (*)] 2.5 mg PO BID 09/05/18 [Last Taken 04/06 08:00] - NPO status NPO Status: no food or drink >8 hours - Anes Hx Anes Hx: no prior problems - Smoking Hx Smoking Status: Former smoker - Family Anes Hx Family Hx Anesthesia Complications: NONE ANE Labs/Vital Signs - Labs Result Diagrams: 09/26/18 19:37 09/26/18 16:05 - Vital Signs Blood Pressure: 147/80 Heart Rate: 85 Respiratory Rate: 18 O2 Sat (%): 95 Height: 172.72 cm Weight: 64.41 kg ANE Physical Exam - Airway Neck exam: FROM Mallampati Score: Class 3 - Pulmonary Pulmonary: no respiratory distress, no rales or rhonchi, clear to auscultation - Cardiovascular Cardiovascular: regular rate and rhythym, no murmur, rub, or gallop - ASA Status ASA Status: II ANE Anesthesia Plan Anesthesia Plan: GA with mask
[2018-10-15] MEDS ORDERED: METHOHEXITAL SODIUM 100 MG/10 ML SYR IVP ONE (08:22)
[2018-10-15] MEDS ORDERED: GLYCOPYRROLATE 0.2 MG/1 ML VIAL ONE (08:22)
[2018-10-15] MEDS ORDERED: SUCCINYLCHOLINE CHLORIDE 200 MG/10 ML VIAL ONE (08:22)
[2018-10-15] MEDS ORDERED: fentaNYL 100 MCG/2 ML INJ ONE (08:22)
[2018-10-15] MEDS ORDERED: KETAMINE 500 MG/10 ML VIAL ONE (08:31)
--- NOTE | 2018-10-15 08:31 | PDECTPN ---
ECT Progress Note Patient Problems: Problems Problem Status Onset Code Paranoia Acute F22 Abdominal pain Acute R10.9 Acute kidney injury Acute N17.9 Colitis Acute K52.9 Constipation by delayed colonic transit Acute K59.01 Depression Acute F32.9 HTN (hypertension) Acute I10 Ileus Acute K56.7 Major depressive disorder, recurrent episode, severe, with psychosis Acute F33.3 Obstipation Acute K59.00 Renal mass Acute N28.89 Date: 10/15/18 ECT provider: Jesus Ayala Anesthesia: Patrice Siu Stimulus dose (%): 80 Pulse width: 0.5 ECT EMG (sec): 28 ECT EEG (sec): 67 ECT treatment type: bilateral QIDS-SR Total Score: 13 QIDS-SR Question #12 Score: 0 MMSE Total Score (Max = 21): 15 Next ECT date: 10/24/18 Next ECT time: 07:30 Home medications: Medication Instructions Recorded Estradiol [Estradiol 1 MG (*)] 0.5 mg PO HS 01/12/18 Venlafaxine Xr [Effexor Xr] 150 mg PO DAILY 01/12/18 Aspirin [Aspirin 81mg (*)] 81 mg PO DAILY 07/25/18 Cholecalciferol Vit D3 [Vitamin D3 1,000 units PO DAILY 07/25/18 (*)] Levothyroxine [Synthroid 50 mcg 50 mcg PO HS 07/25/18 (*)] Quetiapine Fumarate 75 mg PO HS 07/25/18 Venlafaxine Xr [Effexor Xr 75MG 75 mg PO DAILY 07/30/18 (*)] ALPRAZolam [Xanax 0.25 MG (*)] 0.5 mg PO BID PRN tab 08/11/18 Acetaminophen [Tylenol ES 500 mg 500 - 1,000 mg PO Q6 PRN 09/05/18 (*)] amLODIPine BESYLATE [Norvasc 2.5 2.5 mg PO BID 09/05/18 mg (*)] Medication review: completed Current treatment plan: acute phase Treatment plan frequency: 3 times per week ECT narrative: Pt seen for continued acute course treatment. She remains agitated, verbally and physically aggressive, paranoid. She repeatedly states everything is "fake " from the medications to the staff, to my winter. She is refusing to eat or drink due to belief the food is poisoned or "fake" and is refusing all medications inc: thyroid. Disheveled, agitated, yelling. Affect is labile, hostile. Mood is "terrible." TP is disorganized. TC reveals paranoid delusions. Underwent bilateral ECT without complication. Remains severely ill. Will proceed with emergency involuntary ECT due to level of agitation, aggression and psychosis and her refusal of necessary treatments. STC placed, letter submitted to court, second opinion obtained from Dr. Biggs.
--- NOTE | 2018-10-15 08:59 | POSTANESTH ---
Post Anesthetic Evaluation Cardiovascular Status: Tx Hyper/Hypo-tension (still a little hypertensive but improving) Respiratory Status: Normal, Stable, Similar to Pre-op Cond. Level of Consciousness/Mental Status: Unconscious Complications Possibly Related to Anesthesia: None Noted
[2018-10-15] MEDS: CHOLECALCIFEROL VIT D3 1,000 UNITS TAB PO SCH ×2 (10:22→13:37)
[2018-10-15] MEDS: amLODIPine BESYLATE 5 MG TAB PO SCH ×3 (10:22→20:57)
[2018-10-15] MEDS: ASPIRIN 81 MG CHEWABLE TAB PO SCH ×2 (10:24→13:37)
[2018-10-15] MEDS: VENLAFAXINE XR 150 MG CAP PO SCH ×2 (10:24→13:37)
[2018-10-15] MEDS: VENLAFAXINE XR 75 MG CAP PO SCH ×2 (10:24→13:37)
[2018-10-15] MEDS ORDERED: NS 1,000 ML IV PRN (14:17)
[2018-10-15] MEDS: QUEtiapine FUMARATE 100 MG TAB PO SCH (20:58)
[2018-10-15] MEDS: ESTRADIOL 1 MG TAB PO SCH (20:58)
[2018-10-16] MEDS: LEVOTHYROXINE 75 MCG TAB PO SCH (05:54)
[2018-10-16] MEDS: ASPIRIN 81 MG CHEWABLE TAB PO SCH (09:57)
[2018-10-16] MEDS: amLODIPine BESYLATE 5 MG TAB PO SCH ×2 (09:57→19:19)
[2018-10-16] MEDS: CHOLECALCIFEROL VIT D3 1,000 UNITS TAB PO SCH (09:57)
[2018-10-16] MEDS: VENLAFAXINE XR 150 MG CAP PO SCH (09:57)
[2018-10-16] MEDS: VENLAFAXINE XR 75 MG CAP PO SCH (09:58)
--- NOTE | 2018-10-16 11:26 | ASMTCMCOM ---
CM Note CM Note Notes: CC checked in with ct. Ct. continues to appear paranoid. She discussed her many concerns about her daughter whom she feels are not doing well. She was agitated and perseverated over her concern. CC tried to shift the conversation over to discussing her needs and addressing her needs but ct. refused to engage in the conversation She continued to discuss her daughters' issues. Date Signed: 10/16/2018 11:25 AM Electronically Signed By:Jaelyn Kelly
--- NOTE | 2018-10-16 13:46 | SOAPPROG ---
SOAP Progress Note Assessment/Plan: Assessment: Plan: 09/29/18 16:27 Mood: stable. Cognition is good. No notable psychosis. No observed confusion. Will CCM, await word from Dr. Bhatti. 09/30/18 16:25 Mood: Perhaps worse today. Will increase SQL to 100mg, monitor. 10/01/18 15:31 Mood: Clearly declining. I agree with Dr. Bhatti that most definitive intervention at this time is ECT. Will discuss with patient and her daughter tomorrow. 10/02/18 16:19 Mood: Continued decline. Will begin ECT tomorrow. 10/06/18 09:38 Mood: More paranoid. Refusing ECT due to delusions. Will increase SQL to 200mg to address psychosis. Will continue to encourage patient to do ECT. If no success, will petition court for involuntary treatment. 10/06/18 12:53 Mood: Remains paranoid. Indicator of declining mood. Will plan to treat on Saturday. 10/07/18 13:52 Mood: Remains severely depressed with psychosis. Will offer ECT again tomorrow and petition court for involuntary treatment. 10/09/18 15:12 Mood: No lasting change after first ECT. Hope to continue acute course. 10/16/18 13:48 Mood: Remains quite ill. Will continue involuntary ECT on an emergency basis. Await scheduling of hearing. Subjective: Pt seen, discussed with staff. Lying in bed wailing. States she has diarrhea and wants Immodium, though cannot go to the bathroom. "I think Dr. Toribio put an extra stitch in my anus. I can't move anything." Swears at me frequently. Angry and hostile, paranoid, dramatic. Continues to accuse me of "putting me to sleep so you can do perverted things to my body." Also states she overheard a staff member named Kayla (there is no Kayla in ECT) call her a "disgusting [place] pig" before she fells asleep. I assured her I was there the entire time and did not here that. She calls me a "goddamn liar son of a bitch." Continues to refuse all meds. Drank a little this morning. Still not eating. Objective: Vital Signs Temp Pulse Resp BP Pulse Ox 36.9 C 79 20 133/63 H 93 10/15/18 11:10 10/15/18 11:10 10/15/18 11:10 10/15/18 11:10 10/15/18 11:10 10/15/18 10/16/18 10/17/18 05:59 05:59 05:59 Intake Total 1180 Balance 1180 MSE: Disheveled, agitated, hostile, threatening. Speech is fluent, though loud , yelling, profane. Affect is irritable, angry. Mood is "terrible." TP is disorganized. TC reveals continued paranoid delusions and IOR's. - Time Spent With Patient Time Spent With Patient: 25" ICD10 Worksheet Patient Problems: Problems Problem Status Onset Paranoia Acute Abdominal pain Acute Acute kidney injury Acute Colitis Acute Constipation by delayed colonic transit Acute Depression Acute HTN (hypertension) Acute Ileus Acute Major depressive disorder, recurrent episode, severe, with psychosis Acute Obstipation Acute Renal mass Acute
[2018-10-16] MEDS: QUEtiapine FUMARATE 100 MG TAB PO SCH (19:20)
[2018-10-16] MEDS: ESTRADIOL 1 MG TAB PO SCH (19:20)
[2018-10-17] MEDS ORDERED: NS 1,000 ML IV PRN (05:00)
[2018-10-17] MEDS ORDERED: CITRIC ACID/SODIUM CITRATE 30 ML UDCUP PO PRN (05:00)
[2018-10-17] MEDS ORDERED: ONDANSETRON DISINTEGRATING 4 MG TAB PO PRN (05:00)
[2018-10-17] MEDS ORDERED: CITRIC ACID/SODIUM CITRATE 30 ML UDCUP ONE (06:06)
[2018-10-17] MEDS ORDERED: ONDANSETRON DISINTEGRATING 4 MG TAB ONE (06:06)
[2018-10-17] MEDS: LEVOTHYROXINE 75 MCG TAB PO SCH (06:17)
[2018-10-17] MEDS ORDERED: fentaNYL 100 MCG/2 ML INJ ONE (06:42)
[2018-10-17] MEDS ORDERED: GLYCOPYRROLATE 0.2 MG/1 ML VIAL ONE (06:42)
[2018-10-17] MEDS ORDERED: KETAMINE 500 MG/10 ML VIAL ONE (06:43)
--- NOTE | 2018-10-17 07:03 | PDANEPAE ---
ANE Past Medical History - Cardiovascular History Hx Hypertension: Yes Hx Arrhythmias: No Hx Chest Pain: No Hx Coronary Artery / Peripheral Vascular Disease: No Hx CHF / Valvular Disease: No Hx Palpitations: No Cardiovascular History Comment: BORDERLINE BP RECENTLY NO MEDS - Pulmonary History Hx COPD: No Hx Asthma/Reactive Airway Disease: No Hx Recent Upper Respiratory Infection: No Hx Oxygen in Use at Home: No Hx Sleep Apnea: No Pulmonary History Comment: DENIES SOB W STAIRS - Neurologic History Hx Cerebrovascular Accident: No Hx Seizures: No Hx Dementia: No - Endocrine History Hx Diabetes: No Obesity: no Endocrine History Comment: LOW THYROID - Renal History Hx Renal Disorders: Yes Renal History Comment: SOME UA LEAKAGE. FREQUENT UTI'S - Liver History Hx Hepatic Disorders: No - Neurological & Psychiatric Hx Hx Neurological and Psychiatric Disorders: Yes Neurological / Psychiatric History Comment: DEPRESSION. ECT TX - Cancer History Hx Cancer: Yes Cancer History Comment: SKIN - Congenital Disorder History Hx Congenital Disorders: No - GI History Hx Gastrointestinal Disorders: Yes Gastrointestinal History Comment: CHRONIC ANAL FISSURE. CONSTIPATION. PREV FECAL IMPACTION. GLUTEN FREE DIET. ISCHEMIC BOWEL RESULTING IN COLOSTOMY - Other Health History Other Health History: CATARACT FORMING - Chronic Pain History Chronic Pain: No - Surgical History Prior Surgeries: FLEX SIG AT [facility] 05/2017. BACK SURG '81 LUMBAR. DEEPAK '62. HYST '. BLADDER PROLAPSE SURG 2012. BIANCA CATARACT. APPENDECTOMY. COLOSTOMY. half of colon removed 01/2018. reverse ostomy 07/28/18 ANE Review of Systems Review of Systems: ANE Patient History - Allergies Allergies/Adverse Reactions: ephedrine [Ephedrine] Allergy (Severe, Verified 09/26/18 15:18) Vomiting morphine [Morphine] Allergy (Severe, Verified 09/26/18 15:18) Vomiting prednisone [Prednisone] Allergy (Severe, Verified 09/26/18 15:18) Other-Enter Comments prochlorperazine edisylate [From Compazine] Allergy (Verified 09/26/18 15:18) Swelling/neck,face,throat prochlorperazine maleate [From Compazine] Allergy (Verified 09/26/18 15:18) Swelling/neck,face,throat Sulfa (Sulfonamide Antibiotics) Allergy (Verified 09/26/18 15:18) Rash - Home Medications Home Medications: Estradiol [Estradiol 1 MG (*)] 0.5 mg PO HS 01/12/18 [Last Taken 09/25/18] Venlafaxine Xr [Effexor Xr] 150 mg PO DAILY 01/12/18 [Last Taken 09/26/18] Aspirin [Aspirin 81mg (*)] 81 mg PO DAILY 07/25/18 [Last Taken 09/26/18] Cholecalciferol Vit D3 [Vitamin D3 (*)] 1,000 units PO DAILY 07/25/18 [Last Taken 09/26/18] Levothyroxine [Synthroid 50 mcg (*)] 50 mcg PO HS 07/25/18 [Last Taken 09/25/18] Quetiapine Fumarate 75 mg PO HS 07/25/18 [Last Taken 09/25/18] Venlafaxine Xr [Effexor Xr 75MG (*)] 75 mg PO DAILY 07/30/18 [Last Taken ] Acetaminophen [Tylenol ES 500 mg (*)] 500 - 1,000 mg PO Q6 PRN 09/05/18 [Last Taken 09/04/18] amLODIPine BESYLATE [Norvasc 2.5 mg (*)] 2.5 mg PO BID 09/05/18 [Last Taken 04/06 08:00] - NPO status NPO Status: no food or drink >8 hours - Anes Hx Anes Hx: no prior problems - Smoking Hx Smoking Status: Former smoker - Family Anes Hx Family Hx Anesthesia Complications: NONE ANE Labs/Vital Signs - Labs Result Diagrams: 09/26/18 19:37 09/26/18 16:05 - Vital Signs Blood Pressure: 144/80 Heart Rate: 100 Respiratory Rate: 16 O2 Sat (%): 93 Height: 172.72 cm Weight: 64.41 kg ANE Physical Exam - Airway Neck exam: FROM Mallampati Score: Class 3 Mouth exam: normal dental/mouth exam - Pulmonary Pulmonary: no respiratory distress, no rales or rhonchi - Cardiovascular Cardiovascular: regular rate and rhythym, no murmur, rub, or gallop, systolic murmur - ASA Status ASA Status: III ANE Anesthesia Plan Anesthesia Plan: GA with mask
[2018-10-17] MEDS ORDERED: LIDOCAINE 2% 5 ML SDV ONE (07:24)
--- NOTE | 2018-10-17 07:24 | PDECTPN ---
ECT Progress Note Patient Problems: Problems Problem Status Onset Code Paranoia Acute F22 Abdominal pain Acute R10.9 Acute kidney injury Acute N17.9 Colitis Acute K52.9 Constipation by delayed colonic transit Acute K59.01 Depression Acute F32.9 HTN (hypertension) Acute I10 Ileus Acute K56.7 Major depressive disorder, recurrent episode, severe, with psychosis Acute F33.3 Obstipation Acute K59.00 Renal mass Acute N28.89 Date: 10/17/18 ECT provider: Jesus Ayala Anesthesia: Patrice Siu Stimulus dose (%): 80 Pulse width: 0.5 ECT EMG (sec): 28 ECT EEG (sec): 58 ECT treatment type: bilateral QIDS-SR Total Score: 13 QIDS-SR Question #12 Score: 0 MMSE Total Score (Max = 21): 15 Next ECT date: 10/20/18 Home medications: Medication Instructions Recorded Estradiol [Estradiol 1 MG (*)] 0.5 mg PO HS 01/12/18 Venlafaxine Xr [Effexor Xr] 150 mg PO DAILY 01/12/18 Aspirin [Aspirin 81mg (*)] 81 mg PO DAILY 07/25/18 Cholecalciferol Vit D3 [Vitamin D3 1,000 units PO DAILY 07/25/18 (*)] Levothyroxine [Synthroid 50 mcg 50 mcg PO HS 07/25/18 (*)] Quetiapine Fumarate 75 mg PO HS 07/25/18 Venlafaxine Xr [Effexor Xr 75MG 75 mg PO DAILY 07/30/18 (*)] ALPRAZolam [Xanax 0.25 MG (*)] 0.5 mg PO BID PRN tab 08/11/18 Acetaminophen [Tylenol ES 500 mg 500 - 1,000 mg PO Q6 PRN 09/05/18 (*)] amLODIPine BESYLATE [Norvasc 2.5 2.5 mg PO BID 09/05/18 mg (*)] Medication review: completed Current treatment plan: acute phase Treatment plan frequency: 3 times per week ECT narrative: Pt seen for continued acute course treatment. She remains agitated, verbally and physically aggressive, paranoid. She is calmer this morning, but continues to believe we are "messing with her." Continues to struggle to interpret reality. Ate a little yesterday. Overall PO intake remains poor. Disheveled, quiet. Affect is irritable, stable. Mood is "terrible." TP is disorganized. TC reveals paranoid delusions. Underwent bilateral ECT without complication. Perhaps some early change. Will CCM. Await court hearing.
[2018-10-17] MEDS ORDERED: METHOHEXITAL SODIUM 100 MG/10 ML SYR IVP ONE (07:31)
--- NOTE | 2018-10-17 07:48 | POSTANESTH ---
Post Anesthetic Evaluation Cardiovascular Status: Normal, Stable, Similar to Pre-Op Cond Respiratory Status: Normal, Stable, Similar to Pre-op Cond. Level of Consciousness/Mental Status: Unconscious Complications Possibly Related to Anesthesia: None Noted
[2018-10-17] MEDS: ASPIRIN 81 MG CHEWABLE TAB PO SCH (12:01)
[2018-10-17] MEDS: amLODIPine BESYLATE 5 MG TAB PO SCH ×2 (12:01→19:17)
[2018-10-17] MEDS: VENLAFAXINE XR 75 MG CAP PO SCH (12:02)
[2018-10-17] MEDS: VENLAFAXINE XR 150 MG CAP PO SCH (12:02)
[2018-10-17] MEDS: CHOLECALCIFEROL VIT D3 1,000 UNITS TAB PO SCH (12:02)
--- NOTE | 2018-10-17 13:52 | ASMTCMCOM ---
CM Note CM Note Notes: CC checked in with ct. She appears to be doing a little better today. She had ECT in the morning and reported that she realizes that she had been "out of it" for many days. She is concerned about Medicare hospital days and about an increase in rent at her independent living. CC told ct. that Medicare continues to pay for her hospital days which appeared to ease her mind somewhat. Date Signed: 10/17/2018 01:51 PM Electronically Signed By:Jaelyn Kelly
[2018-10-17] MEDS: ESTRADIOL 1 MG TAB PO SCH (19:17)
[2018-10-17] MEDS: QUEtiapine FUMARATE 100 MG TAB PO SCH (19:17)
[2018-10-18] MEDS: LEVOTHYROXINE 75 MCG TAB PO SCH (06:02)
[2018-10-18] MEDS: amLODIPine BESYLATE 5 MG TAB PO SCH ×2 (09:18→20:58)
[2018-10-18] MEDS: ASPIRIN 81 MG CHEWABLE TAB PO SCH (09:19)
[2018-10-18] MEDS: CHOLECALCIFEROL VIT D3 1,000 UNITS TAB PO SCH (09:19)
[2018-10-18] MEDS: VENLAFAXINE XR 75 MG CAP PO SCH (09:19)
[2018-10-18] MEDS: VENLAFAXINE XR 150 MG CAP PO SCH (09:19)
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
[2018-10-18] MEDS: ACETAMINOPHEN 325 MG TAB PO PRN (17:34)
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
[2018-10-18] MEDS: QUEtiapine FUMARATE 100 MG TAB PO SCH (20:59)
[2018-10-18] MEDS: ESTRADIOL 1 MG TAB PO SCH (20:59)
[2018-10-19] MEDS: LEVOTHYROXINE 75 MCG TAB PO SCH (06:32)
[2018-10-19] MEDS: VENLAFAXINE XR 150 MG CAP PO SCH (08:14)
[2018-10-19] MEDS: amLODIPine BESYLATE 5 MG TAB PO SCH ×3 (08:14→21:05)
[2018-10-19] MEDS: VENLAFAXINE XR 75 MG CAP PO SCH (08:14)
[2018-10-19] MEDS: ASPIRIN 81 MG CHEWABLE TAB PO SCH (08:14)
[2018-10-19] MEDS: CHOLECALCIFEROL VIT D3 1,000 UNITS TAB PO SCH (08:14)
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
--- NOTE | 2018-10-19 18:32 | SOAPPROG ---
SOAP Progress Note Assessment/Plan: Assessment: 77 yo with h/o severe depression, w/ psychotic features in past. She has received ECT for depression, and has significant family hx of depression and completed suicides. She was BIB family to ED on 09/26/[address] Ayala's note on 10/17/18: Pt seen for continued acute course treatment. She remains agitated, verbally and physically aggressive, paranoid. She is calmer this morning, but continues to believe we are "messing with her." Continues to struggle to interpret reality. Ate a little yesterday. Overall PO intake remains poor. Disheveled, quiet. Affect is irritable, stable. Mood is "terrible." TP is disorganized. TC reveals paranoid delusions. Underwent bilateral ECT without complication. Perhaps some early change. Will CCM. Await court hearing. WEEKEND PLAN: 10/18/18 19:07 1. Patient has numerous complaints about unit including food, toilet paper and general cleanliness. 2. Patient still refusing all psych meds. 3. Involuntary ECT started on 10/15/18 and 10/17/[address] hearing 10/19/18 18:27 1. Patient much less irritable today. She doesn't remember many of the things she's said and done over past week. She is a little bit shocked by her behavior. 2. Patient still insists Seroquel dose is "too high" and says it gives her diarrhea at that dose. Patient did take her Effexor and other meds this AM. 3. Patient agrees to ECT on Saturday, but has some questions about how long treatment will last. Will defer to Dr. Ayala to address her questions. 4. STC Subjective: Patient less isolative, less hostile and more pleasant today. She is present in milieu. MD met her as she was walking down hong with her walker. Patient had a smile on her face and was cheerful when MD said hi, unlike the last couple of days. Patient took her AM meds without complaint and took shower. Objective: Vital Signs Temp Pulse Resp BP Pulse Ox 37 C 75 16 148/75 H 99 10/19/18 08:00 10/19/18 08:00 10/19/18 08:00 10/19/18 08:00 10/19/18 08:00 10/18/18 10/19/18 10/20/18 05:59 05:59 05:59 Intake Total 1000 Output Total 0 Balance 1000 MSE: Affect: Pleasant and cheerful at times, smiling occasionally Mood: "Good" TP: Linear, more logical TC: Denies any SI/HI, less paranoid, less delusional Insight/Judgment: Improved - Time Spent With Patient Time Spent With Patient: 15" - Pending Discharge Pending Discharge Within 24 Hours: No Pending Discharge Within 48 Hours: No ICD10 Worksheet Patient Problems: Problems Problem Status Onset Paranoia Acute Abdominal pain Acute Acute kidney injury Acute Colitis Acute Constipation by delayed colonic transit Acute Depression Acute HTN (hypertension) Acute Ileus Acute Major depressive disorder, recurrent episode, severe, with psychosis Acute Obstipation Acute Renal mass Acute
[2018-10-19] MEDS: ESTRADIOL 1 MG TAB PO SCH ×2 (20:47→21:05)
[2018-10-19] MEDS: QUEtiapine FUMARATE 100 MG TAB PO SCH ×2 (20:47→21:04)
[2018-10-20] MEDS ORDERED: CITRIC ACID/SODIUM CITRATE 30 ML UDCUP PO PRN (05:00)
[2018-10-20] MEDS ORDERED: NS 1,000 ML IV PRN (05:00)
[2018-10-20] MEDS ORDERED: ONDANSETRON DISINTEGRATING 4 MG TAB PO PRN (05:00)
[2018-10-20] MEDS: amLODIPine BESYLATE 5 MG TAB PO SCH ×3 (05:25→21:50)
[2018-10-20] MEDS: LEVOTHYROXINE 75 MCG TAB PO SCH ×3 (05:25→11:30)
[2018-10-20] MEDS ORDERED: CITRIC ACID/SODIUM CITRATE 30 ML UDCUP ONE (07:18)
[2018-10-20] MEDS ORDERED: ONDANSETRON DISINTEGRATING 4 MG TAB ONE (07:18)
[2018-10-20] MEDS ORDERED: fentaNYL 100 MCG/2 ML INJ ONE (07:58)
[2018-10-20] MEDS ORDERED: LIDOCAINE 2% 5 ML SDV ONE (07:58)
--- NOTE | 2018-10-20 08:06 | PDECTPN ---
ECT Progress Note Patient Problems: Problems Problem Status Onset Code Paranoia Acute F22 Abdominal pain Acute R10.9 Acute kidney injury Acute N17.9 Colitis Acute K52.9 Constipation by delayed colonic transit Acute K59.01 Depression Acute F32.9 HTN (hypertension) Acute I10 Ileus Acute K56.7 Major depressive disorder, recurrent episode, severe, with psychosis Acute F33.3 Obstipation Acute K59.00 Renal mass Acute N28.89 Date: 10/20/18 ECT provider: Jesus Ayala Anesthesia: Joy Gallagher Stimulus dose (%): 85 Pulse width: 0.5 ECT EMG (sec): 21 ECT EEG (sec): 47 ECT treatment type: bilateral QIDS-SR Total Score: 9 QIDS-SR Question #12 Score: 0 MMSE Total Score (Max = 21): 20 Next ECT date: 10/22/18 Home medications: Medication Instructions Recorded Estradiol [Estradiol 1 MG (*)] 0.5 mg PO HS 01/12/18 Venlafaxine Xr [Effexor Xr] 150 mg PO DAILY 01/12/18 Aspirin [Aspirin 81mg (*)] 81 mg PO DAILY 07/25/18 Cholecalciferol Vit D3 [Vitamin D3 1,000 units PO DAILY 07/25/18 (*)] Levothyroxine [Synthroid 50 mcg 50 mcg PO HS 07/25/18 (*)] Quetiapine Fumarate 75 mg PO HS 07/25/18 Venlafaxine Xr [Effexor Xr 75MG 75 mg PO DAILY 07/30/18 (*)] ALPRAZolam [Xanax 0.25 MG (*)] 0.5 mg PO BID PRN tab 08/11/18 Acetaminophen [Tylenol ES 500 mg 500 - 1,000 mg PO Q6 PRN 09/05/18 (*)] amLODIPine BESYLATE [Norvasc 2.5 2.5 mg PO BID 09/05/18 mg (*)] Medication review: completed Current treatment plan: acute phase Treatment plan frequency: 3 times per week ECT narrative: Pt seen for continued acute course treatment. She remains agitated, verbally and physically aggressive, paranoid. She accuses staff of being "fake" per usual. She is more compliant, however. Chart indicates that she was better over the weekend. I communicated several times with her daughter Magy. Disheveled, guarded/suspicious. Affect is irritable, stable. Mood is "terrible." TP is disorganized. TC reveals paranoid delusions. Underwent bilateral ECT without complication. Will CCM. Hope to see benefit this week. Await court hearing.
--- NOTE | 2018-10-20 08:15 | PDANEPAE ---
ECT Pre Anesthetic Evaluation Allergies/Adverse Reactions: ephedrine [Ephedrine] Allergy (Severe, Verified 09/26/18 15:18) Vomiting morphine [Morphine] Allergy (Severe, Verified 09/26/18 15:18) Vomiting prednisone [Prednisone] Allergy (Severe, Verified 09/26/18 15:18) Other-Enter Comments prochlorperazine edisylate [From Compazine] Allergy (Verified 09/26/18 15:18) Swelling/neck,face,throat prochlorperazine maleate [From Compazine] Allergy (Verified 09/26/18 15:18) Swelling/neck,face,throat Sulfa (Sulfonamide Antibiotics) Allergy (Verified 09/26/18 15:18) Rash Patient ID confirmed: Yes H&P reviewed: Yes Pre-anesthetic history reviewed: Yes Heart: regular rate and rhythym, no murmur, rub, or gallop Lungs: no respiratory distress, no rales or rhonchi Mallampati Score: Class 2 ASA Status: III Home Medications: Medication Instructions Recorded Estradiol [Estradiol 1 MG (*)] 0.5 mg PO HS 01/12/18 Venlafaxine Xr [Effexor Xr] 150 mg PO DAILY 01/12/18 Aspirin [Aspirin 81mg (*)] 81 mg PO DAILY 07/25/18 Cholecalciferol Vit D3 [Vitamin D3 1,000 units PO DAILY 07/25/18 (*)] Levothyroxine [Synthroid 50 mcg 50 mcg PO HS 07/25/18 (*)] Quetiapine Fumarate 75 mg PO HS 07/25/18 Venlafaxine Xr [Effexor Xr 75MG 75 mg PO DAILY 07/30/18 (*)] ALPRAZolam [Xanax 0.25 MG (*)] 0.5 mg PO BID PRN tab 08/11/18 Acetaminophen [Tylenol ES 500 mg 500 - 1,000 mg PO Q6 PRN 09/05/18 (*)] amLODIPine BESYLATE [Norvasc 2.5 2.5 mg PO BID 09/05/18 mg (*)] Medication review: completed Patient interviewed: Yes Patient examined: Yes Anesthetic plan discussed with patient: Yes Anesthetic risks discussed with patient: Yes ECT Pre-Anesthetic History - Height & Weight Height: 172.72 cm Weight: 64.41 kg BMI: 21.60 - Anesthesia History Hx Anesthesia Complications (with details): NONE Family Hx Anesthesia Complications: NONE - Medications In the Past 6 Months the Patient Has Taken: Aspirin, Thyroid Medication, Narcotics, Blood Pressure Medication - Tobacco/Alcohol/Drug Use Smoking Status: Former smoker Hx Drug/Substance Abuse: No Alcohol Use: Yes (very occassional) - Prior Surgeries/Hospitalizations Prior Surgeries: FLEX SIG [place] [facility] [place]. BACK SURG LUMBAR. DEEPAK . HYST . BLADDER PROLAPSE SURG 2012. BIANCA CATARACT. APPENDECTOMY. COLOSTOMY. half of colon removed 01/2018. reverse ostomy 07/28/18 Prior Medical Hospitalizations: ICU for one month December-January 2018 r/t colitis - Pulmonary History ECT Hx Asthma: No Hx Abnormal Chest X-Ray: No Hx Oxygen in Use at Home: No - Cardiovascular History Hx Hypertension: Yes Currently Uses Hypertension Medication: Yes Hx Arrhythmias: No Hx Palpitations: No Hx Chest Pain: No Hx Coronary Artery / Peripheral Vascular Disease: No Hx Blood Clot: No - Neurologic History Hx Cerebrovascular Accident: No Hx CT Scan Or MRI Of The Brain: Yes Hx Epilepsy, Convulsions, Seizures, Or Blackouts: No Hx Frequent Or Severe Headaches: Yes Hx Numbness: No Hx Neurologic Disorder: No Neurologic History Comment: Head CT 09/26/18. migraines - Dental History Current Dental Issues: None - Endocrine History Hx Diabetes: No Current Daily Insulin Injections: No Hx Thyroid Problems: Yes Endocrine History Comment: taking levothyroxine - Renal/Urologic History Hx Renal Disorders: Yes Hx Urinary Tract Problems: No Renal/Urologic History Comment: kidney stones - Liver History Hx Hepatic Disorders: No - Cancer History Hx Cancer: Yes Cancer History Comment: basal cell carcinoma - Hematology History Hx Unexplained Bleeding Of Any Type: No Hx Ease Of Bruising: Yes Hx Anemia: No Hematology History Comment: bruising associated with blood draws - Gastrointestinal History Hx Gastroesophogeal Reflux Disease: No Hx Ulcers: No Hx Hiatal Hernia: No Hx Difficulty Swallowing: Yes Gastrointestinal History Comment: difficulty swallowing after intubation - Musculoskeletal Hisory Hx Chronic Pain: Yes Chronic Pain Location: Back, Neck Hx Arthritis: No Musculoskeletal History Comment: back and neck chronic pain not current - Opthalmic History Hx Glaucoma: No Visual Assistive Devices: Glasses Hx Opthalmic Disorders: No - Other Health History Physical Disabililty: Yes (cervical dystonia) Recent Cough, Cold, or Fever: No Significant Weight Loss In The Last 4 Months: No Possible the Patient Might be : No
--- NOTE | 2018-10-20 08:27 | POSTANESTH ---
Post Anesthetic Evaluation Cardiovascular Status: Normal, Stable, Similar to Pre-Op Cond Respiratory Status: Normal, Stable, Similar to Pre-op Cond. Level of Consciousness/Mental Status: Mildly Sleepy, Arousable Pain Control: Adequate, Prn Tx Ordered Nausea/Vomiting Control: Adequate, Prn Tx Ordered Complications Possibly Related to Anesthesia: None Noted
[2018-10-20] MEDS: CHOLECALCIFEROL VIT D3 1,000 UNITS TAB PO SCH (11:29)
[2018-10-20] MEDS: VENLAFAXINE XR 150 MG CAP PO SCH (11:29)
[2018-10-20] MEDS: VENLAFAXINE XR 75 MG CAP PO SCH (11:29)
[2018-10-20] MEDS: ASPIRIN 81 MG CHEWABLE TAB PO SCH (11:44)
--- NOTE | 2018-10-20 15:00 | ASMTCMCOM ---
CM Note CM Note Notes: Client participated in ECT treatment this am. Client was seen walking the halls as well as eating breakfast. Client remains guarded, paranoid, affect is irritable stable. Date Signed: 10/20/2018 02:56 PM Electronically Signed By:Rancho Campos
[2018-10-20] MEDS: ESTRADIOL 1 MG TAB PO SCH (21:50)
[2018-10-20] MEDS: QUEtiapine FUMARATE 100 MG TAB PO SCH (21:51)
[2018-10-21] MEDS: VENLAFAXINE XR 150 MG CAP PO SCH (08:02)
[2018-10-21] MEDS: amLODIPine BESYLATE 5 MG TAB PO SCH ×3 (08:03→20:58)
[2018-10-21] MEDS: CHOLECALCIFEROL VIT D3 1,000 UNITS TAB PO SCH (08:03)
[2018-10-21] MEDS: LEVOTHYROXINE 75 MCG TAB PO SCH (08:03)
[2018-10-21] MEDS: ASPIRIN 81 MG CHEWABLE TAB PO SCH (08:03)
[2018-10-21] MEDS: VENLAFAXINE XR 75 MG CAP PO SCH (08:03)
--- NOTE | 2018-10-21 11:25 | SOAPPROG ---
SOAP Progress Note Assessment/Plan: Assessment: Plan: 09/29/18 16:27 Mood: stable. Cognition is good. No notable psychosis. No observed confusion. Will CCM, await word from Dr. Bhatti. 09/30/18 16:25 Mood: Perhaps worse today. Will increase SQL to 100mg, monitor. 10/01/18 15:31 Mood: Clearly declining. I agree with Dr. Bhatti that most definitive intervention at this time is ECT. Will discuss with patient and her daughter tomorrow. 10/02/18 16:19 Mood: Continued decline. Will begin ECT tomorrow. 10/06/18 09:38 Mood: More paranoid. Refusing ECT due to delusions. Will increase SQL to 200mg to address psychosis. Will continue to encourage patient to do ECT. If no success, will petition court for involuntary treatment. 10/06/18 12:53 Mood: Remains paranoid. Indicator of declining mood. Will plan to treat on Saturday. 10/07/18 13:52 Mood: Remains severely depressed with psychosis. Will offer ECT again tomorrow and petition court for involuntary treatment. 10/09/18 15:12 Mood: No lasting change after first ECT. Hope to continue acute course. 10/16/18 13:48 Mood: Remains quite ill. Will continue involuntary ECT on an emergency basis. Await scheduling of hearing. 10/21/18 11:25 Mood: Gradual improvement. CCM. Subjective: Pt seen, discussed with staff, interviewed in Treatment Team meeting. Present much better today. Dressed neatly. Up on unit, walking halls with walker. Agreed to come into meeting, but then began to scan room and accuse people of staring at her or giving her "dirty looks." Attempted to discuss treatment plan , but she insists she is receiving fake ECT, "They just give me an injection and then wake me back up. I am not getting real ECT." More compliant with care. Took all morning meds today except Norvasc. Objective: Vital Signs Temp Pulse Resp BP Pulse Ox 36.8 C 57 L 14 138/81 H 96 10/21/18 06:00 10/21/18 06:00 10/21/18 06:00 10/21/18 06:00 10/21/18 06:00 10/20/18 10/21/18 10/22/18 05:59 05:59 05:59 Intake Total 1150 Balance 1150 MSE: Guarded, moderately anxious. Affect is restricted, stable, hostile at times. Mood is "bad." TP is disorganized. TC reveals continued paranoia. A& Ox3. - Time Spent With Patient Time Spent With Patient: 25" ICD10 Worksheet Patient Problems: Problems Problem Status Onset Paranoia Acute Abdominal pain Acute Acute kidney injury Acute Colitis Acute Constipation by delayed colonic transit Acute Depression Acute HTN (hypertension) Acute Ileus Acute Major depressive disorder, recurrent episode, severe, with psychosis Acute Obstipation Acute Renal mass Acute
--- NOTE | 2018-10-21 13:43 | ASMTCMCOM ---
CM Note CM Note Notes: Client participated in treatment team today. Client remains disorganized, paranoid, irritable and rude towards others. Additionally, client continues to have no insight towards her mental health needs. 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 Provider to continue ECT course. Date Signed: 10/21/2018 01:42 PM Electronically Signed By:Rancho Campos
[2018-10-21] MEDS: ESTRADIOL 1 MG TAB PO SCH (20:59)
[2018-10-21] MEDS: QUEtiapine FUMARATE 100 MG TAB PO SCH (20:59)
[2018-10-22] MEDS ORDERED: NS 1,000 ML IV PRN (05:00)
[2018-10-22] MEDS ORDERED: CITRIC ACID/SODIUM CITRATE 30 ML UDCUP PO PRN (05:00)
[2018-10-22] MEDS ORDERED: ONDANSETRON DISINTEGRATING 4 MG TAB PO PRN (05:00)
[2018-10-22] MEDS: ACETAMINOPHEN 325 MG TAB PO PRN (05:05)
[2018-10-22] MEDS ORDERED: CITRIC ACID/SODIUM CITRATE 30 ML UDCUP ONE (06:28)
[2018-10-22] MEDS ORDERED: ONDANSETRON DISINTEGRATING 4 MG TAB ONE (06:28)
[2018-10-22] MEDS ORDERED: fentaNYL 100 MCG/2 ML INJ ONE (07:11)
[2018-10-22] MEDS ORDERED: GLYCOPYRROLATE 0.2 MG/1 ML VIAL ONE (07:11)
[2018-10-22] MEDS ORDERED: METHOHEXITAL SODIUM 100 MG/10 ML SYR IVP ONE (07:11)
[2018-10-22] MEDS ORDERED: ROCURONIUM 50 MG/5 ML VIAL ONE (07:12)
[2018-10-22] MEDS ORDERED: SUCCINYLCHOLINE CHLORIDE 200 MG/10 ML VIAL ONE (07:12)
[2018-10-22] MEDS ORDERED: PROPOFOL 200 MG/20 ML VIAL ONE (07:12)
[2018-10-22] MEDS ORDERED: ONDANSETRON 4 MG/2 ML VIAL ONE (07:13)
[2018-10-22] MEDS ORDERED: LIDOCAINE 2% 5 ML SDV ONE (07:14)
--- NOTE | 2018-10-22 07:27 | PDECTPN ---
ECT Progress Note Patient Problems: Problems Problem Status Onset Code Paranoia Acute F22 Abdominal pain Acute R10.9 Acute kidney injury Acute N17.9 Colitis Acute K52.9 Constipation by delayed colonic transit Acute K59.01 Depression Acute F32.9 HTN (hypertension) Acute I10 Ileus Acute K56.7 Major depressive disorder, recurrent episode, severe, with psychosis Acute F33.3 Obstipation Acute K59.00 Renal mass Acute N28.89 Date: 10/22/18 ECT provider: Jesus Ayala Anesthesia: Joy Gallagher Stimulus dose (%): 90 Pulse width: 0.5 ECT EMG (sec): 20 ECT EEG (sec): 42 ECT treatment type: bilateral QIDS-SR Total Score: 9 QIDS-SR Question #12 Score: 0 MMSE Total Score (Max = 21): 20 Next ECT date: 10/24/18 Home medications: Medication Instructions Recorded Estradiol [Estradiol 1 MG (*)] 0.5 mg PO HS 01/12/18 Venlafaxine Xr [Effexor Xr] 150 mg PO DAILY 01/12/18 Aspirin [Aspirin 81mg (*)] 81 mg PO DAILY 07/25/18 Cholecalciferol Vit D3 [Vitamin D3 1,000 units PO DAILY 07/25/18 (*)] Levothyroxine [Synthroid 50 mcg 50 mcg PO HS 07/25/18 (*)] Quetiapine Fumarate 75 mg PO HS 07/25/18 Venlafaxine Xr [Effexor Xr 75MG 75 mg PO DAILY 07/30/18 (*)] ALPRAZolam [Xanax 0.25 MG (*)] 0.5 mg PO BID PRN tab 08/11/18 Acetaminophen [Tylenol ES 500 mg 500 - 1,000 mg PO Q6 PRN 09/05/18 (*)] amLODIPine BESYLATE [Norvasc 2.5 2.5 mg PO BID 09/05/18 mg (*)] Medication review: completed Current treatment plan: acute phase Treatment plan frequency: 3 times per week ECT narrative: Pt seen for continued acute course treatment. She remains agitated, though improving. Less aggressive, though still hostile. Compliant with treatment today. Continues to believe it is "fake" and we are not really doing ECT, just sedating her and then waking her up. Disheveled, guarded/suspicious. Affect is irritable, stable. Mood is "terrible." TP is disorganized. TC reveals paranoid delusions. Underwent bilateral ECT without complication. Will CCM.
--- NOTE | 2018-10-22 07:42 | PDANEPAE ---
ECT Pre Anesthetic Evaluation Allergies/Adverse Reactions: ephedrine [Ephedrine] Allergy (Severe, Verified 09/26/18 15:18) Vomiting morphine [Morphine] Allergy (Severe, Verified 09/26/18 15:18) Vomiting prednisone [Prednisone] Allergy (Severe, Verified 09/26/18 15:18) Other-Enter Comments prochlorperazine edisylate [From Compazine] Allergy (Verified 09/26/18 15:18) Swelling/neck,face,throat prochlorperazine maleate [From Compazine] Allergy (Verified 09/26/18 15:18) Swelling/neck,face,throat Sulfa (Sulfonamide Antibiotics) Allergy (Verified 09/26/18 15:18) Rash Patient ID confirmed: Yes H&P reviewed: Yes Pre-anesthetic history reviewed: Yes Heart: regular rate and rhythym, no murmur, rub, or gallop Lungs: no respiratory distress, no rales or rhonchi, clear to auscultation Mallampati Score: Class 2 ASA Status: III Home Medications: Medication Instructions Recorded Estradiol [Estradiol 1 MG (*)] 0.5 mg PO HS 01/12/18 Venlafaxine Xr [Effexor Xr] 150 mg PO DAILY 01/12/18 Aspirin [Aspirin 81mg (*)] 81 mg PO DAILY 07/25/18 Cholecalciferol Vit D3 [Vitamin D3 1,000 units PO DAILY 07/25/18 (*)] Levothyroxine [Synthroid 50 mcg 50 mcg PO HS 07/25/18 (*)] Quetiapine Fumarate 75 mg PO HS 07/25/18 Venlafaxine Xr [Effexor Xr 75MG 75 mg PO DAILY 07/30/18 (*)] ALPRAZolam [Xanax 0.25 MG (*)] 0.5 mg PO BID PRN tab 08/11/18 Acetaminophen [Tylenol ES 500 mg 500 - 1,000 mg PO Q6 PRN 09/05/18 (*)] amLODIPine BESYLATE [Norvasc 2.5 2.5 mg PO BID 09/05/18 mg (*)] Medication review: completed Patient interviewed: Yes Patient examined: Yes Anesthetic plan discussed with patient: Yes Anesthetic risks discussed with patient: Yes ECT Pre-Anesthetic History - Height & Weight Height: 172.72 cm Weight: 64.41 kg BMI: 21.60 - Anesthesia History Hx Anesthesia Complications (with details): NONE Family Hx Anesthesia Complications: NONE - Medications In the Past 6 Months the Patient Has Taken: Aspirin, Thyroid Medication, Narcotics, Blood Pressure Medication - Tobacco/Alcohol/Drug Use Smoking Status: Former smoker Hx Drug/Substance Abuse: No Alcohol Use: Yes (very occassional) - Prior Surgeries/Hospitalizations Prior Surgeries: [place] [facility] [place] SURG LUMBAR. DEEPAK . HYST . BLADDER PROLAPSE SURG 2012. BIANCA CATARACT. APPENDECTOMY. COLOSTOMY. half of colon removed 01/2018. reverse ostomy 07/28/18 Prior Medical Hospitalizations: ICU for one month December-January 2018 r/t colitis - Pulmonary History ECT Hx Asthma: No Hx Abnormal Chest X-Ray: No Hx Oxygen in Use at Home: No - Cardiovascular History Hx Hypertension: Yes Currently Uses Hypertension Medication: Yes Hx Arrhythmias: No Hx Palpitations: No Hx Chest Pain: No Hx Coronary Artery / Peripheral Vascular Disease: No Hx Blood Clot: No - Neurologic History Hx Cerebrovascular Accident: No Hx CT Scan Or MRI Of The Brain: Yes Hx Epilepsy, Convulsions, Seizures, Or Blackouts: No Hx Frequent Or Severe Headaches: Yes Hx Numbness: No Hx Neurologic Disorder: No Neurologic History Comment: Head CT 09/26/18. migraines - Dental History Current Dental Issues: None - Endocrine History Hx Diabetes: No Current Daily Insulin Injections: No Hx Thyroid Problems: Yes Endocrine History Comment: taking levothyroxine - Renal/Urologic History Hx Renal Disorders: Yes Hx Urinary Tract Problems: No Renal/Urologic History Comment: kidney stones - Liver History Hx Hepatic Disorders: No - Cancer History Hx Cancer: Yes Cancer History Comment: basal cell carcinoma - Hematology History Hx Unexplained Bleeding Of Any Type: No Hx Ease Of Bruising: Yes Hx Anemia: No Hematology History Comment: bruising associated with blood draws - Gastrointestinal History Hx Gastroesophogeal Reflux Disease: No Hx Ulcers: No Hx Hiatal Hernia: No Hx Difficulty Swallowing: Yes Gastrointestinal History Comment: difficulty swallowing after intubation - Musculoskeletal Hisory Hx Chronic Pain: Yes Chronic Pain Location: Back, Neck Hx Arthritis: No Musculoskeletal History Comment: back and neck chronic pain not current - Opthalmic History Hx Glaucoma: No Visual Assistive Devices: Glasses Hx Opthalmic Disorders: No - Other Health History Physical Disabililty: Yes (cervical dystonia) Recent Cough, Cold, or Fever: No Significant Weight Loss In The Last 4 Months: No Possible the Patient Might be : No
[2018-10-22] MEDS: CHOLECALCIFEROL VIT D3 1,000 UNITS TAB PO SCH (08:39)
[2018-10-22] MEDS: VENLAFAXINE XR 150 MG CAP PO SCH (08:39)
[2018-10-22] MEDS: ASPIRIN 81 MG CHEWABLE TAB PO SCH (08:39)
[2018-10-22] MEDS: VENLAFAXINE XR 75 MG CAP PO SCH (08:39)
[2018-10-22] MEDS: amLODIPine BESYLATE 5 MG TAB PO SCH ×2 (08:40→20:08)
[2018-10-22] MEDS: LEVOTHYROXINE 75 MCG TAB PO SCH (08:41)
[2018-10-22] MEDS: POLYETHYLENE GLYCOL 3350 17 GM PKT PO PRN (16:59)
[2018-10-22] MEDS: ESTRADIOL 1 MG TAB PO SCH (20:08)
[2018-10-22] MEDS: QUEtiapine FUMARATE 100 MG TAB PO SCH (20:09)
[2018-10-23] MEDS: VENLAFAXINE XR 150 MG CAP PO SCH (08:29)
[2018-10-23] MEDS: CHOLECALCIFEROL VIT D3 1,000 UNITS TAB PO SCH (08:29)
[2018-10-23] MEDS: ASPIRIN 81 MG CHEWABLE TAB PO SCH (08:29)
[2018-10-23] MEDS: VENLAFAXINE XR 75 MG CAP PO SCH (08:30)
[2018-10-23] MEDS: amLODIPine BESYLATE 5 MG TAB PO SCH ×2 (08:30→21:06)
[2018-10-23] MEDS: LEVOTHYROXINE 75 MCG TAB PO SCH (10:00)
--- NOTE | 2018-10-23 12:17 | SOAPPROG ---
SOAP Progress Note Assessment/Plan: Assessment: Plan: 09/29/18 16:27 Mood: stable. Cognition is good. No notable psychosis. No observed confusion. Will CCM, await word from Dr. Bhatti. 09/30/18 16:25 Mood: Perhaps worse today. Will increase SQL to 100mg, monitor. 10/01/18 15:31 Mood: Clearly declining. I agree with Dr. Bhatti that most definitive intervention at this time is ECT. Will discuss with patient and her daughter tomorrow. 10/02/18 16:19 Mood: Continued decline. Will begin ECT tomorrow. 10/06/18 09:38 Mood: More paranoid. Refusing ECT due to delusions. Will increase SQL to 200mg to address psychosis. Will continue to encourage patient to do ECT. If no success, will petition court for involuntary treatment. 10/06/18 12:53 Mood: Remains paranoid. Indicator of declining mood. Will plan to treat on Saturday. 10/07/18 13:52 Mood: Remains severely depressed with psychosis. Will offer ECT again tomorrow and petition court for involuntary treatment. 10/09/18 15:12 Mood: No lasting change after first ECT. Hope to continue acute course. 10/16/18 13:48 Mood: Remains quite ill. Will continue involuntary ECT on an emergency basis. Await scheduling of hearing. 10/21/18 11:25 Mood: Gradual improvement. CCM. 10/23/18 12:20 Mood: Continued gradual improvement. CCM. Subjective: Pt seen, discussed with staff. Remains irritable and paranoid. Less hostile, however. Continues to believe the treatments are fake, but willing "to play along with your stupid game." Compliant with a.m. meds, but not SQL. Eating and drinking adequately now. Objective: Vital Signs Temp Pulse Resp BP Pulse Ox 36.9 C 61 16 134/59 H 98 10/23/18 00:30 10/23/18 00:30 10/23/18 00:30 10/23/18 00:30 10/23/18 00:30 10/22/18 10/23/18 10/24/18 05:59 05:59 05:59 Intake Total 950 Balance 950 MSE: Calmer, less hostile. Affect is restricted, lee. Mood is "bad." TP remains disorganized, but linear at times. TC reveals continued paranoia. - Time Spent With Patient Time Spent With Patient: 15" ICD10 Worksheet Patient Problems: Problems Problem Status Onset Paranoia Acute Abdominal pain Acute Acute kidney injury Acute Colitis Acute Constipation by delayed colonic transit Acute Depression Acute HTN (hypertension) Acute Ileus Acute Major depressive disorder, recurrent episode, severe, with psychosis Acute Obstipation Acute Renal mass Acute
--- NOTE | 2018-10-23 13:30 | ASMTCMCOM ---
CM Note CM Note Notes: Client remains disorganized at times, paranoid at times, irritable and rude towards others (at times). However, is starting to receive positive effects from ECT treatment. Additionally, client continues to have no insight towards her mental health needs. 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 Provider to continue ECT course. Date Signed: 10/23/2018 01:29 PM Electronically Signed By:Rancho Campos
[2018-10-23] MEDS: QUEtiapine FUMARATE 100 MG TAB PO SCH (21:07)
[2018-10-23] MEDS: ESTRADIOL 1 MG TAB PO SCH (21:07)
[2018-10-24] MEDS ORDERED: THEOPHYLLINE ORAL SOLUTION 80 MG/15 ML UDCUP PO ONE (05:00)
[2018-10-24] MEDS ORDERED: CITRIC ACID/SODIUM CITRATE 30 ML UDCUP PO PRN (05:00)
[2018-10-24] MEDS ORDERED: ONDANSETRON DISINTEGRATING 4 MG TAB PO PRN (05:00)
[2018-10-24] MEDS ORDERED: NS 1,000 ML IV PRN (05:00)
[2018-10-24] MEDS: amLODIPine BESYLATE 5 MG TAB PO SCH ×2 (05:37→20:06)
[2018-10-24] MEDS ORDERED: CITRIC ACID/SODIUM CITRATE 30 ML UDCUP ONE (06:17)
[2018-10-24] MEDS ORDERED: ONDANSETRON DISINTEGRATING 4 MG TAB ONE (06:17)
[2018-10-24] MEDS ORDERED: fentaNYL 100 MCG/2 ML INJ ONE (07:09)
[2018-10-24] MEDS ORDERED: ROCURONIUM 50 MG/5 ML VIAL ONE (07:10)
[2018-10-24] MEDS ORDERED: METHOHEXITAL SODIUM 500 MG/50 ML MDV ONE (07:10)
[2018-10-24] MEDS ORDERED: GLYCOPYRROLATE 0.2 MG/1 ML VIAL ONE (07:10)
[2018-10-24] MEDS ORDERED: SUCCINYLCHOLINE CHLORIDE 200 MG/10 ML VIAL ONE (07:11)
[2018-10-24] MEDS ORDERED: ONDANSETRON 4 MG/2 ML VIAL ONE (07:11)
[2018-10-24] MEDS ORDERED: PROPOFOL 200 MG/20 ML VIAL ONE (07:11)
[2018-10-24] MEDS ORDERED: LIDOCAINE 2% 5 ML SDV ONE (07:12)
--- NOTE | 2018-10-24 07:20 | PDECTPN ---
ECT Progress Note Patient Problems: Problems Problem Status Onset Code Paranoia Acute F22 Abdominal pain Acute R10.9 Acute kidney injury Acute N17.9 Colitis Acute K52.9 Constipation by delayed colonic transit Acute K59.01 Depression Acute F32.9 HTN (hypertension) Acute I10 Ileus Acute K56.7 Major depressive disorder, recurrent episode, severe, with psychosis Acute F33.3 Obstipation Acute K59.00 Renal mass Acute N28.89 Date: 10/24/18 ECT provider: Jesus Ayala Anesthesia: Joy Gallagher Stimulus dose (%): 90 Pulse width: 0.5 ECT EMG (sec): 25 ECT EEG (sec): 76 ECT treatment type: bilateral QIDS-SR Total Score: 9 QIDS-SR Question #12 Score: 0 MMSE Total Score (Max = 21): 20 Next ECT date: 10/27/18 Home medications: Medication Instructions Recorded Estradiol [Estradiol 1 MG (*)] 0.5 mg PO HS 01/12/18 Venlafaxine Xr [Effexor Xr] 150 mg PO DAILY 01/12/18 Aspirin [Aspirin 81mg (*)] 81 mg PO DAILY 07/25/18 Cholecalciferol Vit D3 [Vitamin D3 1,000 units PO DAILY 07/25/18 (*)] Levothyroxine [Synthroid 50 mcg 50 mcg PO HS 07/25/18 (*)] Quetiapine Fumarate 75 mg PO HS 07/25/18 Venlafaxine Xr [Effexor Xr 75MG 75 mg PO DAILY 07/30/18 (*)] ALPRAZolam [Xanax 0.25 MG (*)] 0.5 mg PO BID PRN tab 08/11/18 Acetaminophen [Tylenol ES 500 mg 500 - 1,000 mg PO Q6 PRN 09/05/18 (*)] amLODIPine BESYLATE [Norvasc 2.5 2.5 mg PO BID 09/05/18 mg (*)] Medication review: completed Current treatment plan: acute phase Treatment plan frequency: 3 times per week ECT narrative: Pt seen for continued acute course treatment. She is irritable this morning. Refused to complete self-assessments. Angry about the toilet in her room. O/w cooperative. Disheveled, guarded/suspicious. Affect is irritable, stable. Mood is "terrible." TP is disorganized. TC reveals paranoid delusions. Underwent bilateral ECT without complication. Will CCM.
--- NOTE | 2018-10-24 07:37 | PDANEPAE ---
ECT Pre Anesthetic Evaluation Allergies/Adverse Reactions: ephedrine [Ephedrine] Allergy (Severe, Verified 09/26/18 15:18) Vomiting morphine [Morphine] Allergy (Severe, Verified 09/26/18 15:18) Vomiting prednisone [Prednisone] Allergy (Severe, Verified 09/26/18 15:18) Other-Enter Comments prochlorperazine edisylate [From Compazine] Allergy (Verified 09/26/18 15:18) Swelling/neck,face,throat prochlorperazine maleate [From Compazine] Allergy (Verified 09/26/18 15:18) Swelling/neck,face,throat Sulfa (Sulfonamide Antibiotics) Allergy (Verified 09/26/18 15:18) Rash Patient ID confirmed: Yes H&P reviewed: Yes Pre-anesthetic history reviewed: Yes Heart: regular rate and rhythym, no murmur, rub, or gallop Lungs: no respiratory distress, no rales or rhonchi Mallampati Score: Class 2 ASA Status: II Home Medications: Medication Instructions Recorded Estradiol [Estradiol 1 MG (*)] 0.5 mg PO HS 01/12/18 Venlafaxine Xr [Effexor Xr] 150 mg PO DAILY 01/12/18 Aspirin [Aspirin 81mg (*)] 81 mg PO DAILY 07/25/18 Cholecalciferol Vit D3 [Vitamin D3 1,000 units PO DAILY 07/25/18 (*)] Levothyroxine [Synthroid 50 mcg 50 mcg PO HS 07/25/18 (*)] Quetiapine Fumarate 75 mg PO HS 07/25/18 Venlafaxine Xr [Effexor Xr 75MG 75 mg PO DAILY 07/30/18 (*)] ALPRAZolam [Xanax 0.25 MG (*)] 0.5 mg PO BID PRN tab 08/11/18 Acetaminophen [Tylenol ES 500 mg 500 - 1,000 mg PO Q6 PRN 09/05/18 (*)] amLODIPine BESYLATE [Norvasc 2.5 2.5 mg PO BID 09/05/18 mg (*)] Medication review: completed Patient interviewed: Yes Patient examined: Yes Anesthetic plan discussed with patient: Yes Anesthetic risks discussed with patient: Yes ECT Pre-Anesthetic History - Height & Weight Height: 172.72 cm Weight: 64.41 kg BMI: 21.60 - Anesthesia History Hx Anesthesia Complications (with details): NONE Family Hx Anesthesia Complications: NONE - Medications In the Past 6 Months the Patient Has Taken: Aspirin, Thyroid Medication, Narcotics, Blood Pressure Medication - Tobacco/Alcohol/Drug Use Smoking Status: Former smoker Hx Drug/Substance Abuse: No Alcohol Use: Yes (very occassional) - Prior Surgeries/Hospitalizations Prior [place]: [place] [facility] [place]G LUMBAR. DEEPAK . HYST . BLADDER PROLAPSE SURG 2012. BIANCA CATARACT. APPENDECTOMY. COLOSTOMY. half of colon removed 01/2018. reverse ostomy 07/28/18 Prior Medical Hospitalizations: ICU for one month December-January 2018 r/t colitis - Pulmonary History ECT Hx Asthma: No Hx Abnormal Chest X-Ray: No Hx Oxygen in Use at Home: No - Cardiovascular History Hx Hypertension: Yes Currently Uses Hypertension Medication: Yes Hx Arrhythmias: No Hx Palpitations: No Hx Chest Pain: No Hx Coronary Artery / Peripheral Vascular Disease: No Hx Blood Clot: No - Neurologic History Hx Cerebrovascular Accident: No Hx CT Scan Or MRI Of The Brain: Yes Hx Epilepsy, Convulsions, Seizures, Or Blackouts: No Hx Frequent Or Severe Headaches: Yes Hx Numbness: No Hx Neurologic Disorder: No Neurologic History Comment: Head CT 09/26/18. migraines - Dental History Current Dental Issues: None - Endocrine History Hx Diabetes: No Current Daily Insulin Injections: No Hx Thyroid Problems: Yes Endocrine History Comment: taking levothyroxine - Renal/Urologic History Hx Renal Disorders: Yes Hx Urinary Tract Problems: No Renal/Urologic History Comment: kidney stones - Liver History Hx Hepatic Disorders: No - Cancer History Hx Cancer: Yes Cancer History Comment: basal cell carcinoma - Hematology History Hx Unexplained Bleeding Of Any Type: No Hx Ease Of Bruising: Yes Hx Anemia: No Hematology History Comment: bruising associated with blood draws - Gastrointestinal History Hx Gastroesophogeal Reflux Disease: No Hx Ulcers: No Hx Hiatal Hernia: No Hx Difficulty Swallowing: Yes Gastrointestinal History Comment: difficulty swallowing after intubation - Musculoskeletal Hisory Hx Chronic Pain: Yes Chronic Pain Location: Back, Neck Hx Arthritis: No Musculoskeletal History Comment: back and neck chronic pain not current - Opthalmic History Hx Glaucoma: No Visual Assistive Devices: Glasses Hx Opthalmic Disorders: No - Other Health History Physical Disabililty: Yes (cervical dystonia) Recent Cough, Cold, or Fever: No Significant Weight Loss In The Last 4 Months: No Possible the Patient Might be : No
[2018-10-24] MEDS: CHOLECALCIFEROL VIT D3 1,000 UNITS TAB PO SCH (11:11)
[2018-10-24] MEDS: VENLAFAXINE XR 75 MG CAP PO SCH (11:11)
[2018-10-24] MEDS: ASPIRIN 81 MG CHEWABLE TAB PO SCH (11:11)
[2018-10-24] MEDS: VENLAFAXINE XR 150 MG CAP PO SCH (11:11)
[2018-10-24] MEDS: LEVOTHYROXINE 75 MCG TAB PO SCH (11:12)
--- NOTE | 2018-10-24 14:49 | ASMTCMCOM ---
CM Note CM Note Notes: Pt. was laying in bed when CC approached. Pt. reports feeling "fine". Pt. stated she slept "fine". Pt. stated she "didn't get ECT, just an injection". Pt. reports continuing to not have enough food options while in the hospital. Pt. reports no issues with her current medications. Pt. stated she "elected not to go" to groups, adding she "didn't see anyone else going". CC began to ask pt about SI, HI, AVH and paranoia, to which pt. stated "don't bother". Pt. presents as alert, irritated, lacking eye contact, grumpy, dismissive, and not very cooperative. Pt. is scheduled for ECT on Saturday. Date Signed: 10/24/2018 02:48 PM Electronically Signed By:Ginny Pichardo
[2018-10-24] MEDS: ESTRADIOL 1 MG TAB PO SCH (20:06)
[2018-10-24] MEDS: QUEtiapine FUMARATE 100 MG TAB PO SCH (20:06)
[2018-10-25] MEDS: ASPIRIN 81 MG CHEWABLE TAB PO SCH (08:22)
[2018-10-25] MEDS: VENLAFAXINE XR 150 MG CAP PO SCH (08:22)
[2018-10-25] MEDS: CHOLECALCIFEROL VIT D3 1,000 UNITS TAB PO SCH (08:22)
[2018-10-25] MEDS: VENLAFAXINE XR 75 MG CAP PO SCH (08:22)
[2018-10-25] MEDS: amLODIPine BESYLATE 5 MG TAB PO SCH ×2 (08:23→21:42)
[2018-10-25] MEDS: LEVOTHYROXINE 75 MCG TAB PO SCH (08:24)
--- NOTE | 2018-10-25 14:26 | ASMTCMCOM ---
CM Note CM Note Notes: Pt. reports feeling "fine". Pt. stated she "slept fine". Pt. reports attending some groups. Pt. stated "not very tasty, but edible" about the food she is getting. Pt. reports "haven't been taking" when CC asked about her medication. Staff report pt. refusing her HS medications. Pt. reports "blood pressure medication...it's under control". Pt. stated she did not speak with the MD yesterday about her treatment plan. Pt. reports she is not getting ECT, rather "just get an injection in my arm". Pt. reports ECT is "not as advertised". Pt. denied SI, HI, AVH and paranoia. Pt. presents as alert, irritated, glaring or rolling her eyes, in need of a shower, and somewhat cooperative. Staff report pt. sleeping 8 hours and refusing her HS medications. Pt. is scheduled for ECT on Saturday10/27/18 Date Signed: 10/25/2018 02:25 PM Electronically Signed By:Ginny Pichardo
--- NOTE | 2018-10-25 14:34 | ASMTBHFAM ---
Notes Note: Notes: CC spoke with Juanis TORREZ ([phone]). WOC reports pt. having "addiction issues throughout his life". WOC expressed concern about pt's trauma history and that being the reason why pt drinks. WOC stated drinking is the pt's coping skill over the last couple of years. WOC stated pt needs to "figure out how to cope with trauma". CC provided WOC with IOP referrals. WOC stated she is working on scheduling pt with a new therapist who specializes in trauma. WOC stated she is able to pick pt up around 3:30 or 4pm today. Date Signed: 10/25/2018 02:33 PM Electronically Signed By:Ginny Pichardo
--- NOTE | 2018-10-25 17:46 | SOAPPROG ---
SOAP Progress Note Assessment/Plan: Assessment: 77 yo with h/o severe depression, w/ psychotic features in past. She has received ECT for depression, and has significant family hx of depression and completed suicides. She was BIB family to ED on 09/26/[address] Ayala's note on 10/24/18: Pt seen for continued acute course treatment. She is irritable this morning. Refused to complete self-assessments. Angry about the toilet in her room. O/w cooperative. Disheveled, guarded/suspicious. Affect is irritable, stable. Mood is "terrible." TP is disorganized. TC reveals paranoid delusions. Underwent bilateral ECT without complication. Will CCM. WEEKEND PLAN: 10/25/18 17:[address] order for involuntary ECT. 2. Patient eating and drinking adequately now. 3. Patient remains paranoid and delusional (doesn't think ECT is "real"). 4. Refused Norvasc, Estradiol and Seroquel. Still taking Effexor. 5. Next ECT on Saturday. Subjective: Patient less irritable and confrontational than last weekend. However, she is still paranoid and delusional. She insists she isn't receiving ECT. She thinks she's only getting an IV "injection." She refused all meds except Effexor last night and this AM. Objective: Vital Signs Temp Pulse Resp BP Pulse Ox 36.7 C 87 16 128/83 H 96 10/25/18 07:28 10/25/18 07:28 10/25/18 07:28 10/25/18 07:28 10/25/18 07:28 10/24/18 10/25/18 10/26/18 05:59 05:59 06:59 Intake Total 925 Output Total 0 Balance 925 MSE: Affect: Uncooperative, but less irritable Mood: No response TP: Disorganized, illogical TC: Denies SI/HI, still paranoid and delusional Insight/Judgment: Impaired - Time Spent With Patient Time Spent With Patient: 15" - Pending Discharge Pending Discharge Within 24 Hours: No Pending Discharge Within 48 Hours: No ICD10 Worksheet Patient Problems: Problems Problem Status Onset Paranoia Acute Abdominal pain Acute Acute kidney injury Acute Colitis Acute Constipation by delayed colonic transit Acute Depression Acute HTN (hypertension) Acute Ileus Acute Major depressive disorder, recurrent episode, severe, with psychosis Acute Obstipation Acute Renal mass Acute
[2018-10-25] MEDS: QUEtiapine FUMARATE 100 MG TAB PO SCH (21:43)
[2018-10-25] MEDS: ESTRADIOL 1 MG TAB PO SCH (21:43)
[2018-10-26] MEDS: CHOLECALCIFEROL VIT D3 1,000 UNITS TAB PO SCH (08:58)
[2018-10-26] MEDS: amLODIPine BESYLATE 5 MG TAB PO SCH ×2 (08:58→21:26)
[2018-10-26] MEDS: ASPIRIN 81 MG CHEWABLE TAB PO SCH (08:59)
[2018-10-26] MEDS: LEVOTHYROXINE 75 MCG TAB PO SCH (08:59)
[2018-10-26] MEDS: VENLAFAXINE XR 75 MG CAP PO SCH (09:00)
[2018-10-26] MEDS: VENLAFAXINE XR 150 MG CAP PO SCH (09:00)
--- NOTE | 2018-10-26 10:17 | ASMTCMCOM ---
CM Note CM Note Notes: Please disregard previous "Family Meeting Note" was written on 10/25/18 @ 14:33. This note was written on the wrong patient. Date Signed: 10/26/2018 10:16 AM Electronically Signed By:Ginny Pichardo
--- NOTE | 2018-10-26 14:47 | ASMTCMCOM ---
CM Note CM Note Notes: Pt. reports feeling "alright". Pt. stated she slept "good". Pt. reports being hungry for breakfast. Pt. stated she has not yet taken her medication this morning, Staff report pt. taking her medication later on. Pt. reports attending groups. Pt. stated she would "like to get out of here", adding it "wasn't fun staying over the weekend". Pt. stated she missed her grandson's birthday last weekend. Pt. denied SI. Pt. stated she is having trouble with the phones, stated she "couldn't get through" to her family. CC offered to help pt. at the next phone time. Pt. presents as alert, calm, annoyed but polite, fair eye contact, and cooperative. Staff report pt. sleeping 8 hours and being medication compliant Pt. is scheduled for ECT on Saturday at 7:30am. Date Signed: 10/26/2018 02:46 PM Electronically Signed By:Ginny Pichardo
--- NOTE | 2018-10-26 16:24 | SOAPPROG ---
SOAP Progress Note Assessment/Plan: Assessment: 77 yo with h/o severe depression, w/ psychotic features in past. She has received ECT for depression, and has significant family hx of depression and completed suicides. She was BIB family to ED on 09/26/[address] Ayala's note on 10/24/18: Pt seen for continued acute course treatment. She is irritable this morning. Refused to complete self-assessments. Angry about the toilet in her room. O/w cooperative. Disheveled, guarded/suspicious. Affect is irritable, stable. Mood is "terrible." TP is disorganized. TC reveals paranoid delusions. Underwent bilateral ECT without complication. Will CCM. WEEKEND PLAN: 10/25/18 17:[address] order for involuntary ECT. 2. Patient eating and drinking adequately now. 3. Patient remains paranoid and delusional (doesn't think ECT is "real"). 4. Refused Norvasc, Estradiol and Seroquel. Still taking Effexor. 5. Next ECT on Saturday. 10/26/18 16:20 1. Patient spent time on phone with her daughter and boyfriend. This seemed to put her in better mood. 2. Patient ate 100% of breakfast and has been drinking plenty of fluids. 3. Patient took all AM meds except for Norvasc. 4. Next ECT on Saturday. Subjective: Patient was in less irritable mood today after talking to her daughter on phone. She also talked to her boyfriend, Portillo, who lives at her assisted care facility. There has been an improvement in her PO intake. She is eating more of her meals and drinking more fluids. However, her BP remains low. She is still refusing Norvasc d/t low BP. Patient expressed some regret about missing her grandson's birthday this week. Objective: Vital Signs Temp Pulse Resp BP Pulse Ox 37.2 C 64 16 132/59 H 97 10/26/18 08:00 10/26/18 08:00 10/26/18 08:00 10/26/18 08:58 10/26/18 08:00 10/25/18 10/26/18 10/27/18 04:59 05:59 05:59 Intake Total Output Total Balance MSE: Affect: Less irritable, but still easily frustrated at times Mood: "OK" TP: More coherent and logical TC: Denies any SI/HI, less paranoid Insight/ Judgment: Poor - Time Spent With Patient Time Spent With Patient: 15" - Pending Discharge Pending Discharge Within 24 Hours: No Pending Discharge Within 48 Hours: No ICD10 Worksheet Patient Problems: Problems Problem Status Onset Paranoia Acute Abdominal pain Acute Acute kidney injury Acute Colitis Acute Constipation by delayed colonic transit Acute Depression Acute HTN (hypertension) Acute Ileus Acute Major depressive disorder, recurrent episode, severe, with psychosis Acute Obstipation Acute Renal mass Acute
[2018-10-26] MEDS: ESTRADIOL 1 MG TAB PO SCH ×2 (21:28→21:36)
[2018-10-26] MEDS: QUEtiapine FUMARATE 100 MG TAB PO SCH ×2 (21:31→21:37)
[2018-10-27] MEDS ORDERED: ONDANSETRON DISINTEGRATING 4 MG TAB PO PRN (05:00)
[2018-10-27] MEDS ORDERED: CITRIC ACID/SODIUM CITRATE 30 ML UDCUP PO PRN (05:00)
[2018-10-27] MEDS ORDERED: THEOPHYLLINE ORAL SOLUTION 80 MG/15 ML UDCUP PO ONE (05:00)
[2018-10-27] MEDS ORDERED: NS 1,000 ML IV PRN (05:00)
[2018-10-27] MEDS: amLODIPine BESYLATE 5 MG TAB PO SCH ×2 (05:35→21:49)
[2018-10-27] MEDS ORDERED: METHOHEXITAL SODIUM 100 MG/10 ML SYR IVP ONE (06:43)
[2018-10-27] MEDS ORDERED: fentaNYL 100 MCG/2 ML INJ ONE (06:43)
[2018-10-27] MEDS ORDERED: CITRIC ACID/SODIUM CITRATE 30 ML UDCUP ONE (07:44)
[2018-10-27] MEDS ORDERED: ONDANSETRON DISINTEGRATING 4 MG TAB ONE (07:44)
--- NOTE | 2018-10-27 08:08 | POSTANESTH ---
Post Anesthetic Evaluation Cardiovascular Status: Normal, Stable Respiratory Status: Normal, Stable Level of Consciousness/Mental Status: Can Participate in Eval, Mildly Sleepy, Arousable Pain Control: Adequate, Prn Tx Ordered Nausea/Vomiting Control: Adequate, Prn Tx Ordered Complications Possibly Related to Anesthesia: Other, See Comments Notes: Pt reporting slight TYSON, and sl nausea, though eating crackers at this time.
--- NOTE | 2018-10-27 08:10 | PDANEPAE ---
ECT Pre Anesthetic Evaluation Allergies/Adverse Reactions: ephedrine [Ephedrine] Allergy (Severe, Verified 09/26/18 15:18) Vomiting morphine [Morphine] Allergy (Severe, Verified 09/26/18 15:18) Vomiting prednisone [Prednisone] Allergy (Severe, Verified 09/26/18 15:18) Other-Enter Comments prochlorperazine edisylate [From Compazine] Allergy (Verified 09/26/18 15:18) Swelling/neck,face,throat prochlorperazine maleate [From Compazine] Allergy (Verified 09/26/18 15:18) Swelling/neck,face,throat Sulfa (Sulfonamide Antibiotics) Allergy (Verified 09/26/18 15:18) Rash Patient ID confirmed: Yes H&P reviewed: Yes Pre-anesthetic history reviewed: Yes Heart: regular rate and rhythym Lungs: clear to auscultation Mallampati Score: Class 2 ASA Status: II Home Medications: Medication Instructions Recorded Estradiol [Estradiol 1 MG (*)] 0.5 mg PO HS 01/12/18 Venlafaxine Xr [Effexor Xr] 150 mg PO DAILY 01/12/18 Aspirin [Aspirin 81mg (*)] 81 mg PO DAILY 07/25/18 Cholecalciferol Vit D3 [Vitamin D3 1,000 units PO DAILY 07/25/18 (*)] Levothyroxine [Synthroid 50 mcg 50 mcg PO HS 07/25/18 (*)] Quetiapine Fumarate 75 mg PO HS 07/25/18 Venlafaxine Xr [Effexor Xr 75MG 75 mg PO DAILY 07/30/18 (*)] ALPRAZolam [Xanax 0.25 MG (*)] 0.5 mg PO BID PRN tab 08/11/18 Acetaminophen [Tylenol ES 500 mg 500 - 1,000 mg PO Q6 PRN 09/05/18 (*)] amLODIPine BESYLATE [Norvasc 2.5 2.5 mg PO BID 09/05/18 mg (*)] Medication review: completed Patient interviewed: Yes Patient examined: Yes See previous record: Yes Anesthetic plan discussed with patient: Yes Anesthetic risks discussed with patient: Yes ECT Pre-Anesthetic History - Height & Weight Height: 172.72 cm Weight: 64.41 kg BMI: 21.60 - Anesthesia History Hx Anesthesia Complications (with details): NONE Family Hx Anesthesia Complications: NONE - Medications In the Past 6 Months the Patient Has Taken: Aspirin, Thyroid Medication, Narcotics, Blood Pressure Medication - Tobacco/Alcohol/Drug Use Smoking Status: Former smoker Hx Drug/Substance Abuse: No Alcohol Use: Yes (very occassional) - Prior Surgeries/Hospitalizations Prior Surgeries: FLEX SIG AT [facility] – [place]2017. BACK SURG 81 LUMBAR. DEEPAK . HYST . BLADDER PROLAPSE SURG 2012. BIANCA CATARACT. APPENDECTOMY. COLOSTOMY. half of colon removed 01/2018. reverse ostomy 07/28/18 Prior Medical Hospitalizations: ICU for one month December-January 2018 r/t colitis - Pulmonary History ECT Hx Asthma: No Hx Abnormal Chest X-Ray: No Hx Oxygen in Use at Home: No - Cardiovascular History Hx Hypertension: Yes Currently Uses Hypertension Medication: Yes Hx Arrhythmias: No Hx Palpitations: No Hx Chest Pain: No Hx Coronary Artery / Peripheral Vascular Disease: No Hx Blood Clot: No - Neurologic History Hx Cerebrovascular Accident: No Hx CT Scan Or MRI Of The Brain: Yes Hx Epilepsy, Convulsions, Seizures, Or Blackouts: No Hx Frequent Or Severe Headaches: Yes Hx Numbness: No Hx Neurologic Disorder: No Neurologic History Comment: Head CT 09/26/18. migraines - Dental History Current Dental Issues: None - Endocrine History Hx Diabetes: No Current Daily Insulin Injections: No Hx Thyroid Problems: Yes Endocrine History Comment: taking levothyroxine - Renal/Urologic History Hx Renal Disorders: Yes Hx Urinary Tract Problems: No Renal/Urologic History Comment: kidney stones - Liver History Hx Hepatic Disorders: No - Cancer History Hx Cancer: Yes Cancer History Comment: basal cell carcinoma - Hematology History Hx Unexplained Bleeding Of Any Type: No Hx Ease Of Bruising: Yes Hx Anemia: No Hematology History Comment: bruising associated with blood draws - Gastrointestinal History Hx Gastroesophogeal Reflux Disease: No Hx Ulcers: No Hx Hiatal Hernia: No Hx Difficulty Swallowing: Yes Gastrointestinal History Comment: difficulty swallowing after intubation - Musculoskeletal Hisory Hx Chronic Pain: Yes Chronic Pain Location: Back, Neck Hx Arthritis: No Musculoskeletal History Comment: back and neck chronic pain not current - Opthalmic History Hx Glaucoma: No Visual Assistive Devices: Glasses Hx Opthalmic Disorders: No - Other Health History Physical Disabililty: Yes (cervical dystonia) Recent Cough, Cold, or Fever: No Significant Weight Loss In The Last 4 Months: No Possible the Patient Might be : No
--- NOTE | 2018-10-27 08:20 | PDECTPN ---
ECT Progress Note Patient Problems: Problems Problem Status Onset Code Paranoia Acute F22 Abdominal pain Acute R10.9 Acute kidney injury Acute N17.9 Colitis Acute K52.9 Constipation by delayed colonic transit Acute K59.01 Depression Acute F32.9 HTN (hypertension) Acute I10 Ileus Acute K56.7 Major depressive disorder, recurrent episode, severe, with psychosis Acute F33.3 Obstipation Acute K59.00 Renal mass Acute N28.89 Date: 10/27/18 ECT provider: Jesus Ayala Anesthesia: Sangita Mcrae Stimulus dose (%): 90 Pulse width: 0.5 ECT EMG (sec): 27 ECT EEG (sec): 44 ECT treatment type: bilateral QIDS-SR Total Score: 13 QIDS-SR Question #12 Score: 0 MMSE Total Score (Max = 21): 20 Next ECT date: 10/29/18 Home medications: Medication Instructions Recorded Estradiol [Estradiol 1 MG (*)] 0.5 mg PO HS 01/12/18 Venlafaxine Xr [Effexor Xr] 150 mg PO DAILY 01/12/18 Aspirin [Aspirin 81mg (*)] 81 mg PO DAILY 07/25/18 Cholecalciferol Vit D3 [Vitamin D3 1,000 units PO DAILY 07/25/18 (*)] Levothyroxine [Synthroid 50 mcg 50 mcg PO HS 07/25/18 (*)] Quetiapine Fumarate 75 mg PO HS 07/25/18 Venlafaxine Xr [Effexor Xr 75MG 75 mg PO DAILY 07/30/18 (*)] ALPRAZolam [Xanax 0.25 MG (*)] 0.5 mg PO BID PRN tab 08/11/18 Acetaminophen [Tylenol ES 500 mg 500 - 1,000 mg PO Q6 PRN 09/05/18 (*)] amLODIPine BESYLATE [Norvasc 2.5 2.5 mg PO BID 09/05/18 mg (*)] Medication review: completed Current treatment plan: acute phase Treatment plan frequency: 3 times per week ECT narrative: Pt seen for continued acute course treatment. She is less irritable this morning. Cooperative with assessments and interventions. Better groomed, guarded/suspicious, though generally cooperative. Affect is irritable, stable. Mood is "just ducky." TP is disorganized. TC reveals paranoid delusions. Underwent bilateral ECT without complication. Will [facility].
[2018-10-27] MEDS: CHOLECALCIFEROL VIT D3 1,000 UNITS TAB PO SCH (12:11)
[2018-10-27] MEDS: VENLAFAXINE XR 75 MG CAP PO SCH (12:11)
[2018-10-27] MEDS: ASPIRIN 81 MG CHEWABLE TAB PO SCH (12:12)
[2018-10-27] MEDS: VENLAFAXINE XR 150 MG CAP PO SCH (12:12)
[2018-10-27] MEDS: LEVOTHYROXINE 75 MCG TAB PO SCH (13:03)
--- NOTE | 2018-10-27 14:14 | ASMTCMCOM ---
CM Note CM Note Notes: Client continues to receive ECT treatment, with positive effects starting to form. Client remains somewhat isolative today, after ECT; she could be resting from the treatment, etc. Client remains mostly calm and pleasant today. Client is to continue her ECT course, etc. Date Signed: 10/27/2018 02:13 PM Electronically Signed By:Rancho Campos
[2018-10-27] MEDS: ESTRADIOL 1 MG TAB PO SCH (21:50)
[2018-10-27] MEDS: QUEtiapine FUMARATE 100 MG TAB PO SCH (22:21)
[2018-10-28] MEDS: VENLAFAXINE XR 150 MG CAP PO SCH (08:08)
[2018-10-28] MEDS: ASPIRIN 81 MG CHEWABLE TAB PO SCH (08:08)
[2018-10-28] MEDS: amLODIPine BESYLATE 5 MG TAB PO SCH ×2 (08:08→21:05)
[2018-10-28] MEDS: LEVOTHYROXINE 75 MCG TAB PO SCH (08:08)
[2018-10-28] MEDS: CHOLECALCIFEROL VIT D3 1,000 UNITS TAB PO SCH (08:08)
[2018-10-28] MEDS: VENLAFAXINE XR 75 MG CAP PO SCH (08:09)
--- NOTE | 2018-10-28 14:05 | SOAPPROG ---
SOAP Progress Note Assessment/Plan: Assessment: Plan: 09/29/18 16:27 Mood: stable. Cognition is good. No notable psychosis. No observed confusion. Will [facility], await word from Dr. Bhatti. 09/30/18 16:25 Mood: Perhaps worse today. Will increase SQL to 100mg, monitor. 10/01/18 15:31 Mood: Clearly declining. I agree with Dr. Bhatti that most definitive intervention at this time is ECT. Will discuss with patient and her daughter tomorrow. 10/02/18 16:19 Mood: Continued decline. Will begin ECT tomorrow. 10/06/18 09:38 Mood: More paranoid. Refusing ECT due to delusions. Will increase SQL to 200mg to address psychosis. Will continue to encourage patient to do ECT. If no success, will petition court for involuntary treatment. 10/06/18 12:53 Mood: Remains paranoid. Indicator of declining mood. Will plan to treat on Saturday. 10/07/18 13:52 Mood: Remains severely depressed with psychosis. Will offer ECT again tomorrow and petition court for involuntary treatment. 10/09/18 15:12 Mood: No lasting change after first ECT. Hope to continue acute course. 10/16/18 13:48 Mood: Remains quite ill. Will continue involuntary ECT on an emergency basis. Await scheduling of hearing. 10/21/18 11:25 Mood: Gradual improvement. CCM. 10/23/18 12:20 Mood: Continued gradual improvement. [facility]. 10/28/18 14:06 Mood: Continued improvement. [facility]. Hope to see pt begin to take SQL. Subjective: Pt seen, discussed with staff. Reports feeling "how do you think?" Continues to gradually improve. Psychosis persists. Continues to refuse Seroquel based on the delusional belief it causes diarrhea. Cognition is stable. Tolerating ECT well. Compliant with the majority of other meds now. Objective: Vital Signs Temp Pulse Resp BP Pulse Ox 36.6 C 57 L 16 126/58 H 96 10/27/18 10:35 10/28/18 08:00 10/28/18 08:00 10/28/18 08:00 10/27/18 12:10 10/27/18 10/28/18 10/29/18 05:59 05:59 05:59 Intake Total 1000 Balance 1000 MSE: Calmer, guarded, hostile at times. Affect is restricted, stable. Mood is not stated. TP is linear for brief periods, then tangential. TC reveals continued paranoid delusions and IOR's. - Time Spent With Patient Time Spent With Patient: 15" ICD10 Worksheet Patient Problems: Problems Problem Status Onset Paranoia Acute Abdominal pain Acute Acute kidney injury Acute Colitis Acute Constipation by delayed colonic transit Acute Depression Acute HTN (hypertension) Acute Ileus Acute Major depressive disorder, recurrent episode, severe, with psychosis Acute Obstipation Acute Renal mass Acute
[2018-10-28] MEDS: ESTRADIOL 1 MG TAB PO SCH (21:05)
[2018-10-28] MEDS: QUEtiapine FUMARATE 100 MG TAB PO SCH (21:05)
[2018-10-29] MEDS ORDERED: THEOPHYLLINE ORAL SOLUTION 80 MG/15 ML UDCUP PO ONE (05:00)
[2018-10-29] MEDS ORDERED: ONDANSETRON DISINTEGRATING 4 MG TAB PO PRN (05:00)
[2018-10-29] MEDS ORDERED: NS 1,000 ML IV PRN (05:00)
[2018-10-29] MEDS ORDERED: CITRIC ACID/SODIUM CITRATE 30 ML UDCUP PO PRN (05:00)
--- NOTE | 2018-10-29 07:01 | POSTANESTH ---
Post Anesthetic Evaluation Cardiovascular Status: Normal, Stable Respiratory Status: Normal, Stable Level of Consciousness/Mental Status: Can Participate in Eval, Mildly Sleepy, Arousable Pain Control: Adequate, Prn Tx Ordered Notes: Pt has a chronic issue with nausea, currently reports mild nausea, which is typical for her.
--- NOTE | 2018-10-29 07:02 | PDHPUP ---
History & Physical Update H&P update statement: This history and physical update is based on an assessment of the patient which was completed after admission or registration (within 24 hours), but prior to the surgery/procedure. H&P update: H&P reviewed & patient examined, changes noted (See pre-ECT anes form for any changes since last treatment.)
[2018-10-29] MEDS ORDERED: fentaNYL 100 MCG/2 ML INJ ONE (07:03)
[2018-10-29] MEDS ORDERED: GLYCOPYRROLATE 0.2 MG/1 ML VIAL ONE (07:03)
[2018-10-29] MEDS ORDERED: KETOROLAC 30 MG/1 ML SDV ONE (07:04)
[2018-10-29] MEDS ORDERED: ONDANSETRON 4 MG/2 ML VIAL ONE ×2 (07:04)
[2018-10-29] MEDS ORDERED: PROPOFOL 200 MG/20 ML VIAL ONE (07:04)
[2018-10-29] MEDS ORDERED: ROCURONIUM 50 MG/5 ML VIAL ONE (07:04)
[2018-10-29] MEDS ORDERED: METHOHEXITAL SODIUM 100 MG/10 ML SYR IVP ONE (07:05)
[2018-10-29] MEDS ORDERED: SUCCINYLCHOLINE CHLORIDE 200 MG/10 ML VIAL ONE (07:05)
[2018-10-29] MEDS ORDERED: CITRIC ACID/SODIUM CITRATE 30 ML UDCUP ONE (07:09)
[2018-10-29] MEDS ORDERED: ONDANSETRON DISINTEGRATING 4 MG TAB ONE (07:09)
[2018-10-29] MEDS ORDERED: ACETAMINOPHEN 325 MG TAB ONE (07:18)
[2018-10-29] MEDS: ACETAMINOPHEN 325 MG TAB PO PRN (07:22)
--- NOTE | 2018-10-29 07:36 | PDECTIHP ---
ECT Interval H&P Patient Problems: Problems Problem Status Onset Code Paranoia Acute F22 Abdominal pain Acute R10.9 Acute kidney injury Acute N17.9 Colitis Acute K52.9 Constipation by delayed colonic transit Acute K59.01 Depression Acute F32.9 HTN (hypertension) Acute I10 Ileus Acute K56.7 Major depressive disorder, recurrent episode, severe, with psychosis Acute F33.3 Obstipation Acute K59.00 Renal mass Acute N28.89 Chief complaint: Patient wishes to continue ECT and requires a medical status update to do so. General health: In collaboration with Anesthesiology, potential benefits of treatment outweigh risk. Focused physical exam including relevant body area/organ sys: alert & oriented, moves all extremities, no progressively increasing headaches, no ataxia, no evidence of delirium, no focal sensory deficits, no focal weakness, speech normal
--- NOTE | 2018-10-29 07:43 | PDECTPN ---
ECT Progress Note Patient Problems: Problems Problem Status Onset Code Paranoia Acute F22 Abdominal pain Acute R10.9 Acute kidney injury Acute N17.9 Colitis Acute K52.9 Constipation by delayed colonic transit Acute K59.01 Depression Acute F32.9 HTN (hypertension) Acute I10 Ileus Acute K56.7 Major depressive disorder, recurrent episode, severe, with psychosis Acute F33.3 Obstipation Acute K59.00 Renal mass Acute N28.89 Date: 10/29/18 ECT provider: Jesus Ayala Anesthesia: Sangita Mcrae Stimulus dose (%): 100 Pulse width: 0.5 ECT EMG (sec): 21 ECT EEG (sec): 44 ECT treatment type: bilateral QIDS-SR Total Score: 13 QIDS-SR Question #12 Score: 0 MMSE Total Score (Max = 21): 20 Next ECT date: 10/31/18 Home medications: Medication Instructions Recorded Estradiol [Estradiol 1 MG (*)] 0.5 mg PO HS 01/12/18 Venlafaxine Xr [Effexor Xr] 150 mg PO DAILY 01/12/18 Aspirin [Aspirin 81mg (*)] 81 mg PO DAILY 07/25/18 Cholecalciferol Vit D3 [Vitamin D3 1,000 units PO DAILY 07/25/18 (*)] Levothyroxine [Synthroid 50 mcg 50 mcg PO HS 07/25/18 (*)] Quetiapine Fumarate 75 mg PO HS 07/25/18 Venlafaxine Xr [Effexor Xr 75MG 75 mg PO DAILY 07/30/18 (*)] ALPRAZolam [Xanax 0.25 MG (*)] 0.5 mg PO BID PRN tab 08/11/18 Acetaminophen [Tylenol ES 500 mg 500 - 1,000 mg PO Q6 PRN 09/05/18 (*)] amLODIPine BESYLATE [Norvasc 2.5 2.5 mg PO BID 09/05/18 mg (*)] Medication review: completed Current treatment plan: acute phase Treatment plan frequency: 3 times per week ECT narrative: Pt seen for continued acute course treatment. She is more interactive this morning. Able to discuss treatment, d/c plan. States, "I'm ready to go home." Does not mention fear of being evicted from her apartment. Refused assessments, though cooperative with interventions. Better groomed, guarded/suspicious, though generally cooperative. Affect is irritable, stable. Mood is "better." TP is disorganized. TC reveals paranoid delusions. Underwent bilateral ECT without complication. Will CCM.
[2018-10-29] MEDS: VENLAFAXINE XR 75 MG CAP PO SCH (08:52)
[2018-10-29] MEDS: amLODIPine BESYLATE 5 MG TAB PO SCH ×2 (08:52→21:25)
[2018-10-29] MEDS: LEVOTHYROXINE 75 MCG TAB PO SCH (08:52)
[2018-10-29] MEDS: ASPIRIN 81 MG CHEWABLE TAB PO SCH (08:52)
[2018-10-29] MEDS: CHOLECALCIFEROL VIT D3 1,000 UNITS TAB PO SCH (08:52)
[2018-10-29] MEDS: VENLAFAXINE XR 150 MG CAP PO SCH (08:53)
[2018-10-29] MEDS: ESTRADIOL 1 MG TAB PO SCH (21:15)
[2018-10-29] MEDS: QUEtiapine FUMARATE 100 MG TAB PO SCH (21:27)
[2018-10-30] MEDS: amLODIPine BESYLATE 5 MG TAB PO SCH ×2 (08:49→20:54)
[2018-10-30] MEDS: ASPIRIN 81 MG CHEWABLE TAB PO SCH (08:49)
[2018-10-30] MEDS: VENLAFAXINE XR 75 MG CAP PO SCH (08:51)
[2018-10-30] MEDS: CHOLECALCIFEROL VIT D3 1,000 UNITS TAB PO SCH (08:51)
[2018-10-30] MEDS: VENLAFAXINE XR 150 MG CAP PO SCH (08:51)
[2018-10-30] MEDS: LEVOTHYROXINE 75 MCG TAB PO SCH (10:30)
--- NOTE | 2018-10-30 13:40 | ASMTCMCOM ---
CM Note CM Note Notes: CC checked in with ct. who said that she is "fine". When CC commented that ct. looks better then last time CC has seen her ct. smiled. She did not want to engage in further conversation. Date Signed: 10/30/2018 01:39 PM Electronically Signed By:Jaelyn Kelly
--- NOTE | 2018-10-30 14:24 | SOAPPROG ---
SOAP Progress Note Assessment/Plan: Assessment: Plan: 09/29/18 16:27 Mood: stable. Cognition is good. No notable psychosis. No observed confusion. Will [facility]CM, await word from Dr. Bhatti. 09/30/18 16:25 Mood: Perhaps worse today. Will increase SQL to 100mg, monitor. 10/01/18 15:31 Mood: Clearly declining. I agree with Dr. Bhatti that most definitive intervention at this time is ECT. Will discuss with patient and her daughter tomorrow. 10/02/18 16:19 Mood: Continued decline. Will begin ECT tomorrow. 10/06/18 09:38 Mood: More paranoid. Refusing ECT due to delusions. Will increase SQL to 200mg to address psychosis. Will continue to encourage patient to do ECT. If no success, will petition court for involuntary treatment. 10/06/18 12:53 Mood: Remains paranoid. Indicator of declining mood. Will plan to treat on Saturday. 10/07/18 13:52 Mood: Remains severely depressed with psychosis. Will offer ECT again tomorrow and petition court for involuntary treatment. 10/09/18 15:12 Mood: No lasting change after first ECT. Hope to continue acute course. 10/16/18 13:48 Mood: Remains quite ill. Will continue involuntary ECT on an emergency basis. Await scheduling of hearing. 10/21/18 11:25 Mood: Gradual improvement. CCM. 10/23/18 12:20 Mood: Continued gradual improvement. CCM. 10/28/18 14:06 Mood: Continued improvement. [facility]. Hope to see pt begin to take SQL. 10/30/18 14:24 Mood: Doing very well. Psychosis improving. [facility]. Subjective: Pt seen, discussed with staff. Reports being tired today after taking Seroquel last night. Lying in bed, but not sleeping. Pleasantly interactive with me. States she is ready to go home. Agreeable to continuing ECT for now. No recent behavioral issues. Objective: Vital Signs Temp Pulse Resp BP Pulse Ox 36.7 C 72 14 111/53 L 92 10/30/18 13:56 10/30/18 13:56 10/30/18 13:56 10/30/18 13:56 10/30/18 13:56 10/29/18 10/30/18 10/31/18 05:59 05:59 05:59 Intake Total 550 Output Total 0 Balance 550 MSE: Calm, coop. Affect is restricted, stable, approp. Mood is "OK." TP is linear. TC reveals no mention of delusions. A&Ox4, sensorium is clear. Cognition is good. - Time Spent With Patient Time Spent With Patient: 15" ICD10 Worksheet Patient Problems: Problems Problem Status Onset Paranoia Acute Abdominal pain Acute Acute kidney injury Acute Colitis Acute Constipation by delayed colonic transit Acute Depression Acute HTN (hypertension) Acute Ileus Acute Major depressive disorder, recurrent episode, severe, with psychosis Acute Obstipation Acute Renal mass Acute
[2018-10-30] MEDS: ESTRADIOL 1 MG TAB PO SCH (20:13)
[2018-10-30] MEDS: QUEtiapine FUMARATE 100 MG TAB PO SCH (20:56)
[2018-10-31] MEDS ORDERED: THEOPHYLLINE ORAL SOLUTION 80 MG/15 ML UDCUP PO ONE (05:00)
[2018-10-31] MEDS ORDERED: ONDANSETRON DISINTEGRATING 4 MG TAB PO PRN (05:00)
[2018-10-31] MEDS ORDERED: fentaNYL 100 MCG/2 ML INJ ONE (06:26)
[2018-10-31] MEDS ORDERED: METHOHEXITAL SODIUM 100 MG/10 ML SYR IVP ONE (06:27)
[2018-10-31] MEDS ORDERED: ONDANSETRON DISINTEGRATING 4 MG TAB ONE ×2 (07:04→09:22)
[2018-10-31] MEDS ORDERED: CITRIC ACID/SODIUM CITRATE 30 ML UDCUP ONE (07:04)
[2018-10-31] MEDS: amLODIPine BESYLATE 5 MG TAB PO SCH ×2 (07:48→21:37)
--- NOTE | 2018-10-31 08:32 | POSTANESTH ---
Post Anesthetic Evaluation Cardiovascular Status: Normal, Stable Respiratory Status: Normal, Stable Level of Consciousness/Mental Status: Can Participate in Eval, Mildly Sleepy, Arousable Pain Control: Adequate, Prn Tx Ordered Nausea/Vomiting Control: Inadeq, Add Tx Reqired (Pt reported mild nausea. Pt given additional Zofran for a total of 12 mg. Repeat EKG showed no change of borderline prolonged QTc.) Complications Possibly Related to Anesthesia: None Noted
--- NOTE | 2018-10-31 08:36 | PDECTPN ---
ECT Progress Note Patient Problems: Problems Problem Status Onset Code Paranoia Acute F22 Abdominal pain Acute R10.9 Acute kidney injury Acute N17.9 Colitis Acute K52.9 Constipation by delayed colonic transit Acute K59.01 Depression Acute F32.9 HTN (hypertension) Acute I10 Ileus Acute K56.7 Major depressive disorder, recurrent episode, severe, with psychosis Acute F33.3 Obstipation Acute K59.00 Renal mass Acute N28.89 Date: 10/31/18 ECT provider: Jesus Ayala Anesthesia: Sangita Mcrae Stimulus dose (%): 100 Pulse width: 0.5 ECT EMG (sec): 21 ECT EEG (sec): 38 ECT treatment type: bilateral QIDS-SR Total Score: 9 QIDS-SR Question #12 Score: 0 MMSE Total Score (Max = 21): 19 Next ECT date: 11/03/18 Home medications: Medication Instructions Recorded Estradiol [Estradiol 1 MG (*)] 0.5 mg PO HS 01/12/18 Venlafaxine Xr [Effexor Xr] 150 mg PO DAILY 01/12/18 Aspirin [Aspirin 81mg (*)] 81 mg PO DAILY 07/25/18 Cholecalciferol Vit D3 [Vitamin D3 1,000 units PO DAILY 07/25/18 (*)] Levothyroxine [Synthroid 50 mcg 50 mcg PO HS 07/25/18 (*)] Quetiapine Fumarate 75 mg PO HS 07/25/18 Venlafaxine Xr [Effexor Xr 75MG 75 mg PO DAILY 07/30/18 (*)] ALPRAZolam [Xanax 0.25 MG (*)] 0.5 mg PO BID PRN tab 08/11/18 Acetaminophen [Tylenol ES 500 mg 500 - 1,000 mg PO Q6 PRN 09/05/18 (*)] amLODIPine BESYLATE [Norvasc 2.5 2.5 mg PO BID 09/05/18 mg (*)] Current treatment plan: acute phase Treatment plan frequency: 3 times per week ECT narrative: Pt seen for continued acute course treatment. She is appropriately interactive. Convinced she is leaving tomorrow. Paranoia is better. Calmer, less irritable. Compliant with meds. Better groomed, guarded/suspicious, generally cooperative. Affect is irritable , stable. Mood is "better." TP is disorganized. TC reveals paranoid delusions. Underwent bilateral ECT without complication. Will CCM.
[2018-10-31] MEDS: ASPIRIN 81 MG CHEWABLE TAB PO SCH (12:43)
[2018-10-31] MEDS: CHOLECALCIFEROL VIT D3 1,000 UNITS TAB PO SCH (12:43)
[2018-10-31] MEDS: VENLAFAXINE XR 150 MG CAP PO SCH (12:44)
[2018-10-31] MEDS: LEVOTHYROXINE 75 MCG TAB PO SCH (12:44)
[2018-10-31] MEDS: VENLAFAXINE XR 75 MG CAP PO SCH (12:44)
--- NOTE | 2018-10-31 14:58 | ASMTCMCOM ---
CM Note CM Note Notes: Pt. reports "doing okay". Pt. stated she is "looking forward to going home". Pt. stated she had ECT today and reports no issues from ECT. Pt. reports she is discharging tomorrow and her daughter will pick her up. Pt. reports sleeping fine and getting enough to eat. Pt. reports attending some groups. Pt. reports her room being a "little chilly". CC informed pt. she will be discharging next week, not this week. Pt. stated "that's not fair". Pt. reports if she has to be in the hospital longer she "will get really depressed". Pt. stated she no longer wants to be in the hospital. Pt. presents as alert, calm for the most part, good eye contact, unkempt, and mostly cooperative. Staff report pt. sleeping 8 hours and being medication compliant. Per provider, pt. will be on the unit until the end of next week. CC to schedule follow up appointments next week for pt. Date Signed: 10/31/2018 02:57 PM Electronically Signed By:Ginny Pichardo
[2018-10-31] MEDS: ESTRADIOL 1 MG TAB PO SCH (21:14)
[2018-10-31] MEDS: QUEtiapine FUMARATE 100 MG TAB PO SCH (21:36)
[2018-11-01] MEDS: VENLAFAXINE XR 75 MG CAP PO SCH (08:42)
[2018-11-01] MEDS: amLODIPine BESYLATE 5 MG TAB PO SCH ×2 (08:42→22:04)
[2018-11-01] MEDS: CHOLECALCIFEROL VIT D3 1,000 UNITS TAB PO SCH (08:42)
[2018-11-01] MEDS: ASPIRIN 81 MG CHEWABLE TAB PO SCH (08:42)
[2018-11-01] MEDS: VENLAFAXINE XR 150 MG CAP PO SCH (08:42)
[2018-11-01] MEDS: LEVOTHYROXINE 75 MCG TAB PO SCH (10:18)
--- NOTE | 2018-11-01 14:35 | ASMTCMCOM ---
CM Note CM Note Notes: Pt. reports feeling "alright". Pt. stated she slept "good". Pt. reports having no issues. Pt. reports attending groups. Pt. stated she is having no issues from her medications. Pt. denied SI, HI, AVH and paranoia. Pt. presents as alert, annoyed, fair eye contact, unkempt, irritated, and somewhat cooperative. Staff report pt. sleeping 6 hours and refusing her Estradiol last evening. Pt. is scheduled for ECT on Saturday11/03/18 Date Signed: 11/01/2018 02:35 PM Electronically Signed By:Ginny Pichardo
--- NOTE | 2018-11-01 16:27 | SOAPPROG ---
SOAP Progress Note Assessment/Plan: Assessment: 77 yo with h/o severe depression, w/ psychotic features in past. She has received ECT for depression, and has significant family hx of depression and completed suicides. She was BIB family to ED on 09/26/[address] Ayala's note on 10/31/18: Pt seen for continued acute course treatment. She is appropriately interactive. Convinced she is leaving tomorrow. Paranoia is better. Calmer, less irritable. Compliant with meds. Better groomed, guarded/suspicious, generally cooperative. Affect is irritable , stable. Mood is "better." TP is disorganized. TC reveals paranoid delusions. Underwent bilateral ECT without complication. Will CCM. WEEKEND PLAN: 11/01/18 16:23 1. Patient irritable and upset b/c she thought she was leaving today. However, she misunderstood Dr. Ayala's intention to d/c next Saturday. 2. Patient has been compliant with meds, except continues to refuse Estradiol. Norvasc was held last night d/t low BP. May need to have Norvasc dose adjusted. Will monitor. 3. Patient consents to one more week of acute ECT treatments and then transition to maintenance ECT. 4. STC Subjective: Patient thought she was going to be discharged today. She heard Dr. Ayala mention a possible Saturday d/c, but he meant next . Patient irritable and withdrawn to room. Objective: Vital Signs Temp Pulse Resp BP Pulse Ox 36.7 C 73 16 142/65 H 97 10/31/18 20:52 10/31/18 20:52 10/31/18 20:52 11/01/18 08:42 10/31/18 20:52 10/31/18 11/01/18 11/02/18 05:59 05:59 05:59 Intake Total 1050 Balance 1050 MSE: Affect: Irritable Mood: Angry TP: Mostly goal-directed TC: Denies SI/HI , less paranoid Insight/Judgment: Improved, but still poor - Time Spent With Patient Time Spent With Patient: 15" - Pending Discharge Pending Discharge Within 24 Hours: No Pending Discharge Within 48 Hours: No ICD10 Worksheet Patient Problems: Problems Problem Status Onset Paranoia Acute Abdominal pain Acute Acute kidney injury Acute Colitis Acute Constipation by delayed colonic transit Acute Depression Acute HTN (hypertension) Acute Ileus Acute Major depressive disorder, recurrent episode, severe, with psychosis Acute Obstipation Acute Renal mass Acute
[2018-11-01] MEDS: QUEtiapine FUMARATE 100 MG TAB PO SCH (22:04)
[2018-11-01] MEDS: ESTRADIOL 1 MG TAB PO SCH (22:14)
[2018-11-02] MEDS: amLODIPine BESYLATE 5 MG TAB PO SCH ×2 (08:24→21:11)
[2018-11-02] MEDS: CHOLECALCIFEROL VIT D3 1,000 UNITS TAB PO SCH (08:24)
[2018-11-02] MEDS: VENLAFAXINE XR 75 MG CAP PO SCH (08:24)
[2018-11-02] MEDS: ASPIRIN 81 MG CHEWABLE TAB PO SCH (08:24)
[2018-11-02] MEDS: VENLAFAXINE XR 150 MG CAP PO SCH (08:24)
[2018-11-02] MEDS: LEVOTHYROXINE 75 MCG TAB PO SCH (10:38)
--- NOTE | 2018-11-02 15:58 | ASMTCMCOM ---
CM Note CM Note Notes: Pt. reports feeling "very constipated". CC offered to get pt's RN, pt. declined. Pt. stated she slept "fine". Pt. reports no issues with her medications. Pt. reports getting enough to eat and attending groups. Pt. denied SI, HI, AVH and paranoia. Pt. requested to have AG privilege. Pt. presents as alert, uncomfortable, calm, passive, not appearing to want to talk, possibly showered, and somewhat cooperative. Staff report pt. sleeping 7.5 hours and refusing her Estradiol. CC to reach out to [facility], as patient will potentially discharge on Saturday, and secure follow up appointments. Date Signed: 11/02/2018 03:57 PM Electronically Signed By:Ginny Pichardo
--- NOTE | 2018-11-02 17:25 | SOAPPROG ---
SOAP Progress Note Assessment/Plan: Assessment: 77 yo with h/o severe depression, w/ psychotic features in past. She has received ECT for depression, and has significant family hx of depression and completed suicides. She was BIB family to ED on 09/26/[address] Ayala's note on 10/31/18: Pt seen for continued acute course treatment. She is appropriately interactive. Convinced she is leaving tomorrow. Paranoia is better. Calmer, less irritable. Compliant with meds. Better groomed, guarded/suspicious, generally cooperative. Affect is irritable , stable. Mood is "better." TP is disorganized. TC reveals paranoid delusions. Underwent bilateral ECT without complication. Will CCM. WEEKEND PLAN: 11/01/18 16:23 1. Patient irritable and upset b/c she thought she was leaving today. However, she misunderstood Dr. Ayala's intention to d/c next Saturday. 2. Patient has been compliant with meds, except continues to refuse Estradiol. Norvasc was held last night d/t low BP. May need to have Norvasc dose adjusted. Will monitor. 3. Patient consents to one more week of acute ECT treatments and then transition to maintenance ECT. 4. STC 11/02/18 17:21 1. Patient much calmer, more pleasant today. 2. Patient took shower and attended all groups today. 3. Patient still refuses Estradiol, but took all other meds today. 4. Ate only 45% of breakfast, which is still an improvement over last weekend. 5. Patient c/o constipation but declined stool softener and fiber supplement. 6. STC Subjective: Patient has been in much better spirits today. Yesterday she was irritable about staying in hospital for another week. Today, she showered and groomed herself and was pleasant to staff. She took all her medications except for Estradiol. She denies SI/HI. Objective: Vital Signs Temp Pulse Resp BP Pulse Ox 36.7 C 65 14 138/63 H 95 10/31/18 20:52 11/01/18 21:25 11/01/18 21:25 11/02/18 08:24 11/01/18 21:25 11/01/18 11/02/18 11/03/18 05:59 05:59 05:59 Intake Total 1050 Balance 1050 MSE: Affect: Flat Mood: "Good" TP: Mostly linear TC: Denies any SI/HI, less paranoid Insight/Judgment: Improved - Time Spent With Patient Time Spent With Patient: 15" - Pending Discharge Pending Discharge Within 24 Hours: No Pending Discharge Within 48 Hours: No ICD10 Worksheet Patient Problems: Problems Problem Status Onset Paranoia Acute Abdominal pain Acute Acute kidney injury Acute Colitis Acute Constipation by delayed colonic transit Acute Depression Acute HTN (hypertension) Acute Ileus Acute Major depressive disorder, recurrent episode, severe, with psychosis Acute Obstipation Acute Renal mass Acute
[2018-11-02] MEDS: QUEtiapine FUMARATE 100 MG TAB PO SCH (21:11)
[2018-11-02] MEDS: ESTRADIOL 1 MG TAB PO SCH (21:28)
[2018-11-03] MEDS ORDERED: THEOPHYLLINE ORAL SOLUTION 80 MG/15 ML UDCUP PO ONE (06:00)
[2018-11-03] MEDS: amLODIPine BESYLATE 5 MG TAB PO SCH ×3 (06:15→21:44)
[2018-11-03] MEDS ORDERED: ONDANSETRON DISINTEGRATING 4 MG TAB ONE (07:38)
[2018-11-03] MEDS ORDERED: CITRIC ACID/SODIUM CITRATE 30 ML UDCUP ONE (07:38)
[2018-11-03] MEDS: CITRIC ACID/SODIUM CITRATE 30 ML UDCUP PO PRN (07:58)
[2018-11-03] MEDS: NS 1,000 ML IV PRN (07:58)
[2018-11-03] MEDS ORDERED: LIDOCAINE 2% 5 ML SDV ONE (08:07)
[2018-11-03] MEDS ORDERED: ONDANSETRON DISINTEGRATING 4 MG TAB PO PRN (08:20)
[2018-11-03] MEDS ORDERED: NS 1,000 ML IV PRN (08:20)
[2018-11-03] MEDS ORDERED: CITRIC ACID/SODIUM CITRATE 30 ML UDCUP PO PRN (08:20)
[2018-11-03] MEDS ORDERED: ONDANSETRON 4 MG/2 ML VIAL ONE (08:21)
[2018-11-03] MEDS ORDERED: PROPOFOL 200 MG/20 ML VIAL ONE (08:21)
[2018-11-03] MEDS ORDERED: GLYCOPYRROLATE 0.2 MG/1 ML VIAL ONE (08:21)
[2018-11-03] MEDS ORDERED: fentaNYL 100 MCG/2 ML INJ ONE (08:21)
[2018-11-03] MEDS ORDERED: SUCCINYLCHOLINE CHLORIDE 200 MG/10 ML VIAL ONE (08:22)
[2018-11-03] MEDS ORDERED: ROCURONIUM 50 MG/5 ML VIAL ONE (08:22)
[2018-11-03] MEDS ORDERED: METHOHEXITAL SODIUM 100 MG/10 ML SYR IVP ONE (08:23)
--- NOTE | 2018-11-03 08:24 | PDECTPN ---
ECT Progress Note Patient Problems: Problems Problem Status Onset Code Paranoia Acute F22 Abdominal pain Acute R10.9 Acute kidney injury Acute N17.9 Colitis Acute K52.9 Constipation by delayed colonic transit Acute K59.01 Depression Acute F32.9 HTN (hypertension) Acute I10 Ileus Acute K56.7 Major depressive disorder, recurrent episode, severe, with psychosis Acute F33.3 Obstipation Acute K59.00 Renal mass Acute N28.89 Date: 11/03/18 ECT provider: Jesus Ayala Anesthesia: Akira Olmstead Stimulus dose (%): 100 Pulse width: 0.5 ECT EMG (sec): 23 ECT EEG (sec): 48 ECT treatment type: bilateral QIDS-SR Total Score: 8 QIDS-SR Question #12 Score: 2 MMSE Total Score (Max = 21): 20 Next ECT date: 11/05/18 Home medications: Medication Instructions Recorded Estradiol [Estradiol 1 MG (*)] 0.5 mg PO HS 01/12/18 Venlafaxine Xr [Effexor Xr] 150 mg PO DAILY 01/12/18 Aspirin [Aspirin 81mg (*)] 81 mg PO DAILY 07/25/18 Cholecalciferol Vit D3 [Vitamin D3 1,000 units PO DAILY 07/25/18 (*)] Levothyroxine [Synthroid 50 mcg 50 mcg PO HS 07/25/18 (*)] Quetiapine Fumarate 75 mg PO HS 07/25/18 Venlafaxine Xr [Effexor Xr 75MG 75 mg PO DAILY 07/30/18 (*)] ALPRAZolam [Xanax 0.25 MG (*)] 0.5 mg PO BID PRN tab 08/11/18 Acetaminophen [Tylenol ES 500 mg 500 - 1,000 mg PO Q6 PRN 09/05/18 (*)] amLODIPine BESYLATE [Norvasc 2.5 2.5 mg PO BID 09/05/18 mg (*)] Current treatment plan: acute phase Treatment plan frequency: 3 times per week ECT narrative: Pt seen for continued acute course treatment. She is appropriate and pleasantly interactive. Able to discuss discharge plan reasonably. Notes subjective improvements in mood and paranoia. Asks again how she came to be in the hospital. Adequately groomed, much less guarded, cooperative. Affect is euthymic, stable. Mood is "better." TP is disorganized. TC reveals no overt paranoid delusions. Underwent bilateral ECT without complication. Will CCM. Likely d/c this week with continued improvement.
[2018-11-03] MEDS: ASPIRIN 81 MG CHEWABLE TAB PO SCH (10:53)
[2018-11-03] MEDS: VENLAFAXINE XR 150 MG CAP PO SCH (10:53)
[2018-11-03] MEDS: VENLAFAXINE XR 75 MG CAP PO SCH (10:53)
[2018-11-03] MEDS: CHOLECALCIFEROL VIT D3 1,000 UNITS TAB PO SCH (10:54)
--- NOTE | 2018-11-03 12:16 | ASMTCMCOM ---
CM Note CM Note Notes: Client continues to do well with ECT treatment. Client has treatment today, Sat, and Saturday. Depending on how ell client responses to treatment, potential discharge maybe Saturday or Saturday. Date Signed: 11/03/2018 12:16 PM Electronically Signed By:Rancho Campos
[2018-11-03] MEDS: LEVOTHYROXINE 75 MCG TAB PO SCH (12:37)
[2018-11-03] MEDS: QUEtiapine FUMARATE 100 MG TAB PO SCH (21:43)
[2018-11-04] MEDS: VENLAFAXINE XR 75 MG CAP PO SCH (08:40)
[2018-11-04] MEDS: CHOLECALCIFEROL VIT D3 1,000 UNITS TAB PO SCH (08:40)
[2018-11-04] MEDS: amLODIPine BESYLATE 5 MG TAB PO SCH ×2 (08:41→21:45)
[2018-11-04] MEDS: VENLAFAXINE XR 150 MG CAP PO SCH (08:41)
[2018-11-04] MEDS: ASPIRIN 81 MG CHEWABLE TAB PO SCH (08:41)
[2018-11-04] MEDS: LEVOTHYROXINE 75 MCG TAB PO SCH (10:01)
--- NOTE | 2018-11-04 13:23 | ASMTCMCOM ---
CM Note CM Note Notes: Client continues to do well with ECT treatment, interacting with peers and staff on the unit in a positive manner. Client has treatment on Sat, and Saturday. Depending on how well client responses to treatment, potential discharge maybe Saturday or Saturday. Date Signed: 11/04/2018 01:23 PM Electronically Signed By:Rancho Campos
[2018-11-04] MEDS: QUEtiapine FUMARATE 100 MG TAB PO SCH (21:45)
[2018-11-05] MEDS ORDERED: THEOPHYLLINE ORAL SOLUTION 80 MG/15 ML UDCUP PO ONE (05:00)
[2018-11-05] MEDS ORDERED: NS 1,000 ML IV PRN (05:00)
[2018-11-05] MEDS ORDERED: CITRIC ACID/SODIUM CITRATE 30 ML UDCUP PO PRN (05:00)
[2018-11-05] MEDS ORDERED: ONDANSETRON DISINTEGRATING 4 MG TAB PO PRN (05:00)
[2018-11-05] MEDS: amLODIPine BESYLATE 5 MG TAB PO SCH ×3 (05:06→21:43)
[2018-11-05] MEDS ORDERED: ONDANSETRON DISINTEGRATING 4 MG TAB ONE (06:40)
[2018-11-05] MEDS ORDERED: CITRIC ACID/SODIUM CITRATE 30 ML UDCUP ONE (06:40)
[2018-11-05] MEDS: NS 1,000 ML IV PRN (07:04)
[2018-11-05] MEDS: CITRIC ACID/SODIUM CITRATE 30 ML UDCUP PO PRN (07:05)
[2018-11-05] MEDS ORDERED: fentaNYL 100 MCG/2 ML INJ ONE (07:18)
[2018-11-05] MEDS ORDERED: ROCURONIUM 50 MG/5 ML VIAL ONE (07:18)
[2018-11-05] MEDS ORDERED: ONDANSETRON 4 MG/2 ML VIAL ONE (07:18)
[2018-11-05] MEDS ORDERED: PROPOFOL 200 MG/20 ML VIAL ONE (07:18)
[2018-11-05] MEDS ORDERED: GLYCOPYRROLATE 0.2 MG/1 ML VIAL ONE (07:18)
[2018-11-05] MEDS ORDERED: SUCCINYLCHOLINE CHLORIDE 200 MG/10 ML VIAL ONE (07:19)
[2018-11-05] MEDS ORDERED: METHOHEXITAL SODIUM 100 MG/10 ML SYR IVP ONE (07:19)
--- NOTE | 2018-11-05 07:20 | PDANEPAE ---
ECT Pre Anesthetic Evaluation Allergies/Adverse Reactions: ephedrine [Ephedrine] Allergy (Severe, Verified 09/26/18 15:18) Vomiting morphine [Morphine] Allergy (Severe, Verified 09/26/18 15:18) Vomiting prednisone [Prednisone] Allergy (Severe, Verified 09/26/18 15:18) Other-Enter Comments prochlorperazine edisylate [From Compazine] Allergy (Verified 09/26/18 15:18) Swelling/neck,face,throat prochlorperazine maleate [From Compazine] Allergy (Verified 09/26/18 15:18) Swelling/neck,face,throat Sulfa (Sulfonamide Antibiotics) Allergy (Verified 09/26/18 15:18) Rash Patient ID confirmed: Yes H&P reviewed: Yes Pre-anesthetic history reviewed: Yes Heart: regular rate and rhythym Lungs: no respiratory distress Mallampati Score: Class 1 ASA Status: II Home Medications: Medication Instructions Recorded Estradiol [Estradiol 1 MG (*)] 0.5 mg PO HS 01/12/18 Venlafaxine Xr [Effexor Xr] 150 mg PO DAILY 01/12/18 Aspirin [Aspirin 81mg (*)] 81 mg PO DAILY 07/25/18 Cholecalciferol Vit D3 [Vitamin D3 1,000 units PO DAILY 07/25/18 (*)] Levothyroxine [Synthroid 50 mcg 50 mcg PO HS 07/25/18 (*)] Quetiapine Fumarate 75 mg PO HS 07/25/18 Venlafaxine Xr [Effexor Xr 75MG 75 mg PO DAILY 07/30/18 (*)] ALPRAZolam [Xanax 0.25 MG (*)] 0.5 mg PO BID PRN tab 08/11/18 Acetaminophen [Tylenol ES 500 mg 500 - 1,000 mg PO Q6 PRN 09/05/18 (*)] amLODIPine BESYLATE [Norvasc 2.5 2.5 mg PO BID 09/05/18 mg (*)] Medication review: completed Patient interviewed: Yes Patient examined: Yes Anesthetic plan discussed with patient: Yes Anesthetic risks discussed with patient: Yes ECT Pre-Anesthetic History - Height & Weight Height: 172.72 cm Weight: 64.41 kg BMI: 21.60 - Anesthesia History Hx Anesthesia Complications (with details): NONE Family Hx Anesthesia Complications: NONE - Medications In the Past 6 Months the Patient Has Taken: Aspirin, Thyroid Medication, Narcotics, Blood Pressure Medication - Tobacco/Alcohol/Drug Use Smoking Status: Former smoker Hx Drug/Substance Abuse: No Alcohol Use: Yes (very occassional) - Prior Surgeries/Hospitalizations Prior Surgeries: FLEX SIG AT [facility] [place] 05/2017. BACK SURG '81 LUMBAR. DEEPAK . HYST . BLADDER PROLAPSE SURG 2012. BIANCA CATARACT. APPENDECTOMY. COLOSTOMY. half of colon removed 01/2018. reverse ostomy 07/28/18 Prior Medical Hospitalizations: ICU for one month December-January 2018 r/t colitis - Pulmonary History ECT Hx Asthma: No Hx Abnormal Chest X-Ray: No Hx Oxygen in Use at Home: No - Cardiovascular History Hx Hypertension: Yes Currently Uses Hypertension Medication: Yes Hx Arrhythmias: No Hx Palpitations: No Hx Chest Pain: No Hx Coronary Artery / Peripheral Vascular Disease: No Hx Blood Clot: No - Neurologic History Hx Cerebrovascular Accident: No Hx CT Scan Or MRI Of The Brain: Yes Hx Epilepsy, Convulsions, Seizures, Or Blackouts: No Hx Frequent Or Severe Headaches: Yes Hx Numbness: No Hx Neurologic Disorder: No Neurologic History Comment: Head CT 09/26/18. migraines - Dental History Current Dental Issues: None - Endocrine History Hx Diabetes: No Current Daily Insulin Injections: No Hx Thyroid Problems: Yes Endocrine History Comment: taking levothyroxine - Renal/Urologic History Hx Renal Disorders: Yes Hx Urinary Tract Problems: No Renal/Urologic History Comment: kidney stones - Liver History Hx Hepatic Disorders: No - Cancer History Hx Cancer: Yes Cancer History Comment: basal cell carcinoma - Hematology History Hx Unexplained Bleeding Of Any Type: No Hx Ease Of Bruising: Yes Hx Anemia: No Hematology History Comment: bruising associated with blood draws - Gastrointestinal History Hx Gastroesophogeal Reflux Disease: No Hx Ulcers: No Hx Hiatal Hernia: No Hx Difficulty Swallowing: Yes Gastrointestinal History Comment: difficulty swallowing after intubation - Musculoskeletal Hisory Hx Chronic Pain: Yes Chronic Pain Location: Back, Neck Hx Arthritis: No Musculoskeletal History Comment: back and neck chronic pain not current - Opthalmic History Hx Glaucoma: No Visual Assistive Devices: Glasses Hx Opthalmic Disorders: No - Other Health History Physical Disabililty: Yes (cervical dystonia) Recent Cough, Cold, or Fever: No Significant Weight Loss In The Last 4 Months: No Possible the Patient Might be : No
--- NOTE | 2018-11-05 07:43 | PDECTPN ---
ECT Progress Note Patient Problems: Problems Problem Status Onset Code Paranoia Acute F22 Abdominal pain Acute R10.9 Acute kidney injury Acute N17.9 Colitis Acute K52.9 Constipation by delayed colonic transit Acute K59.01 Depression Acute F32.9 HTN (hypertension) Acute I10 Ileus Acute K56.7 Major depressive disorder, recurrent episode, severe, with psychosis Acute F33.3 Obstipation Acute K59.00 Renal mass Acute N28.89 Date: 11/05/18 ECT provider: Jesus Ayala Anesthesia: Akira Olmstead Stimulus dose (%): 100 Pulse width: 0.5 ECT EMG (sec): 26 ECT EEG (sec): 50 ECT treatment type: bilateral QIDS-SR Total Score: 8 QIDS-SR Question #12 Score: 0 MMSE Total Score (Max = 21): 20 Next ECT date: 11/12/18 Next ECT time: 08:30 Home medications: Medication Instructions Recorded Estradiol [Estradiol 1 MG (*)] 0.5 mg PO HS 01/12/18 Venlafaxine Xr [Effexor Xr] 150 mg PO DAILY 01/12/18 Aspirin [Aspirin 81mg (*)] 81 mg PO DAILY 07/25/18 Cholecalciferol Vit D3 [Vitamin D3 1,000 units PO DAILY 07/25/18 (*)] Levothyroxine [Synthroid 50 mcg 50 mcg PO HS 07/25/18 (*)] Quetiapine Fumarate 75 mg PO HS 07/25/18 Venlafaxine Xr [Effexor Xr 75MG 75 mg PO DAILY 07/30/18 (*)] ALPRAZolam [Xanax 0.25 MG (*)] 0.5 mg PO BID PRN tab 08/11/18 Acetaminophen [Tylenol ES 500 mg 500 - 1,000 mg PO Q6 PRN 09/05/18 (*)] amLODIPine BESYLATE [Norvasc 2.5 2.5 mg PO BID 09/05/18 mg (*)] Medication review: completed Current treatment plan: acute phase Treatment plan frequency: 3 times per week ECT narrative: Pt seen for continued acute course treatment. She is appropriate and pleasantly interactive. Discussed again the plan of care and she is motivated to go home [place]. Continues to do well with good cognition, appropriate interactions with staff, no episodes of irritability or hostility. Paranoia appears to be in good control as well. Eating and drinking well. No physical c /o's. Adequately groomed, pleasant, cooperative. Affect is euthymic, smiling, stable. Mood is "good." TP is disorganized. TC reveals no overt paranoid delusions. Underwent bilateral ECT without complication. Will CCM including d/c planning.
[2018-11-05] MEDS ORDERED: LIDOCAINE 2% 5 ML SDV ONE (07:53)
--- NOTE | 2018-11-05 07:54 | SOAPPROG ---
SOAP Progress Note Assessment/Plan: Assessment: Plan: 09/29/18 16:27 Mood: stable. Cognition is good. No notable psychosis. No observed confusion. Will CCM, await word from Dr. Bhatti. 09/30/18 16:25 Mood: Perhaps worse today. Will increase SQL to 100mg, monitor. 10/01/18 15:31 Mood: Clearly declining. I agree with Dr. Bhatti that most definitive intervention at this time is ECT. Will discuss with patient and her daughter tomorrow. 10/02/18 16:19 Mood: Continued decline. Will begin ECT tomorrow. 10/06/18 09:38 Mood: More paranoid. Refusing ECT due to delusions. Will increase SQL to 200mg to address psychosis. Will continue to encourage patient to do ECT. If no success, will petition court for involuntary treatment. 10/06/18 12:53 Mood: Remains paranoid. Indicator of declining mood. Will plan to treat on Saturday. 10/07/18 13:52 Mood: Remains severely depressed with psychosis. Will offer ECT again tomorrow and petition court for involuntary treatment. 10/09/18 15:12 Mood: No lasting change after first ECT. Hope to continue acute course. 10/16/18 13:48 Mood: Remains quite ill. Will continue involuntary ECT on an emergency basis. Await scheduling of hearing. 10/21/18 11:25 Mood: Gradual improvement. CCM. 10/23/18 12:20 Mood: Continued gradual improvement. CCM. 10/28/18 14:06 Mood: Continued improvement. [facility]. Hope to see pt begin to take SQL. 10/30/18 14:24 Mood: Doing very well. Psychosis improving. [facility]. Subjective: LATE ENTRY FOR 11/04/18 Pt seen, discussed with staff. Upbeat, alert, interactive. Able to discuss discharge plan appropriately with no evidence of residual paranoia. Compliant with all treatments, though asks to d/c estradiol as she has been refusing this consistently. Calm, coop. Affect is bright, smiling, approp., stable. Mood is "good." TP is linear. TC reveals no psychosis. A&Ox4, sensorium is clear. Doing very well. Will conclude acute course after tomorrow's treatment. Finalize d/c plan. Objective: Vital Signs Temp Pulse Resp BP Pulse Ox 36.7 C 99 16 127/50 H 95 11/05/18 07:07 11/05/18 07:07 11/05/18 07:07 11/05/18 07:07 11/05/18 07:07 11/04/18 11/05/18 11/06/18 05:59 05:59 05:59 Intake Total 500 Output Total 0 Balance 500 - Time Spent With Patient Time Spent With Patient: 25" ICD10 Worksheet Patient Problems: Problems Problem Status Onset Paranoia Acute Abdominal pain Acute Acute kidney injury Acute Colitis Acute Constipation by delayed colonic transit Acute Depression Acute HTN (hypertension) Acute Ileus Acute Major depressive disorder, recurrent episode, severe, with psychosis Acute Obstipation Acute Renal mass Acute
[2018-11-05] MEDS ORDERED: ACETAMINOPHEN 325 MG TAB ONE (08:33)
[2018-11-05] MEDS: ACETAMINOPHEN 325 MG TAB PO PRN (08:33)
[2018-11-05] MEDS: ASPIRIN 81 MG CHEWABLE TAB PO SCH (09:28)
[2018-11-05] MEDS: VENLAFAXINE XR 75 MG CAP PO SCH (09:28)
[2018-11-05] MEDS: LEVOTHYROXINE 75 MCG TAB PO SCH (09:28)
[2018-11-05] MEDS: CHOLECALCIFEROL VIT D3 1,000 UNITS TAB PO SCH (09:28)
[2018-11-05] MEDS: VENLAFAXINE XR 150 MG CAP PO SCH (09:28)
--- NOTE | 2018-11-05 11:53 | ASMTBHDC ---
Notes Note: Notes: CC confirmed client's follow up appts: Follow up with: [facility] [address], [address] [place] [address], [place] [address] Next Medication Appt: November 14 (11/14/18) at 11:15am at (above address) with Dr. Dexter Bhatti. Next Therapist Appt: November 18 (11/18/18) at 12:50pm with Obie Jarvis. Date Signed: 11/05/2018 11:52 AM Electronically Signed By:Rancho Campos
--- NOTE | 2018-11-05 12:11 | ASMTBHDC ---
Notes Note: Notes: CC was able to out-reach client's living facility ([facility]). Left a VM with Luisa including all necessary return contact information as well as a "heads up," of client's up coming discharge on Saturday.* Date Signed: 11/05/2018 12:10 PM Electronically Signed By:Rancho Campos
[2018-11-05] MEDS: QUEtiapine FUMARATE 100 MG TAB PO SCH (21:40)
[2018-11-06] MEDS: VENLAFAXINE XR 150 MG CAP PO SCH (08:38)
[2018-11-06] MEDS: amLODIPine BESYLATE 5 MG TAB PO SCH ×2 (08:38→21:20)
[2018-11-06] MEDS: CHOLECALCIFEROL VIT D3 1,000 UNITS TAB PO SCH (08:38)
[2018-11-06] MEDS: ASPIRIN 81 MG CHEWABLE TAB PO SCH (08:38)
[2018-11-06] MEDS: VENLAFAXINE XR 75 MG CAP PO SCH (08:39)
[2018-11-06] MEDS: LEVOTHYROXINE 75 MCG TAB PO SCH (10:00)
--- NOTE | 2018-11-06 12:37 | SOAPPROG ---
SOAP Progress Note Assessment/Plan: Assessment: Plan: 09/29/18 16:27 Mood: stable. Cognition is good. No notable psychosis. No observed confusion. Will CCM, await word from Dr. Bhatti. 09/30/18 16:25 Mood: Perhaps worse today. Will increase SQL to 100mg, monitor. 10/01/18 15:31 Mood: Clearly declining. I agree with Dr. Bhatti that most definitive intervention at this time is ECT. Will discuss with patient and her daughter tomorrow. 10/02/18 16:19 Mood: Continued decline. Will begin ECT tomorrow. 10/06/18 09:38 Mood: More paranoid. Refusing ECT due to delusions. Will increase SQL to 200mg to address psychosis. Will continue to encourage patient to do ECT. If no success, will petition court for involuntary treatment. 10/06/18 12:53 Mood: Remains paranoid. Indicator of declining mood. Will plan to treat on Saturday. 10/07/18 13:52 Mood: Remains severely depressed with psychosis. Will offer ECT again tomorrow and petition court for involuntary treatment. 10/09/18 15:12 Mood: No lasting change after first ECT. Hope to continue acute course. 10/16/18 13:48 Mood: Remains quite ill. Will continue involuntary ECT on an emergency basis. Await scheduling of hearing. 10/21/18 11:25 Mood: Gradual improvement. CCM. 10/23/18 12:20 Mood: Continued gradual improvement. CCM. 10/28/18 14:06 Mood: Continued improvement. CCM. Hope to see pt begin to take SQL. 10/30/18 14:24 Mood: Doing very well. Psychosis improving. CCM. 11/06/18 12:37 Mood: Continued improvement. CCM. Subjective: Pt seen, discussed with staff. Remains upbeat, pleasant, interactive. Looking forward to going home. Daughters plan to pick her up around noon tomorrow. Cognition remains good. RN identifies no specific home nursing needs in [facility] setting. Objective: Vital Signs Temp Pulse Resp BP Pulse Ox 36.6 C 68 14 138/63 H 93 11/05/18 22:29 11/05/18 22:29 11/05/18 22:29 11/05/18 22:29 11/05/18 22:29 11/05/18 11/06/18 11/07/18 05:59 05:59 05:59 Intake Total 450 Output Total 0 Balance 450 MSE: Calm, coop. Affect is bright, full. Mood is "good." TP is linear. TC reveals no psychosis. A&Ox4, cognition is good. - Time Spent With Patient Time Spent With Patient: 15" ICD10 Worksheet Patient Problems: Problems Problem Status Onset Paranoia Acute Abdominal pain Acute Acute kidney injury Acute Colitis Acute Constipation by delayed colonic transit Acute Depression Acute HTN (hypertension) Acute Ileus Acute Major depressive disorder, recurrent episode, severe, with psychosis Acute Obstipation Acute Renal mass Acute
--- NOTE | 2018-11-06 13:51 | ASMTCMCOM ---
CM Note CM Note Notes: CC checked in with ct. who is being discharged tomorrow. Ct. reported that she is excited about discharge. Her appearance and her affect is much improved Date Signed: 11/06/2018 01:49 PM Electronically Signed By:Jaelyn Kelly
[2018-11-06] MEDS: QUEtiapine FUMARATE 100 MG TAB PO SCH (21:20)
[2018-11-07 08:12] VITALS: BP 115/57
[2018-11-07] MEDS: CHOLECALCIFEROL VIT D3 1,000 UNITS TAB PO SCH (09:04)
[2018-11-07] MEDS: VENLAFAXINE XR 150 MG CAP PO SCH (09:05)
[2018-11-07] MEDS: ASPIRIN 81 MG CHEWABLE TAB PO SCH (09:05)
[2018-11-07] MEDS: amLODIPine BESYLATE 5 MG TAB PO SCH (09:06)
[2018-11-07] MEDS: VENLAFAXINE XR 75 MG CAP PO SCH (09:06)
[2018-11-07] MEDS: LEVOTHYROXINE 75 MCG TAB PO SCH (09:39)
--- NOTE | 2018-11-07 10:54 | ASMTCMCOM ---
CM Note CM Note Notes: Ct. was seen during morning rounds. She reported "feeling pretty good, looking forward to going home". Ct. will be discharge before noon. Daughters are picking her up. She has an ECT scheduled for 11/12/18. Date Signed: 11/07/2018 10:52 AM Electronically Signed By:Jaelyn Kelly
== END 2018-11-07 12:10 | disposition home or self-care (01) | DRG 885 ==
LOC: BBEH 23:10
PROVIDERS: ADMIT Psychiatry & Neurology Psychiatry; ATTEND Psychiatry & Neurology Psychiatry
PROC: GZB2ZZZ Electroconvulsive Therapy, Bilateral-Single Seizure (ICD-10-PCS; principal; 2018-10-08)
DX: F33.3 Major depressive disorder, recurrent, severe with psychotic symptoms (principal); E03.9 Hypothyroidism, unspecified; I10 Essential (primary) hypertension; K58.9 Irritable bowel syndrome, unspecified; Z87.891 Personal history of nicotine dependence
CPT/HCPCS: G0480; J0330; J1885; J2405; J2704; J3010

== ENCOUNTER → 2019-01-21 | Outpatient (CLI) | payer OTHER, BC | LOC: FIMAGING 12:12 ==